=== PATIENT | female | born 1940 | race Caucasian/White ===

== ENCOUNTER 2018-07-26 20:38 | Inpatient (IN) | payer OTHER ==
[2018-07-26 21:52] LABS: Absolute Lymphocytes (CBC) 1.7 K/uL (0.7-4.9); Absolute Monocytes 0.4 K/uL (0.1-1.3); Absolute Neutrophil 6.5 K/uL (1.8-8.0); Basophils % 1.1 % (0-1.3); Eosinophils % 1.6 % (0-4.4); Hematocrit 41.6 % (36.0-45.0); Lymphocytes % 19.1 % (15.3-44.8); MCH 30.6 pg (27.0-35.0); MCV 94.5 fL (80-100); MPV 9.8 fL (7.6-11.3); Monocytes % 4.6 % (3.3-12.3)
[2018-07-26 22:01] LABS: Protime INR 0.97
--- NOTE | 2018-07-26 22:06 | RAD REPORT ---
EXAM DESCRIPTION: CT - Ct Stroke Brain Wo Cont - 07/26/2018 9:56 pm CLINICAL HISTORY: Set headache, slurred speech, history of TIA CLINICAL HISTORY: CT head September 2016 TECHNIQUE: Axial 5 millimeter thick images of the head were obtained without IV contrast. All CT scans are performed using dose optimization technique as appropriate and may include automated exposure control or mA/KV adjustment according to patient size. FINDINGS: No intracranial hemorrhage, mass, or cerebral edema. No acute cortical based infarction. A trophy changes are mild for age. Patient has advanced chronic ischemic change throughout the cerebral hemispheric white matter and extending into thalamus and basal ganglia. Significant brainstem chroni c ischemic change also present. Ventricles are in proportion to volume loss. Visualized portions of the mastoid air cells, paranasal sinuses, and orbits are unremarkable. IMPRESSION: No hemorrhage and no acute cortical based infarction. Mild atrophy and advanced chronic ischemic change. Findings are similar to October 2016. Chronic ischemic changes can mask nonhemorrhagic acute infarction. MR brain followup can be obtained if there is ongoing concern for acute ischemia.
[2018-07-26 22:10] LABS: BUN Blood Urea Nitrogen 14 mg/dL (7-18); Bicarbonate 28 mmol/L (21-32); Glucose Level 146 mg/dL (74-106); Potassium 3.9 mmol/L (3.5-5.1); Sodium Level 143 mmol/L (136-145); Troponin (Emerg Dept Use Only) < 0.02 ng/mL (0.0-0.045)
[2018-07-26] MEDS ORDERED: ACETAMINOPHEN 500 MG TAB ONE (23:40)
[2018-07-26] MEDS ORDERED: NA CHLORIDE 0.9% 1,000 ML IV SCH (23:45)
--- NOTE | 2018-07-26 23:56 | ER ---
Nurse's Notes [facility] Name: Jenny Douglas Age: 77 yrs Sex: Female : 1940 Arrival Date: 07/26/2018 Time: 20:40 Bed 4 Private MD: Diagnosis: Acute Dizziness;Slurred speech Presentation: 07/26 20:45 Presenting complaint: Patient states: "I have had a headache all day, I think a lot of aj1 it is my sinuses" Patient's granddaughter states that when she got home she noticed the patient was slurring her words and putting her shoes on backwards. Reports that patient has had multiple TIAs so she was concerned and brought her to the ER. Reports that symptoms are currently resolved. Speech is clear, electric switch repairer are equal bilaterally, patient moves all extremities with no drift or weakness. She occasionally has to pause to think about what word she is trying to use. Last known normal was 10:30 this morning. Transition of care: patient was not received from another setting of care. Onset of symptoms was July 26, 2018 at 10:30. Risk Assessment: Do you want to hurt yourself or someone else? Patient reports no desire to harm self or others. Initial Sepsis Screen: Does the patient meet any 2 criteria? No. Patient's initial sepsis screen is negative. Does the patient have a suspected source of infection? No. Patient's initial sepsis screen is negative. Care prior to arrival: None. 20:45 Method Of Arrival: Wheelchair aj1 20:45 Acuity: ADRIANNA 3 aj1 21:09 No acute neurological deficit is noted. aj1 21:44 Pre-hospital glucose is not applicable to this patient. ak1 Triage Assessment: 20:45 The onset of the patients symptoms was at an unknown time. General: Appears in no aj1 apparent distress. comfortable, Behavior is calm, cooperative, appropriate for age. Pain: Complains of pain in face. Neuro: Level of Consciousness is awake, alert, obeys commands, Superintendent Recreation are equal bilaterally Moves all extremities. Full function Speech is normal, Facial symmetry appears normal, Reports slurred speech that is now resolved. Cardiovascular: Patient's skin is warm and dry. Respiratory: Airway is patent Respiratory effort is even, unlabored, Respiratory pattern is regular, symmetrical. 21:44 The onset of the patients symptoms was July 26, 2018 at 10:30. ak1 Stroke Activation: Symptom onset > 6 hours Physician: Stroke Attending; Name: ; Notified At: ; Arrived At: Physician: Chief Stroke Resident; Name: ; Notified At: ; Arrived At: Physician: Stroke Resident; Name: ; Notified At: ; Arrived At: Physician: ED Attending; Name: ; Notified At: ; Arrived At: Physician: ED Resident; Name: ; Notified At: ; Arrived At: Historical: - Allergies: 21:03 Zocor; aj1 21:03 Celebrex; aj1 - Home Meds: 21:06 aspirin 325 mg Oral TbEC 1 tab once daily [Active]; hydrochlorothiazide 12.5 mg Oral aj1 cap 1 cap once daily [Active]; Lipitor 80 mg Oral tab 1 tab once daily [Active]; Plavix 75 mg Oral tab 1 tab once daily [Active]; Vitamin B-12 500 mcg Oral TbER [Active]; Vitamin C 500 mg Oral cpER [Active]; zedia [Active]; - PMHx: 21:06 COPD; Myocardial infarction; TIA; Hyperlipidemia; Hypertension; aj1 - PSHx: 21:06 triple bypass; aj1 - Immunization history:: Flu vaccine is not up to date. - Social history:: Smoking status: Patient uses tobacco products, 3 cigarettes per day. - Ebola Screening: : Patient denies travel to an Ebola-affected area in the 21 days before illness onset. - Family history:: not pertinent. - Hospitalizations: : No recent hospitalization is reported. Screenin:44 Abuse screen: Denies threats or abuse. Denies injuries from another. Nutritional ak1 screening: No deficits noted. Tuberculosis screening: No symptoms or risk factors identified. Fall Risk None identified. Assessment: 21:43 Patient has been NPO before screening. The patient is alert, and able to follow ak1 commands. The patient does not exhibit slurred or garbled speech. The patient is not exhibiting difficulty speaking. The patient does not exhibit difficulty understanding words. The patient is able to swallow own secretions with no drooling or need for suction. Patient tolerated one teaspoon of water. No drooling, immediate coughing, gurgling, or clearing of the throat was noted. The patient tolerated 90mL of water. No drooling, immediate coughing, gurgling, or clearing of the throat was noted. The patient passed the bedside swallow screening. Oral medications may be given as ordered. Contact Physician for further diet orders. Provider notified of bedside swallow screening results: Anirudh Dalal MD. T-PA (Activase) Screening: Contraindications: Patient reports onset of signs and symptoms of stroke greater than 6 hours ago: Yes. 22:08 Reassessment: Patient appears in no apparent distress at this time. pt s/s resolved ak1 since arriving to ER. pt ambulatory with steady gait. pt taken and returned from CT. Vital Signs: 20:45 BP 158 / 97; Pulse 76; Resp 18; Temp 97.9; Pulse Ox 98% on R/A; Weight 56.7 kg (R); aj1 Height 5 ft. 7 in. (170.18 cm) (R); 22:09 BP 161 / 61; Pulse 61; Resp 16; Pulse Ox 98% on R/A; ak1 23:57 BP 158 / 58; Pulse 57; Resp 20; Temp 97.9; Pulse Ox 98% on R/A; Pain 0/10; ak1 20:45 Body Mass Index 19.58 (56.70 kg, 170.18 cm) aj1 NIH Stroke Scale Scores: 21:00 NIHSS Score: 0 aj1 ED Course: 20:40 Patient arrived in ED. al2 20:45 Arm band placed on Patient placed in an exam room, Patient Patient was triaged in bed 2.aj1 21:00 Sharifa Leal, RN is Primary Nurse. ak1 21:01 Triage completed. aj1 21:01 Inserted saline lock: 20 gauge in left forearm, using aseptic technique. ak1 21:04 Anirudh Dalal MD is Attending Physician. wa 21:[address] jj2 21:45 Patient has correct armband on for positive identification. Placed in gown. Bed in low ak1 position. Call light in reach. Side rails up X 1. Adult w/ patient. bus monitor on. Pulse ox on. NIBP on. 21:55 CT Stroke Brain w/o Contrast In Process Unspecified. EDMS 22:03 Stroke CXR 1 View In Process Unspecified. EDMS 23:54 Thiago Levi MD is Hospitalizing Provider. wa 07/27 00:45 No provider procedures requiring assistance completed. Patient admitted, IV remains in ak1 place. Administered Medications: 07/26 23:35 Drug: Tylenol 1000 mg Route: PO; jd3 07/27 00:46 Follow up: Response: No adverse reaction ak1 Point of Care Testing: Blood Glucose: 07/26 21:00 Blood Glucose: 157 mg/dL; ak1 Ranges: Outcome: 23:55 Decision to Hospitalize by Provider. mirtha 07/27 00:45 Admitted to Med/surg accompanied by nurse, family with patient, via wheelchair, room ak1 405, with chart, Report called to viridiana Condition: good Instructed on the need for admit. 01:13 Patient left the ED. ak1 NIH Stroke Scale - NIH Stroke Score Date: 07/26/2018 Time: 21:00 Total Score = 0 1a. Level of Consciousness (LOC) - 0(Alert) 1b. Level of Consciousness (LOC) (Year \\T\\ Age) - 0(Both) 1c. LOC Commands (Open \\T\\ Closes Eyes/Oil Rig Driller) - 0(Both) 2. Best Gaze (Lateral Gaze Paresis) - 0(Normal) 3. Visual Field Loss - 0(No visual loss) 4. Facial Palsy - 0(Normal) 5a. Left Arm: Motor (10-second hold) - 0(No drift) 5b. Right Arm: Motor (10-second hold) - 0(No drift) 6a. Left Leg: Motor (5-second hold - always test supine) - 0(No drift) 6b. Right Leg: Motor (5-second hold - always test supine) - 0(No drift) 7. Limb Ataxia (finger/nose \\T\\ heel/amador - test with eyes open) - 0(Absent) 8. Sensory Loss (pinprick arms/legs/face) - 0(Normal) 9. Best Language: Aphasia (description/naming/reading) - 0(No aphasia) 10. Dysarthria (speech clarity - read or repeat words) - 0(Normal) 11. Extinction and Inattention (visual/tactile/auditory/spatial/personal) - 0(No abnormality) Initials: aj1 Signatures: Dispatcher [employer] EDMS Trista Ayala RN RN aj1 Jason Long Amber, RN RN ak1 Mulugeta, Anirudh, MD MD wa Batista, Rayo, RN RN jd3 Love, Mercy al2
--- NOTE | 2018-07-26 23:56 | EDPHYS ---
Physician Documentation [facility] Name: Jenny Douglas Age: 77 yrs Sex: Female : 1940 Arrival Date: 07/26/2018 Time: 20:40 Bed 4 Private MD: ED Physician Anirudh Dalal HPI: 07/27 00:05 This 77 yrs old Female presents to ER via Wheelchair with complaints of wa POSSIBLE STROKE. 00:05 The patient complains of pain to the diffuse. The patient describes the headache as wa aching. Onset: The symptoms/episode began/occurred today, awoke with it. Associated signs and symptoms: Pertinent positives: dizziness, slurred speech. Severity of symptoms: At its worst the pain was mild, in the emergency department the pain is unchanged. Headache History: Denies prior headaches. The symptoms are alleviated by nothing. the symptoms are aggravated by nothing. The patient has experienced a previous episode. The patient has not recently seen a physician. pt states awoke with a mild LICONA. then became dizzy in the AM. daughter came home and noted pt with slurred speech around 3 PM. states pt put on a sock on one foot but put the shoe on the shoe without the sock when getting dressed to come to ER. daughter states symptoms is significantly better in ED from what she saw. Pt admits to LICONA. denies chest pain or sob in ED. h/o "mild stroke" [address] Levi and Di. took a full dose of ASA prior to arrival. admits still smokes cigarettes. Historical: - Allergies: 07/26 21:03 Zocor; aj1 21:03 Celebrex; aj1 - Home Meds: 21:06 aspirin 325 mg Oral TbEC 1 tab once daily [Active]; hydrochlorothiazide 12.5 mg Oral aj1 cap 1 cap once daily [Active]; Lipitor 80 mg Oral tab 1 tab once daily [Active]; Plavix 75 mg Oral tab 1 tab once daily [Active]; Vitamin B-12 500 mcg Oral TbER [Active]; Vitamin C 500 mg Oral cpER [Active]; zedia [Active]; - PMHx: 21:06 COPD; Myocardial infarction; TIA; Hyperlipidemia; Hypertension; aj1 - PSHx: 21:06 triple bypass; aj1 - Immunization history:: Flu vaccine is not up to date. - Social history:: Smoking status: Patient uses tobacco products, 3 cigarettes per day. - Ebola Screening: : Patient denies travel to an Ebola-affected area in the 21 days before illness onset. - Family history:: not pertinent. - Hospitalizations: : No recent hospitalization is reported. ROS: 07/27 00:10 Constitutional: Negative for fever, chills, and weight loss, Eyes: Negative for injury, wa pain, redness, and discharge, ENT: Negative for injury, pain, and discharge, Neck: Negative for injury, pain, and swelling, Cardiovascular: Negative for chest pain, palpitations, and edema, Respiratory: Negative for shortness of breath, cough, wheezing, and pleuritic chest pain, Abdomen/GI: Negative for abdominal pain, nausea, vomiting, diarrhea, and constipation, Back: Negative for injury and pain, : Negative for injury, bleeding, discharge, and swelling, MS/Extremity: Negative for injury and deformity, Skin: Negative for injury, rash, and discoloration, Psych: Negative for depression, anxiety, suicide ideation, homicidal ideation, and hallucinations. Neuro: Positive for dizziness, headache, slurred speech. All other systems are negative. Exam: 00:11 Constitutional: This is a well developed, well nourished patient who is awake, alert, wa and in no acute distress. Head/Face: Normocephalic, atraumatic. Eyes: Pupils equal round and reactive to light, extra-ocular motions intact. Lids and lashes normal. Conjunctiva and sclera are non-icteric and not injected. Cornea within normal limits. Periorbital areas with no swelling, redness, or edema. ENT: Nares patent. No nasal discharge, no septal abnormalities noted. Tympanic membranes are normal and external auditory canals are clear. Oropharynx with no redness, swelling, or masses, exudates, or evidence of obstruction, uvula midline. Mucous membranes moist. Neck: Trachea midline, no thyromegaly or masses palpated, and no cervical lymphadenopathy. Supple, full range of motion without nuchal rigidity, or vertebral point tenderness. No Meningismus. Chest/axilla: Normal chest wall appearance and motion. Nontender with no deformity. No lesions are appreciated. Cardiovascular: Regular rate and rhythm with a normal S1 and S2. No gallops, murmurs, or rubs. Normal PMI, no JVD. No pulse deficits. Respiratory: Lungs have equal breath sounds bilaterally, clear to auscultation and percussion. No rales, rhonchi or wheezes noted. No increased work of breathing, no retractions or nasal flaring. Abdomen/GI: Soft, non-tender, with normal bowel sounds. No distension or tympany. No guarding or rebound. No evidence of tenderness throughout. Back: No spinal tenderness. No costovertebral tenderness. Full range of motion. Skin: Warm, dry with normal turgor. Normal color with no rashes, no lesions, and no evidence of cellulitis. MS/ Extremity: Pulses equal, no cyanosis. Neurovascular intact. Full, normal range of motion. Psych: Awake, alert, with orientation to person, place and time. Behavior, mood, and affect are within normal limits. 00:11 Neuro: Orientation: is normal, Mentation: is normal, Memory: is normal, Cranial nerves: grossly normal, Cerebellar function: normal finger to nose testing, heel to amador testing is normal, able to perform alternating rapid hand movements, Motor: is normal, strength is normal, no slurred speech or difficulty finding words at MD encounter. Vital Signs: 07/26 20:45 BP 158 / 97; Pulse 76; Resp 18; Temp 97.9; Pulse Ox 98% on R/A; Weight 56.7 kg (R); aj1 Height 5 ft. 7 in. (170.18 cm) (R); 22:09 BP 161 / 61; Pulse 61; Resp 16; Pulse Ox 98% on R/A; ak1 23:57 BP 158 / 58; Pulse 57; Resp 20; Temp 97.9; Pulse Ox 98% on R/A; Pain 0/10; ak1 20:45 Body Mass Index 19.58 (56.70 kg, 170.18 cm) aj1 NIH Stroke Scale Scores: 21:00 NIHSS Score: 0 aj1 MDM: 21:04 Patient medically screened. wa 07/27 00:12 Differential diagnosis: cerebral vascular accident, migraine, normal exam. symptoms wa improved per pt and daughter. symptoms concerning for TIA. r/o stroke. will work up, admit for further eval. Data reviewed: vital signs, nurses notes, lab test result(s), EKG, radiologic studies. Test interpretation: by ED physician or midlevel provider: CXR wnl. Head CT: no acute process. chronic ischemic changes noted. EKG: HR 79. LAD. no acute concern for ischemia on EKG findings. Labs noted wnl.. Physician consultation: Thiago Levi MD. 00:15 Response to treatment: pt was essentially asymptomatic except for mild LICONA in ED. given tylenol po with some relief. Physician consultation: Luís Sevilla MD. Admission orders: after a detailed discussion of the patient's condition and case, the admit orders are written by pr. 07/26 21:40 Order name: Troponin (emerg Dept Use Only); Complete Time: 22:52 hi 07/26 21:40 Order name: Basic Metabolic Panel; Complete Time: 22:52 hi 07/26 21:40 Order name: CBC with Diff; Complete Time: 22:52 hi 07/26 21:40 Order name: Protime (+inr); Complete Time: 22:52 hi 07/27 00:09 Order name: CKMB Creatine Kinase [facility] 07/27 00:09 Order name: CKMB Creatine Kinase [facility] 07/26 21:40 Order name: CT Stroke Brain w/o Contrast; Complete Time: 22:52 hi 07/26 21:40 Order name: Stroke CXR 1 View hi 07/27 00:09 Order name: Creatine Phosphokinase [facility] 07/27 00:09 Order name: Creatine Phosphokinase [facility] 07/27 00:09 Order name: Lipid Profile [facility] 07/27 00:09 Order name: Lipid Profile [facility] 07/27 00:09 Order name: Troponin I [facility] 07/27 00:09 Order name: Troponin I [facility] 07/26 21:40 Order name: EKG; Complete Time: 21:41 hi 07/26 21:40 Order name: Accucheck; Complete Time: 21:42 hi 07/26 21:40 Order name: Cardiac monitoring; Complete Time: 21:42 hi 07/26 21:40 Order name: EKG - Nurse/Tech; Complete Time: 21:42 hi 07/26 21:40 Order name: IV Saline Lock; Complete Time: 21:42 hi 07/26 21:40 Order name: Labs collected and sent; Complete Time: 21:42 hi 07/26 21:40 Order name: NPO; Complete Time: 21:42 hi 07/26 21:40 Order name: O2 Sat Monitoring; Complete Time: :42 hi 07/27 00:04 Order name: NPO EDMS 07/27 00:04 Order name: NPO EDMS 07/27 00:09 Order name: NPO EDMS Administered Medications: 07/26 23:35 Drug: Tylenol 1000 mg Route: PO; jd3 07/27 00:46 Follow up: Response: No adverse reaction ak1 Point of Care Testing: Blood Glucose: 07/26 21:00 Blood Glucose: 157 mg/dL; ak1 Ranges: Critical Glucose Levels:Adult <50 mg/dl or >400 mg/dl <40 mg/dl or >180 mg/dl Disposition: 07/26/18 23:55 Hospitalization ordered by Thiago Levi for Inpatient Admission. Preliminary diagnosis are Acute Dizziness, Slurred speech. - Bed requested for Telemetry/MedSurg (Inpatient). - Status is Inpatient Admission. ak1 - Condition is Stable. - Problem is new. - Symptoms have improved. UTI on Admission? No NIH Stroke Scale - NIH Stroke Score Date: 07/26/2018 Time: 21:00 Total Score = 0 1a. Level of Consciousness (LOC) - 0(Alert) 1b. Level of Consciousness (LOC) (Year \\T\\ Age) - 0(Both) 1c. LOC Commands (Open \\T\\ Closes Eyes/Cosmetics Counter Manager) - 0(Both) 2. Best Gaze (Lateral Gaze Paresis) - 0(Normal) 3. Visual Field Loss - 0(No visual loss) 4. Facial Palsy - 0(Normal) 5a. Left Arm: Motor (10-second hold) - 0(No drift) 5b. Right Arm: Motor (10-second hold) - 0(No drift) 6a. Left Leg: Motor (5-second hold - always test supine) - 0(No drift) 6b. Right Leg: Motor (5-second hold - always test supine) - 0(No drift) 7. Limb Ataxia (finger/nose \\T\\ heel/amador - test with eyes open) - 0(Absent) 8. Sensory Loss (pinprick arms/legs/face) - 0(Normal) 9. Best Language: Aphasia (description/naming/reading) - 0(No aphasia) 10. Dysarthria (speech clarity - read or repeat words) - 0(Normal) 11. Extinction and Inattention (visual/tactile/auditory/spatial/personal) - 0(No abnormality) Initials: aj1 Signatures: Dispatcher [employer] Trista Loving, RN RN aj1 Shaina Guevara, RN RN Sharifa Leal RN RN ak1 Anirudh Dalal MD MD wa Davies, Jonathon, RN RN jd3 Corrections: (The following items were deleted from the chart) 07/27 00:13 07/26 23:55 Hospitalization Ordered by Thiago Levi MD for Inpatient Admission. Preliminary diagnosis is Acute Dizziness; Slurred speech. Bed requested for Telemetry/MedSurg (Inpatient). Status is Inpatient Admission. Condition is Stable. Problem is new. Symptoms have improved. UTI on Admission? No. hi 07/27 01:13 00:13 07/26/2018 23:55 Hospitalization Ordered by Thiago Levi MD for ak1 Inpatient Admission. Preliminary diagnosis is Acute Dizziness; Slurred speech. Bed requested for Telemetry/MedSurg (Inpatient). Status is Inpatient Admission. Condition is Stable. Problem is new. Symptoms have improved. UTI on Admission? No. mw
[2018-07-27 01:32] VITALS: O2SAT 98
[2018-07-27 05:37] LABS: CKMB Creatine Kinase MB 1.4 ng/mL (0.3-3.6); Creatine Phosphokinase 86 U/L (26-192); HDL Cholesterol 53 mg/dL (40-60); LDL Cholesterol, Calculated 59 (<130); Troponin I < 0.02 ng/mL (0.0-0.045)
[2018-07-27 06:04] VITALS: BMI 20.9
--- NOTE | 2018-07-27 07:11 | EKG ---
Test Date: 2018-07-26 Test Time: 20:51:19 Circus Agent: KELLIE MEASUREMENT RESULTS: Intervals: Rate: 79 MO: 146 QRSD: 86 QT: 378 QTc: 433 Lenora: P: 72 MO: 146 QRS: -60 T: 62 INTERPRETIVE STATEMENTS: Normal sinus rhythm with sinus arrhythmia Left axis deviation Moderate voltage criteria for LVH, may be normal variant Abnormal ECG Compared to ECG 10/16/2016 07:33:06 No significant changes Electronically Signed On 07-27-18 07:11:17 SEARCH AND RESCUE OFFICER by Christopher Leslie
[2018-07-27] MEDS ORDERED: INFLUENZA VACCINE (for 3y+) 0.5 ML DOSE IMVAC ONE (08:00)
[2018-07-27] MEDS ORDERED: PNEUMOCOCCAL VACCINE 0.5 ML IMVAC ONE (08:00)
--- NOTE | 2018-07-27 08:48 | RAD REPORT ---
EXAM DESCRIPTION: RAD - Chest Single View - 07/26/2018 10:02 pm CLINICAL HISTORY: Slurred speech, stroke-like symptoms COMPARISON: August 2017 TECHNIQUE: AP portable chest image was obtained 2147 hours . FINDINGS: Fibrotic lung changes are present matching the prior study. No superimposed failure or inf iltrate seen. No suspicious mass lesion. Extent of the basilar fibrosis could mask earliest stages of interstitial edema or infiltrate. Heart and vasculature are normal. No measurable pleural effusion and no pneumothorax. No acute bone finding. Prominent degenerative changes are present with right convex scoliotic curvature. No acute a ortic findings suspected. IMPRESSION: Interstitial fibrotic pattern not substantially different from comparison.
--- NOTE | 2018-07-27 15:31 | RAD REPORT ---
EXAM DESCRIPTION: MRI - Brain W/Wo Cont - 07/27/2018 3:10 pm CLINICAL HISTORY: Slurred speech and headaches COMPARISON: July 26, [address] TECHNIQUE: Axial, sagittal, and coronal magnetic resonance images of the brain were obtained. 14 cc Magnevist administered intravenously FINDINGS: Moderate to marked signal within periventricular, deep and subcortical white matter is see n. Mild patchy signal is noted within the brainstem. Increased signal within the right and left thalami and left caudate probably represent old infarcts T he ventricles are normal in caliber. Diffusion-weighted sequences do not demonstrate evidence of an acute infarction. No abnormal enhancement within the brain is seen. An extra-axial fluid collection is not noted. Mild chronic right maxillary sinusitis is present. Mild chronic signal with the right mastoids is not ed IMPRESSION: [id number] signal within periventricular, deep and subcortical white matter like ly indicating ischemic changes secondary to small vessel disease No acute intracranial abnormality is seen
[2018-07-27 16:23] VITALS: BP 180/72; TEMP 98.8
[2018-07-27] MEDS ORDERED: EZETIMIBE 10 MG TAB PO SCH (21:00)
[2018-07-27] MEDS ORDERED: ASPIRIN 325 MG TAB PO SCH (21:00)
[2018-07-27] MEDS ORDERED: ASCORBIC ACID 500 MG TABLET PO SCH (21:00)
[2018-07-27] MEDS ORDERED: CLOPIDOGREL 75 MG TABLET PO SCH (21:00)
[2018-07-27] MEDS ORDERED: hydroCHLOROthiazide 12.5 MG CAP PO SCH (21:00)
[2018-07-27] MEDS ORDERED: ATORVASTATIN 80 MG TAB PO SCH (21:00)
--- NOTE | 2018-07-27 21:51 | CON ---
Consultation called by Dr. Levi because of possible transient ischemic attack or stroke. History Of Present Illness: Ms. Douglas is a 77-year-old right-handed patient who comes to [facility] with episodes of reported acute dizziness and slurred speech. She reports the symptoms began after a fall on the 24 of June while she was at a baseball field watching her gra nddaughter playing baseball. She had felt a little bit dizzy, but in any event she still went to the event and when she got up to get some food from the concession stand, she was able to wait in line a nd after she got her food she started to go back to the stand and, at that point, she felt very dizzy and reportedly her legs gave out and she fell. She fell straight on her face, without protecting he rself with her arms and she actually cut her forehead, broke her nose with 3 fractures, and was taken to [facility] where she had stitches on her forehead; she required [address] scan was negat glenys for any intracranial bleed. Since that time, she has noted some episodes of what she reports is dizziness where things may seem to spin briefly about her, also episodes where her words may not come out clearly and she may feel somewhat disoriented, but is briefly. When she came to [facility], those symptoms actually had resolved by the time she had come in and the evaluation of an NIH S troke Scale was 0. Her head CT scan showed moderate to marked small-vessel ischemic disease. Subseq uent brain MRI showed the same finding, with moderate to marked small-vessel ischemic disease. No ac [place] ischemic or hemorrhagic change. Electrocardiogram showed normal sinus rhythm with left axis michael ation. Blood work showed essentially normal complete blood count with differential, normal coagulati on panel, and electrolytes remarkable for her glucose being slightly elevated to 156, calcium was nor mal, CK-MB normal. Cholesterol panel showed an HDL of 53 and an LDL at 59, cholesterol to HDL ratio was 2.32. She did take aspirin 325 mg prior to coming to the hospital and is also on Plavix 75 mg. Past Medical History: Chronic obstructive pulmonary disease, myocardial infarction, transient ischem ic attack, dyslipidemia, hypertension. Past Surgical History: Three-vessel cardiac bypass. Allergies: ZOCOR, CELEBREX. Medications At Home: Aspirin 325 mg daily, hydrochlorothiazide 12.5 mg daily, Lipitor 80 mg daily, P lavix 75 mg daily, B12 500 mcg daily, vitamin C 500 mg daily. Family History: Noncontributory. Social History: No alcohol, tobacco, or IV drug use. Review of Systems: She denies any recent fevers, chills, nausea, vomiting, myalgias, arthralgias, headache, weight lagunas e, rash, psychiatric complaints, gastrointestinal issues, or genitourinary complaints. Physical Examination: Vital Signs: Blood pressure 139/64, pulse 89, respiratory rate 18, temperature 98. It should be not ed that the repeat blood pressure was 180/72 and the patient believes that her bounding blood pressur es may be playing a role in her symptoms. Her highest blood pressure since coming in is a systolic o f 180. Ms. Douglas is resting comfortably in bed. She has healing stitches on the forehead and bruising o n the bridge of her nose; it is mostly resolved. She is otherwise normocephalic and atraumatic. Scl erae anicteric. Oropharynx is moist and pink. Neck: Supple. Chest: Clear. Heart: Regular. Extremities: Show no edema or cyanosis. Neurologic: She is alert and oriented to situation, place, and person. Follows all commands appropr iately. Her cranial nerve examination revealed no focal deficits. Motor Examination: The arms and legs show 5/5 strength proximally and distally. Sensory Exam: Intact in upper and lower extremities . Reflexes are 1 to 2+ in the upper and lower extremities and symmetric. Coordination intact in the upper and lower extremities. Gait: She has good stance and stride. Assessment: Ms. Douglas is a 77-year-old patient with possible transient ischemic attacks. Howeve r, she has also had a fall which may be a contributing factor to transient vertigo due to vestibular system disruption. She is on aspirin high dose and Plavix, which may potentially increase the risk o f gastrointestinal bleeds or excessive bleeding internally if she has a severe impact. Plan: 1.May adjust aspirin 81 mg along with Plavix 75 mg and folate 1 mg for stroke risk reduction. 2.Continue with high-dose statin. 3.Continue with JUAN inhibitor. 4.The patient was instructed on the importance of making a log or diary of any presyncopal or near s yncopal episodes, and at time of followup in clinic in 1 month may consider EEG to rule out possibili ty of an active epileptiform focus. At this point, she may be discharged home and follow up in Dr. Emily vizcarra's clinic in 1 month. MADHU Voice ID: [id number] Report ID: [id number]
--- NOTE | 2018-07-28 02:55 | HP ---
Date of Admission: 07/26/2018 Chief Complaint: Speech difficulties. History Of Present Illness: The patient states she was well until she woke up the day of admission. She noticed some minimal tingling in her arm and some speech deficit. As the day progressed, her fa leti noticed increasing speech deficit. The patient also stated she had a headache, which has gradua lly gotten worse over her frontal area and some nausea. Coordination was okay. She felt that maybe her migraines, which she has had numerous in the past; however, due to the persistent speech problem and some of the arm symptoms, decided to bring her to the emergency room for further evaluation. Past History: The patient has had similar presentation as the above diagnosis of TIA at least 2 time s over the last few years extensively worked up both here and at [facility] [place] reveals sig nificant vascular changes in the brain, otherwise negative. The patient also has history of coronary artery disease with procedures. She has been under good control and lung changes on x-ray, which cordova ve been stable and she uses an inhaler on as necessary basis. Family History: Noncontributory. Social History: The patient continues to smoke. No alcohol. Physical Examination: General: The patient is an orientated with stable vital signs, elderly female. Head And Neck: Normocephalic. Eyes: Pupils equal, react to accommodation. Fundi negative. Trachea midline. Thyroid not palpable . ENT: Negative. Chest: Occasional rales and rhonchi bilaterally in bases. Adequate air entry and movement. Cardiovascular: PMI in midclavicular line. Heart sounds normal. Peripheral pulses are present and equal bilaterally. Abdomen: No organomegaly. Bowel sounds present. Extremities: Good tone and movement. Bilateral reflexes physiologic. Rectal And Pelvic: Deferred. Impression: Transient ischemic attack, possible vascular headache, coronary artery disease by histor y. Plan: The patient will be admitted, placed on telemetry. Stroke workup will be instituted as well a s consultation with a neurologist, Dr. Sevilla, whom she had not seen, she feels, over the past few years; however, he was involved in her care when she did have TIA in the past. HR/MODL Voice ID: [id number]
--- NOTE | 2018-07-28 02:55 | PN ---
Date of Progress Note: 07/27/2018 This afternoon, the patient feels much better. It should be noted that by the time she was in the ER , her speech had returned to normal. Neurological exam this afternoon was in normal limits. Deejay g an MRI later in the day. If negative, I feel she could be discharged to continue on her usual medi cation. She states she definitely takes her medicine including her aspirin and Plavix on nightly bas is where she was encouraged to discontinue the smoking, which she also has done in the past; however, it has been a recurrent problem and she presently is smoking. HR/MODL Voice ID: [id number] Report ID: [id number]
--- NOTE | 2018-08-01 14:30 | EEG ---
CHART: [id number] TEST ID#: [id number] DATE OF STUDY: 07/27/2018 THE EEG WAS RECORDED PORTABLE IN THE PATIENTS ROOM ON A 17 CHANNEL MACHINE. ELECTRODES WERE APPLIED IN THE USUAL MANNER USING THE INTERNATIONAL 10-20 SYSTEM. THE WAKING BACKGROUND RHYTHM IN THIS RECORD CONSISTS OF FAIRLY WELL DEVELOPED AND FAIRLY WELL ORGANIZED WAVES OF 9 HZ., MAXIMAL IN THE POSTERIOR HEAD REGIONS WHICH ATTENUATE NORMALLY WITH EYE OPENING. THERE ARE NO FOCAL OR LATERALIZING FEATURES. NO EPILEPTIFORM ACTIVITY APPEARS. SLEEP DID NOT OCCUR. HYPERVENTILATION WAS NOT PREFORMED. PHOTIC STIMULATION PRODUCED FAIR DRIVING BILATERALLY. IMPRESSION: NORMAL EEG FOR THE AGE OF PATIENT IN [place].
== END 2018-07-27 17:30 | disposition home or self-care (01) | DRG 69 ==
LOC: ER 20:38 → ERHOLD 23:56 → 4TH 07-27 00:45
PROVIDERS: ADMIT Family Medicine; ATTEND Family Medicine
DX: G45.9 Transient cerebral ischemic attack, unspecified (principal); J44.9 Chronic obstructive pulmonary disease, unspecified; I25.2 Old myocardial infarction; E78.5 Hyperlipidemia, unspecified; I10 Essential (primary) hypertension; I25.10 Atherosclerotic heart disease of native coronary artery without angina pectoris; Z95.1 Presence of aortocoronary bypass graft; Z79.02 Long term (current) use of antithrombotics/antiplatelets; Z79.82 Long term (current) use of aspirin; F17.210 Nicotine dependence, cigarettes, uncomplicated
CPT/HCPCS: 36415; 70450; 70553; 71045; 80048; 80061; 82550; 82553; 82962; 84484; 85025; 85610; 93005; 95816; 99285; A9577; J7030

== ENCOUNTER 2018-10-30 19:12 | Emergency (ER) | payer OTHER ==
--- NOTE | 2018-10-30 20:33 | RAD REPORT ---
EXAM DESCRIPTION: CT - Head C Spine Cap Wo Con - 10/30/2018 8:07 pm CLINICAL HISTORY: Trauma, head and neck injury. Chest, abdomen and pelvis pain. PAIN COMPARISON: Ct Stroke Brain Wo Cont dated 07/26/2018; Ct Stroke Brain Wo Cont dated 10/16/2016; CT-STR PAULINO BRAIN W/O CONTRAST dated 07/08/2014; CTABD PELVIS W CONTRAST dated 10/28/2004 TECHNIQUE: CT head without contrast. CT cervical spine without contrast with coronal and sagittal reformatted images. CT chest, abdomen and pelvis without contrast with coronal and sagittal reformatted images of the [facility]. All CT scans are performed using dose optimization technique as appropriate and may include automated exposure control or mA/KV adjustment according to patient size. FINDINGS: CT HEAD WITHOUT CONTRAST: No intracranial hemorrhage, hydrocephalus or extra-axial fluid collection. Mild generalized brain atr ophy is present with advanced periventricular and deep white matter chronic microvascular ischemic ch anges. No areas of brain edema or midline shift. Mild chronic sinus changes involving the right maxillary antrum. The calvarium is intact. CT CERVICAL SPINE WITHOUT CONTRAST: No fracture or subluxation. Mild lower cervical degenerative changes. The prevertebral soft tissues a re normal in thickness. CT CHEST, ABDOMEN, PELVIS WITHOUT CONTRAST: NOTE: Lack of contrast is a significant limitation in the assessment of trauma related findings. Spec ifically, solid organ, vascular and bowel evaluation is significantly limited. Linear subsegmental atelectasis is present in the medial left lung base. The lungs are moderately emp hysematous.No pneumothorax or pericardial/pleural fluid. No evidence of intra-abdominal visceral injury, free fluid or free air is seen within the above detai led limitations. A large 5.0 x 4.8 cm right adrenal mass is present containing dystrophic calcifications. Sigmoid diverticulosis coli is present without diverticulitis. A significant volume of stool is prese nt retained in the colon. 4 cm infrarenal abdominal aortic aneurysm is present. S-shaped thoracolumbar scoliosis is present. No acute fractures demonstrated. IMPRESSION: Negative for acute traumatic findings within the above detailed limitations. Large 5 cm right adrenal mass warrants followup nonemergent assessment with MR adrenal protocol with contrast.
--- NOTE | 2018-10-30 21:13 | ER ---
Nurse's Notes [facility] Name: Jenny Douglas Age: 77 yrs Sex: Female : 1940 Arrival Date: 10/30/2018 Time: 19:18 Bed 26 Private MD: Thiago Levi Diagnosis: Abrasion of hand Presentation: 10/30 19:29 Presenting complaint: Patient states: fall from standing yesterday. pt denies LOC, ak1 denies N/v. pt c/o lower back pain. pain and bruising to right upper arm, right palm and right knee. Transition of care: patient was not received from another setting of care. Onset of symptoms was October 29, 2018. Risk Assessment: Do you want to hurt yourself or someone else? Patient reports no desire to harm self or others. Initial Sepsis Screen: Does the patient meet any 2 criteria? No. Patient's initial sepsis screen is negative. Does the patient have a suspected source of infection? No. Patient's initial sepsis screen is negative. Care prior to arrival: None. 19:29 Method Of Arrival: Ambulatory ak1 19:29 Acuity: ADRIANNA 3 ak1 19:31 Mechanism of Injury: Fall from standing position. an unknown distance. Trauma event ak1 details: Injury occurred in the [facility], Injury occurred: at home. Injury occurred: October 29, 2018. Triage Assessment: 19:31 General: Appears in no apparent distress. Behavior is calm, cooperative, anxious. ak1 Trauma Activation: Alert Physician: ED Physician; Name: dr. carreon; Notified At: 19:30; Arrived At: 19:30 Physician: General Surgeon; Name: ; Notified At: 19:30; Arrived At: Physician: Radiology; Name: ; Notified At: 19:30; Arrived At: Physician: Respiratory; Name: ; Notified At: 19:30; Arrived At: Physician: Lab; Name: ; Notified At: 19:30; Arrived At: Historical: - Allergies: 19:31 Celebrex; ak1 19:31 Zocor; ak1 - Home Meds: 19:31 aspirin 325 mg Oral TbEC 1 tab once daily [Active]; hydrochlorothiazide 12.5 mg Oral ak1 cap 1 cap once daily [Active]; Lipitor 80 mg Oral tab 1 tab once daily [Active]; Plavix 75 mg Oral tab 1 tab once daily [Active]; Vitamin B-12 500 mcg Oral TbER [Active]; zedia [Active]; Vitamin C 500 mg Oral cpER [Active]; - PMHx: 19:31 COPD; Hyperlipidemia; Hypertension; Myocardial infarction; TIA; ak1 - PSHx: 19:31 triple bypass; ak1 - Immunization history:: Adult Immunizations unknown. - Social history:: Smoking status: unknown Patient/guardian denies using alcohol, street drugs, The patient lives with family. - Immunization history: Last tetanus immunization: unknown. - Ebola Screening: : No symptoms or risks identified at this time. - Family history:: not pertinent. - Hospitalizations: : No recent hospitalization is reported. Screenin:33 Abuse screen: Denies threats or abuse. Denies injuries from another. Tuberculosis ak1 screening: No symptoms or risk factors identified. 19:47 Nutritional screening: No deficits noted. Fall Risk Fall in past 12 months (25 points). tl3 Primary Survey: 19:31 NO uncontrolled hemorrhage observed. A: The patient is alert. Airway: patent. ak1 Breathing/Chest: Respiratory pattern: regular, Respiratory effort: spontaneous, unlabored. 20:04 Circulation: Cardiac rhythm: sinus rhythm Heart tones present. Skin color: pink, Skin tl3 temperature: warm. Disability Alert. Exposure/Environment: All clothing and personal items were removed. Forensic evidence collection is not deemed to be indicated at this time. Items placed in patient belonging bag. There is no evidence of uncontrolled external bleeding. No obvious injuries are noted at this time. Reassessment Breathing/Chest. Secondary Survey: 20:03 HEENT: No deficits noted. Gastrointestinal: No deficits noted. : No deficits noted. tl3 Musculoskeletal: No deficits noted. Assessment: 19:31 Pain: Complains of pain in right hand and right leg, lower back, right upper arm. ak1 19:47 General: Appears in no apparent distress. comfortable, slender, well groomed, well tl3 developed, well nourished, Behavior is calm, cooperative, appropriate for age. Pain: Complains of pain in lower back. Neuro: Level of Consciousness is awake, alert, obeys commands, Oriented to person, place, time, situation, Appropriate for age. Cardiovascular: Patient's skin is warm and dry. Respiratory: Airway is patent Respiratory effort is even, unlabored, Respiratory pattern is regular, symmetrical. GI: No signs and/or symptoms were reported involving the gastrointestinal system. : No signs and/or symptoms were reported regarding the genitourinary system. EENT: No signs and/or symptoms were reported regarding the EENT system. Derm: No signs and/or symptoms reported regarding the dermatologic system. Musculoskeletal: Range of motion: intact in all extremities. Injury Description: fell off curb, bruising to palm of right hand, pain to lower back, no bruising noted. 21:22 Reassessment: Patient appears in no apparent distress at this time. No changes from tl3 previously documented assessment. Patient and/or family updated on plan of care and expected duration. Pain level reassessed. Patient is alert, oriented x 3, equal unlabored respirations, skin warm/dry/pink. Vital Signs: 19:29 BP 107 / 67; Pulse 77; Resp 18; Temp 98.2; Pulse Ox 96% on R/A; Weight 60.33 kg (R); ak1 Height 5 ft. 7 in. (170.18 cm) (R); Pain 6/10; 19:47 BP 121 / 67; Pulse 67; Resp 18; Pulse Ox 97% on R/A; tl3 21:22 BP 115 / 52; Pulse 55; Resp 16; Pulse Ox 97% on R/A; tl3 19:29 Body Mass Index 20.83 (60.33 kg, 170.18 cm) ak1 Adams Coma Score: 19:33 Eye Response: spontaneous(4). Verbal Response: oriented(5). Motor Response: obeys ak1 commands(6). Total: 15. Trauma Score (Adult): 19:33 Eye Response: spontaneous(1); Verbal Response: oriented(1); Motor Response: obeys ak1 commands(2); Systolic BP: > 89 mm Hg(4); Respiratory Rate: 10 to 29 per min(4); Niraj Score: 15; Trauma Score: 12 19:33 Eye Response: spontaneous(1); Verbal Response: oriented(1); Motor Response: obeys ak1 commands(2); Systolic BP: > 89 mm Hg(4); Respiratory Rate: 10 to 29 per min(4); Niraj Score: 15; Trauma Score: 12 ED Course: 19:18 Patient arrived in ED. dl4 19:18 Thiago Levi MD is Private Physician. dl4 19:30 Triage completed. ak1 19:33 Patient has correct armband on for positive identification. ak1 19:33 Patient maintains SpO2 saturation greater than 95% on room air. ak1 19:40 Poncho Jarquin MD is Attending Physician. ma2 19:40 Damon Veliz, RN is Primary Nurse. mg2 19:47 No provider procedures requiring assistance completed. tl3 19:[address] via stretcher. vm2 20:04 Arm band placed on left wrist. tl3 20:05 Thermoregulation: pt did not want a blanket. tl3 20:07 CT completed. Patient tolerated procedure well. Patient moved back from CT. vm2 20:08 CT Traumagram (Head C Spine CAP wo con) In Process Unspecified. EDMS 21:22 Patient did not have IV access during this emergency room visit. tl3 Administered Medications: No medications were administered Intake: 21:24 PO: 0ml; Total: 0ml. tl3 Outcome: 21:13 Discharge ordered by . ma2 21:22 Discharged to home ambulatory. tl3 21:22 Condition: stable 21:22 Discharge instructions given to patient, family, Instructed on discharge instructions, follow up and referral plans. Demonstrated understanding of instructions, follow-up care. 21:24 Patient's length of stay was not longer than 2 hours. tl3 21:24 Patient left the ED. tl3 Signatures: Dispatcher [employer] EDMS Sharifa Leal RN RN ak1 Cheryl Stafford 2 Poncho Jarquin MD MD ma2 Lowrey, Tammy, RN RN tl3 Damon Veliz, RAMONA RN mg2 Fausto Thakkar dl4 Corrections: (The following items were deleted from the chart) 19:37 19:29 Acuity: ADRIANNA 4 ak1 ak1
--- NOTE | 2018-10-30 21:13 | EDPHYS ---
Physician Documentation [facility] Name: Jenny Douglas Age: 77 yrs Sex: Female : 1940 Arrival Date: 10/30/2018 Time: 19:18 Bed 26 Private MD: Thiago Levi ED Physician Poncho Jarquin HPI: 10/30 19:48 This 77 yrs old Female presents to ER via Ambulatory with complaints of Fall ma2 Injury. 19:48 Details of fall: The patient fell from a supine position. Onset: The symptoms/episode ma2 began/occurred suddenly, 1 day(s) ago. Severity of symptoms: At their worst the symptoms were mild, in the emergency department the symptoms are unchanged. The patient has not experienced similar symptoms in the past. tripped and fell . Historical: - Allergies: 19:31 Celebrex; ak1 19:31 Zocor; ak1 - Home Meds: 19:31 aspirin 325 mg Oral TbEC 1 tab once daily [Active]; hydrochlorothiazide 12.5 mg Oral ak1 cap 1 cap once daily [Active]; Lipitor 80 mg Oral tab 1 tab once daily [Active]; Plavix 75 mg Oral tab 1 tab once daily [Active]; Vitamin B-12 500 mcg Oral TbER [Active]; zedia [Active]; Vitamin C 500 mg Oral cpER [Active]; - PMHx: 19:31 COPD; Hyperlipidemia; Hypertension; Myocardial infarction; TIA; ak1 - PSHx: 19:31 triple bypass; ak1 - Immunization history:: Adult Immunizations unknown. - Social history:: Smoking status: unknown Patient/guardian denies using alcohol, street drugs, The patient lives with family. - Immunization history: Last tetanus immunization: unknown. - Ebola Screening: : No symptoms or risks identified at this time. - Family history:: not pertinent. - Hospitalizations: : No recent hospitalization is reported. ROS: 19:48 Constitutional: Negative for fever, chills, and weight loss, Neck: Negative for injury, ma2 pain, and swelling, Cardiovascular: Negative for chest pain, palpitations, and edema, Respiratory: Negative for shortness of breath, cough, wheezing, and pleuritic chest pain, Abdomen/GI: Negative for abdominal pain, nausea, diarrhea, and constipation, Neuro: Negative for headache, weakness, numbness, tingling, and seizure, Psych: Negative for depression, anxiety, suicide ideation, homicidal ideation, and hallucinations. 19:48 Back: Positive for pain at rest, pain with movement, Negative for decreased range of motion, acute changes. 19:48 MS/extremity: Positive for contusion, Negative for deformity, laceration, rash, tenderness. 19:48 All other systems are negative. Exam: 19:48 Constitutional: This is a well developed, well nourished patient who is awake, alert, ma2 and in no acute distress. Head/Face: Normocephalic, atraumatic. Eyes: Pupils equal round and reactive to light, extra-ocular motions intact. Lids and lashes normal. Conjunctiva and sclera are non-icteric and not injected. Cornea within normal limits. Periorbital areas with no swelling, redness, or edema. Chest/axilla: Normal chest wall appearance and motion. Nontender with no deformity. No lesions are appreciated. Cardiovascular: Regular rate and rhythm with a normal S1 and S2. No gallops, murmurs, or rubs. Normal PMI, no JVD. No pulse deficits. Respiratory: Lungs have equal breath sounds bilaterally, clear to auscultation and percussion. No rales, rhonchi or wheezes noted. No increased work of breathing, no retractions or nasal flaring. Abdomen/GI: Soft, non-tender, with normal bowel sounds. No distension or tympany. No guarding or rebound. No evidence of tenderness throughout. 19:48 Back: pain, that is mild, ROM is normal, vertebral tenderness, is appreciated at T11 and T12. 19:48 Musculoskeletal/extremity: Extremities: grossly normal except: ROM: intact in all extremities, Pulses: Sensation intact. has bruises on right hand however able to range all joints all over . Vital Signs: 19:29 BP 107 / 67; Pulse 77; Resp 18; Temp 98.2; Pulse Ox 96% on R/A; Weight 60.33 kg (R); ak1 Height 5 ft. 7 in. (170.18 cm) (R); Pain 6/10; 19:47 BP 121 / 67; Pulse 67; Resp 18; Pulse Ox 97% on R/A; tl3 21:22 BP 115 / 52; Pulse 55; Resp 16; Pulse Ox 97% on R/A; tl3 19:29 Body Mass Index 20.83 (60.33 kg, 170.18 cm) ak1 [place] Coma Score: 19:33 Eye Response: spontaneous(4). Verbal Response: oriented(5). Motor Response: obeys ak1 commands(6). Total: 15. Trauma Score (Adult): 19:33 Eye Response: spontaneous(1); Verbal Response: oriented(1); Motor Response: obeys ak1 commands(2); Systolic BP: > 89 mm Hg(4); Respiratory Rate: 10 to 29 per min(4); [place] Score: 15; Trauma Score: 12 19:33 Eye Response: spontaneous(1); Verbal Response: oriented(1); Motor Response: obeys ak1 commands(2); Systolic BP: > 89 mm Hg(4); Respiratory Rate: 10 to 29 per min(4); [place] Score: 15; Trauma Score: 12 MDM: 19:40 Patient medically screened. [facility] 19:48 Differential diagnosis: abrasion, contusion, fracture, sprain, strain. [facility] 21:12 Data reviewed: vital signs, nurses notes. Counseling: I had a detailed discussion with [facility] the patient and/or guardian regarding: the historical points, exam findings, and any diagnostic results supporting the discharge/admit diagnosis, the presence of at least one elevated blood pressure reading (>120/80) during this emergency department visit, the need for outpatient follow up. 10/30 19:48 Order name: CT Traumagram (Head C Spine CAP wo con); Complete Time: 20:50 [facility] Administered Medications: No medications were administered Disposition: 10/30/18 21:13 Discharged to Home. Impression: Abrasion of hand. - Condition is Stable. - Discharge Instructions: Fall Prevention in the Home. - Medication Reconciliation Form, Thank You Letter, Antibiotic Education, Prescription Opioid Use form. - Follow up: Private Physician; When: Tomorrow; Reason: Continuance of care. Signatures: Dispatcher [employer] EDMS Sharifa Leal RN RN ak1 Poncho Jarquin MD MD ma2 Mariah Rose RN RN tl3 Corrections: (The following items were deleted from the chart) 21:24 21:13 10/30/2018 21:13 Discharged to Home. Impression: Abrasion of hand. Condition is tl3 Stable. Forms are Medication Reconciliation Form, Thank You Letter, Antibiotic Education, Prescription Opioid Use. Follow up: Private Physician; When: Tomorrow; Reason: Continuance of care. ma2
[2018-10-30 22:12] VITALS: TEMP 98.2
[2018-10-30 22:19] VITALS: O2SAT 97
[2018-10-30 22:20] VITALS: BP 115/52
== END 2018-10-30 21:24 | disposition home or self-care (01) ==
LOC: ER 19:12
DX: S60.519A Abrasion of unspecified hand, initial encounter (principal); W01.0XXA Fall on same level from slipping, tripping and stumbling without subsequent striking against object, initial encounter; Y93.9 Activity, unspecified; Y92.9 Unspecified place or not applicable; Z79.01 Long term (current) use of anticoagulants; Z79.82 Long term (current) use of aspirin; Z88.8 Allergy status to other drugs, medicaments and biological substances; I10 Essential (primary) hypertension; E78.5 Hyperlipidemia, unspecified; J44.9 Chronic obstructive pulmonary disease, unspecified; I25.2 Old myocardial infarction
CPT/HCPCS: 70450; 71250; 72125; 99284

== ENCOUNTER 2019-01-02 12:48 | Emergency (ER) | payer OTHER ==
--- NOTE | 2019-01-02 14:05 | ER ---
Nurse's Notes [facility] Name: Jenny Douglas Age: 78 yrs Sex: Female : 1940 Arrival Date: 01/02/2019 Time: 12:49 Bed 12 Private MD: Thiago Levi Diagnosis: Rash and other nonspecific skin eruption Presentation: 01/02 13:06 Presenting complaint: Patient states: i had rash all over me , its started 4 days ago, hj L arm, neck, back area; denies fever and chills;. Transition of care: patient was not received from another setting of care. Onset of symptoms was January 02, 2019. Risk Assessment: Do you want to hurt yourself or someone else? Patient reports no desire to harm self or others. Initial Sepsis Screen: Does the patient meet any 2 criteria? No. Patient's initial sepsis screen is negative. Does the patient have a suspected source of infection? No. Patient's initial sepsis screen is negative. Care prior to arrival: None. 13:06 Method Of Arrival: Ambulatory 13:06 Acuity: ADRIANNA 4 hj Triage Assessment: 14:22 General: Appears in no apparent distress. Behavior is calm. iw Historical: - Allergies: 13:07 Celebrex; hj 13:07 Zocor; hj - PMHx: 13:07 COPD; Hyperlipidemia; Hypertension; Myocardial infarction; TIA; hj - PSHx: 13:07 triple bypass; hj - Immunization history:: Adult Immunizations unknown. - Social history:: Smoking status: unknown. - Ebola Screening: : Patient negative for fever greater than or equal to 101.5 degrees Fahrenheit, and additional compatible Ebola Virus Disease symptoms Patient denies exposure to infectious person Patient denies travel to an Ebola-affected area in the 21 days before illness onset No symptoms or risks identified at this time. Screenin:22 Abuse screen: Denies threats or abuse. Denies injuries from another. Nutritional iw screening: No deficits noted. Tuberculosis screening: No symptoms or risk factors identified. Fall Risk None identified. Assessment: 13:50 General: Appears in no apparent distress. comfortable, Behavior is calm, cooperative. iw Pain: Denies pain. Neuro: Level of Consciousness is awake, alert, obeys commands. Cardiovascular: Patient's skin is warm and dry. Respiratory: Respiratory effort is even, unlabored. GI: No signs and/or symptoms were reported involving the gastrointestinal system. Derm: Skin is fragile, is thin, Rash noted that is itchy, on left arm and right arm. Musculoskeletal: Range of motion: intact in all extremities. Vital Signs: 13:07 BP 111 / 59; Pulse 82; Resp 18; Temp 98.7(O); Pulse Ox 100% on R/A; Weight 56.7 kg; hj Height 5 ft. 7 in. (170.18 cm); Pain 0/10; 13:07 Body Mass Index 19.58 (56.70 kg, 170.18 cm) hj ED Course: 12:49 Patient arrived in ED. as 12:50 Thiago Levi MD is Private Physician. as 13:07 Triage completed. hj 13:09 Arm band placed on left wrist. hj 13:30 Patient has correct armband on for positive identification. iw 13:55 Isis Martinez FNP-C is [facility]. kb 13:55 Reynaldo Hector MD is Attending Physician. kb 14:10 Vonnie Brantley, RN is Primary Nurse. iw 14:23 No provider procedures requiring assistance completed. Patient did not have IV access iw during this emergency room visit. Administered Medications: 14:20 Drug: Pepcid 20 mg Route: PO; iw 14:20 Drug: predniSONE 40 mg Route: PO; iw Outcome: 14:04 Discharge ordered by MD. kb 14:23 Discharged to home ambulatory. iw 14:23 Condition: good 14:23 Discharge instructions given to patient, Instructed on discharge instructions, follow up and referral plans. medication usage, Demonstrated understanding of instructions, follow-up care, medications, Prescriptions given X 2. 14:24 Patient left the ED. iw Signatures: Isis Martinez FNP-C FNP-Lori Forde as Vonnie Brantley RN RN iw Manuel Levy RN RN Corrections: (The following items were deleted from the chart) 13:09 13:07 Pulse 82bpm; Resp 18bpm; Pulse Ox 100% RA; Temp 98.7F Oral; 56.7 kg; Height 5 ft. hj 7 in.; BMI: 19.5; Pain 0/10; hj
--- NOTE | 2019-01-02 14:06 | EDPHYS ---
Physician Documentation [facility] Name: Jenny Douglas Age: 78 yrs Sex: Female : 1940 Arrival Date: 01/02/2019 Time: 12:49 Bed 12 Private MD: Thiago Levi ED Physician Reynaldo Hector HPI: 01/02 14:02 This 78 yrs old Female presents to ER via Ambulatory with complaints of Rash. kb 14:02 The patient's rash thought to be caused by an unknown cause. The rash is located on the kb right arm and left arm. The rash can be described as erythematous. 14:03 Onset: The symptoms/episode began/occurred 4 day(s) ago. Associated signs and symptoms: kb Pertinent positives: itching, Pertinent negatives: burning sensation, difficulty breathing, fever. Severity of symptoms: At their worst the symptoms were moderate in the emergency department the symptoms are unchanged. Treatment given at home: Benadryl. The patient has not experienced similar symptoms in the past. The patient has not recently seen a physician. Historical: - Allergies: 13:07 Celebrex; hj 13:07 Zocor; hj - PMHx: 13:07 COPD; Hyperlipidemia; Hypertension; Myocardial infarction; TIA; hj - PSHx: 13:07 triple bypass; hj - Immunization history:: Adult Immunizations unknown. - Social history:: Smoking status: unknown. - Ebola Screening: : Patient negative for fever greater than or equal to 101.5 degrees Fahrenheit, and additional compatible Ebola Virus Disease symptoms Patient denies exposure to infectious person Patient denies travel to an Ebola-affected area in the 21 days before illness onset No symptoms or risks identified at this time. ROS: 14:03 Constitutional: Negative for fever, chills, and weight loss, Cardiovascular: Negative kb for chest pain, palpitations, and edema, Respiratory: Negative for shortness of breath, cough, wheezing, and pleuritic chest pain, Abdomen/GI: Negative for abdominal pain, nausea, vomiting, diarrhea, and constipation, MS/Extremity: Negative for injury and deformity, Neuro: Negative for headache, weakness, numbness, tingling, and seizure. 14:03 Skin: Positive for rash, of the left arm and right arm. Exam: 14:03 Constitutional: This is a well developed, well nourished patient who is awake, alert, kb and in no acute distress. Head/Face: Normocephalic, atraumatic. Chest/axilla: Normal chest wall appearance and motion. Nontender with no deformity. No lesions are appreciated. Cardiovascular: Regular rate and rhythm with a normal S1 and S2. No gallops, murmurs, or rubs. Normal PMI, no JVD. No pulse deficits. Respiratory: Lungs have equal breath sounds bilaterally, clear to auscultation and percussion. No rales, rhonchi or wheezes noted. No increased work of breathing, no retractions or nasal flaring. Abdomen/GI: Soft, non-tender, with normal bowel sounds. No distension or tympany. No guarding or rebound. No evidence of tenderness throughout. MS/ Extremity: Pulses equal, no cyanosis. Neurovascular intact. Full, normal range of motion. Neuro: Awake and alert, GCS 15, oriented to person, place, time, and situation. Cranial nerves II-XII grossly intact. Motor strength 5/5 in all extremities. Sensory grossly intact. Cerebellar exam normal. Normal gait. 14:03 Skin: consistent with contact dermatitis, on the left arm and right arm. Vital Signs: 13:07 BP 111 / 59; Pulse 82; Resp 18; Temp 98.7(O); Pulse Ox 100% on R/A; Weight 56.7 kg; hj Height 5 ft. 7 in. (170.18 cm); Pain 0/10; 13:07 Body Mass Index 19.58 (56.70 kg, 170.18 cm) hj MDM: 13:55 Patient medically screened. kb 13:59 Data reviewed: vital signs, nurses notes. Data interpreted: Pulse oximetry: on room air kb is 100 %. Interpretation: normal. Counseling: I had a detailed discussion with the patient and/or guardian regarding: the historical points, exam findings, and any diagnostic results supporting the discharge/admit diagnosis, the need for outpatient follow up, a family practitioner, to return to the emergency department if symptoms worsen or persist or if there are any questions or concerns that arise at home. Administered Medications: 14:20 Drug: Pepcid 20 mg Route: PO; iw 14:20 Drug: predniSONE 40 mg Route: PO; iw Disposition: 15:53 Co-signature as Attending Physician, Reynaldo Hector MD I agree with the assessment and demetrius plan of care. Disposition: 01/02/19 14:04 Discharged to Home. Impression: Rash and other nonspecific skin eruption. - Condition is Stable. - Discharge Instructions: Rash, [id number], Allergies, [id number]. - Prescriptions for Pepcid 20 mg Oral Tablet - take 1 tablet by ORAL route every 12 hours for 5 days; 10 tablet. Prednisone 20 mg Oral Tablet - take 1 tablet by ORAL route once daily for 5 days; 5 tablet. - Medication Reconciliation Form, Thank You Letter, Antibiotic Education, Prescription Opioid Use form. - Follow up: Emergency Department; When: As needed; Reason: Worsening of condition. Follow up: Private Physician; When: 2 - 3 days; Reason: Recheck today's complaints, Continuance of care, Re-evaluation by your physician. Signatures: Isis Martinez, FIELD STAFF-C FIELD STAFF-Ckb Reynaldo Hector MD MD cha Williams, Irene, RN RN Manuel Stearns RN RN Corrections: (The following items were deleted from the chart) 14:24 14:04 01/02/2019 14:04 Discharged to Home. Impression: Rash and other nonspecific skin iw eruption. Condition is Stable. Forms are Medication Reconciliation Form, Thank You Letter, Antibiotic Education, Prescription Opioid Use. Follow up: Emergency Department; When: As needed; Reason: Worsening of condition. Follow up: Private Physician; When: 2 - 3 days; Reason: Recheck today's complaints, Continuance of care, Re-evaluation by your physician. kb
[2019-01-02 14:29] VITALS: BP 111/59; TEMP 98.7; O2SAT 100
[2019-01-02] MEDS ORDERED: predniSONE 20 MG TAB ONE (14:31)
[2019-01-02] MEDS ORDERED: FAMOTIDINE 20 MG TAB ONE (14:31)
== END 2019-01-02 14:24 | disposition home or self-care (01) ==
LOC: ER 12:48
DX: R21 Rash and other nonspecific skin eruption (principal); J44.9 Chronic obstructive pulmonary disease, unspecified; E78.5 Hyperlipidemia, unspecified; I10 Essential (primary) hypertension; I25.2 Old myocardial infarction; Z86.73 Personal history of transient ischemic attack (TIA), and cerebral infarction without residual deficits; Z88.6 Allergy status to analgesic agent; Z88.8 Allergy status to other drugs, medicaments and biological substances
CPT/HCPCS: 99283; J7512

== ENCOUNTER 2019-05-19 19:47 | Emergency (ER) | payer OTHER ==
[2019-05-19] MEDS ORDERED: NA CHLORIDE 0.9% 1,000 ML ONE ×2 (20:21→21:02)
[2019-05-19] MEDS ORDERED: CEFTRIAXONE/SWI 1gm 1 GM/10 ML SYR ONE (20:43)
[2019-05-19 20:48] LABS: Urine Blood 2+ (NEG); Urine Glucose 2+ (NEG); Urine Protein NEGATIVE (NEG); Urine Specific Gravity >1.030 (1.005-1.030); Urine pH 5.5 (5.0-7.0)
[2019-05-19 20:55] LABS: Urine Bacteria LOADED /HPF (<20); Urine RBC <5 /HPF (NONE SEEN)
[2019-05-19 20:56] LABS: Urine Culture Reflex Order REFLEXED
[2019-05-19 20:59] LABS: Absolute Lymphocytes (CBC) 1.3 K/uL (0.7-4.9); Basophils % 0.5 % (0-1.3); Hematocrit 41.5 % (36.0-45.0); Lymphocytes % 10.5 % (15.3-44.8); MPV 9.4 fL (7.6-11.3); RBC Red Blood Cell Count 4.42 M/uL (3.86-4.86)
[2019-05-19 21:02] LABS: Protime INR 0.95
[2019-05-19 21:14] LABS: ALT/SGPT 17 U/L (12-78); AST/SGOT 22 U/L (15-37); Albumin 3.2 g/dL (3.4-5.0); Alkaline Phosphatase 66 U/L (45-117); BUN Blood Urea Nitrogen 22 mg/dL (7-18); Bicarbonate 28 mmol/L (21-32); Bilirubin Direct 0.2 mg/dL (0-0.2); Bilirubin Total 0.5 mg/dL (0.2-1.0); CKMB Creatine Kinase MB 1.6 ng/mL (0.3-3.6); Creatine Phosphokinase 120 U/L (26-192); Glucose Level 150 mg/dL (74-106); Lipase 176 U/L (73-393); Potassium 3.7 mmol/L (3.5-5.1); Protein, Total 7.6 g/dL (6.4-8.2); Sodium Level 143 mmol/L (136-145); Troponin (Emerg Dept Use Only) < 0.02 ng/mL (0.0-0.045)
[2019-05-19] MEDS ORDERED: ACETAMINOPHEN 500 MG TAB ONE (22:30)
--- NOTE | 2019-05-19 22:44 | RAD REPORT ---
EXAM DESCRIPTION: Mg Single View05/19/2019 9:07 pm CLINICAL HISTORY: fever COMPARISON: 2018 FINDINGS: The lungs appear clear of acute infiltrate. The heart is mildly enlarged. Postsurgical changes involve the chest. IMPRESSION: No acute abnormalities displayed
--- NOTE | 2019-05-19 23:25 | EDPHYS ---
Physician Documentation [facility] Name: Jenny Douglas Age: 78 yrs Sex: Female : 1940 Arrival Date: 05/19/2019 Time: 19:50 Bed 14 Private MD: Thiago Levi ED Physician Nate Stinson HPI: 05/19 20:10 This 78 yrs old Female presents to ER via Ambulatory with complaints of Fever.pm1 20:10 The patient reports fever, that was measured at 100.9 degrees Fahrenheit, No pm1 antipyretics given prior to arrival. Onset: The symptoms/episode began/occurred 2 hour(s) ago. Modifying factors: there are no obvious modifying factors. Associated signs and symptoms: Pertinent positives: chills, Pertinent negatives: abdominal pain, chest pain, cough, diarrhea, earache, headache, runny nose, skin rash, shortness of breath, sore throat, vomiting. Severity of symptoms: Pain is currently a 0 / 10. The patient has not recently seen a physician, the patient's primary care provider is Dr. Stein. Historical: - Allergies: 20:16 Celebrex; rr5 20:16 Zocor; rr5 - Home Meds: 20:16 aspirin 325 mg Oral TbEC 1 tab once daily [Active]; hydrochlorothiazide 12.5 mg Oral rr5 cap 1 cap once daily [Active]; Lipitor 80 mg Oral tab 1 tab once daily [Active]; Plavix 75 mg Oral tab 1 tab once daily [Active]; Vitamin B-12 500 mcg Oral TbER [Active]; Vitamin C 500 mg Oral cpER [Active]; zedia [Active]; - PMHx: 20:16 COPD; Hyperlipidemia; Hypertension; TIA; CAD; rr5 - PSHx: 20:16 triple by pass; rr5 - Immunization history:: Adult Immunizations not up to date, Flu vaccine is not up to date. - Social history:: Smoking status: Patient uses tobacco products, 5 sticks per day. - Ebola Screening: : Patient negative for fever greater than or equal to 101.5 degrees Fahrenheit, and additional compatible Ebola Virus Disease symptoms Patient denies exposure to infectious person Patient denies travel to an Ebola-affected area in the 21 days before illness onset. ROS: 20:20 Eyes: Negative for injury, pain, redness, and discharge, ENT: Negative for injury, pm1 pain, and discharge, Neck: Negative for injury, pain, and swelling, Cardiovascular: Negative for chest pain, palpitations, and edema, Respiratory: Negative for shortness of breath, cough, wheezing, and pleuritic chest pain, Abdomen/GI: Negative for abdominal pain, nausea, vomiting, diarrhea, and constipation, Back: Negative for injury and pain, : Negative for injury, bleeding, discharge, and swelling, MS/Extremity: Negative for injury and deformity, Skin: Negative for injury, rash, and discoloration, Neuro: Negative for headache, weakness, numbness, tingling, and seizure. 20:20 Constitutional: Positive for chills, fever, Negative for body aches, poor PO intake. Exam: 20:20 Constitutional: This is a well developed, well nourished patient who is awake, alert, pm1 and in no acute distress. Head/Face: Normocephalic, atraumatic. Eyes: Pupils equal round and reactive to light, extra-ocular motions intact. Lids and lashes normal. Conjunctiva and sclera are non-icteric and not injected. Cornea within normal limits. Periorbital areas with no swelling, redness, or edema. ENT: Nares patent. No nasal discharge, no septal abnormalities noted. Tympanic membranes are normal and external auditory canals are clear. Oropharynx with no redness, swelling, or masses, exudates, or evidence of obstruction, uvula midline. Mucous membranes moist. Neck: Trachea midline, no thyromegaly or masses palpated, and no cervical lymphadenopathy. Supple, full range of motion without nuchal rigidity, or vertebral point tenderness. No Meningismus. Chest/axilla: Normal chest wall appearance and motion. Nontender with no deformity. No lesions are appreciated. Respiratory: Lungs have equal breath sounds bilaterally, clear to auscultation and percussion. No rales, rhonchi or wheezes noted. No increased work of breathing, no retractions or nasal flaring. Abdomen/GI: Soft, non-tender, with normal bowel sounds. No distension or tympany. No guarding or rebound. No evidence of tenderness throughout. Back: No spinal tenderness. No costovertebral tenderness. Full range of motion. Skin: Warm, dry with normal turgor. Normal color with no rashes, no lesions, and no evidence of cellulitis. MS/ Extremity: Pulses equal, no cyanosis. Neurovascular intact. Full, normal range of motion. 20:20 Cardiovascular: Rate: tachycardic, actual rate is 118 bpm, Rhythm: regular, Pulses: no pulse deficits are appreciated, Heart sounds: normal, Edema: is not appreciated. 20:20 Neuro: Orientation: is normal, Motor: is normal, moves all fours, Sensation: is normal, no obvious gross deficits. Vital Signs: 20:05 BP 152 / 73; Pulse 118; Resp 30; Temp 98.2; Pulse Ox 97% ; Weight 56.7 kg; Height 5 ft. rr5 7 in. (170.18 cm); Pain 3/10; 20:48 Pulse 103; Resp 32; Temp 99.8; lt1 20:59 BP 141 / 85; Pulse 93; Resp 31; Temp 99.8; Pulse Ox 97% ; rr5 22:25 BP 105 / 70; Pulse 83; Resp 27; Temp 101.8; Pulse Ox 95% ; rr5 23:35 BP 111 / 70; Pulse 73; Resp 24; Temp 100.6; Pulse Ox 97% ; rr5 20:05 Body Mass Index 19.58 (56.70 kg, 170.18 cm) rr5 MDM: 20:00 Patient medically screened. pm1 23:21 Data reviewed: vital signs. Data interpreted: Pulse oximetry: on room air is 95 %. pm1 Interpretation: normal. Counseling: I had a detailed discussion with the patient and/or guardian regarding: the historical points, exam findings, and any diagnostic results supporting the discharge/admit diagnosis, lab results, radiology results, the need for outpatient follow up, to return to the emergency department if symptoms worsen or persist or if there are any questions or concerns that arise at home. 05/19 20:07 Order name: Flu; Complete Time: 21:24 pm1 05/19 20:07 Order name: Basic Metabolic Panel; Complete Time: 21:24 pm1 05/19 20:07 Order name: Blood Culture Adult (2) pm1 05/19 20:07 Order name: CBC with Diff; Complete Time: 21:24 pm1 05/19 20:07 Order name: Ckmb; Complete Time: 21:24 pm1 05/19 20:07 Order name: CPK; Complete Time: 21:24 pm1 05/19 20:07 Order name: Lactate; Complete Time: 21:24 pm05/19 20:07 Order name: LFT's; Complete Time: 21:24 pm05/19 20:07 Order name: Lipase; Complete Time: 21:24 pm1 05/19 20:07 Order name: Procalcitonin; Complete Time: 21:24 pm05/19 20:07 Order name: Protime (+inr); Complete Time: 21:24 pm05/19 20:07 Order name: Ptt, Activated; Complete Time: 21:24 pm05/19 20:07 Order name: Troponin (emerg Dept Use Only); Complete Time: 21:24 pm05/19 20:07 Order name: Urine Microscopic Only; Complete Time: 21:05 pm1 05/19 20:07 Order name: Chest Single View XRAY; Complete Time: 22:57 pm1 05/19 20:07 Order name: Accucheck; Complete Time: 20:45 pm05/19 20:07 Order name: Cardiac monitoring; Complete Time: 20:44 pm1 05/19 20:07 Order name: EKG - Nurse/Tech; Complete Time: 20:44 pm05/19 20:07 Order name: IV Saline Lock - Large Bore; Complete Time: 20:44 pm05/19 20:07 Order name: Labs collected and sent; Complete Time: 20:45 pm05/19 20:07 Order name: O2 Per Protocol; Complete Time: 20:45 pm05/19 20:07 Order name: O2 Sat Monitoring; Complete Time: 20:45 pm05/19 20:07 Order name: Urine Dipstick-Ancillary (obtain specimen); Complete Time: 20:45 pm1 05/19 20:42 Order name: Urine Dipstick--Ancillary (enter results); Complete Time: 20:51 ag4 05/19 20:58 Order name: Urine Culture EDMS 05/19 22:21 Order name: Glucose, Ancillary Testing; Complete Time: 22:57 EDMS Administered Medications: 20:56 Drug: NS 0.9% 1000 ml Route: IV; Rate: 1000 ml; Site: left antecubital; rr5 22:30 Follow up: Response: No adverse reaction; IV Status: Completed infusion; IV Intake: rr5 1000ml 20:56 Drug: Rocephin 1 grams Route: IV; Rate: calculated rate; Site: left antecubital; rr5 21:25 Follow up: Response: No adverse reaction; IV Status: Completed infusion; IV Intake: [id number] 21:15 Drug: NS 0.9% (30 ml/kg) 30 ml/kg Route: IV; Rate: bolus; Site: left antecubital; rr5 23:25 Follow up: Response: No adverse reaction; IV Status: Completed infusion; IV Intake: rr5 700ml 23:25 Follow up: 700ml infused the remaining of 1000ml signed to the other NS 1liter bolus rr5 order. 22:34 Drug: Tylenol 1000 mg Route: PO; rr5 23:38 Follow up: Response: No adverse reaction rr5 Disposition: 05/20 00:13 Co-signature as Attending Physician, Nate Stinson MD. rn Disposition: 05/19/19 23:22 Discharged to Home. Impression: Urinary tract infection, site not specified. - Condition is Stable. - Discharge Instructions: Urinary Tract Infection, Adult. - Prescriptions for cefpodoxime 200 mg Oral Tablet - take 1 tablet by ORAL route every 12 hours for 10 days with food; 20 tablet. - Medication Reconciliation Form, Thank You Letter, Antibiotic Education, Prescription Opioid Use form. - Follow up: Emergency Department; When: As needed; Reason: Worsening of condition. Follow up: Private Physician; When: 2 - 3 days; Reason: Recheck today's complaints, Continuance of care, Re-evaluation by your physician. - Problem is new. - Symptoms have improved. Signatures: Dispatcher [employer] EDNate Gerber MD MD rn Marinas, Patrick, JULES PROCESS CONTROL BOARD OPERATOR pm1 Ruddy Suggs, RN RN rr5 Corrections: (The following items were deleted from the chart) 05/19 23:40 23:22 05/19/2019 23:22 Discharged to Home. Impression: Urinary tract infection, site rr5 not specified. Condition is Stable. Forms are Medication Reconciliation Form, Thank You Letter, Antibiotic Education, Prescription Opioid Use. Follow up: Emergency Department; When: As needed; Reason: Worsening of condition. Follow up: Private Physician; When: 2 - 3 days; Reason: Recheck today's complaints, Continuance of care, Re-evaluation by your physician. Problem is new. Symptoms have improved. pm1
--- NOTE | 2019-05-19 23:25 | ER ---
Nurse's Notes [facility] Name: Jenny Douglas Age: 78 yrs Sex: Female : 1940 Arrival Date: 05/19/2019 Time: 19:50 Bed 14 Private MD: Thiago Levi Diagnosis: Urinary tract infection, site not specified Presentation: 05/19 20:05 Presenting complaint: Patient states: 2 hours ago, I feel cold and shakiness while we rr5 were in the restaurant. when we checked the temperature its 100.9F. 20:05 Transition of care: patient was not received from another setting of care. Onset of rr5 symptoms was May 19, 2019 at 18:00. Risk Assessment: Do you want to hurt yourself or someone else? Patient reports no desire to harm self or others. Initial Sepsis Screen: Does the patient meet any 2 criteria? HR > 90 bpm. Yes Does the patient have a suspected source of infection? No. Patient's initial sepsis screen is negative. Care prior to arrival: None. 20:05 Method Of Arrival: Ambulatory rr5 20:05 Acuity: ADRIANNA 3 rr5 Historical: - Allergies: 20:16 Celebrex; rr5 20:16 Zocor; rr5 - Home Meds: 20:16 aspirin 325 mg Oral TbEC 1 tab once daily [Active]; hydrochlorothiazide 12.5 mg Oral rr5 cap 1 cap once daily [Active]; Lipitor 80 mg Oral tab 1 tab once daily [Active]; Plavix 75 mg Oral tab 1 tab once daily [Active]; Vitamin B-12 500 mcg Oral TbER [Active]; Vitamin C 500 mg Oral cpER [Active]; zedia [Active]; - PMHx: 20:16 COPD; Hyperlipidemia; Hypertension; TIA; CAD; rr5 - PSHx: 20:16 triple by pass; rr5 - Immunization history:: Adult Immunizations not up to date, Flu vaccine is not up to date. - Social history:: Smoking status: Patient uses tobacco products, 5 sticks per day. - Ebola Screening: : Patient negative for fever greater than or equal to 101.5 degrees Fahrenheit, and additional compatible Ebola Virus Disease symptoms Patient denies exposure to infectious person Patient denies travel to an Ebola-affected area in the 21 days before illness onset. Screenin:05 Abuse screen: Denies threats or abuse. Denies injuries from another. Nutritional rr5 screening: No deficits noted. Tuberculosis screening: No symptoms or risk factors identified. Fall Risk IV access (20 points). Total Etienne Fall Scale indicates No Risk (0-24 pts). Assessment: 20:05 General: Appears in no apparent distress. comfortable, Behavior is calm, cooperative, rr5 appropriate for age, Reports chills for. 20:05 Pain: Complains of pain in head Pain does not radiate. Pain currently is 3 out of 10 on rr5 a pain scale. Quality of pain is described as aching, Pain began gradually, Is intermittent. Neuro: Level of Consciousness is awake, alert, obeys commands, Oriented to person, place, time, situation, Appropriate for age Reports headache. Cardiovascular: Capillary refill < 3 seconds Patient's skin is warm and dry. Respiratory: Airway is patent Respiratory effort is even, unlabored, Respiratory pattern is regular, symmetrical, tachypnea. GI: No signs and/or symptoms were reported involving the gastrointestinal system. : Denies burning with urination, pain. EENT: No signs and/or symptoms were reported regarding the EENT system. Derm: Skin is intact, Skin temperature is warm. Musculoskeletal: Circulation, motion, and sensation intact. Capillary refill < 3 seconds. 21:00 Reassessment: Patient appears in no apparent distress at this time. Patient and/or rr5 family updated on plan of care and expected duration. Pain level reassessed. Patient is alert, oriented x 3, equal unlabored respirations, skin warm/dry/pink. awaiting for result. 22:00 Reassessment: Patient appears in no apparent distress at this time. Patient is alert, rr5 oriented x 3, equal unlabored respirations, skin warm/dry/pink. no complaints made chatting with her short goods drier. Patient states feeling better. Patient states symptoms have improved. 22:30 Reassessment: temperature rechecked T 101.8 F ED provider informed with order made and rr5 carried out. 23:35 Reassessment: Patient appears in no apparent distress at this time. Patient is alert, rr5 oriented x 3, equal unlabored respirations, skin warm/dry/pink. discharge instruction given and explained without complaintsmade. Patient states feeling better. Patient states symptoms have improved. Vital Signs: 20:05 BP 152 / 73; Pulse 118; Resp 30; Temp 98.2; Pulse Ox 97% ; Weight 56.7 kg; Height 5 ft. rr5 7 in. (170.18 cm); Pain 3/10; 20:48 Pulse 103; Resp 32; Temp 99.8; lt1 20:59 BP 141 / 85; Pulse 93; Resp 31; Temp 99.8; Pulse Ox 97% ; rr5 22:25 BP 105 / 70; Pulse 83; Resp 27; Temp 101.8; Pulse Ox 95% ; rr5 23:35 BP 111 / 70; Pulse 73; Resp 24; Temp 100.6; Pulse Ox 97% ; rr5 20:05 Body Mass Index 19.58 (56.70 kg, 170.18 cm) rr5 ED Course: 19:50 Patient arrived in ED. mr 19:51 Thiago Levi MD is Private Physician. mr 19:56 Ruddy Suggs, RAMONA is Primary Nurse. rr5 19:59 Fred Wagoner NP is PHCP. pm1 19:59 Nate Stinson MD is Attending Physician. pm1 20:13 Triage completed. rr5 20:17 Arm band placed on right wrist. rr5 20:18 Patient has correct armband on for positive identification. Placed in gown. Bed in low rr5 position. Call light in reach. Side rails up X2. gunite mixer on. Pulse ox on. NIBP on. 20:18 No provider procedures requiring assistance completed. rr5 20:25 First set of blood cultures drawn by wv. lt1 20:37 Second set of blood cultures drawn by ED staff. lt1 20:41 Missed attempt(s): 22 gauge in right antecubital area. lt1 20:42 Inserted saline lock: 22 gauge in left antecubital area, using aseptic technique. IV lt1 completed by Pedrito on the LAC 22. 20:43 Initial lab(s) drawn, by ED staff, sent to lab. Urine collected: clean catch specimen, lt1 clear, Flu and/or RSV swab sent to lab. 20:44 Blood Culture Adult (2) Sent. lt1 20:44 Urine Dipstick--Ancillary (enter results) Sent. lt1 20:45 Flu Sent. lt1 21:08 Chest Single View XRAY In Process Unspecified. EDMS 23:36 IV discontinued, intact, bleeding controlled, No redness/swelling at site. Pressure rr5 dressing applied. Administered Medications: 20:56 Drug: NS 0.9% 1000 ml Route: IV; Rate: 1000 ml; Site: left antecubital; rr5 22:30 Follow up: Response: No adverse reaction; IV Status: Completed infusion; IV Intake: rr5 1000ml 20:56 Drug: Rocephin 1 grams Route: IV; Rate: calculated rate; Site: left antecubital; rr5 21:25 Follow up: Response: No adverse reaction; IV Status: Completed infusion; IV Intake: [id number] 21:15 Drug: NS 0.9% (30 ml/kg) 30 ml/kg Route: IV; Rate: bolus; Site: left antecubital; rr5 23:25 Follow up: Response: No adverse reaction; IV Status: Completed infusion; IV Intake: rr5 700ml 23:25 Follow up: 700ml infused the remaining of 1000ml signed to the other NS 1liter bolus rr5 order. 22:34 Drug: Tylenol 1000 mg Route: PO; rr5 23:38 Follow up: Response: No adverse reaction rr5 Intake: 21:25 IV: 10ml; Total: 10ml. rr5 22:30 IV: 1000ml; Total: 1010ml. rr5 23:25 IV: 700ml; Total: 1710ml. rr5 Outcome: 23:22 Discharge ordered by MD. pm1 23:36 Discharged to home ambulatory, with family. rr5 23:36 Condition: stable 23:36 Discharge instructions given to patient, family, Instructed on discharge instructions, follow up and referral plans. medication usage, Demonstrated understanding of instructions, follow-up care, medications, Prescriptions given X 2. 23:40 Patient left the ED. rr5 Signatures: Dispatcher [employer] EDMI Alvarez Charlotte WagonerFred, AUDIO VISUAL TECHNICIAN AUDIO VISUAL TECHNICIAN pm1 Ruddy Suggs RN RN rr5 Alessandra Massey lt1 Corrections: (The following items were deleted from the chart) 20:18 20:05 Initial Sepsis Screen: Does the patient meet any 2 criteria? No. Patient's rr5 initial sepsis screen is negative. Does the patient have a suspected source of infection? No. Patient's initial sepsis screen is negative. rr5 20:59 20:05 BP 152 / 73; Pulse 118bpm; Resp 20bpm; Pulse Ox 97%; Temp 98.2F; 56.7 kg; Height rr5 5 ft. 7 in.; BMI: 19.5; Pain 3/10; rr5
[2019-05-19 23:56] VITALS: BP 111/70; TEMP 100.6; O2SAT 97
--- NOTE | 2019-05-21 08:39 | EKG ---
Test Date: 2019-05-19 Test Time: 20:40:02 Hose Operator: KELLIE MEASUREMENT RESULTS: Intervals: Rate: 95 GA: 144 QRSD: 88 QT: 326 QTc: 409 [place]: P: 82 GA: 144 QRS: -61 T: 85 INTERPRETIVE STATEMENTS: Sinus rhythm with premature atrial complexes Pulmonary disease pattern Left anterior fascicular block Left ventricular hypertrophy with repolarization abnormality Abnormal ECG Compared to ECG 07/26/2018 20:51:19 Atrial premature complex(es) now present Left anterior fascicular block now present Early repolarization now present Sinus arrhythmia no longer present Left-axis deviation no longer present Electronically Signed On 05-21-19 08:36:30 CDT by Hiram Kc
== END 2019-05-19 23:40 | disposition home or self-care (01) ==
LOC: ER 19:47
DX: N39.0 Urinary tract infection, site not specified (principal); I10 Essential (primary) hypertension; E78.5 Hyperlipidemia, unspecified; I25.10 Atherosclerotic heart disease of native coronary artery without angina pectoris; J44.9 Chronic obstructive pulmonary disease, unspecified; F17.210 Nicotine dependence, cigarettes, uncomplicated
CPT/HCPCS: 96365; 96361; 93005; 87040 ×2; 87088; 85025; 87086; 80048; 36415; 82550; 85610; 82962; 80076; 83605; 85730; 87077; 87186; 84484; 82553; 83690; 84145; 87804 ×2; 71045; 99284; J0696; J7030 ×2; 81003; 81015

== ENCOUNTER 2020-08-19 07:01 | Emergency (ER) | payer OTHER ==
[2020-08-19] MEDS ORDERED: LIDOCAINE VISCOUS 2% SOLN 15 ML UDC PO ONE (07:02)
[2020-08-19] MEDS ORDERED: NA CHLORIDE 0.9% 1,000 ML ONE (08:05)
[2020-08-19 08:13] LABS: Urine Blood 1+ (NEG); Urine Glucose NEGATIVE (NEG); Urine Protein NEGATIVE (NEG); Urine pH 5.5 (5.0-7.0)
[2020-08-19] MEDS ORDERED: ACETAMINOPHEN 325 MG TABLET ONE (08:22)
[2020-08-19] MEDS ORDERED: METOCLOPRAMIDE 10 MG/2mL INJ ONE (08:22)
[2020-08-19] MEDS ORDERED: NA CHLORIDE 0.9% 0 ML ONE (08:23)
[2020-08-19] MEDS ORDERED: NA CHLORIDE 0.9% 100 ML ONE (08:28)
--- NOTE | 2020-08-19 08:33 | RAD REPORT ---
EXAM DESCRIPTION: Mg Single View08/19/2020 8:26 am CLINICAL HISTORY: Coronary artery disease/weakness COMPARISON: 2018 FINDINGS: The lungs are hyperaerated Calcified granuloma right lung Post surgical changes involve the chest. The lungs appear clear of acute infiltrate. The heart is mildly enlarged IMPRESSION: No acute abnormalities displayed
[2020-08-19 08:45] LABS: Absolute Lymphocytes (CBC) 1.8 K/uL (0.7-4.9); Basophils % 0.8 % (0-1.3); Hematocrit 44.3 % (36.0-45.0); Lymphocytes % 22.1 % (15.3-44.8); MPV 9.7 fL (7.6-11.3); RBC Red Blood Cell Count 4.83 M/uL (3.86-4.86)
[2020-08-19 08:48] LABS: ALT/SGPT 21 U/L (12-78); AST/SGOT 30 U/L (15-37); Albumin 3.5 g/dL (3.4-5.0); Alkaline Phosphatase 64 U/L (45-117); BUN Blood Urea Nitrogen 23 mg/dL (7-18); Bicarbonate 30 mmol/L (21-32); Bilirubin Total 0.6 mg/dL (0.2-1.0); Glucose Level 100 mg/dL (74-106); Lipase 268 U/L (73-393); Potassium 3.4 mmol/L (3.5-5.1); Sodium Level 142 mmol/L (136-145); Troponin I < 0.02 ng/mL (0.0-0.045)
--- NOTE | 2020-08-19 10:19 | RAD REPORT ---
EXAM DESCRIPTION: CT - Head Brain Wo Cont - 08/19/2020 10:09 am CLINICAL HISTORY: Dizziness COMPARISON: 2018 TECHNIQUE: Computed axial tomography of the head was obtained. IV contrast was not requested. All CT scans are performed using dose optimization technique as appropriate and may include automated exposure control or mA/KV adjustment according to patient size. FINDINGS: An intracranial bleed is not seen . The ventricles are normal in caliber. No extra-axial fluid collection is noted. Moderate to marked low-density areas within periventricular, deep and subcortical white matter likely represent ischemic changes secondary to small vessel disease. 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 If patient's symptoms persist MRI of the bra in would be recommended. Fluid right maxillary sinus may indicate acute sinusitis
[2020-08-19] MEDS ORDERED: IPRATROPIUM BROM 0.5MG/2.5ML ONE (10:26)
[2020-08-19] MEDS ORDERED: ASPIRIN 81 MG CHEWABLE TABLET ONE (10:26)
[2020-08-19] MEDS ORDERED: POTASSIUM 25 MEQ EFFERV TAB ONE (10:27)
[2020-08-19] MEDS ORDERED: ALBUTEROL 2.5 MG/3 ML NEB SOL ONE (10:27)
--- NOTE | 2020-08-19 10:37 | ER ---
Nurse's Notes [facility] Name: Jenny Douglas Age: 79 yrs Sex: Female : 1940 Arrival Date: 08/19/2020 Time: 07:04 Bed 20 Private MD: Diagnosis: Dizziness and giddiness;Chronic obstructive pulmonary disease, unspecified;Hypokalemia;Tobacco abuse counseling;Tobacco use;Acute sinusitis Presentation: 08/19 07:16 Chief complaint: Patient states: Woke up this morning at 4am with dizziness and nausea. vg1 07:16 Coronavirus screen: Client denies travel out of the [place] in the last 14 days. Ebola vg1 Screen: Patient negative for fever greater than or equal to 101.5 degrees Fahrenheit, and additional compatible Ebola Virus Disease symptoms. Initial Sepsis Screen: Does the patient meet any 2 criteria? No. Patient's initial sepsis screen is negative. Does the patient have a suspected source of infection? No. Patient's initial sepsis screen is negative. Risk Assessment: Do you want to hurt yourself or someone else? Patient reports no desire to harm self or others. Onset of symptoms was August 19, 2020. 07:16 Method Of Arrival: Ambulatory vg1 07:16 Acuity: ADRIANNA 3 vg1 Historical: - Allergies: 07:21 Celebrex; sv 07:21 Zocor; sv - PMHx: 07:21 CAD; COPD; Hyperlipidemia; Hypertension; Myocardial infarction; TIA; sv - PSHx: 07:21 triple bypass; sv - Immunization history:: Adult Immunizations up to date, Flu vaccine is up to date. - Social history:: Smoking status: Patient reports the use of cigarette tobacco products, smokes one-half pack cigarettes per day. - Family history:: not pertinent. Screenin:21 Abuse screen: Denies threats or abuse. Denies injuries from another. Nutritional sv screening: No deficits noted. Tuberculosis screening: No symptoms or risk factors identified. Fall Risk None identified. Assessment: 07:16 General: Appears in no apparent distress. Behavior is calm, cooperative. Pain: vg1 Complains of pain in lower back Pain currently is 0 out of 10 on a pain scale. Pain began this morning around 4 am. Neuro: Level of Consciousness is awake, alert, obeys commands, Oriented to person, place, time, situation. Cardiovascular: Patient's skin is warm and dry. Respiratory: Airway is patent Respiratory effort is even, unlabored, Respiratory pattern is regular, symmetrical. GI: Reports nausea, Patient currently denies vomiting. : No signs and/or symptoms were reported regarding the genitourinary system. EENT: No signs and/or symptoms were reported regarding the EENT system. 07:16 Derm: Skin is pink, warm \T\ dry. Musculoskeletal: Range of motion: intact in all vg1 extremities. 08:26 Reassessment: Patient appears in no apparent distress at this time. Patient and/or vg1 family updated on plan of care and expected duration. Pain level reassessed. Patient is alert, oriented x 3, equal unlabored respirations, skin warm/dry/pink. 09:15 Reassessment: Patient appears in no apparent distress at this time. Patient and/or vg1 family updated on plan of care and expected duration. Pain level reassessed. Patient is alert, oriented x 3, equal unlabored respirations, skin warm/dry/pink. Vital Signs: 07:16 BP 146 / 64; Pulse 67; Resp 20; Temp 97.6; Pulse Ox 96% on R/A; Weight 56.25 kg; Height vg1 5 ft. 7 in. (170.18 cm); Pain 0/10; 08:00 BP 152 / 62; Pulse 58; Resp 20; Pulse Ox 97% on R/A; vg1 09:00 BP 127 / 57; Pulse 57; Resp 20; Pulse Ox 97% ; sv 09:30 BP 122 / 59; Pulse 58; Resp 18; Pulse Ox 96% ; sv 10:00 BP 133 / 53 Supine; Pulse 65; kj1 10:01 BP 118 / 59 Sitting; Pulse 81; kj1 10:02 BP 110 / 58 Standing; Pulse 86; kj1 07:16 Body Mass Index 19.42 (56.25 kg, 170.18 cm) vg1 ED Course: 07:04 Patient arrived in ED. cl3 07:14 Cheryl Roque, RAMONA is Primary Nurse. vg1 07:19 Poncho Jarquin MD is Attending Physician. ma2 07:21 Arm band placed on Patient placed in an exam room, on a stretcher. sv 07:21 Patient has correct armband on for positive identification. Bed in low position. Call sv light in reach. Adult w/ patient. Pulse ox on. NIBP on. 07:27 Triage completed. vg1 08:21 Attending Physician role handed off by Poncho Jarquin MD demetrius 08:21 Reynaldo Hector MD is Attending Physician. demetrius 08:27 Chest Single View XRAY In Process Unspecified. EDMS 10:00 IV is patent. ll1 10:10 CT Head Brain wo Cont In Process Unspecified. EDMS 10:36 Thiago Levi MD is Referral Physician. demetrius 11:18 No provider procedures requiring assistance completed. IV discontinued, intact, ll1 bleeding controlled, No redness/swelling at site. Pressure dressing applied. Administered Medications: 08:20 Drug: NS 0.9% 1000 ml Route: IV; Rate: 125 ml/hr; Site: right hand; vg1 08:53 Follow up: Response: No adverse reaction vg1 08:20 Drug: Reglan 20 mg Route: IVP; Site: right hand; vg1 08:53 Follow up: Response: Nausea is decreased vg1 08:25 Drug: Tylenol 650 mg Route: PO; vg1 08:53 Follow up: Response: Pain is decreased vg1 10:25 Drug: Potassium Effervescent Tablet 25 mEq Route: PO; ll1 13:16 Follow up: Response: No adverse reaction; RASS: Alert and Calm (0) ll1 10:25 Drug: Aspirin 81 mg Route: PO; ll1 13:16 Follow up: Response: No adverse reaction; RASS: Alert and Calm (0) ll1 10:26 Drug: Albuterol 2.5 mg Route: Inhalation; ll1 13:17 Follow up: Response: No adverse reaction; RASS: Alert and Calm (0) ll1 10:26 Drug: AtroVENT Aerosol 0.5 mg Route: Inhalation; ll1 13:16 Follow up: Response: No adverse reaction; RASS: Alert and Calm (0) ll1 10:40 Drug: Augmentin 875 mg Route: PO; ll1 13:16 Follow up: Response: No adverse reaction; RASS: Alert and Calm (0) ll1 Outcome: 10:36 Discharge ordered by . demetrius 11:18 Patient left the ED. ll1 11:18 Discharged to home ambulatory. ll1 11:18 Condition: stable 11:18 Discharge instructions given to patient, family, Instructed on discharge instructions, follow up and referral plans. medication usage, Demonstrated understanding of instructions, follow-up care, medications, Prescriptions given X 3. Signatures: Dispatcher [employer] Ema Saravia, RAMONA RN Reynaldo Cohen MD MD cha Alzahri, Mohammad, MD MD ma2 Jackson, Siobhan kj1 Jessica Mora cl3 Cheryl Roque RN RN vg1 Isa Mora RN RN ll1
--- NOTE | 2020-08-19 10:37 | EDPHYS ---
Physician Documentation [facility] Name: Jenny Douglas Age: 79 yrs Sex: Female : 1940 Arrival Date: 08/19/2020 Time: 07:04 Bed 20 Private MD: ED Physician Reynaldo Hector HPI: 08/19 07:47 This 79 yrs old Female presents to ER via Ambulatory with complaints of ma2 Dizziness, General Weakness. 07:47 This 79 yrs old Female presents to ER via Ambulatory with complaints of ma2 nausea and General Weakness. 07:47 Onset: The symptoms/episode began/occurred gradually, 1 day(s) ago. Associated signs ma2 and symptoms: Pertinent negatives: agitation, blurred vision, combativeness, diaphoresis, focal weakness, numbness, , seizure, syncope. Associated signs and symptoms: Pertinent positives: Pertinent negatives: dizziness, nausea, seizure, visual field changes, loss of vision, weakness. Severity of symptoms: At their worst the symptoms were mild in the emergency department the symptoms are unchanged. 09:43 The patient presents with dizziness, generalized weakness. Context: occurred at home. demetrius Modifying factors: The symptoms are alleviated by nothing, the symptoms are aggravated by nothing. The patient presents to the emergency department with none. Historical: - Allergies: 07:21 Celebrex; sv 07:21 Zocor; sv - PMHx: 07:21 CAD; COPD; Hyperlipidemia; Hypertension; Myocardial infarction; TIA; sv - PSHx: 07:21 triple bypass; sv - Immunization history:: Adult Immunizations up to date, Flu vaccine is up to date. - Social history:: Smoking status: Patient reports the use of cigarette tobacco products, smokes one-half pack cigarettes per day. - Family history:: not pertinent. ROS: 07:47 Constitutional: Negative for fever, chills, and weight loss. ma2 07:47 All other systems are negative. Exam: 07:47 Constitutional: This is a well developed, well nourished patient who is awake, alert, ma2 and in no acute distress. Head/Face: Normocephalic, atraumatic. Eyes: Pupils equal round and reactive to light, extra-ocular motions intact. Lids and lashes normal. Conjunctiva and sclera are non-icteric and not injected. Cornea within normal limits. Periorbital areas with no swelling, redness, or edema. ENT: Nares patent. No nasal discharge, no septal abnormalities noted. Tympanic membranes are normal and external auditory canals are clear. Oropharynx with no redness, swelling, or masses, exudates, or evidence of obstruction, uvula midline. Mucous membranes moist. Neck: Trachea midline, no thyromegaly or masses palpated, and no cervical lymphadenopathy. Supple, full range of motion without nuchal rigidity, or vertebral point tenderness. No Meningismus. Chest/axilla: Normal chest wall appearance and motion. Nontender with no deformity. No lesions are appreciated. Cardiovascular: Regular rate and rhythm with a normal S1 and S2. No gallops, murmurs, or rubs. Normal PMI, no JVD. No pulse deficits. Respiratory: Lungs have equal breath sounds bilaterally, clear to auscultation and percussion. No rales, rhonchi or wheezes noted. No increased work of breathing, no retractions or nasal flaring. Abdomen/GI: Soft, non-tender, with normal bowel sounds. No distension or tympany. No guarding or rebound. No evidence of tenderness throughout. Skin: Warm, dry with normal turgor. Normal color with no rashes, no lesions, and no evidence of cellulitis. MS/ Extremity: Pulses equal, no cyanosis. Neurovascular intact. Full, normal range of motion. Neuro: Awake and alert, GCS 15, oriented to person, place, time, and situation. Cranial nerves II-XII grossly intact. Motor strength 5/5 in all extremities. Sensory grossly intact. Cerebellar exam normal. Normal gait. 09:44 Respiratory: the patient does not display signs of respiratory distress, Respirations: demetrius no acute changes, is not noted, Breath sounds: bronchial sounds, that are mild, rhonchi, that are moderate, are heard diffusely, wheezing: expiratory Respiratory rate: 18 09:44 Musculoskeletal/extremity: DVT Exam: No signs of deep vein thrombosis. no pain, no swelling, no tenderness, negative Homans' sign noted on exam, no appreciated bluish discoloration, no erythema, no increased warmth. Vital Signs: 07:16 BP 146 / 64; Pulse 67; Resp 20; Temp 97.6; Pulse Ox 96% on R/A; Weight 56.25 kg; Height vg1 5 ft. 7 in. (170.18 cm); Pain 0/10; 08:00 BP 152 / 62; Pulse 58; Resp 20; Pulse Ox 97% on R/A; vg1 09:00 BP 127 / 57; Pulse 57; Resp 20; Pulse Ox 97% ; sv 09:30 BP 122 / 59; Pulse 58; Resp 18; Pulse Ox 96% ; sv 10:00 BP 133 / 53 Supine; Pulse 65; kj1 10:01 BP 118 / 59 Sitting; Pulse 81; kj1 10:02 BP 110 / 58 Standing; Pulse 86; kj1 07:16 Body Mass Index 19.42 (56.25 kg, 170.18 cm) vg1 MDM: 07:19 Patient medically screened. ma2 07:47 Differential diagnosis: uti vs tension headache vs covid vs gastritis . ma2 09:45 Data reviewed: vital signs, nurses notes, lab test result(s), EKG, radiologic studies, demetrius plain films. Data interpreted: monitoring analyst: rate is 58 beats/min, rhythm is regular. Test interpretation: by ED physician or midlevel provider: ECG, plain radiologic studies. Counseling: I had a detailed discussion with the patient and/or guardian regarding: the historical points, exam findings, and any diagnostic results supporting the discharge/admit diagnosis, lab results, radiology results, the need for outpatient follow up, for definitive care, a family practitioner. 08/19 07:47 Order name: CBC with Diff; Complete Time: 09:40 ma2 08/19 07:47 Order name: CMP; Complete Time: 09:40 ma2 08/19 07:47 Order name: Troponin I; Complete Time: 09:40 ma2 08/19 07:47 Order name: Lipase; Complete Time: 09:40 ma2 08/19 07:47 Order name: Flu; Complete Time: 09:40 ma2 08/19 07:47 Order name: Chest Single View XRAY; Complete Time: 09:40 ma2 08/19 08:11 Order name: Urine Dipstick--Ancillary (enter results); Complete Time: 09:40 bd 08/19 09:03 Order name: SARS-COV-2 RT PCR; Complete Time: 09:40 EDMS 08/19 09:46 Order name: CT Head Brain wo Cont; Complete Time: 10:34 demetrius 08/19 07:47 Order name: Urine Dipstick-Ancillary (obtain specimen); Complete Time: 08:55 ma2 08/19 07:47 Order name: EKG - Nurse/Tech; Complete Time: 08:53 ma2 08/19 07:48 Order name: EKG; Complete Time: 07:49 sv 08/19 09:47 Order name: Orthostatics; Complete Time: 10:10 demetrius Administered Medications: 08:20 Drug: NS 0.9% 1000 ml Route: IV; Rate: 125 ml/hr; Site: right hand; vg1 08:53 Follow up: Response: No adverse reaction vg1 08:20 Drug: Reglan 20 mg Route: IVP; Site: right hand; vg1 08:53 Follow up: Response: Nausea is decreased vg1 08:25 Drug: Tylenol 650 mg Route: PO; vg1 08:53 Follow up: Response: Pain is decreased vg1 10:25 Drug: Potassium Effervescent Tablet 25 mEq Route: PO; ll1 13:16 Follow up: Response: No adverse reaction; RASS: Alert and Calm (0) ll1 10:25 Drug: Aspirin 81 mg Route: PO; ll1 13:16 Follow up: Response: No adverse reaction; RASS: Alert and Calm (0) ll1 10:26 Drug: Albuterol 2.5 mg Route: Inhalation; ll1 13:17 Follow up: Response: No adverse reaction; RASS: Alert and Calm (0) ll1 10:26 Drug: AtroVENT Aerosol 0.5 mg Route: Inhalation; ll1 13:16 Follow up: Response: No adverse reaction; RASS: Alert and Calm (0) ll1 10:40 Drug: Augmentin 875 mg Route: PO; ll1 13:16 Follow up: Response: No adverse reaction; RASS: Alert and Calm (0) ll1 Disposition: 08/19/20 10:36 Discharged to Home. Impression: Dizziness and giddiness, Chronic obstructive pulmonary disease, unspecified, Hypokalemia, Tobacco abuse counseling, Tobacco use, Acute sinusitis. - Condition is Stable. - Discharge Instructions: Chronic Bronchitis, Potassium Content of Foods, Dizziness, Sinusitis, Adult, Steps to Quit Smoking, Smoking Hazards, Chronic Obstructive Pulmonary Disease Exacerbation, Sinusitis, Adult, [id number], Cough, Adult, [id number], Aspirin and Your Heart, Dizziness, [id number]. - Prescriptions for Reglan 10 mg Oral Tablet - take 1 tablet by ORAL route every 6 hours . take 30 minutes before meals and at bedtime; 100 tablet. Albuterol Sulfate 90 mcg/actuation - inhale 1-2 puff by INHALATION route every 4-6 hours; 1 Inhaler. Augmentin 500- 125 mg Oral Tablet - take 1 tablet by ORAL route every 12 hours for 10 days; 20 tablet. - Medication Reconciliation Form, Thank You Letter, Antibiotic Education, Prescription Opioid Use form. - Follow up: Private Physician; When: 2 - 3 days; Reason: Recheck today's complaints, Continuance of care, Re-evaluation by your physician. Follow up: Thiago Levi; When: 2 - 3 days; Reason: Recheck today's complaints, Continuance of care, Re-evaluation by your physician. - Problem is new. - Symptoms have improved. Signatures: Dispatcher [employer] Ema Saravia RN RN sv Anderson, Corey, MD MD cha Alzahri, Mohammad, MD MD ma2 Cheryl Roque RN RN vg1 Isa Mora RN RN ll1 Corrections: (The following items were deleted from the chart) 08:21 07:48 CORONAVIRUS+MR.LAB.BRZ ordered. [facility] 11:18 10:36 08/19/2020 10:36 Discharged to Home. Impression: Dizziness and giddiness; Chronic ll1 obstructive pulmonary disease, unspecified; Hypokalemia; Tobacco abuse counseling; Tobacco use; Acute sinusitis. Condition is Stable. Discharge Instructions: Chronic Bronchitis, Potassium Content of Foods, Dizziness, Steps to Quit Smoking, Smoking Hazards, Chronic Obstructive Pulmonary Disease Exacerbation, Cough, Adult, [id number]-[id number], Aspirin and Your Heart, Dizziness, [id number]. Prescriptions for Reglan 10 mg Oral Tablet - take 1 tablet by ORAL route every 6 hours . take 30 minutes before meals and at bedtime; 100 tablet, Albuterol Sulfate 90 mcg/actuation - inhale 1-2 puff by INHALATION route every 4-6 hours; 1 Inhaler. and Forms are Medication Reconciliation Form, Thank You Letter, Antibiotic Education, Prescription Opioid Use. Follow up: Private Physician; When: 2 - 3 days; Reason: Recheck today's complaints, Continuance of care, Re-evaluation by your physician. Follow up: Thiago Levi; When: 2 - 3 days; Reason: Recheck today's complaints, Continuance of care, Re-evaluation by your physician. Problem is new. Symptoms have improved. demetrius
[2020-08-19] MEDS ORDERED: AMOX/K CLAV 875 MG TAB ONE (10:53)
[2020-08-19 11:28] VITALS: TEMP 97.6
[2020-08-19 11:40] VITALS: O2SAT 96
[2020-08-19 11:45] VITALS: BP 110/58
--- NOTE | 2020-08-20 06:09 | EKG ---
Test Date: 2020-08-19 Test Time: 08:30:53 Flat Cutter: MARYANNE MEASUREMENT RESULTS: Intervals: Rate: 62 KS: 144 QRSD: 88 QT: 424 QTc: 430 [place]: P: 79 KS: 144 QRS: -60 T: 55 INTERPRETIVE STATEMENTS: Normal sinus rhythm Left anterior fascicular block Voltage criteria for left ventricular hypertrophy Abnormal ECG Compared to ECG 08/19/2020 08:30:12 Early repolarization no longer present Electronically Signed On 08-20-20 06:08:19 CAR CLEANER by Hiram Kc
--- NOTE | 2020-08-20 06:09 | EKG ---
Test Date: 2020-08-19 Test Time: 08:30:12 Business Lawyer: MARYANNE MEASUREMENT RESULTS: Intervals: Rate: 61 IA: 144 QRSD: 84 QT: 426 QTc: 428 [facility]: P: 74 IA: 144 QRS: -61 T: 74 INTERPRETIVE STATEMENTS: normal sinus rhythm Left anterior fascicular block Left ventricular hypertrophy with repolarization abnormality Abnormal ECG Compared to ECG 05/19/2019 20:40:02 Atrial premature complex(es) no longer present Electronically Signed On 08-20-20 06:08:55 COMMERCIAL CONSTRUCTION SUPERINTENDENT by Hiram Kc
== END 2020-08-19 11:18 | disposition home or self-care (01) ==
LOC: ER 07:01
DX: J44.9 Chronic obstructive pulmonary disease, unspecified (principal); Z20.828 Contact with and (suspected) exposure to other viral communicable diseases; E87.6 Hypokalemia; J01.90 Acute sinusitis, unspecified; I10 Essential (primary) hypertension; Z72.0 Tobacco use; Z71.6 Tobacco abuse counseling; Z88.8 Allergy status to other drugs, medicaments and biological substances; Z95.1 Presence of aortocoronary bypass graft
CPT/HCPCS: 93005 ×2; 85025; 36415; 81003; 84484; 83690; 80053; 87804 ×2; 70450; 71045; U0003; J2765; J7030; 96374; 99284; J7050

== ENCOUNTER 2020-10-05 09:49 | Emergency (ER) | payer OTHER ==
--- NOTE | 2020-10-05 10:55 | RAD REPORT ---
EXAM DESCRIPTION: CT - Head Brain Wo Cont - 10/05/2020 10:46 am CLINICAL HISTORY: WEAKNESS COMPARISON: Head Brain Wo Cont dated 08/19/2020 TECHNIQUE: Axial 5 mm thick images of the head were obtained without IV contrast. All CT scans are performed using dose optimization technique as appropriate and may include automated exposure control or mA/KV adjustment according to patient size. FINDINGS: No intracranial hemorrhage, mass, edema or shift of mid-line structures. No acute infarcti on changes seen. No cortical edema or sulcal effacement. The mild to moderate atrophy and advanced ce rebral white matter chronic ischemic findings are stable from August 2020 imaging. Chronic ischemic change does extend into the basal ganglia, thalamus and brainstem tissues. Ventricles are in proport ion to the volume loss. Arterial and physiologic calcifications are present. Mastoid air cells are clear. Trace air-fluid level present in the right maxillary sinus which also cordova s chronic sinusitis changes to the archer of the sinus. Right maxillary air-fluid level is unchanged f rom August 2020 imaging. No acute bony findings. IMPRESSION: Negative non-contrast CT head examination for acute finding. Above detailed atrophy, chronic ischemic change and right maxillary sinus findings are stable from [facility]2019 imaging.
[2020-10-05 10:59] LABS: Basophils % 0.8 % (0-1.3); Hematocrit 41.6 % (36.0-45.0); Lymphocytes % 13.2 % (15.3-44.8); MPV 9.5 fL (7.6-11.3); RBC Red Blood Cell Count 4.52 M/uL (3.86-4.86)
[2020-10-05 11:21] LABS: Albumin 3.1 g/dL (3.4-5.0); Bilirubin Total 0.6 mg/dL (0.2-1.0); Potassium 3.6 mmol/L (3.5-5.1); Troponin (Emerg Dept Use Only) 0.02 ng/mL (0.0-0.045)
[2020-10-05 12:00] LABS: SARS-COV-2 RT PCR NEGATIVE (NEGATIVE)
[2020-10-05] MEDS ORDERED: NA CHLORIDE 0.9% 500 ML ONE (12:09)
--- NOTE | 2020-10-05 12:43 | ER ---
Nurse's Notes [facility] [place] Name: Jenny Douglas Age: 79 yrs Sex: Female : 1940 Arrival Date: 10/05/2020 Time: 09:51 Bed 19 Private MD: Diagnosis: Dehydration;Weakness;Headache;Acute pharyngitis Presentation: 10/05 09:58 Chief complaint: Patient states: Weakness started yesterday. Headache, sore throat this hb morning. No fever. No N/V/D. Coronavirus screen: Client denies travel out of the [place] in the last 14 days. fatigue, headache, sore throat, Client presents with at least one sign or symptom that may indicate coronavirus-19. Standard/surgical mask placed on the client. Ebola Screen: Patient denies travel to an Ebola-affected area in the 21 days before illness onset. Initial Sepsis Screen: Does the patient meet any 2 criteria? No. Patient's initial sepsis screen is negative. Does the patient have a suspected source of infection? Yes: Other: sore throat. Risk Assessment: Do you want to hurt yourself or someone else? Patient reports no desire to harm self or others. Onset of symptoms was October 04, 2020. 09:58 Method Of Arrival: Ambulatory hb 09:58 Acuity: ADRIANNA 3 hb Triage Assessment: 09:58 General: Appears in no apparent distress. Behavior is calm, cooperative, appropriate ll1 for age. Pain: Complains of pain in head Pain currently is 2 out of 10 on a pain scale. Quality of pain is described as aching, Pain began 4 hours ago. EENT: Reports pain when swallowing. Neuro: Level of Consciousness is awake, alert, obeys commands, Oriented to person, place, time, situation, Appropriate for age Supervisor Delivery Department are equal bilaterally Moves all extremities. Full function Gait is steady, Speech is normal, Facial symmetry appears normal, Reports weakness in generalized. Cardiovascular:. GI: Patient currently denies diarrhea, nausea, vomiting. Musculoskeletal: Reports weakness in generalized. Historical: - Allergies: 09:58 Zocor; hb 09:58 Celebrex; hb - PMHx: :58 Hypertension; Hyperlipidemia; COPD; CAD; TIA; Myocardial infarction; hb - PSHx: :58 triple bypass; hb - Immunization history:: Flu vaccine is not up to date. - Social history:: Smoking status: Patient reports the use of cigarette tobacco products, smokes one-half pack cigarettes per day. Screenin:43 Abuse screen: Denies threats or abuse. Denies injuries from another. Nutritional jl7 screening: No deficits noted. Tuberculosis screening: No symptoms or risk factors identified. Fall Risk IV access (20 points). Total Etienne Fall Scale indicates No Risk (0-24 pts). Assessment: 10:43 General: Appears in no apparent distress. uncomfortable, Behavior is calm, cooperative, jl7 appropriate for age. Pain: Complains of pain in sore throat, LICONA Pain currently is 2 out of 10 on a pain scale. Neuro: Level of Consciousness is awake, alert, obeys commands, Oriented to person, place, time, situation, Moves all extremities. Full function Speech is normal. Cardiovascular: Patient's skin is warm and dry. Respiratory: Airway is patent Respiratory effort is even, unlabored, Respiratory pattern is regular, symmetrical. Derm: Skin is pink, warm \T\ dry. 12:00 Reassessment: Patient appears in no apparent distress at this time. Patient and/or jl7 family updated on plan of care and expected duration. Pain level reassessed. Patient is alert, oriented x 3, equal unlabored respirations, skin warm/dry/pink. Patient denies pain at this time. Vital Signs: 09:58 BP 133 / 65; Pulse 88; Resp 22; Pulse Ox 97% ; Weight 54.88 kg; Height 5 ft. 7 in. hb (170.18 cm); Pain 2/10; 10:14 Temp 97.8; ll1 11:39 BP 137 / 58 Supine; Pulse 56; Resp 17; Pulse Ox 97% ; jl7 11:40 BP 114 / 63 Sitting; Pulse 78; jl7 11:41 BP 136 / 59 Sitting; Pulse 75; jl7 11:43 BP 96 / 55 Standing; Pulse 101; jl7 11:44 BP 116 / 50; Pulse 111; jl7 13:00 BP 142 / 60; Pulse 58; Resp 15; Pulse Ox 99% ; jl7 09:58 Body Mass Index 18.95 (54.88 kg, 170.18 cm) hb ED Course: 09:51 Patient arrived in ED. rg4 09:57 Arm band placed on. hb 10:01 Triage completed. hb 10:05 Fred Wagoner NP is PHCP. pm1 10:05 Poncho Jarquin MD is Attending Physician. pm1 10:09 Patient placed in an exam room, on a stretcher. ll1 10:16 Bakari Gutierrez, RN is Primary Nurse. jl7 10:31 EKG done, by ED staff, reviewed by Fred Wagoner NP. em1 10:43 Patient has correct armband on for positive identification. Bed in low position. Call jl7 light in reach. Side rails up X 1. radiation monitor on. Pulse ox on. NIBP on. Warm blanket given. 10:43 Initial lab(s) drawn, by mt, sent to lab. COVID swab sent to lab. Flu and/or RSV swab jl7 sent to lab. Strep swab sent to lab. Inserted saline lock: 20 gauge in right antecubital area, using aseptic technique. Blood collected. 10:47 CT Head Brain wo Cont In Process Unspecified. EDMS 13:19 No provider procedures requiring assistance completed. IV discontinued, intact, jl7 bleeding controlled, No redness/swelling at site. Pressure dressing applied. Administered Medications: 12:05 Drug: NS 0.9% 500 ml Route: IV; Rate: bolus; Site: right antecubital; jl7 12:45 Follow up: Response: No adverse reaction; IV Status: Completed infusion; IV Intake: jl7 500ml Intake: 12:45 IV: 500ml; Total: 500ml. jl7 Outcome: 12:42 Discharge ordered by MD. pm1 13:19 Discharged to home ambulatory. jl7 13:19 Condition: stable 13:19 Discharge instructions given to patient, Instructed on discharge instructions, follow up and referral plans. Demonstrated understanding of instructions, follow-up care. 13:20 Patient left the ED. jl7 Signatures: Dispatcher [employer] EDMS Ramses Altman em1 Fred Wagoner NP CONSULTING MANAGER pm1 Shanita Huerta, Antonietta Cote RN rg4 Bakari Gutierrez, RAMONA RN jl7 Isa Mora RN RN ll1
--- NOTE | 2020-10-05 12:43 | EDPHYS ---
Physician Documentation [facility] Name: Jenny Douglas Age: 79 yrs Sex: Female : 1940 Arrival Date: 10/05/2020 Time: 09:51 Bed 19 Private MD: ED Physician Poncho Jarquin HPI: 10/05 10:16 This 79 yrs old Female presents to ER via Ambulatory with complaints of Sore pm1 Throat, Weakness, Headache. 10:16 The patient presents with sore throat. The patient describes throat pain as raw, pm1 scratchy. Onset: The symptoms/episode began/occurred yesterday. Severity of symptoms: in the emergency department the symptoms have improved. Modifying factors: The symptoms are alleviated by nothing, the symptoms are aggravated by swallowing, Patient's oral intake status: good Denies contact with similarly ill indivduals. Associated signs and symptoms: Pertinent positives: generalized weakness, Pertinent negatives chest pain, shortness of breath. No change in smoker's cough. The patient has not recently seen a physician. Patient is concerned about covid. Historical: - Allergies: 09:58 Zocor; hb 09:58 Celebrex; hb - PMHx: 09:58 Hypertension; Hyperlipidemia; COPD; CAD; TIA; Myocardial infarction; hb - PSHx: 09:58 triple bypass; hb - Immunization history:: Flu vaccine is not up to date. - Social history:: Smoking status: Patient reports the use of cigarette tobacco products, smokes one-half pack cigarettes per day. ROS: 10:16 Constitutional: Negative for fever, chills, and weight loss. pm1 10:16 Cardiovascular: Negative for chest pain, palpitations, and edema, Abdomen/GI: Negative for abdominal pain, nausea, vomiting, diarrhea, and constipation, Back: Negative for injury and pain. 10:16 MS/Extremity: Negative for injury and deformity, Skin: Negative for injury, rash, and discoloration. 10:16 ENT: Positive for sore throat. 10:16 Respiratory: Positive for cough, Negative for shortness of breath. 10:16 Neuro: Positive for weakness generalized. Exam: 10:16 Constitutional: This is a well developed, well nourished patient who is awake, alert, pm1 and in no acute distress. Head/Face: Normocephalic, atraumatic. ENT: Nares patent. No nasal discharge, no septal abnormalities noted. Tympanic membranes are normal and external auditory canals are clear. Oropharynx with no redness, swelling, or masses, exudates, or evidence of obstruction, uvula midline. Mucous membranes moist. Cardiovascular: Regular rate and rhythm with a normal S1 and S2. No gallops, murmurs, or rubs. Normal PMI, no JVD. No pulse deficits. Respiratory: Lungs have equal breath sounds bilaterally, clear to auscultation and percussion. No rales, rhonchi or wheezes noted. No increased work of breathing, no retractions or nasal flaring. Abdomen/GI: Soft, non-tender, with normal bowel sounds. No distension or tympany. No guarding or rebound. No evidence of tenderness throughout. Back: No spinal tenderness. No costovertebral tenderness. Full range of motion. Skin: Warm, dry with normal turgor. Normal color with no rashes, no lesions, and no evidence of cellulitis. MS/ Extremity: Pulses equal, no cyanosis. Neurovascular intact. Full, normal range of motion. 10:16 Neuro: Exam negative for acute changes, Orientation: is normal, Mentation: is normal, Motor: is normal, moves all fours. Vital Signs: 09:58 BP 133 / 65; Pulse 88; Resp 22; Pulse Ox 97% ; Weight 54.88 kg; Height 5 ft. 7 in. hb (170.18 cm); Pain 2/10; 10:14 Temp 97.8; ll1 11:39 BP 137 / 58 Supine; Pulse 56; Resp 17; Pulse Ox 97% ; jl7 11:40 BP 114 / 63 Sitting; Pulse 78; jl7 11:41 BP 136 / 59 Sitting; Pulse 75; jl7 11:43 BP 96 / 55 Standing; Pulse 101; jl7 11:44 BP 116 / 50; Pulse 111; jl7 13:00 BP 142 / 60; Pulse 58; Resp 15; Pulse Ox 99% ; jl7 09:58 Body Mass Index 18.95 (54.88 kg, 170.18 cm) hb MDM: 10:11 Patient medically screened. pm1 12:41 Data reviewed: vital signs. pm1 12:41 Counseling: I had a detailed discussion with the patient and/or guardian regarding: the pm1 historical points, exam findings, and any diagnostic results supporting the discharge/admit diagnosis, lab results, radiology results, the need for outpatient follow up, to return to the emergency department if symptoms worsen or persist or if there are any questions or concerns that arise at home. 10/05 10:12 Order name: Strep; Complete Time: 11:39 pm1 10/05 10:14 Order name: CBC with Diff pm1 10/05 10:14 Order name: CMP pm1 10/05 10:14 Order name: Troponin (emerg Dept Use Only); Complete Time: 11:39 pm1 10/05 10:14 Order name: EKG; Complete Time: 10:25 pm1 10/05 10:14 Order name: CT Head Brain wo Cont; Complete Time: 10:56 pm1 10/05 10:15 Order name: CBC with Automated Diff; Complete Time: 11:07 EDMS 10/05 10:15 Order name: Comprehensive Metabolic Panel; Complete Time: 11:39 EDMS 10/05 11:36 Order name: Throat Culture EDNJ 10/05 12:01 Order name: COVID-19/FLU A+B; Complete Time: 12:04 EDMS 10/05 13:05 Order name: Urine Dipstick--Ancillary (enter results); Complete Time: 17:35 eb 10/05 10:14 Order name: Urine Dipstick-Ancillary (obtain specimen); Complete Time: 12:01 pm1 10/05 10:14 Order name: EKG - Nurse/Tech; Complete Time: 10:31 pm1 10/05 10:14 Order name: Orthostatics; Complete Time: 11:49 pm1 Administered Medications: 12:05 Drug: NS 0.9% 500 ml Route: IV; Rate: bolus; Site: right antecubital; jl7 12:45 Follow up: Response: No adverse reaction; IV Status: Completed infusion; IV Intake: jl7 500ml Disposition: 10/05/20 12:42 Discharged to Home. Impression: Dehydration, Weakness, Headache, Acute pharyngitis. - Condition is Stable. - Discharge Instructions: Dehydration, Elderly, General Headache Without Cause, Pharyngitis, Weakness, Rehydration, Elderly. - Medication Reconciliation Form, Thank You Letter, Antibiotic Education, Prescription Opioid Use form. - Follow up: Emergency Department; When: As needed; Reason: Worsening of condition. Follow up: Private Physician; When: 2 - 3 days; Reason: Recheck today's complaints, Continuance of care, Re-evaluation by your physician. - Problem is new. - Symptoms have improved. Addendum: 10/06/2020 20:13 Co-signature as Attending Physician, Poncho Jarquin MD. m a2 Signatures: Dispatcher [employer] EDNJ Fred Wagoner, BREWERY PUMPER BREWERY PUMPER pm1 Shanita Huerta, RN RN Bakari Gutierrez RN RN jl7 Poncho Jarquin MD MD ma2 Corrections: (The following items were deleted from the chart) 10/05 11:18 10:12 Influenza Screen (A \T\ B)+BA.LAB.BRZ ordered. EDNJ EDMS 11:18 10:12 CORONAVIRUS+MR.LAB.BRZ ordered. EDNJ EDMS 12:43 12:42 10/05/2020 12:42 Discharged to Home. Impression: Dehydration; Weakness. Condition pm1 is Stable. Forms are Medication Reconciliation Form, Thank You Letter, Antibiotic Education, Prescription Opioid Use. Follow up: Emergency Department; When: As needed; Reason: Worsening of condition. Follow up: Private Physician; When: 2 - 3 days; Reason: Recheck today's complaints, Continuance of care, Re-evaluation by your physician. Problem is new. Symptoms have improved. pm1 13:20 12:43 10/05/2020 12:42 Discharged to Home. Impression: Dehydration; Weakness; Headache; jl7 Acute pharyngitis. Condition is Stable. Forms are Medication Reconciliation Form, Thank You Letter, Antibiotic Education, Prescription Opioid Use. Follow up: Emergency Department; When: As needed; Reason: Worsening of condition. Follow up: Private Physician; When: 2 - 3 days; Reason: Recheck today's complaints, Continuance of care, Re-evaluation by your physician. Problem is new. Symptoms have improved. pm1
[2020-10-05 13:10] LABS: Urine Blood TRACE (NEG); Urine Glucose NEGATIVE (NEG); Urine Protein NEGATIVE (NEG); Urine Specific Gravity 1.025 (1.005-1.030); Urine pH 5.5 (5.0-7.0)
[2020-10-05 13:30] VITALS: TEMP 97.8
[2020-10-05 13:37] VITALS: BP 142/60; O2SAT 99
== END 2020-10-05 13:20 | disposition home or self-care (01) ==
LOC: ER 09:49
DX: E86.0 Dehydration (principal); R51.9 Headache, unspecified; J02.9 Acute pharyngitis, unspecified; I10 Essential (primary) hypertension; F17.210 Nicotine dependence, cigarettes, uncomplicated; Z20.822 Contact with and (suspected) exposure to COVID-19; Z88.8 Allergy status to other drugs, medicaments and biological substances
CPT/HCPCS: 93005; 87070; 85025; 36415; 87081; 81003; 84484; 80053; 0240U; 70450; 96360; 99284; J7040

== ENCOUNTER 2021-05-11 07:14 | Emergency (ER) | payer OTHER ==
--- OUTSIDE RECORDS SUMMARY | 2021-05-11 07:17 | XMS REPORT | Continuity of Care Document ---
:1940 Author Organization [facility] t Address [address] [place] [address] Care Team Providers Name Role Phone Asked, Pcp Primary Care Physician Unavailable Becky CLEMENT P. Attending Clinician Problems This patient has no known problems. Allergies, Adverse Reactions, Alerts This patient has no known allergies or adverse reactions. Social History Social Habit Start Date Stop Date Quantity Comments Source Sex Assigned At [birth year] [facility] 00:00:00 00:00:00 Smoking Status Start Date Stop Date Source Unknown if ever smoked [facility] Medications This patient has no known medications. Immunizations Ordered Immunization Filled Immunization Date Status Commen ts [facility] 2020-12-12 Completed Meth odist VACCINATION 00:00:00 [facility] PFIZER COVID-19 MRNA 2020-11-21 Completed Meth odist VACCINATION 00:00:00 Hospital Procedures This patient has no known procedures. Plan of Care Planned Activity Planned Date Details Comments Source Future Scheduled Test Hepatitis C screening [facility] (procedure) [code = 665373758] Future Scheduled Test SHINGLES VACCINES (#1) [facility] [code = SHINGLES VACCINES (#1)] Future Scheduled Test 65+ PNEUMOCOCCAL [facility] VACCINE (1 of 1 - PPSV23) [code = 65+ PNEUMOCOCCAL VACCINE (1 of 1 - PPSV23)] Future Scheduled Test INFLUENZA VACCINE [code [facility] = INFLUENZA VACCINE] Encounters Start End Encounter Admission Attending Care Care Encounter Source Date/Time Date/Time Type Type Clinicians Facility Department ID 2020-12-12 2020-12-12 Clinical Destiny [id number] Dylan 13:01:14 13:06:14 Support [facility] [id number] [id number] Hospit [id number] .[id number] l .8 2020-12-12 2020-12-12 Outpatient BECKY [facility] [id number] [address] [place] [address] 00:00:00 00:00:00 [address] 2020-11-21 2020-11-21 Clinical [id number] [facility] 15:25:41 15:30:[id number] [id number] Hospit [id number] .[id number] l .8 2020-11-21 2020-11-21 Outpatient [facility] [id number] 00:00:00 00:00:[address] Results This patient has no known results.
[2021-05-11 09:07] LABS: SARS-COV-2 RT PCR NEGATIVE (NEGATIVE)
--- NOTE | 2021-05-11 09:13 | RAD REPORT ---
EXAM DESCRIPTION: RAD - Chest Pa And Lat (2 Views) - 05/11/2021 9:03 am CLINICAL HISTORY: COUGH COMPARISON: Chest Single View dated 08/19/2020; Chest Single View dated 05/19/2019; Chest Single View dated 07/26/2018; Chest Single View dated 09/17/2017 FINDINGS: No evidence of edema or pneumonia. The heart size is within normal limits.No acute osseous abnormality. No significant pleural effusions or pneumothorax. Sternotomy. Atherosclerosis. Calcifie d nodule right mid lung. IMPRESSION: No acute cardiopulmonary disease.
--- NOTE | 2021-05-11 09:19 | EDPHYS ---
Physician Documentation [facility] Name: Jenny Douglas Age: 80 yrs Sex: Female : 1940 Arrival Date: 05/11/2021 Time: 07:17 Bed Waiting Private MD: ED Physician Nate Stinson HPI: 05/11 09:15 This 80 yrs old Female presents to ER via Ambulatory with complaints of jr8 Headache, Body Aches. 09:15 Onset: The symptoms/episode began/occurred gradually. Associated signs and symptoms: jr8 Pertinent positives: Pain to right chest wall. The patient has not experienced similar symptoms in the past. The patient has not recently seen a physician. This is a 80-year-old female that presented to the emergency room for headache, cough, body aches. Patient with history of COPD. Denies increase in cough or shortness of breath. Denies fevers. Stated that the right lower chest wall was hurting as well.. Historical: - Allergies: 07:40 Celebrex; ss 07:40 Zocor; ss - Home Meds: 07:40 Plavix 75 mg Oral tab 1 tab once daily [Active]; Lipitor 80 mg Oral tab 1 tab once ss daily [Active]; hydrochlorothiazide 12.5 mg Oral cap 1 cap once daily [Active]; aspirin 81 mg Oral TbEC 1 tab once daily [Active]; - PMHx: 07:40 CAD; COPD; Hyperlipidemia; Hypertension; Myocardial infarction; TIA; ss - Immunization history:: Client reports receiving the 2nd dose of the Covid vaccine. - Social history:: Smoking status: Patient reports the use of cigarette tobacco products, < 1/2 ppd. ROS: 09:15 Eyes: Negative for injury, pain, redness, and discharge, ENT: Negative for injury, jr8 pain, and discharge, Neck: Negative for injury, pain, and swelling, Abdomen/GI: Negative for abdominal pain, nausea, vomiting, diarrhea, and constipation, Back: Negative for injury and pain, MS/Extremity: Negative for injury and deformity, Skin: Negative for injury, rash, and discoloration. 09:15 Cardiovascular: Positive for chest pain, of the Right lateral chest. 09:15 Respiratory: Positive for cough, Negative for shortness of breath, sputum production, wheezing. 09:15 Neuro: Positive for headache. Exam: 09:15 Eyes: Pupils equal round and reactive to light, extra-ocular motions intact. Lids and jr8 lashes normal. Conjunctiva and sclera are non-icteric and not injected. Cornea within normal limits. Periorbital areas with no swelling, redness, or edema. ENT: Nares patent. No nasal discharge, no septal abnormalities noted. Tympanic membranes are normal and external auditory canals are clear. Oropharynx with no redness, swelling, or masses, exudates, or evidence of obstruction, uvula midline. Mucous membranes moist. Neck: Trachea midline, no thyromegaly or masses palpated, and no cervical lymphadenopathy. Supple, full range of motion without nuchal rigidity, or vertebral point tenderness. No Meningismus. Cardiovascular: Regular rate and rhythm with a normal S1 and S2. No gallops, murmurs, or rubs. Normal PMI, no JVD. No pulse deficits. Respiratory: Lungs have equal breath sounds bilaterally, clear to auscultation and percussion. No rales, rhonchi or wheezes noted. No increased work of breathing, no retractions or nasal flaring. Abdomen/GI: Soft, non-tender, with normal bowel sounds. No distension or tympany. No guarding or rebound. No evidence of tenderness throughout. Back: No spinal tenderness. No costovertebral tenderness. Full range of motion. Skin: Warm, dry with normal turgor. Normal color with no rashes, no lesions, and no evidence of cellulitis. MS/ Extremity: Pulses equal, no cyanosis. Neurovascular intact. Full, normal range of motion. Neuro: Awake and alert, GCS 15, oriented to person, place, time, and situation. Cranial nerves II-XII grossly intact. Motor strength 5/5 in all extremities. Sensory grossly intact. Cerebellar exam normal. Normal gait. Vital Signs: 07:37 BP 136 / 72; Pulse 102; Resp 17; Temp 97.5; Pulse Ox 97% on R/A; Weight 54.43 kg; ss Height 5 ft. 7 in. (170.18 cm); Pain 3/10; 07:37 Body Mass Index 18.79 (54.43 kg, 170.18 cm) MDM: 07:37 Patient medically screened. jr8 09:15 Data reviewed: vital signs, nurses notes, lab test result(s), radiologic studies, plain jr8 films. Data interpreted: Pulse oximetry: on room air is 97 %. Interpretation: normal. Counseling: I had a detailed discussion with the patient and/or guardian regarding: the historical points, exam findings, and any diagnostic results supporting the discharge/admit diagnosis, lab results, radiology results, the need for outpatient follow up, a family practitioner, to return to the emergency department if symptoms worsen or persist or if there are any questions or concerns that arise at home. 05/11 07:55 Order name: XRAY Chest Pa And Lat (2 Views); Complete Time: 09:15 jr8 05/11 09:07 Order name: COVID-19/FLU A+B; Complete Time: 09:15 EDMS Administered Medications: No medications were administered Disposition: 10:21 Co-signature as Attending Physician, Nate Stinson MD I agree with the assessment and rn plan of care. Attestation: The patient's history, exam findings, diagnostics, and a summary of any interventions or procedures was reviewed in detail with Zeus VANEGAS. Disposition Summary: 05/11/21 09:18 Discharge Ordered Location: Home jr8 Problem: new jr8 Symptoms: have improved jr8 Condition: Stable jr8 Diagnosis - Headache jr8 - Myalgia jr8 Followup: jr8 - With: Private Physician - When: 2 - 3 days - Reason: Recheck today's complaints, Continuance of care, Re-evaluation by your physician Discharge Instructions: - Discharge Summary Sheet jr8 - General Headache Without Cause jr8 - Viral Illness, Adult jr8 Forms: - Medication Reconciliation Form jr8 - Thank You Letter jr8 - Antibiotic Education jr8 - Prescription Opioid Use jr8 Signatures: Dispatcher [employer] EDMS Nate Stinson MD MD rn Smirch, Shelby, RN RN ss Roszak, Josh, PA PA jr8 Corrections: (The following items were deleted from the chart) 08:19 07:55 CORONAVIRUS+MR.LAB.BRZ ordered. EDMS EDMS 08:20 07:55 Influenza Screen (A \T\ B)+BA.LAB.BRZ ordered. EDMS EDMS
--- NOTE | 2021-05-11 09:19 | ER ---
Nurse's Notes [facility] Name: Jenny Douglas Age: 80 yrs Sex: Female : 1940 Arrival Date: 05/11/2021 Time: 07:17 Bed Waiting Private MD: Diagnosis: Headache;Myalgia Presentation: 05/11 07:37 Chief complaint: Patient states: headache and R lateral chest wall pain that began last ss night. Pt also c/o achy joints that began a week ago, was seen by her doctor who told her that it may be arthritis. Denies fever. Has chronic cough (COPD). Coronavirus screen: Client denies travel out of the [place] in the last 14 days. Ebola Screen: Patient denies exposure to infectious person. Patient denies travel to an Ebola-affected area in the 21 days before illness onset. Initial Sepsis Screen: Does the patient meet any 2 criteria? No. Patient's initial sepsis screen is negative. Does the patient have a suspected source of infection? No. Patient's initial sepsis screen is negative. Risk Assessment: Do you want to hurt yourself or someone else? Patient reports no desire to harm self or others. Onset of symptoms was May 10, 2021. 07:37 Method Of Arrival: Ambulatory ss 07:37 Acuity: ADRIANNA 3 ss Historical: - Allergies: 07:40 Celebrex; ss 07:40 Zocor; ss - Home Meds: 07:40 Plavix 75 mg Oral tab 1 tab once daily [Active]; Lipitor 80 mg Oral tab 1 tab once ss daily [Active]; hydrochlorothiazide 12.5 mg Oral cap 1 cap once daily [Active]; aspirin 81 mg Oral TbEC 1 tab once daily [Active]; - PMHx: 07:40 CAD; COPD; Hyperlipidemia; Hypertension; Myocardial infarction; TIA; ss - Immunization history:: Client reports receiving the 2nd dose of the Covid vaccine. - Social history:: Smoking status: Patient reports the use of cigarette tobacco products, < 1/2 ppd. Vital Signs: 07:37 BP 136 / 72; Pulse 102; Resp 17; Temp 97.5; Pulse Ox 97% on R/A; Weight 54.43 kg; ss Height 5 ft. 7 in. (170.18 cm); Pain 3/10; 07:37 Body Mass Index 18.79 (54.43 kg, 170.18 cm) ED Course: 07:17 Patient arrived in ED. ds1 07:36 Zeus Boyle PA is PHCP. jr8 07:36 Nate Stinson MD is Attending Physician. jr8 07:39 Triage completed. ss 07:40 Arm band placed on left wrist. ss 09:03 XRAY Chest Pa And Lat (2 Views) In Process Unspecified. EDMS 10:13 No provider procedures requiring assistance completed. Patient did not have IV access ss during this emergency room visit. Administered Medications: No medications were administered Outcome: 09:18 Discharge ordered by . jr8 10:13 Discharged to home ambulatory. ss 10:13 Condition: good 10:13 Discharge instructions given to patient, Instructed on discharge instructions, follow up and referral plans. Demonstrated understanding of instructions, follow-up care. 10:13 Patient left the ED. Signatures: Dispatcher [employer] EDLA HerrAdrienne ds1 Shaina San RN RN Zeus Boyle PA PA jr8
[2021-05-11 10:22] VITALS: BP 136/72; TEMP 97.5; O2SAT 97
== END 2021-05-11 10:13 | disposition home or self-care (01) ==
LOC: ER 07:14
DX: M79.10 Myalgia, unspecified site (principal); E78.5 Hyperlipidemia, unspecified; I10 Essential (primary) hypertension; I25.2 Old myocardial infarction; J44.9 Chronic obstructive pulmonary disease, unspecified; Z79.01 Long term (current) use of anticoagulants; Z79.82 Long term (current) use of aspirin; Z20.822 Contact with and (suspected) exposure to COVID-19; Z88.8 Allergy status to other drugs, medicaments and biological substances
CPT/HCPCS: 0240U; 71046; 99283

== ENCOUNTER 2021-05-17 11:16 | Emergency (ER) | payer OTHER ==
--- OUTSIDE RECORDS SUMMARY | 2021-05-17 11:19 | XMS REPORT | Continuity of Care Document ---
:1940 Author Organization [facility] t Address [address] [place] [address] Care Team Providers Name Role Phone Asked, Pcp Primary Care Physician Ruth More MD P. Attending Clinician Problems This patient has no known problems. Allergies, Adverse Reactions, Alerts This patient has no known allergies or adverse reactions. Social History Social Habit Start Date Stop Date Quantity Comments Source Sex Assigned At [birth year] [facility] 00:00:00 00:00:00 Smoking Status Start Date Stop Date Source Unknown if ever smoked [facility] Medications This patient has no known medications. Immunizations Ordered Immunization Filled Immunization Date Status Commen ts Source Name Name PFIZER COVID-19 MRNA 2020-12-12 Completed Meth odist VACCINATION 00:00:00 [facility] PFIZER COVID-19 MRNA 2020-12-12 Completed Meth odist VACCINATION 00:00:00 [facility] PFIZER COVID-19 MRNA 2020-11-21 Completed Meth odist VACCINATION 00:00:00 [facility] PFIZER COVID-19 MRNA 2020-11-21 Completed Meth odist VACCINATION 00:00:00 Hospital Procedures This patient has no known procedures. Plan of Care Planned Activity Planned Date Details Comments Source Future Scheduled Test Hepatitis C screening [facility] (procedure) [code = 178018627] Future Scheduled Test SHINGLES VACCINES (#1) [facility] [code = SHINGLES VACCINES (#1)] Future Scheduled Test 65+ PNEUMOCOCCAL [facility] VACCINE (1 of 1 - PPSV23) [code = 65+ PNEUMOCOCCAL VACCINE (1 of 1 - PPSV23)] Future Scheduled Test INFLUENZA VACCINE [code [facility] = INFLUENZA VACCINE] Future Scheduled Test Hepatitis C screening [facility] (procedure) [code = 039361368] Future Scheduled Test SHINGLES VACCINES (#1) [facility] [code = SHINGLES VACCINES (#1)] Future Scheduled Test 65+ PNEUMOCOCCAL [facility] VACCINE (1 of 1 - PPSV23) [code = 65+ PNEUMOCOCCAL VACCINE (1 of 1 - PPSV23)] Future Scheduled Test INFLUENZA VACCINE [code [facility] = INFLUENZA VACCINE] Encounters Start End Encounter Admission Attending Care Care Encounter Source Date/Time Date/Time Type Type Clinicians Facility Department ID 2020-12-12 2020-12-12 Clinical Argenis 1.2.840.1 [id number] Methodi 13:01:14 13:06:14 Support [facility] [address] P[address] 3.430.2.7 Hospit a .3.642817 l .8 2020-12-12 2020-12-12 Clinical Argeins 1.2.840.1 [id number] Methodi 13:01:14 13:06:14 [facility] [address] P[address] 3.430.2.7 Hospit a .3.287319 l .8 2020-11-21 2020-11-21 Clinical 1.2.840.1 [id number] Methodi 15:25:41 15:30:[address] 3.430.2.7 Hospit a .3.456953 l .8 2020-11-21 2020-11-21 Clinical 1.2.840.1 [id number] Methodi 15:25:41 15:30:[address] 3.430.2.7 Hospit a .3.182555 l .8 Results This patient has no known results.
[2021-05-17 16:02] LABS: Urine Blood Trace-intact (Negative); Urine Glucose Negative (Negative); Urine Protein Negative (Negative); Urine Specific Gravity 1.015 (1.005-1.030); Urine pH 6.5 (5.0-7.0)
[2021-05-17 16:25] LABS: Absolute Lymphocytes (CBC) 1.8 K/uL (0.7-4.9); Basophils % 1.3 % (0-1.3); Hematocrit 41.9 % (36.0-45.0); Lymphocytes % 25.9 % (15.3-44.8); MPV 8.9 fL (7.6-11.3); RBC Red Blood Cell Count 4.44 M/uL (3.86-4.86)
[2021-05-17 16:40] LABS: Urine Bacteria <20 /HPF (<20); Urine RBC NONE SEEN /HPF (NONE SEEN)
[2021-05-17 16:48] LABS: Potassium 3.9 mmol/L (3.5-5.1)
--- NOTE | 2021-05-17 17:42 | ER ---
Nurse's Notes [facility] Name: Jenny Douglas Age: 80 yrs Sex: Female : 1940 Arrival Date: 05/17/2021 Time: 12:21 Bed 13 Private MD: Diagnosis: Other malaise and fatigue Presentation: 05/17 12:31 Chief complaint: Patient states: "I just don't feel good. Everything hurts, I feel week ss and dizzy." Pt reports she was seen Tuesday for the same symptoms and tested negative for Flu and COVID. Pt reports the only thing that has changed is the dizziness. Coronavirus screen: Vaccine status: Patient reports receiving the 2nd dose of the covid vaccine. Ebola Screen: Patient denies exposure to infectious person. Patient denies travel to an Ebola-affected area in the 21 days before illness onset. Initial Sepsis Screen: Does the patient meet any 2 criteria? No. Patient's initial sepsis screen is negative. Does the patient have a suspected source of infection? No. Patient's initial sepsis screen is negative. Risk Assessment: Do you want to hurt yourself or someone else? Patient reports no desire to harm self or others. Onset of symptoms was May 11, 2021. 12:31 Method Of Arrival: Ambulatory ss 12:31 Acuity: ADRIANNA 3 ss Historical: - Allergies: 12:33 Celebrex; ss 12:33 Zocor; ss - PMHx: 12:33 CAD; COPD; Hyperlipidemia; Hypertension; Myocardial infarction; TIA; ss - Immunization history:: Client reports receiving the 2nd dose of the Covid vaccine. - Social history:: Smoking status: Patient reports the use of cigarette tobacco products, smokes one-half pack cigarettes per day. Screenin:16 Abuse screen: Denies threats or abuse. Nutritional screening: No deficits noted. vg1 Tuberculosis screening: No symptoms or risk factors identified. Fall Risk No fall in past 12 months (0 pts). No secondary diagnosis (0 pts). IV access (20 points). Ambulatory Aid- None/Bed Rest/Nurse Assist (0 pts). Gait- Normal/Bed Rest/Wheelchair (0 pts) Mental Status- Oriented to own ability (0 pts). Total Etienne Fall Scale indicates No Risk (0-24 pts). Assessment: 16:00 General: Appears in no apparent distress. comfortable, Behavior is calm, cooperative. vg1 Pain: Complains of pain in lower back and head Pain currently is 3 out of 10 on a pain scale. Neuro: Level of Consciousness is awake, alert, obeys commands, Oriented to person, place, time, situation, Reports dizziness. Cardiovascular: Patient's skin is warm and dry. Respiratory: Airway is patent Respiratory effort is even, unlabored, Breath sounds are clear bilaterally. GI: Reports nausea, Patient currently denies diarrhea, vomiting. : No signs and/or symptoms were reported regarding the genitourinary system. EENT: No signs and/or symptoms were reported regarding the EENT system. Derm: Skin is intact, Skin is pink, warm \\T\\ dry. Musculoskeletal: Circulation, motion, and sensation intact. 17:27 Reassessment: Patient appears in no apparent distress at this time. No changes from vg1 previously documented assessment. Patient and/or family updated on plan of care and expected duration. Pain level reassessed. Patient is alert, oriented x 3, equal unlabored respirations, skin warm/dry/pink. Vital Signs: 12:33 BP 161 / 62; Pulse 78; Resp 17; Temp 97.8(TE); Pulse Ox 99% on R/A; Weight 54.43 kg; ss Height 5 ft. 7 in. (170.18 cm); Pain 2/10; 16:00 BP 174 / 79; Pulse 72; Resp 20; Pulse Ox 97% on R/A; vg1 17:00 BP 154 / 66; Pulse 60; Resp 18; Pulse Ox 95% on R/A; vg1 12:33 Body Mass Index 18.79 (54.43 kg, 170.18 cm) ED Course: 12:21 Patient arrived in ED. ds1 12:33 Triage completed. ss 12:33 Arm band placed on right wrist. ss 15:31 Isis Martinez [facility]C [facility]. kb 15:31 Poncho Jarquin MD is Attending Physician. kb 15:31 Cheryl Roque, RAMONA is Primary Nurse. vg1 16:08 Initial lab(s) drawn, by me, sent to lab. COVID swab sent to lab. Inserted saline lock: vg1 20 gauge in right antecubital area, using aseptic technique. Blood collected. 16:16 Patient has correct armband on for positive identification. Placed in gown. Bed in low vg1 position. Call light in reach. Side rails up X 1. 16:16 No provider procedures requiring assistance completed. vg1 18:04 IV discontinued, intact, bleeding controlled, No redness/swelling at site. Pressure vg1 dressing applied. Administered Medications: No medications were administered Outcome: 17:42 Discharge ordered by . allan 18:04 Discharged to home ambulatory. vg1 18:04 Condition: stable 18:04 Discharge instructions given to patient, Instructed on discharge instructions, follow up and referral plans. Demonstrated understanding of instructions, follow-up care. 18:05 Patient left the ED. vg1 Signatures: Isis Martinez, ROJELIO-C [employer]-Adrienne Garcias ds1 Shaina San, RAMONA RN Cheryl Judge RN RN vg1 Corrections: (The following items were deleted from the chart) 16:19 16:00 Neuro: Level of Consciousness is awake, alert, obeys commands, Oriented to vg1 person, place, time, situation, vg1
--- NOTE | 2021-05-17 17:42 | EDPHYS ---
Physician Documentation [facility] Name: Jenny Douglas Age: 80 yrs Sex: Female : 1940 Arrival Date: 05/17/2021 Time: 12:21 Bed 13 Private MD: ED Physician Poncho Jarquin HPI: 05/17 17:32 This 80 yrs old Female presents to ER via Ambulatory with complaints of kb Headache, Cough. 17:32 The patient or guardian reports flu symptoms, myalgias. Onset: The symptoms/episode kb began/occurred 6 day(s) ago. Severity of symptoms: At their worst the symptoms were moderate, in the emergency department the symptoms are unchanged. Modifying factors: The symptoms are alleviated by nothing, the symptoms are aggravated by nothing. Associated signs and symptoms: Pertinent positives: malaise and bodyaches. The patient has not experienced similar symptoms in the past. The patient has not recently seen a physician. Pt reports malaise and bodyaches that started on Tuesday. States she came here and had a chest x-ray, flu and covid test that were all normal. States she still doesn't feel good. Historical: - Allergies: 12:33 Celebrex; ss 12:33 Zocor; ss - PMHx: 12:33 CAD; COPD; Hyperlipidemia; Hypertension; Myocardial infarction; TIA; ss - Immunization history:: Client reports receiving the 2nd dose of the Covid vaccine. - Social history:: Smoking status: Patient reports the use of cigarette tobacco products, smokes one-half pack cigarettes per day. ROS: 17:31 ENT: Negative for injury, pain, and discharge, Cardiovascular: Negative for chest pain, kb palpitations, and edema, Respiratory: Negative for shortness of breath, cough, wheezing, and pleuritic chest pain, Abdomen/GI: Negative for abdominal pain, nausea, vomiting, diarrhea, and constipation, MS/Extremity: Negative for injury and deformity, Skin: Negative for injury, rash, and discoloration, Neuro: Negative for headache, weakness, numbness, tingling, and seizure, Psych: Negative for depression, anxiety, suicide ideation, homicidal ideation, and hallucinations. 17:31 Constitutional: Positive for body aches, fatigue, malaise, Negative for chills, fever, poor PO intake, weight loss. 17:31 Back: Positive for pain at rest, pain with movement, of the right mid back. Exam: 17:31 Constitutional: This is a well developed, well nourished patient who is awake, alert, kb and in no acute distress. Head/Face: Normocephalic, atraumatic. ENT: Moist Mucous membranes Chest/axilla: Normal chest wall appearance and motion. Cardiovascular: Regular rate and rhythm with a normal S1 and S2. No gallops, murmurs, or rubs. No pulse deficits. Respiratory: Respirations even and unlabored. No increased work of breathing, no retractions or nasal flaring. Abdomen/GI: Soft, non-tender. No distention Skin: Warm, dry with normal turgor. Normal color. MS/ Extremity: Pulses equal, no cyanosis. Neurovascular intact. Full, normal range of motion. Neuro: Awake and alert, GCS 15, oriented to person, place, time, and situation. Moves all extremities. Normal gait. Psych: Awake, alert, with orientation to person, place and time. Behavior, mood, and affect are within normal limits. 17:31 Back: pain, that is mild, of the right mid back, ROM is normal, normal spinal alignment noted, CVA tenderness, is absent. Vital Signs: 12:33 BP 161 / 62; Pulse 78; Resp 17; Temp 97.8(TE); Pulse Ox 99% on R/A; Weight 54.43 kg; ss Height 5 ft. 7 in. (170.18 cm); Pain 2/10; 16:00 BP 174 / 79; Pulse 72; Resp 20; Pulse Ox 97% on R/A; vg1 17:00 BP 154 / 66; Pulse 60; Resp 18; Pulse Ox 95% on R/A; vg1 12:33 Body Mass Index 18.79 (54.43 kg, 170.18 cm) ss MDM: 15:31 Patient medically screened. kb 17:26 Data reviewed: vital signs, nurses notes. Data interpreted: Pulse oximetry: on room air kb is 97 %. Interpretation: normal. Counseling: I had a detailed discussion with the patient and/or guardian regarding: the historical points, exam findings, and any diagnostic results supporting the discharge/admit diagnosis, lab results, the need for outpatient follow up, a family practitioner, to return to the emergency department if symptoms worsen or persist or if there are any questions or concerns that arise at home. 05/17 15:44 Order name: CBC with Diff; Complete Time: 16:45 kb 05/17 15:44 Order name: Basic Metabolic Panel; Complete Time: 16:50 kb 05/17 15:52 Order name: Urine Microscopic Only; Complete Time: 16:45 kb 05/17 16:02 Order name: Urine Dipstick-Ancillary; Complete Time: 16:09 EDMS 05/17 17:39 Order name: SARS-COV-2 RT PCR; Complete Time: 17:39 EDMS 05/17 15:44 Order name: IV Start; Complete Time: 16:14 kb 05/17 15:52 Order name: Urine Dipstick-Ancillary (obtain specimen); Complete Time: 16:14 kb Administered Medications: No medications were administered Disposition Summary: 05/17/21 17:42 Discharge Ordered Location: Home kb Condition: Stable kb Diagnosis - Other malaise and fatigue kb Followup: kb - With: Emergency Department - When: As needed - Reason: Worsening of condition Followup: kb - With: Private Physician - When: 2 - 3 days - Reason: Recheck today's complaints, Continuance of care, Re-evaluation by your physician Discharge Instructions: - Discharge Summary Sheet kb - Viral Illness, Adult kb Forms: - Medication Reconciliation Form kb - Thank You Letter kb - Antibiotic Education kb - Prescription Opioid Use kb Addendum: 05/18/2021 20:37 Co-signature as Attending Physician, Pocnho Jarquin MD. m a2 Signatures: Dispatcher [employer] Isis Marino, ROJELIO-Chris SERRATO-Shaina Pena RN RN ss Alzahri, Mohammad, MD MD ma2 Corrections: (The following items were deleted from the chart) 05/17 16:31 15:45 CORONAVIRUS+BRZ ordered. [facility]
[2021-05-17 18:18] VITALS: TEMP 97.8
[2021-05-17 18:21] VITALS: BP 154/66; O2SAT 95
== END 2021-05-17 18:05 | disposition home or self-care (01) ==
LOC: ER 11:16
DX: R53.83 Other fatigue (principal); I10 Essential (primary) hypertension; F17.210 Nicotine dependence, cigarettes, uncomplicated; Z88.8 Allergy status to other drugs, medicaments and biological substances; Z20.822 Contact with and (suspected) exposure to COVID-19
CPT/HCPCS: 85025; 80048; 36415; 99283; U0003; 81003; 81015

== ENCOUNTER 2022-02-23 06:45 | Day surgery (SDC) | payer OTHER ==
[2022-02-22 13:01] LABS: Absolute Lymphocytes (CBC) 2.6 K/uL (0.7-4.9); Lymphocytes % 30.7 % (15.3-44.8); MPV 8.8 fL (7.6-11.3); RBC Red Blood Cell Count 4.36 M/uL (3.86-4.86)
[2022-02-22 13:08] LABS: Protime INR 0.99
--- NOTE | 2022-02-22 13:17 | EKG ---
Test Date: 2022-02-22 Test Time: 12:17:50 Circuit Tester: NIA MEASUREMENT RESULTS: Intervals: Rate: 59 WA: 148 QRSD: 88 QT: 418 QTc: 413 [place]: P: 74 WA: 148 QRS: -54 T: 68 INTERPRETIVE STATEMENTS: Sinus bradycardia with premature atrial complexes Left axis deviation Moderate voltage criteria for LVH, may be normal variant Cannot rule out Septal infarct, age undetermined Abnormal ECG Compared to ECG 10/05/2020 10:22:03 Atrial premature complex(es) now present Sinus rhythm no longer present Sinus arrhythmia no longer present Early repolarization no longer present Myocardial infarct finding still present Electronically Signed On 02-22-22 13:17:26 CDT by Yayo Hart
[~2022-02-23 06:45] MED LIST: ATROPINE SULF 1 MG/10 ML SYR IV ONE; FENTANYL CITR 100 MCG/2 ML ONE; HEPA 1000U/500MLS 0 UNIT/0 ML BAG IV ONE; LIDOCAINE 1% 20 ML MDV ONE; MIDAZOLAM HCL 2 MG/2 ML INJ ONE
[2022-02-23] MEDS ORDERED: NA CHLORIDE 0.9% 500 ML ONE (06:56)
[2022-02-23 08:30] VITALS: TEMP 97
[2022-02-23 09:13] VITALS: O2SAT 94
[2022-02-23 09:47] VITALS: BP 138/60
--- NOTE | 2022-02-23 14:44 | OP ---
Surgeon: Hiram Kc MD Cutting Machine Tender Decorative: Ms. Larisa Cash. The patient will remain in the hospital for 2 hours of bedrest after Angio-Seal and she will go home and I will see her in the office in 2 weeks. Of note, on the way up to the carotid, it was noted mery t the aorta was very tortuous and may be dilated. There was a possible abdominal aortic aneurysm. I did not want to do an angiogram on her just because of the dye load, but I will make sure she gets a n abdominal aortic ultrasound in the office in the near future. Admitted to my service as an outpatient today, 02/23/2022. She underwent selective bilateral carotid angiogram and an aortic arch angiogram. Indication: Cerebrovascular disease and abnormal carotid Doppler. Procedure In Detail: Ms. Douglas was brought to the clay processing labourer as an outpatient, prepped and draped in the routine sterile fashion. Given Versed and fentanyl for sedation. A 6-[place]ian sheath introduce d in the right common femoral artery successfully using the Seldinger technique and 10 cc of Xylocain e. Common femoral artery angiogram was normal. Angio-Seal was used to close the case. A JR4 cathet er was initially used to cannulate the right common carotid successfully. I had a difficult time can nulating the left common carotid. A pigtail catheter was used to do an aortic arch angiogram to loca te the internal carotid that showed what looked like left aortic arch. On the aortic arch angiogram, she was noted to have mild plaquing in the left ICA. Both ECAs were normal. Both common carotid ar teries were normal. There was some [id number] plaquing in the left subclavian. There was a 50 % right ICA stenosis. No complications. Blood Loss: 5 mL. Final Diagnosis: Moderate CVD. Plan: Plan is for medical therapy. NB/MODL Voice ID: [id number] Report ID: [id number]
== END 2022-02-23 10:00 | disposition home or self-care (01) ==
LOC: CCL 06:45
DX: I65.23 Occlusion and stenosis of bilateral carotid arteries (principal); I25.10 Atherosclerotic heart disease of native coronary artery without angina pectoris; I35.1 Nonrheumatic aortic (valve) insufficiency; I34.0 Nonrheumatic mitral (valve) insufficiency; I10 Essential (primary) hypertension; E78.2 Mixed hyperlipidemia; J44.1 Chronic obstructive pulmonary disease with (acute) exacerbation; Z20.822 Contact with and (suspected) exposure to COVID-19; Z95.1 Presence of aortocoronary bypass graft; Z79.82 Long term (current) use of aspirin; Z79.02 Long term (current) use of antithrombotics/antiplatelets; Z79.899 Other long term (current) drug therapy; Z88.6 Allergy status to analgesic agent; Z88.8 Allergy status to other drugs, medicaments and biological substances; Z82.49 Family history of ischemic heart disease and other diseases of the circulatory system
CPT/HCPCS: 93005; 85025; 80048; 36415; 85610; 85730; 36222 ×2; U0003; C1893; C1760; G0269; J2250; J3010; J7040; 93567; J1644

== ENCOUNTER 2022-04-12 11:56 | Emergency (ER) | payer OTHER ==
--- OUTSIDE RECORDS SUMMARY | 2022-04-12 11:59 | XMS REPORT | Continuity of Care Document ---
:1940 Author Organization [facility] t Address [address] [place] [address] Care Team Providers Name Role Phone Asked, Pcp Primary Care Physician Ruht More MD P. Attending Clinician Problems This patient has no known problems. Allergies, Adverse Reactions, Alerts This patient has no known allergies or adverse reactions. Social History Social Habit Start Date Stop Date Quantity Comments Source Sex Ass[birth year] At [birth year] [facility] 00:00:00 00:00:00 Smoking Status Start Date Stop Date Source Unknown if ever smoked [facility] Medications This patient has no known medications. Immunizations Ordered Immunization Filled Immunization Date Status Commen ts [facility]12 Completed Meth odist [facility]ACC[facility]ATION 00:00:00 Hospital PFIZER COVID-19 MRNA 2020-11-21 Completed Meth odist VACCINATION 00:00:00 Hospital Procedures This patient has no known procedures. Plan of Care Planned Activity Planned Date Details Comments Source Future Scheduled Test Hepatitis C screening [facility] (procedure) [code = [id number]] Future Scheduled Test SHINGLES VACCINES (#1) [facility] [code = SHINGLES VACCINES (#1)] Future Scheduled Test 65+ PNEUMOCOCCAL [facility] VACCINE (1 of 1 - PPSV23) [code = 65+ PNEUMOCOCCAL VACCINE (1 of 1 - PPSV23)] Future Scheduled Test INFLUENZA VACCINE [code [facility] = INFLUENZA VACCINE] Encounters Start End Encounter Admission Attending Care Care Encounter Source Date/Time Date/Time Type Type Clinicians Facility Department ID 2020-12-12 2020-12-12 Geremias Juan.[id number] Dylan 13:01:14 13:06:14 Support [facility] [address] P. 3.430.2.7 Hospit a .3.801674 l .8 2020-11-21 2020-11-21 Clinical 1.2.840.1 [id number] Methodi 15:25:41 15:30:[address] 3.430.2.7 Hospit a .3.520720 l .8 Results This patient has no known results.
[2022-04-12 13:38] LABS: Absolute Lymphocytes (CBC) 1.5 K/uL (0.7-4.9); Hematocrit 36.4 % (36.0-45.0); Lymphocytes % 21.5 % (15.3-44.8); MCV 89.7 fL (80-100); MPV 7.6 fL (7.6-11.3); RBC Red Blood Cell Count 4.06 M/uL (3.86-4.86)
[2022-04-12 13:41] LABS: Protime INR 1.03
[2022-04-12 14:00] LABS: Albumin 2.6 g/dL (3.4-5.0); Bilirubin Direct 0.2 mg/dL (0-0.2); Bilirubin Total 0.4 mg/dL (0.2-1.0); C-Reactive Protein 10.8 mg/L (<3.00); Ferritin 135.2 ng/mL (8-388); Potassium 3.8 mmol/L (3.5-5.1); Protein, Total 7.6 g/dL (6.4-8.2)
--- NOTE | 2022-04-12 14:28 | RAD REPORT ---
EXAM DESCRIPTION: RAD - Chest Single View - 04/12/2022 1:44 pm CLINICAL HISTORY: COUGH COMPARISON: Two view chest 01/13/2022 TECHNIQUE: AP portable chest image was obtained 04/12/2022 1:44 pm . FINDINGS: Extensive fibrotic lung pattern is present. Diaphragm is flattened. Right lung field is cl ear. Mid left lung field interstitial pattern is slightly more prominent. Some of this may be due to under penetrated film technique. Minimal left midlung field interstitial infiltrate is possible. Heart and vasculature are normal. No measurable pleural effusion and no pneumothorax. No acute bony abnormality seen. No acute aortic findings suspected. IMPRESSION: Prominent fibro emphysematous lung changes are evident. Slightly increased interstitial pattern in the mid lung field may be film technique artifact or minim al interstitial infiltrate.
--- NOTE | 2022-04-12 15:31 | RAD REPORT ---
EXAM DESCRIPTION: CT - Chest For Pe Angio - 04/12/2022 3:18 pm CLINICAL HISTORY: cough, elevated d-dimer fifth COMPARISON: Thorax W/ Con dated 09/18/2021; Chest Single View dated 04/12/2022 TECHNIQUE: Dynamically enhanced 3 mm thick images of the chest were obtained during administration o f approximately 150mL Isovue 370 IV contrast. Coronal and oblique MIP reconstruction images were gene rated and reviewed. Exam utilizes a protocol to evaluate the pulmonary arterial tree. All CT scans are performed using dose optimization technique as appropriate and may include automated exposure control or mA/KV adjustment according to patient size. FINDINGS: No pulmonary emboli are identified. No acute aortic finding identified. Prominent aortic atherosclerotic calcifications are present. 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 Distal to the renal vasculature is an abdominal aortic aneurysm that is only partially imaged. This is not clearly different from comparison. No pericardial thickening or effusion. CABG surgical changes are noted. Right lung field is hyper expanded. Extensive bulla and bleb formation is seen in the bilateral upper lobes. Left lung field hyperexpansion is less pronounced. There is focal parenchymal scarring with p robable partial volume loss of the left lower lobe. This left infrahilar left lower lobe finding is n ot clearly different from prior imaging. No pleural effusion or pleural thickening. No mediastinal or hilar suspicious masses. No chest wall masses or abnormal axillary lymphadenopathy. No endobronchial lesion. IMPRESSION: No pulmonary emboli identified. Advanced COPD in the lung parenchyma with numerous primarily upper lobe bullae and bleb formation.No classic COVID-19 pneumonia findings seen. Focal parenchymal scarring and left lower lobe volume loss noted infrahilar posterior gutter on the left. Chest findings are not clearly different from August 2021 imaging.
--- NOTE | 2022-04-12 15:58 | ER ---
Nurse's Notes [facility] Name: Jenny Douglas Age: 81 yrs Sex: Female : 1940 Arrival Date: 04/12/2022 Time: 12:00 Bed DIS3 Private MD: Thiago Levi Diagnosis: Weakness;Cough Presentation: 04/12 12:02 Chief complaint: Patient states: she tested positive for COVID on March 24, 2022. patient ap3 reports "taking that medication" for COVID however the patient states she continues to have a cough and feels her strength has not come back yet. She called her PCP, and was informed to come be evaluated at the ED. Coronavirus screen: Client presents with at least one sign or symptom that may indicate coronavirus-19. Ebola Screen: No symptoms or risks identified at this time. No acute neurological deficit is noted. Initial Sepsis Screen: Does the patient meet any 2 criteria? No. Patient's initial sepsis screen is negative. Does the patient have a suspected source of infection? No. Patient's initial sepsis screen is negative. Risk Assessment: Do you want to hurt yourself or someone else? Patient reports no desire to harm self or others. Onset of symptoms was March 24, 2022. 12:02 Method Of Arrival: Ambulatory ap3 12:02 Acuity: ADRIANNA 4 ap3 Triage Assessment: 12:07 General: Appears in no apparent distress. Behavior is calm, cooperative, appropriate ap3 for age. Pain: Denies pain. EENT:. Neuro: Level of Consciousness is awake, alert, obeys commands, Oriented to person, place, time, situation, Gait is steady, Speech is normal. Cardiovascular: Patient's skin is warm and dry. Respiratory: Reports cough that is Airway is patent Respiratory effort is even, unlabored. Historical: - Allergies: 12:06 Celebrex; ap3 12:06 Zocor; ap3 - PMHx: 12:06 CAD; COPD; Hyperlipidemia; Hypertension; Myocardial infarction; TIA; ap3 - Immunization history:: Client reports receiving the 2nd dose of the Covid vaccine. - Social history:: Smoking status: Reported history of juuling and/or vaping. Screenin:08 Abuse screen: Denies threats or abuse. Nutritional screening: No deficits noted. ap3 Tuberculosis screening: No symptoms or risk factors identified. 16:49 Fall Risk None identified. jl7 Vital Signs: 12:02 BP 146 / 80; Pulse 113; Resp 18; Temp 98.1; Pulse Ox 96% ; Weight 58.97 kg; Height 5 ap3 ft. 7 in. (170.18 cm); 16:30 BP 156 / 68; Pulse 85; Resp 17; Pulse Ox 96% ; jl7 12:02 Body Mass Index 20.36 (58.97 kg, 170.18 cm) ap3 ED Course: 12:00 Patient arrived in ED. mr 12:00 Thiago Levi MD is Private Physician. mr 12:06 Triage completed. ap3 12:07 Isis Martinez F[facility]-C [facility]. kb 12:07 Reynaldo Hector MD is Attending Physician. kb 12:08 Arm band placed on right wrist. ap3 13:10 Initial lab(s) drawn, by tx, sent to lab. First set of blood cultures drawn by tx. dh3 Inserted saline lock: 20 gauge in left forearm, using aseptic technique. Blood collected. 13:18 Second set of blood cultures drawn by me. dh3 13:36 EKG done, by ED staff, reviewed by Isis AGUILERA. dh3 13:46 CXR XRAY In Process Unspecified. EDMS 15:19 CT Chest For PE Angio In Process Unspecified. EDMS 15:52 Bakari Gutierrez, RN is Primary Nurse. jl7 16:01 IV discontinued, intact, bleeding controlled, No redness/swelling at site. Pressure dh3 dressing applied. 16:49 Patient has correct armband on for positive identification. jl7 16:49 No provider procedures requiring assistance completed. jl7 16:50 IV discontinued, intact, bleeding controlled, No redness/swelling at site. Pressure jl7 dressing applied. Administered Medications: No medications were administered Medication: 16:49 VIS not applicable for this client. jl7 Outcome: 15:57 Discharge ordered by . kb 16:49 Discharged to home ambulatory. jl7 16:49 Condition: stable 16:49 Discharge instructions given to patient, Instructed on discharge instructions, follow up and referral plans. Demonstrated understanding of instructions, follow-up care. 16:50 Patient left the ED. jl7 Signatures: Dispatcher [employer] EDMS Isis Martinez FNP-C FNP-Charlotte Pepe Gutierrez, Bakari, RN RN jl7 Reena Gonzalez 3 Rosa Wheeler RN RN ap3
--- NOTE | 2022-04-12 15:59 | EDPHYS ---
Physician Documentation [facility] Name: Jenny Douglas Age: 81 yrs Sex: Female : 1940 Arrival Date: 04/12/2022 Time: 12:00 Bed DIS3 Private MD: Thiago Levi ED Physician Reynaldo Hector HPI: 04/12 12:47 This 81 yrs old Female presents to ER via Ambulatory with complaints of Weakness, Cough.kb 12:47 The patient or guardian reports cough, that is intermittent, described as mild. Onset: kb The symptoms/episode began/occurred 3 week(s) ago. Severity of symptoms: At their worst the symptoms were moderate, in the emergency department the symptoms are unchanged. Modifying factors: The symptoms are alleviated by nothing, the symptoms are aggravated by nothing. Associated signs and symptoms: The patient has no apparent associated signs or symptoms. The patient has not experienced similar symptoms in the past. The patient has not recently seen a physician. Patient reports she was diagnosed with COVID on March 24. States she still having cough and weakness. Dr. Levi told her to come be evaluated in the emergency department for continued symptoms.. Historical: - Allergies: 12:06 Celebrex; ap3 12:06 Zocor; ap3 - PMHx: 12:06 CAD; COPD; Hyperlipidemia; Hypertension; Myocardial infarction; TIA; ap3 - Immunization history:: Client reports receiving the 2nd dose of the Covid vaccine. - Social history:: Smoking status: Reported history of juuling and/or vaping. ROS: 12:47 Constitutional: Negative for fever, chills, and weight loss. kb 12:47 Respiratory: Positive for cough, Negative for dyspnea on exertion, hemoptysis, orthopnea, pleurisy, shortness of breath, sputum production, wheezing. 12:47 Neuro: Positive for weakness. 12:47 All other systems are negative. Exam: 12:47 Constitutional: This is a well developed, well nourished patient who is awake, alert, kb and in no acute distress. Head/Face: Normocephalic, atraumatic. ENT: Moist Mucous membranes Cardiovascular: Regular rate and rhythm with a normal S1 and S2. No gallops, murmurs, or rubs. No pulse deficits. Respiratory: Respirations even and unlabored. No increased work of breathing. Talking in full sentences Abdomen/GI: Soft, non-tender. No distention Skin: Warm, dry with normal turgor. Normal color. MS/ Extremity: Pulses equal, no cyanosis. Neurovascular intact. Full, normal range of motion. Neuro: Awake and alert, GCS 15, oriented to person, place, time, and situation. Moves all extremities. Normal gait. Psych: Awake, alert, with orientation to person, place and time. Behavior, mood, and affect are within normal limits. 15:05 ECG was reviewed by the Attending Physician. kb Vital Signs: 12:02 BP 146 / 80; Pulse 113; Resp 18; Temp 98.1; Pulse Ox 96% ; Weight 58.97 kg; Height 5 ap3 ft. 7 in. (170.18 cm); 16:30 BP 156 / 68; Pulse 85; Resp 17; Pulse Ox 96% ; jl7 12:02 Body Mass Index 20.36 (58.97 kg, 170.18 cm) ap3 MDM: 12:07 Patient medically screened. kb 12:48 Data reviewed: vital signs, nurses notes. Data interpreted: Pulse oximetry: on room air kb is 96 %. Interpretation: normal. 15:55 Counseling: I had a detailed discussion with the patient and/or guardian regarding: the kb historical points, exam findings, and any diagnostic results supporting the discharge/admit diagnosis, lab results, radiology results, the need for outpatient follow up, a family practitioner, to return to the emergency department if symptoms worsen or persist or if there are any questions or concerns that arise at home. 04/12 12:08 Order name: BMP; Complete Time: 14:03 kb 04/12 12:08 Order name: Blood Culture Adult (2) 04/12 12:08 Order name: C-Reactive Protein; Complete Time: 14:03 kb 04/12 12:08 Order name: CBC with Diff; Complete Time: 13:45 kb 04/12 12:08 Order name: D-Dimer; Complete Time: 14:35 kb 04/12 12:08 Order name: Ferritin; Complete Time: 14:03 kb 04/12 12:08 Order name: LFT's; Complete Time: 14:03 kb 04/12 12:08 Order name: Lactate; Complete Time: 13:55 kb 04/12 12:08 Order name: Lipase; Complete Time: 14:03 kb 04/12 12:08 Order name: PT-INR; Complete Time: 14:35 kb 04/12 12:08 Order name: Procalcitonin; Complete Time: 14:21 kb 04/12 12:08 Order name: Ptt, Activated; Complete Time: 14:35 kb 04/12 12:08 Order name: Troponin HS; Complete Time: 14:03 kb 04/12 12:08 Order name: CXR XRAY; Complete Time: 14:35 kb 04/12 12:08 Order name: EKG; Complete Time: 12:09 kb 04/12 12:08 Order name: EKG - Nurse/Tech; Complete Time: 13:37 kb 04/12 12:08 Order name: IV Start; Complete Time: 13:24 kb 04/12 12:08 Order name: Labs collected and sent; Complete Time: 13:24 kb 04/12 12:08 Order name: O2 Per Protocol; Complete Time: 13:37 kb 04/12 14:36 Order name: CT Chest For PE Angio; Complete Time: 15:31 kb EC:05 Rate is 80 beats/min. Rhythm is regular. Left axis deviation noted. AL interval is kb normal at 144 msec. QRS interval is normal at 88 msec. QT interval is normal at 433 msec. Administered Medications: No medications were administered Disposition Summary: 04/12/22 15:57 Discharge Ordered Location: Home kb Condition: Stable kb Diagnosis - Weakness kb - Cough kb Followup: kb - With: Emergency Department - When: As needed - Reason: Worsening of condition Followup: kb - With: Private Physician - When: 2 - 3 days - Reason: Recheck today's complaints, Continuance of care, Re-evaluation by your physician Discharge Instructions: - Discharge Summary Sheet kb - COVID-19 kb Forms: - Medication Reconciliation Form kb - Thank You Letter kb - Antibiotic Education kb - Prescription Opioid Use kb Signatures: Dispatcher [employer] Isis Marino FNP-C FNP-Ckb Prokisch, Amanda, RN RN ap3
[2022-04-12 18:18] VITALS: TEMP 98.1; O2SAT 96
[2022-04-12 18:21] VITALS: BP 156/68
--- NOTE | 2022-04-13 12:39 | EKG ---
Test Date: 2022-04-12 Test Time: 13:34:00 Clinical Nursing Manager: MARQUEZ MEASUREMENT RESULTS: Intervals: Rate: 80 OK: 144 QRSD: 88 QT: 376 QTc: 433 [place]: P: 89 OK: 144 QRS: -78 T: 88 INTERPRETIVE STATEMENTS: Sinus rhythm with marked sinus arrhythmia Pulmonary disease pattern Left anterior fascicular block Septal infarct, age undetermined Abnormal ECG Compared to ECG 02/22/2022 12:17:50 Left anterior fascicular block now present Sinus bradycardia no longer present Atrial premature complex(es) no longer present Left-axis deviation no longer present Left ventricular hypertrophy no longer present Myocardial infarct finding still present Electronically Signed On 04-13-22 12:37:29 CDT by Yayo Hart
== END 2022-04-12 16:50 | disposition home or self-care (01) ==
LOC: ER 11:56
DX: R53.1 Weakness (principal); R05.9 Cough, unspecified; Z86.16 Personal history of COVID-19; I10 Essential (primary) hypertension; J44.9 Chronic obstructive pulmonary disease, unspecified; I25.2 Old myocardial infarction; Z88.8 Allergy status to other drugs, medicaments and biological substances
CPT/HCPCS: 93005; 87040 ×2; 85025; 80048; 36415; 85610; 85379; 80076; 83605; 85730; 84484; 82728; 83690; 84145; 86140; 71275; 71045; 99284; Q9967

== ENCOUNTER 2022-04-25 09:33 | Inpatient (IN) | payer OTHER ==
--- OUTSIDE RECORDS SUMMARY | 2022-04-25 09:37 | XMS REPORT | Continuity of Care Document ---
:1940 Author Organization [facility] t Address [address] [place] [address] Care Team Providers Name Role Phone Asked, No Pcp Primary Care Physician Unavailable Argenis CLEMENT, Oneil Blue Attending Clinician [phone] Problems This patient has no known problems. Allergies, Adverse Reactions, Alerts This patient has no known allergies or adverse reactions. Social History Social Habit Start Date Stop Date Quantity Comments Source Sex Assigned At [birth year] [facility] 00:00:00 00:00:00 Smoking Status Start Date Stop Date Source Unknown if ever smoked [facility] Medications This patient has no known medications. Immunizations Ordered Immunization Filled Immunization Date Status Commen ts Source Name Name [facility] COVID-19 MRNA 2020-12-12 Completed Meth odist VACCINATION 00:00:00 Hospital PFIZER COVID-19 MRNA 2020-11-21 Completed Meth odist VACCINATION 00:00:00 Hospital Procedures This patient has no known procedures. Plan of Care Planned Activity Planned Date Details Comments Source Future Scheduled Test Hepatitis C screening [facility] (procedure) [code = [id number]] Future Scheduled Test SHINGLES VACCINES (#1) [facility] [code = SHINGLES VACCINES (#1)] Future Scheduled Test 65+ PNEUMOCOCCAL Me [facility] VACCINE (1 of 1 - PPSV23) [code = 65+ PNEUMOCOCCAL VACCINE (1 of 1 - PPSV23)] Future Scheduled Test INFLUENZA VACCINE [code [facility] = INFLUENZA VACCINE] Encounters Start End Encounter Admission Attending Care Care Encounter Source Date/Time Date/Time Type Type Clinicians Facility Department ID 2020-12-12 2020-12-12 Geremias [id number] Dylan 13:01:14 13:06:14 Support Oneil [id number] [id number] Hospit [id number] .[id number] l .8 2020-11-21 2020-11-21 Clinical [id number] Methodi 15:25:41 15:30:[id number] [id number] Hospit a .[id number] l .8 Results This patient has no known results.
[2022-04-25] MEDS ORDERED: METOPROLOL TARTRATE 5 MG/5 ML INJ IV ONE ×2 (10:00→15:02)
[2022-04-25] MEDS ORDERED: NA CHLORIDE 0.9% 500 ML ONE (10:00)
[2022-04-25] MEDS ORDERED: dilTIAZem HCL 25 MG/5 ML VIAL IV ONE (10:02)
[2022-04-25 10:11] LABS: Absolute Lymphocytes (CBC) 1.9 K/uL (0.7-4.9); Hematocrit 40.3 % (36.0-45.0); Lymphocytes % 21.7 % (15.3-44.8); MCV 90.4 fL (80-100); MPV 8.3 fL (7.6-11.3); RBC Red Blood Cell Count 4.46 M/uL (3.86-4.86)
[2022-04-25 10:42] LABS: Magnesium 1.9 mg/dL (1.8-2.4); Potassium 3.9 mmol/L (3.5-5.1); Thyroid Stimulating Hormone 3.54 uIU/mL (0.360-3.740); Troponin High Sensitivity 53.6 pg/mL (<58.9)
--- NOTE | 2022-04-25 11:32 | RAD REPORT ---
EXAM DESCRIPTION: Mg Single View04/25/2022 11:00 am CLINICAL HISTORY: Chest pain COMPARISON: March 2022 FINDINGS: Hyperaerated lungs appeared The lungs appear clear of acute infiltrate. The heart is mildly enlarged. Postsurgical changes involve the chest. IMPRESSION: No acute abnormalities displayed
--- NOTE | 2022-04-25 12:05 | EDPHYS ---
Physician Documentation [facility] Name: Jenny Douglas Age: 81 yrs Sex: Female : 1940 Arrival Date: 04/25/2022 Time: 09:34 Bed 28 Private MD: Thiago Levi ED Physician Reynaldo Hector HPI: 04/25 10:37 This 81 yrs old Female presents to ER via Wheelchair with complaints of jl9 General Weakness, Headache, clammy. 10:37 Onset: The symptoms/episode began/occurred this morning. Associated signs and symptoms: jl9 Pertinent positives: Pertinent negatives: abdominal pain, chest pain, fever, shortness of breath. Modifying factors: The patient symptoms are alleviated by nothing, the patient symptoms are aggravated by nothing. The patient has not experienced similar symptoms in the past. The patient has not recently seen a physician. Patient reports waking up not feeling right. . Historical: - Allergies: 09:47 Celebrex; iw 09:47 Zocor; iw - Home Meds: 09:47 aspirin 81 mg Oral TbEC 1 tab once daily [Active]; hydrochlorothiazide 12.5 mg Oral cap iw 1 cap once daily [Active]; Lipitor 80 mg Oral tab 1 tab once daily [Active]; Plavix 75 mg Oral tab 1 tab once daily [Active]; - PMHx: 09:47 CAD; COPD; Hyperlipidemia; Hypertension; Myocardial infarction; TIA; iw - PSHx: 09:49 CABG; iw - Social history:: Smoking status: Patient reports the use of cigarette tobacco products, smokes one-half pack cigarettes per day. ROS: 10:38 Constitutional: Negative for fever, chills, and weight loss, Eyes: Negative for injury, jl9 pain, redness, and discharge, ENT: Negative for injury, pain, and discharge, Neck: Negative for injury, pain, and swelling, Cardiovascular: Negative for chest pain, palpitations, and edema, Respiratory: Negative for shortness of breath, cough, wheezing, and pleuritic chest pain, Abdomen/GI: Negative for abdominal pain, nausea, vomiting, diarrhea, and constipation, Back: Negative for injury and pain, : Negative for injury, bleeding, discharge, and swelling, MS/Extremity: Negative for injury and deformity, Skin: Negative for injury, rash, and discoloration. 10:38 Psych: Negative for depression, anxiety, suicide ideation, homicidal ideation, and hallucinations, Allergy/Immunology: Negative for hives, rash, and allergies, Endocrine: Negative for neck swelling, polydipsia, polyuria, polyphagia, and marked weight changes, Hematologic/Lymphatic: Negative for swollen nodes, abnormal bleeding, and unusual bruising. 10:38 Neuro: Positive for headache, weakness. Exam: 10:40 Constitutional: This is a well developed, well nourished patient who is awake, alert, jl9 and in no acute distress. Head/Face: Normocephalic, atraumatic. Eyes: Pupils equal round and reactive to light, extra-ocular motions intact. Lids and lashes normal. Conjunctiva and sclera are non-icteric and not injected. Cornea within normal limits. Periorbital areas with no swelling, redness, or edema. ENT: Mucous membranes moist. Neck: Trachea midline, no thyromegaly or masses palpated, and no cervical lymphadenopathy. Supple, full range of motion without nuchal rigidity, or vertebral point tenderness. No Meningismus. Chest/axilla: Normal chest wall appearance and motion. Nontender with no deformity. No lesions are appreciated. 10:40 Respiratory: Lungs have equal breath sounds bilaterally, clear to auscultation and percussion. No rales, rhonchi or wheezes noted. No increased work of breathing, no retractions or nasal flaring. Abdomen/GI: Soft, non-tender, with normal bowel sounds. No distension or tympany. No guarding or rebound. No evidence of tenderness throughout. Back: No spinal tenderness. No costovertebral tenderness. Full range of motion. Skin: Warm, dry with normal turgor. Normal color with no rashes, no lesions, and no evidence of cellulitis. MS/ Extremity: Pulses equal, no cyanosis. Neurovascular intact. Full, normal range of motion. Neuro: Awake and alert, GCS 15, oriented to person, place, time, and situation. Cranial nerves II-XII grossly intact. Motor strength 5/5 in all extremities. Sensory grossly intact. Cerebellar exam normal. Normal gait. Psych: Awake, alert, with orientation to person, place and time. Behavior, mood, and affect are within normal limits. 10:40 Cardiovascular: Rate: tachycardic, A fib RVR. Vital Signs: 09:45 BP 96 / 58; Pulse 154; Resp 26 S; Pulse Ox 98% on R/A; ha1 09:46 BP 98 / 51; Pulse 159; Resp 20 S; Temp 97.8; Pulse Ox 98% on R/A; iw 10:00 BP 103 / 54; Pulse 139; Resp 24 S; Pulse Ox 97% on R/A; ha1 10:14 BP 82 / 51; Pulse 110; Resp 24 S; Pulse Ox 99% on R/A; ha1 10:18 BP 95 / 45 LA; Pulse 110; Resp 20 S; Pulse Ox 99% on R/A; ha1 10:53 BP 94 / 55; Pulse 124; Resp 18; Pulse Ox 97% on R/A; Pain 0/10; bm7 11:15 BP 107 / 49; Pulse 111; Resp 20 S; Pulse Ox 96% on R/A; ha1 12:15 BP 104 / 66; Pulse 73; Resp 18 S; Pulse Ox 97% on R/A; ha1 13:49 BP 118 / 76; Pulse 123; Resp 17; Pulse Ox 98% on R/A; hb 14:55 BP 120 / 70; Pulse 145; Resp 18 S; Pulse Ox 97% on R/A; ha1 15:14 BP 109 / 81; Pulse 124; Resp 17 S; Pulse Ox 100% on R/A; ha1 MDM: 09:38 Patient medically screened. jl9 09:45 Test interpretation: by ED physician or midlevel provider: ECG, A Fib RVR 153 BPM. jl9 12:04 Counseling: I had a detailed discussion with the patient and/or guardian regarding: the jl9 historical points, exam findings, and any diagnostic results supporting the discharge/admit diagnosis, lab results, radiology results, the need for further work-up and treatment in the hospital. Physician consultation: Thiago Levi MD and will see patient in inpatient room. 12:05 Data reviewed: vital signs, nurses notes, lab test result(s), EKG, radiologic studies. jl9 12:14 Physician consultation: was called at 12:14, regarding consult, Dr Yamini mancia jl9 service. . 12:21 Physician consultation: Hiram Kc MD was called at 12:21, was contacted at 12:21, jl9 regarding consult, and will see patient in inpatient room. 15:40 Test interpretation: by ED physician or midlevel provider: ECG. [facility] 04/25 09:49 Order name: Basic Metabolic Panel; Complete Time: 10:52 [facility] 04/25 09:49 Order name: CBC with Diff; Complete Time: 10:37 04/25 09:49 Order name: Magnesium; Complete Time: 10:52 [facility] 04/25 09:49 Order name: Troponin HS; Complete Time: 10:52 [facility] 04/25 09:49 Order name: TSH; Complete Time: 10:52 04/25 09:49 Order name: SARS-COV-2 RT PCR (Document "Date of Onset" if Symptomatic); Complete Time: 11:32 04/25 09:49 Order name: XRAY Chest (1 view); Complete Time: 11:35 [facility] 04/25 09:49 Order name: Flu; Complete Time: 11:22 [facility] 04/26 03:01 Order name: CBC with Automated Diff [facility] 04/26 03:20 Order name: Basic Metabolic Panel [facility] 04/25 09:49 Order name: EKG; Complete Time: 09:51 [facility] 04/25 09:49 Order name: Cardiac monitoring; Complete Time: 09:49 [facility] 04/25 09:49 Order name: EKG - Nurse/Tech; Complete Time: 09:49 [facility] 04/25 09:49 Order name: IV Saline Lock; Complete Time: 10:10 [facility] 04/25 09:49 Order name: Labs collected and sent; Complete Time: 10:44 [facility] 04/25 09:49 Order name: O2 Per Protocol; Complete Time: 09:49 [facility] 04/25 09:49 Order name: O2 Sat Monitoring; Complete Time: 09:49 [facility] 04/25 10:53 Order name: EKG; Complete Time: 10:59 [facility] 04/25 13:36 Order name: CONS Physician Consult [facility] 04/25 13:41 Order name: Heart Healthy [facility] Administered Medications: 09:56 Drug: NS 0.9% 500 ml Route: IV; Rate: bolus; Site: right antecubital; ha1 10:44 Follow up: IV Status: Completed infusion; IV Intake: 500ml bm7 09:56 Drug: Cardizem (diltiazem) 10 mg Route: IVP; Site: right antecubital; ha1 10:18 Follow up: Response: No adverse reaction; No adverse reaction, heart rate improved ha1 10:07 Not Given (Physician Discretion): Metoprolol 5 mg IVP once; Hold for SBP <100 or HR <60.ha1 10:10 Drug: Cardizem (diltiazem) 10 mg {Note: administered by NP. Yuval} Route: IVP; ha1 Site: right antecubital; 12:47 Follow up: Response: No adverse reaction; No adverse reaction, heart rate improved/ ha1 heart rate decreased 12:35 Drug: Lovenox (enoxaparin) 60 mg Route: Sub-Q; Site: abdomen; ha1 12:58 Follow up: Response: No adverse reaction ha1 15:02 Drug: Metoprolol 5 mg Route: IVP; Site: left antecubital; ha1 15:02 Drug: Metoprolol 50 mg Route: PO; ha1 Disposition Summary: 04/25/22 12:04 Hospitalization Ordered Hospitalization Status: Inpatient Admission jl9 Provider: Thiago Levi9 Condition: Fair jl9 Problem: new jl9 Symptoms: have improved jl9 Bed/Room Type: Standard jl9 Location: Telemetry/MedSurg (Inpatient)(04/26/22 03:42) Room Assignment: [facility](04/26/22 03:42) Diagnosis - Unspecified atrial fibrillation jl9 Forms: - Medication Reconciliation Form jl9 - SBAR form jl9 Signatures: Dispatcher [employer] Vonnie Nolasco RN RN Edel Roque RN RN Shanita Huerta RN RN hb Linares, John 9 Kayla Muro RN RN ha1 Kimberley Watson RN bm7 Corrections: (The following items were deleted from the chart) 12:21 12:14 Physician consultation: was called at 12:14, regarding consult, Dr Yamini lennon9 anwering service. , jl9 15:10 12:04 Telemetry/MedSurg (Inpatient) jl9 ha1 15:10 12:04 jl9 ha1 17:10 15:10 [facility] 04/26 03:42 04/25 15:10 [facility] ER HOLD [facility] 04/26 03:42 08/07 17:10 ERHOLD- hb cg
--- NOTE | 2022-04-25 12:05 | ER ---
Nurse's Notes [facility] Name: Jenny Douglas Age: 81 yrs Sex: Female : 1940 Arrival Date: 04/25/2022 Time: 09:34 Bed 28 Private MD: Thiago Levi Diagnosis: Unspecified atrial fibrillation Presentation: 04/25 09:46 Chief complaint: Patient states: headache, weak, dizzy , feels clammy since this iw morning , had COVID on March 24. Coronavirus screen: Client presents with at least one sign or symptom that may indicate coronavirus-19. Ebola Screen: Patient negative for fever greater than or equal to 101.5 degrees Fahrenheit, and additional compatible Ebola Virus Disease symptoms Patient denies exposure to infectious person. Patient denies travel to an Ebola-affected area in the 21 days before illness onset. No symptoms or risks identified at this time. Initial Sepsis Screen: Does the patient meet any 2 criteria? No. Patient's initial sepsis screen is negative. Does the patient have a suspected source of infection? No. Patient's initial sepsis screen is negative. Risk Assessment: Do you want to hurt yourself or someone else? Patient reports no desire to harm self or others. Onset of symptoms was April 25, 2022. 09:46 Method Of Arrival: Wheelchair iw 09:46 Acuity: ADRIANNA 2 iw Historical: - Allergies: 09:47 Celebrex; iw 09:47 Zocor; iw - Home Meds: 09:47 aspirin 81 mg Oral TbEC 1 tab once daily [Active]; hydrochlorothiazide 12.5 mg Oral cap iw 1 cap once daily [Active]; Lipitor 80 mg Oral tab 1 tab once daily [Active]; Plavix 75 mg Oral tab 1 tab once daily [Active]; - PMHx: 09:47 CAD; COPD; Hyperlipidemia; Hypertension; Myocardial infarction; TIA; iw - PSHx: 09:49 CABG; iw - Social history:: Smoking status: Patient reports the use of cigarette tobacco products, smokes one-half pack cigarettes per day. Screenin:35 Abuse screen: Denies threats or abuse. Nutritional screening: No deficits noted. ha1 Tuberculosis screening: No symptoms or risk factors identified. 15:11 Fall Risk None identified. ha1 Assessment: 09:35 General: Appears comfortable, Behavior is calm, cooperative. Pain: Complains of pain in ha1 head Pain does not radiate. Pain at worst was 10 out of 10 on a pain scale. Quality of pain is described as pressure, Pain began 4 hours ago. Is continuous. 09:35 Neuro: Level of Consciousness is awake, alert, obeys commands, Oriented to person, ha1 place, time, situation, Speech is normal, Pupils are PERRLA, Reports dizziness, headache. Cardiovascular: Heart tones S1 S2 present Rhythm is atrial fibrillation with rapid ventricular response. Respiratory: Reports cough that is productive, Airway is patent Breath sounds with rales bilaterally. GI: No signs and/or symptoms were reported involving the gastrointestinal system. Abdomen is flat, non-distended, Bowel sounds present X 4 quads. : No signs and/or symptoms were reported regarding the genitourinary system. EENT: No signs and/or symptoms were reported regarding the EENT system. Derm: Skin is fragile, Skin is pink, warm \\T\\ dry. Musculoskeletal: Range of motion: intact in all extremities. 10:52 Reassessment: Patient and/or family updated on plan of care and expected duration. Pain bm7 level reassessed. Patient is alert, oriented x 3, equal unlabored respirations, skin warm/dry/pink. Patient states feeling better. 11:30 Reassessment: Patient and/or family updated on plan of care and expected duration. Pain ha1 level reassessed. Patient is alert, oriented x 3, equal unlabored respirations, skin warm/dry/pink. denies any complaints. sitting up in bed talking to relative. 12:20 Reassessment: Patient and/or family updated on plan of care and expected duration. Pain ha1 level reassessed. Patient is alert, oriented x 3, equal unlabored respirations, skin warm/dry/pink. care provider at bedside explaining the plan of care. pt. denies having any questions. 13:10 Reassessment: Patient and/or family updated on plan of care and expected duration. Pain ha1 level reassessed. Patient is alert, oriented x 3, equal unlabored respirations, skin warm/dry/pink. 14:05 Reassessment: Patient and/or family updated on plan of care and expected duration. Pain ha1 level reassessed. Patient is alert, oriented x 3, equal unlabored respirations, skin warm/dry/pink. 14:55 Reassessment: Patient and/or family updated on plan of care and expected duration. Pain ha1 level reassessed. Patient is alert, oriented x 3, equal unlabored respirations, skin warm/dry/pink. eating lunch .talking to family members. Vital Signs: 09:45 BP 96 / 58; Pulse 154; Resp 26 S; Pulse Ox 98% on R/A; ha1 09:46 BP 98 / 51; Pulse 159; Resp 20 S; Temp 97.8; Pulse Ox 98% on R/A; iw 10:00 BP 103 / 54; Pulse 139; Resp 24 S; Pulse Ox 97% on R/A; ha1 10:14 BP 82 / 51; Pulse 110; Resp 24 S; Pulse Ox 99% on R/A; ha1 10:18 BP 95 / 45 LA; Pulse 110; Resp 20 S; Pulse Ox 99% on R/A; ha1 10:53 BP 94 / 55; Pulse 124; Resp 18; Pulse Ox 97% on R/A; Pain 0/10; bm7 11:15 BP 107 / 49; Pulse 111; Resp 20 S; Pulse Ox 96% on R/A; ha1 12:15 BP 104 / 66; Pulse 73; Resp 18 S; Pulse Ox 97% on R/A; ha1 13:49 BP 118 / 76; Pulse 123; Resp 17; Pulse Ox 98% on R/A; hb 14:55 BP 120 / 70; Pulse 145; Resp 18 S; Pulse Ox 97% on R/A; ha1 15:14 BP 109 / 81; Pulse 124; Resp 17 S; Pulse Ox 100% on R/A; ha1 ED Course: 09:34 Patient arrived in ED. am2 09:35 Thiago Levi MD is Private Physician. am2 09:38 [facility]. jl9 09:38 Reynaldo Hector MD is Attending Physician. jl9 09:40 No provider procedures requiring assistance completed. Inserted saline lock: 20 gauge ha1 in right antecubital area, using aseptic technique. 09:47 Triage completed. iw 09:47 Arm band placed on. iw 09:49 Kayla Muro, RAMONA is Primary Nurse. ha1 09:51 EKG done, by ED staff, reviewed by Kojo Cortez. mb7 10:01 Bed in low position. Call light in reach. Side rails up X 1. Door closed. Noise mb7 minimized. Warm blanket given. Client placed on continuous cardiac and pulse oximetry monitoring. NIBP monitoring applied. deputy sheriff bailiff on. 10:17 Flu Sent. mb7 10:46 SARS-COV-2 RT PCR (Document "Date of Onset" if Symptomatic) Sent. mb7 10:47 Flu Sent. mb7 11:01 XRAY Chest (1 view) In Process Unspecified. EDMS 12:04 Thiago Levi MD is Hospitalizing Provider. jl9 15:13 Patient admitted, IV remains in place. ha1 19:08 Primary Nurse role handed off by Kayla Muro RN mw2 Administered Medications: 09:56 Drug: NS 0.9% 500 ml Route: IV; Rate: bolus; Site: right antecubital; ha1 10:44 Follow up: IV Status: Completed infusion; IV Intake: 500ml bm7 09:56 Drug: Cardizem (diltiazem) 10 mg Route: IVP; Site: right antecubital; ha1 10:18 Follow up: Response: No adverse reaction; No adverse reaction, heart rate improved ha1 10:07 Not Given (Physician Discretion): Metoprolol 5 mg IVP once; Hold for SBP <100 or HR <60.ha1 10:10 Drug: Cardizem (diltiazem) 10 mg {Note: administered by JULES Baarkat.} Route: IVP; ha1 Site: right antecubital; 12:47 Follow up: Response: No adverse reaction; No adverse reaction, heart rate improved/ ha1 heart rate decreased 12:35 Drug: Lovenox (enoxaparin) 60 mg Route: Sub-Q; Site: abdomen; ha1 12:58 Follow up: Response: No adverse reaction ha1 15:02 Drug: Metoprolol 5 mg Route: IVP; Site: left antecubital; ha1 15:02 Drug: Metoprolol 50 mg Route: PO; ha1 Medication: 15:11 VIS not applicable for this client. ha1 Intake: 10:44 IV: 500ml; Total: 500ml. bm7 Outcome: 12:04 Decision to Hospitalize by Provider. jl9 15:13 Admitted to ER Hold. Please see HAM-IT for further documentation. ha1 15:13 Condition: stable 15:13 Instructed on the need for admit, Demonstrated understanding of instructions. 04/26 05:39 Patient left the ED. bb Signatures: Dispatcher [employer] EDIza Hobbs RN RN bb Williams, Irene, RN RN iw Baxter, Heather, RN RN Rosa Rain 2 Celia Macias 2 Kimberley Watson RN RAMONA 7 Charlotte Matthew 7 Kojo Cortez 9 Kayla Muro RN RN ha1 Corrections: (The following items were deleted from the chart) 04/25 12:47 12:44 Response: No adverse reaction; Cardiac rhythm changed ha1 ha1 12:49 10:15 Response: No adverse reaction; Cardiac rhythm changed ha1 ha1
[2022-04-25] MEDS ORDERED: ENOXAPARIN 60 MG/0.6 ML SQ ONE (12:40)
[2022-04-25] MEDS ORDERED: METOPROLOL TAR 50 MG TAB ONE ×2 (15:01→20:54)
[2022-04-25] MEDS ORDERED: ONDANSETRON 4 MG/2 ML VIAL IV PRN (15:23)
[2022-04-25 15:54] VITALS: BMI 20.3
[2022-04-25] MEDS ORDERED: PNEUMOCOCCAL VACCINE 0.5 ML IMVAC ONE ×2 (16:00→20:55)
[2022-04-25] MEDS ORDERED: FAMOTIDINE 20 MG/2 ML VIAL IV ONE (20:54)
[2022-04-25] MEDS ORDERED: METOPROLOL TAR 50 MG TAB PO SCH (21:00)
[2022-04-25] MEDS: FAMOTIDINE 20 MG/2 ML VIAL IV SCH (21:00)
[2022-04-26 03:01] LABS: Absolute Lymphocytes (CBC) 2.2 K/uL (0.7-4.9); Hematocrit 35.3 % (36.0-45.0); MCV 88.5 fL (80-100); MPV 8.5 fL (7.6-11.3); RBC Red Blood Cell Count 3.99 M/uL (3.86-4.86)
[2022-04-26 03:16] LABS: Potassium 3.9 mmol/L (3.5-5.1)
--- NOTE | 2022-04-26 07:16 | RAD REPORT ---
EXAM DESCRIPTION: RAD - Chest Single View - 04/26/2022 5:09 am CLINICAL HISTORY: Chest Pain COMPARISON: Portable April 25 TECHNIQUE: AP portable chest image was obtained 04/26/2022 5:09 am . FINDINGS: No change to the interstitial pattern since prior day imaging. Cardiomediastinal silhouett e also stable. CABG surgical changes again noted. No measurable pleural effusion and no pneumothorax. Scoliosis and degenerative changes again noted to the skeleton. No acute aortic findings suspected. IMPRESSION: No acute cardiopulmonary process. No significant change from comparison study.
[2022-04-26] MEDS ORDERED: ASPIRIN EC 81 MG TAB PO SCH (09:00)
[2022-04-26] MEDS ORDERED: SOTALOL HCL 80 MG TAB PO ONE (09:00)
[2022-04-26] MEDS ORDERED: CLOPIDOGREL 75 MG TABLET PO SCH (09:00)
[2022-04-26] MEDS: ENOXAPARIN 60 MG/0.6 ML SQ SCH (09:20)
[2022-04-26] MEDS: FAMOTIDINE 20 MG/2 ML VIAL IV SCH ×2 (09:21→21:11)
--- NOTE | 2022-04-26 11:24 | CON ---
Date of Consultation: 04/26/2022 Reason For Consultation: Atrial fibrillation. History Of Present Illness: Ms. Douglas is a 81-year-old woman with history of CABG, COPD and hype rtension, dyslipidemia, and TIA, came in with weakness, found that to be in atrial fibrillation at ra te of 160, given Cardizem in the emergency room. Rate was down to 100, was placed on metoprolol 50 b .i.d. She is still in AFib. She is still symptomatic. Denied chest pain, nausea, vomiting, diaphor esis, PND, orthopnea, pedal edema, or syncope. Past Medical History: As stated above. Allergies: SHE IS ALLERGIC TO ZOCOR. Review of Systems: Negative. Social History: Negative. Family History: Negative. Medications: At home include aspirin, Lipitor, Plavix, and hydrochlorothiazide. Physical Examination: Vital Signs: She is in AFib, rate of 95. HEENT: Negative. Neck: Supple with no bruit. Chest: Clear. Cardiac: Revealed atrial fibrillation. Abdomen: Benign. Extremities: Revealed no clubbing, cyanosis, or edema. Diagnostic Data: Showed a creatinine of 1.5. Rest of it was normal except for the AFib. 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 Impression And Plan: New onset atrial fibrillation. I am going to switch her from metoprolol to sot alol 80 mg 1 p.o. b.i.d. She is on Lovenox right now, but when she goes home, we will switch her to Eliquis. Echocardiogram is pending. She will have to have 3 doses of sotalol in the hospital before she goes home. I will anticipate discharge tomorrow. I will discuss the case with Dr. Levi. If the sotalol does not work after 3 weeks, we will plan a cardioversion electively. LINA/GILA Voice ID: [id number] Report ID: [id number]
--- NOTE | 2022-04-26 13:47 | EKG ---
Test Date: 2022-04-25 Test Time: 09:45:10 Supervisor [employer]: MB MEASUREMENT RESULTS: Intervals: Rate: 153 WA: QRSD: 88 QT: 314 QTc: 501 [place]: P: WA: QRS: -76 T: 93 INTERPRETIVE STATEMENTS: Atrial fibrillation with rapid ventricular response Left axis deviation Voltage criteria for left ventricular hypertrophy Anteroseptal infarct, age undetermined Abnormal ECG Compared to ECG 04/12/2022 13:34:00 Left-axis deviation now present Left ventricular hypertrophy now present Sinus rhythm no longer present Sinus arrhythmia no longer present Left anterior fascicular block no longer present Myocardial infarct finding still present Electronically Signed On 04-26-22 13:43:53 CDT by Yayo Hart
--- NOTE | 2022-04-26 14:31 | ECHO ---
HEIGHT: 5 ft 7 in WEIGHT: 130 lb 0 oz DATE OF STUDY: 04/26/[address]: Reynaldo Hector MD 2-DIMENSIONAL: YES M.MODE: YES DOPPLER: YES COLOR FLOW: YES TDS: NO PORTABLE: YES DEFINITY: NO BUBBLE STUDY: NO DIAGNOSIS: CONGESTIVE HEART FAILURE, ATRIAL FIBRILLATION CARDIAC HISTORY: CATHERIZATION:YES SURGERY: YES PROSTHETIC VALVE: NO PACEMAKER: NO MEASUREMENTS (cm) DIASTOLIC (NORMALS) SYSTOLIC (NORMALS) IVSd 1.0 (0.6-1.2) LA Diam 3.0 (1.9-4.0) LVEF 45-50% LVIDd 3.9 (3.5-5.7) LVIDs 2.4 (2.0-3.5) %FS 38% LVPWd 1.1 (0.6-1.2) Ao Diam 3.2 (2.0-3.7) 2 DIMENSIONAL ASSESSMENT: RIGHT ATRIUM: NORAML LEFT ATRIUM: NORMAL RIGHT VENTRICLE: NORMAL LEFT VENTRICLE: NORMAL TRICUSPID VALVE: MITRAL VALVE: PULMONIC VALVE: NORMAL AORTIC VALVE: MILD PERICARDIAL EFFUSION: NONE AORTIC ROOT: NORMAL LEFT VENTRICULAR WALL MOTION: MILD GLOBAL HYPOKINESIS. DOPPLER/COLOR FLOW: SEE BELOW. COMMENTS: MILD DEPRESSED LEFT VENTRICULAR EJECTION FRACTION 45-50%. MILD GLOBAL HYPOKINESIS. ATRIAL FIBRILLATION. MILD MITRAL AND AORTIC REGURGITATION. MODERATE TRICUSPID REGURGITATION. TECHNOLOGIST: Garrison C[place]
[2022-04-26] MEDS: SOTALOL HCL 80 MG TAB PO SCH (18:00)
[2022-04-26] MEDS ORDERED: ASPIRIN 81 MG CHEWABLE TABLET PO SCH (21:00)
[2022-04-26] MEDS: ATORVASTATIN 80 MG TAB PO SCH (21:12)
[2022-04-26] MEDS: CLOPIDOGREL 75 MG TABLET PO SCH (21:12)
--- NOTE | 2022-04-26 23:35 | PN ---
Date of Progress Note: 04/26/2022 The patient states she feels fine tonight. She is not aware of any abnormal rhythm, however, she was not aware when she came into the ER either. However, she states her symptoms recurred this morning, occurs when she gets out of bed and moves around. If she is lying flat, she feels fine. Seen by Iris perdomoiology with medication change to sotalol from atenolol. We will continue to monitor at present paola e is in fact her medication could not be changed successfully could be discharg ed on the Eliquis, if not we will keep her another day before changing over on her anticoagulation. HR/MODL Voice ID: [id number] Report ID: [id number]
[2022-04-27] MEDS: SOTALOL HCL 80 MG TAB PO SCH ×2 (06:00→17:35)
[2022-04-27] MEDS: ENOXAPARIN 60 MG/0.6 ML SQ SCH (08:48)
[2022-04-27] MEDS: FAMOTIDINE 20 MG/2 ML VIAL IV SCH (08:50)
[2022-04-27] MEDS: FAMOTIDINE 20 MG TAB PO SCH (08:50)
[2022-04-27] MEDS: ACETAMINOPHEN 500 MG TAB PO PRN ×2 (11:02→18:05)
--- NOTE | 2022-04-27 13:31 | PN ---
She was seen because of atrial fibrillation at a rate of 160. She was placed on metoprolol after IV Cardizem. Has a history of CABG, COPD, hypertension, dyslipidemia, and TIA. Today, she is in normal sinus rhythm on sotalol 80 b.i.d. Echocardiogram that was done revealed an ejection fraction of 45% to 50%. The patient can be discharged today. I will discuss the case further with Dr. Levi. We will see her in the office soon. SILVER Voice ID: [id number] Report ID: [id number]
--- NOTE | 2022-04-27 17:30 | RAD REPORT ---
EXAM DESCRIPTION: MRI - Brain Wo Cont - 04/27/2022 5:21 pm CLINICAL HISTORY: weakness, headache Headache, drowsiness COMPARISON: Head Brain Wo Cont dated 10/05/2020 TECHNIQUE: Multi-sequence, multiplanar MR imaging of the brain was performed without contrast. FINDINGS: No intracranial hemorrhage, hydrocephalus or extra-axial fluid collections.There is extens glenys T2 and FLAIR confluent hyperintensity in the periventricular and deep white matter. This most lik rashida represents chronic microvascular ischemic changes. No edema or shift of midline structures. No fi ndings to suspect brain mass. DWI is negative for acute CVA. Midline structures are normally formed. Mild fluid is seen in both maxillary antra. IMPRESSION: No evidence of acute CVA or other acute intracranial process. Extensive confluent T2 and FLAIR hyperintensity in the periventricular and deep white matter. This is favored to represent advanced chronic microvascular ischemic changes.
[2022-04-27] MEDS: CLOPIDOGREL 75 MG TABLET PO SCH (20:45)
[2022-04-27] MEDS: ATORVASTATIN 80 MG TAB PO SCH (20:45)
[2022-04-28] MEDS: SOTALOL HCL 80 MG TAB PO SCH ×2 (06:27→18:49)
--- NOTE | 2022-04-28 07:56 | EKG ---
Test Date: 2022-04-27 Test Time: 09:34:04 Tricot Knitter: ERNESTINE MEASUREMENT RESULTS: Intervals: Rate: 52 WV: 150 QRSD: 106 QT: 496 QTc: 461 [place]: P: 79 WV: 150 QRS: -59 T: 16 INTERPRETIVE STATEMENTS: Sinus bradycardia Left anterior fascicular block Moderate voltage criteria for LVH, may be normal variant T wave abnormality, consider anterior ischemia Abnormal ECG Compared to ECG 04/25/2022 09:45:10 Left anterior fascicular block now present T-wave abnormality now present Possible ischemia now present Atrial fibrillation no longer present Left-axis deviation no longer present Myocardial infarct finding no longer present Electronically Signed On 04-28-22 07:52:43 CDT by Hiram Kc
[2022-04-28] MEDS: ENOXAPARIN 60 MG/0.6 ML SQ SCH (09:00)
[2022-04-28] MEDS: FAMOTIDINE 20 MG TAB PO SCH (10:00)
[2022-04-28] MEDS: APIXABAN 5 MG TABLET PO SCH ×2 (12:03→22:12)
[2022-04-28] MEDS: ATORVASTATIN 80 MG TAB PO SCH (22:12)
--- NOTE | 2022-04-29 00:10 | PN ---
Date of Progress Note: 04/28/2022 The patient has started physical therapy and has progressed somewhat. However, her symptoms still pe rsist with positional changes and walking. The cardiac status seems stable. Does not appear to have orthostatic hypotension, although she does have a low diastolic consistently, possibly contributing to the vascular problem. However, a cerebellar sign tonight was negative as far as Romberg is concer ananda. Her atrial fibrillation seems to be under control. She was a little bradycardic this morning a nd Betapace was held. However, tonight, her pulse was in the 60s. Therefore, was restarted. Eliqui s was started as well, 5 mg b.i.d. with holding of the Plavix and aspirin and Lovenox. Social Servic madi will be consulted in the morning for PT as an outpatient with home health, and she should be able to be discharged in the a.m. to follow up at the beginning of the week with me and the end of the wee k with Dr. Kc. HR/MODL Voice ID: [id number] Report ID: [id number]
[2022-04-29] MEDS: SOTALOL HCL 80 MG TAB PO SCH ×2 (06:00→16:40)
[2022-04-29] MEDS: FAMOTIDINE 20 MG TAB PO SCH (09:49)
[2022-04-29] MEDS: APIXABAN 5 MG TABLET PO SCH ×2 (09:49→21:36)
[2022-04-29] MEDS: ACETAMINOPHEN 500 MG TAB PO PRN (09:51)
[2022-04-29] MEDS ORDERED: LORAZEPAM 1 MG TABLET PO ONE (12:45)
--- NOTE | 2022-04-29 20:56 | PN ---
The patient has continued to complain of some dizziness and weakness with mobility. However, she has progressed somewhat with PT, although she states she is just working away through it. The beta-bloc ker had produced a significant bradycardia and they have been withheld on frequent occasions over the past 72 hours and the patient is still in sinus rhythm, although it varies between 45 and 60s. This afternoon, her blood pressure was elevated at 180 and diastolics remained stable. It was felt that this is a stress reaction about going home, and the fact that after being given Ativan, she did drop down to the normal limits. We will discuss the beta-amy dosage with Dr. Kc later today and then discharge her to continue on the Eliquis and withhold the Plavix and aspirin and follow up with me beginning of the weekend and Dr. Kc at the end of the week. HR/MODL Voice ID: [id number] Report ID: [id number]
[2022-04-29] MEDS: ATORVASTATIN 80 MG TAB PO SCH (21:36)
--- NOTE | 2022-04-30 01:03 | CON ---
Reason For Consultation: Consultation called because of dizziness on standing or sitting. History Of Present Illness: Mrs. Douglas is a 81-year-old right-handed patient with sherif nary artery disease, COPD, dyslipidemia, hypertension, myocardial infarction, and transient ischemic attacks, who has episodes of lightheadedness with mild vertigo when changing from a lying to sitting or sitting to standing position. Her symptoms resolved when lying flat and again they are precipitat ed by getting upright. She denies falling, seizures, or injury. She came to [facility] wit h new-onset atrial fibrillation with rapid ventricular response and is being followed by Cardiology. Her brain MRI showed no acute ischemic or hemorrhagic findings; however, there were extensive conflu ent T2 and FLAIR hyperintensities in the periventricular deep white matter consistent with advanced c hronic small vessel ischemic disease. Echocardiogram showed ejection fraction 45% to 50% with atrial fibrillation. Laboratory studies showed essentially unremarkable complete blood count with differen tial. Her basic metabolic panel was remarkable for elevated creatinine of 1.50, consistent with dehy dration. After hydration, creatinine 1.1. Otherwise, essentially unremarkable basic metabolic panel . Normal magnesium and TSH along with calcium. COVID testing was negative. Past Medical History: As noted. Allergies: CELEBREX, ZOCOR. Medications: At home, aspirin 81 mg daily, hydrochlorothiazide 12.5 mg daily, Lipitor 80 mg at bedti ne, Plavix 75 mg daily. Past Surgical History: Coronary artery bypass grafting. Social History: She does smoke half pack of cigarettes per day, but no alcohol or IV drug use. Review of Systems: She denies any recent fevers, chills, nausea, vomiting, myalgias, arthralgias, rash, headache, weight change. Does admit to the dizziness on standing, but resolved with sitting and some unusual flutter ing in the heart. Physical Examination: Vital Signs: Blood pressure 143/65, pulse down to 47 to 51, respiratory rate 14 to 18, temperature 9 8.2, oxygen saturation 98% on room air. Weight 130 pounds, height 5 feet 7 inches, BMI 20.4. General: Ms. Douglas is sitting in a chair beside the bed. She is in no acute distress. HEENT: She is normocephalic, atraumatic. Sclerae anicteric. Oropharynx is pink and moist. Neck: Supple. Chest: Clear. Heart: Irregularly irregular. Abdomen: Soft. Extremities: No clubbing, cyanosis, or edema. Neurological: She is alert and oriented to situation, place, and person. Slightly slow with respons es. Some evidence of mild cognitive impairment. Otherwise, cranial nerves intact. Motor: Upper an d lower extremities intact. Sensory: Stocking glove loss to light touch, temperature. Reflexes sli ghtly increased in the upper and lower extremities. In terms of her gait, she was modified independe nce when walking 100 feet with a rolling walker. Assessment: Ms. Douglas is a 81-year-old patient with orthostatic-related dizziness, which resolve d on lying down. 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 She does appear to have symptoms of vertebrobasilar insufficiency. Possibly aggravated by atrial fibrillation and decreased cardiac output. Furthermore, on this admission, she was dehydrated, whic h is another factor contributing to her orthostatic type symptoms. Plan: 1.She should hydrate with 8 glasses of water daily. 2.Perhaps cut down her beta-blockers. 3.She may benefit from a routine electroencephalogram if her cardiac workup is negative. 4.The patient is instructed to use FESTUS hose above the knee and abdominal binders when getting up and ambulating. 5.After discharge, she should follow up in Dr. Sevilla's clinic in the next month. ANTONI/GILA Voice ID: [id number] Report ID: [id number]
[2022-04-30] MEDS ORDERED: SOTALOL HCL 80 MG TAB PO SCH ×2 (02:16→18:00)
[2022-04-30 04:22] LABS: Hematocrit 33.1 % (36.0-45.0); Lymphocytes % 27.3 % (15.3-44.8); MCV 89.7 fL (80-100); MPV 8.6 fL (7.6-11.3)
[2022-04-30 04:41] LABS: Magnesium 2.1 mg/dL (1.8-2.4)
[2022-04-30] MEDS: FAMOTIDINE 20 MG TAB PO SCH (08:10)
[2022-04-30] MEDS: APIXABAN 5 MG TABLET PO SCH (08:10)
[2022-04-30 12:47] VITALS: BP 148/65; TEMP 98
[2022-04-30 15:08] VITALS: O2SAT 97
--- NOTE | 2022-04-30 19:38 | PN ---
Date of Progress Note: 04/30/2022 Subjective: Seen by bedside, doing clinically well. Heart rate is better, still in sinus. Review of Systems: No chest pain, shortness of breath, orthopnea, or cough. No nausea, vomiting, or diarrhea. All othe r systems reviewed are negative. Physical Examination: Vital Signs: Reviewed. Head and Neck: Pupils are equal, reactive to light. Intact eye movements. No JVD. No cyanosis. N satish is supple. Thyroid is not enlarged. Lungs: Clear to auscultation bilaterally. No rhonchi or crackles. No accessory muscle use. Heart: Regular rate and rhythm. No extra sounds. Abdomen: Soft, nontender. Bowel sounds positive. No organomegaly. No masses or hernia. No rigidi ty or rebound. Extremities: No edema, clubbing, cyanosis. Intact pulses. Skin: No rash. Neurologic: Alert, awake, oriented x3. No acute focal deficits appreciated. Investigations: Creatinine 0.99. Assessment And Recommendation: 1.Atrial fibrillation with rapid ventricular response, converted to sinus rhythm; however, she is cordova ving some bradycardia with sotalol 80 mg twice a day to decrease the dose to 40 mg twice a day and monitor. Continue anticoagulation with Eliquis. 2.Acute renal failure due to dehydration. This is resolved. SR/MODL Voice ID: [id number] Report ID: [id number]
--- NOTE | 2022-05-01 20:03 | PN ---
Date of Progress Note: 04/30/2022 The patient is doing much better. She is stable. Her pulse is now in the 50s and low 60s. She will be discharged on Betapace 40 mg twice a day rather than 80 and continue with the Eliquis and hold th e Plavix and aspirin. She is stable for the rest of her vital signs and is quite alert. She has bee n instructed on caffeine and nicotine effects and will be seen in the office early next week by jamila hernandez and Cardiology at the end of week. Discharged in good condition. HR/MODL Voice ID: [id number] Report ID: [id number]
--- NOTE | 2022-05-10 03:44 | HP ---
Date of Admission: 04/25/2022 Chief Complaint: Weakness. History Of Present Illness: The patient states he felt some generalized weakness for a couple of julia rs and felt that there was something abnormal about her cardiovascular situation as she has had prior history of such including concern about a TIA. She then presented to the emergency room and was fou nd to be in atrial fib. Past History: The patient has a long history of cardiac and circulatory problems, however, she has n ot had any prior atrial fib. She has had CABG and hypertension, dyslipidemia, which has been relativ rashida good control. However, she also has significant COPD and there is a spool cleaner for this. Family History: Noncontributory. Social History: The patient is still smoking. Physical Examination: General: The patient is an elderly female. Vital Signs: Pulse of 160, blood pressure 140/90, and respiratory rate 22. Head and Neck: Normocephalic. Pupils are equal and reactive to light and accommodation. Fundi nega tive. Trachea midline. Thyroid not palpable. ENT: Negative. Chest: High-pitched rhonchi throughout both bases. Adequate air entry and movement. No use of acce ssory muscles. Breasts: Negative. Cardiovascular: PMI midclavicular line. Heart sounds normal. Peripheral pulses present and equal b ilaterally. Abdomen: No organomegaly bowel sounds present. Extremities: Good tone bilaterally. Reflexes physiologic. Rectal/Pelvic: Deferred. Impression: Acute onset atrial fibrillation, coronary artery disease by history, chronic obstructive pulmonary disease by history, and severe hypertension, controlled. Plan: The patient will be treated symptomatically. The initial attempt with James was unsuccessf ul and beta blockers were then utilized, which were helpful. She will be seen by Cardiology, monitor ed. Cardiac workup will be undertaken. HR/MODL Voice ID: [id number]
== END 2022-04-30 17:00 | disposition home or self-care (01) | DRG 309 ==
LOC: ER 09:33 → ERHOLD 13:33 → 2ND 04-26 04:51
PROVIDERS: ADMIT Family Medicine; ATTEND Family Medicine
DX: I48.91 Unspecified atrial fibrillation (principal); N17.9 Acute kidney failure, unspecified; I25.10 Atherosclerotic heart disease of native coronary artery without angina pectoris; J44.9 Chronic obstructive pulmonary disease, unspecified; I10 Essential (primary) hypertension; E78.5 Hyperlipidemia, unspecified; E86.0 Dehydration; R00.1 Bradycardia, unspecified; F17.210 Nicotine dependence, cigarettes, uncomplicated; T44.7X5A Adverse effect of beta-adrenoreceptor antagonists, initial encounter; Z95.1 Presence of aortocoronary bypass graft; Z20.822 Contact with and (suspected) exposure to COVID-19; Z23 Encounter for immunization
CPT/HCPCS: 36415; 70551; 71045; 80048; 83735; 84443; 84484; 85025; 87804; 90471; 90732; 93005; 93306; 96372; 97110; 97116; 97161; 97530; 99285; J1650; J7040; U0003

== ENCOUNTER 2022-07-03 18:52 | Inpatient (IN) | payer OTHER ==
--- OUTSIDE RECORDS SUMMARY | 2022-07-03 18:55 | XMS REPORT | Continuity of Care Document ---
:1940 Author Organization [facility] t Address [address] [place] [address] Care Team Providers Name Role Phone Asked, No Pcp Primary Care Physician Unavailable Argenis CLEMENT, Oneil Blue Attending Clinician [phone] Problems This patient has no known problems. Allergies, Adverse Reactions, Alerts This patient has no known allergies or adverse reactions. Social History Social Habit Start Date Stop Date Quantity Comments Source Sex Assigned At [birth year] [facility] 00:00:00 00:00:00 Smoking Status Start Date Stop Date Source Tobacco smoking consumption unknown [facility] Medications This patient has no known medications. Immunizations Ordered Immunization Filled Immunization Date Status Commen ts Source Name Name PFIZER COVID-19 MRNA 2020-12-12 Completed Meth odist VACCINATION 00:00:00 [facility] PFIZER COVID-19 MRNA 2020-12-12 Completed Meth odist VACCINATION 00:00:00 [facility] PFIZER COVID-19 MRNA 2020-11-21 Completed Meth odist VACCINATION 00:00:00 [facility] PFIZER COVID-19 MRNA 2020-11-21 Completed Meth odist VACCINATION 00:00:00 Hospital Procedures This patient has no known procedures. Plan of Care Planned Activity Planned Date Details Comments Source Future Scheduled 2022-06-07 INFLUENZA VACCINE [facility] 04:44:56 [code = INFLUENZA VACCINE] Future Scheduled 2022-06-07 HEPATITIS B VACCINES Met [facility] Test 04:44:56 (1 of 3 - 3-dose series) [code = HEPATITIS B VACCINES (1 of 3 - 3-dose series)] Future Scheduled 2022-06-07 SHINGLES VACCINES (1 Met [facility] Test 04:44:56 of 2) [code = SHINGLES VACCINES (1 of 2)] Future Scheduled 2022-06-07 65+ PNEUMOCOCCAL [facility] Test 04:44:56 VACCINE (1 - PCV) [code = 65+ PNEUMOCOCCAL VACCINE (1 - PCV)] Future Scheduled 2022-06-07 COVID-19 VACCINE (3 - Me [facility] Test 04:44:56 Booster for Pfizer series) [code = COVID-19 VACCINE (3 - Booster for Pfizer series)] Future Scheduled Hepatitis C screening [facility] Hospital Test (procedure) [code = 977993908] Future Scheduled SHINGLES VACCINES (#1) M [facility] Hospital Test [code = SHINGLES VACCINES (#1)] Future Scheduled 65+ PNEUMOCOCCAL [facility] Test VACCINE (1 of 1 - PPSV23) [code = 65+ PNEUMOCOCCAL VACCINE (1 of 1 - PPSV23)] Future Scheduled INFLUENZA VACCINE Method [facility] Hospital Test [code = INFLUENZA VACCINE] Encounters Start End Encounter Admission Attending Care Care Encounter Source Date/Time Date/Time Type Type Clinicians Facility Department ID 2020-12-12 2020-12-12 Clinical Argenis, [id number] [facility] 13:01:14 13:06:14 Support Oneil [id number] 3.430.2.7 Hospit a .[id number] l .8 2020-11-21 2020-11-21 Clinical [id number] [facility] 15:25:41 15:30:[address] 3.430.2.7 Hospit a .[id number] l .8 Results This patient has no known results.
--- NOTE | 2022-07-03 20:38 | RAD REPORT ---
EXAM DESCRIPTION: CT - Head Brain Wo Cont - 07/03/2022 8:29 pm CLINICAL HISTORY: Dizziness COMPARISON: 2020 TECHNIQUE: Computed axial tomography of the head was obtained. IV contrast was not requested. All CT scans are performed using dose optimization technique as appropriate and may include automated exposure control or mA/KV adjustment according to patient size. FINDINGS: An intracranial bleed is not seen . The ventricles are normal in caliber. No extra-axial fluid collection is noted. Moderate low-density areas within periventricular, deep and subcortical white matter likely represent ischemic changes secondary to small vessel disease. Fluid within the sinuses/ mastoids is not seen. IMPRESSION: No acute intracranial abnormality is seen. If patient's symptoms persist MRI of the bra in would be recommended.
[2022-07-03 20:39] LABS: Absolute Lymphocytes (CBC) 2.6 K/uL (0.7-4.9); Hematocrit 39.5 % (36.0-45.0); Lymphocytes % 32.9 % (15.3-44.8); MCV 93.4 fL (80-100); MPV 8.9 fL (7.6-11.3); RBC Red Blood Cell Count 4.23 M/uL (3.86-4.86)
[2022-07-03 20:51] LABS: Potassium 3.8 mmol/L (3.5-5.1); Troponin High Sensitivity 18.8 pg/mL (<58.9)
--- NOTE | 2022-07-03 20:55 | RAD REPORT ---
EXAM DESCRIPTION: Mg Single View07/03/2022 8:31 pm CLINICAL HISTORY: Dizziness and headache COMPARISON: April 2022 FINDINGS: Lungs are hyperaerated. Calcified granuloma right lung. The lungs appear clear of acute infiltrate. The heart is normal size. Postsurgical changes involve the chest. IMPRESSION: No acute abnormalities displayed
--- NOTE | 2022-07-03 22:04 | EDPHYS ---
Physician Documentation [facility] Name: Jenny Douglas Age: 81 yrs Sex: Female : 1940 Arrival Date: 07/03/2022 Time: 18:55 Bed 23 Private MD: Thiago Levi ED Physician Didier Marquez HPI: 07/03 22:04 This 81 yrs old Female presents to ER via Ambulatory with complaints of Headache, ms3 Dizziness, Doesn't Feel Right. 22:04 81-year-old female with past medical history of coronary artery disease, hypertension, ms3 myocardial infarction, hyperlipidemia, COPD, atrial fibrillation presents for not feeling well, dizziness, and her body feeling weird. Patient denies pain. Patient denies fevers, chills, nausea, vomiting. Patient states her symptoms have been ongoing for 3 hours. Patient denies alleviating or inciting factors. Historical: - Allergies: 19:07 Celebrex; hb 19:07 Zocor; hb - PMHx: 19:07 CAD; Hypertension; Myocardial infarction; Hyperlipidemia; COPD; TIA; hb - PSHx: 19:07 CABG; hb - Immunization history:: Adult Immunizations up to date. - Social history:: Smoking status: Patient reports the use of cigarette tobacco products, one or two cigarettes daily.. ROS: 22:04 Constitutional: Negative for fever, and chills. Neck: Negative for injury, pain, and ms3 swelling, Cardiovascular: Negative for chest pain, and palpitations. Respiratory: Negative for shortness of breath, cough, wheezing, and pleuritic chest pain, Abdomen/GI: Negative for abdominal pain, nausea, vomiting, diarrhea, and constipation, MS/Extremity: Negative for injury and deformity, Skin: Negative for injury, rash, and discoloration, Psych: Negative for depression, anxiety, suicide ideation, homicidal ideation, and hallucinations. 22:04 Neuro: Positive for dizziness. Exam: 20:10 ECG was reviewed by the Attending Physician. ms3 22:04 Constitutional: This is a well developed, well nourished patient who is awake, alert, ms3 and in no acute distress. Head/Face: Normocephalic, atraumatic. Neck: Trachea midline, no cervical lymphadenopathy. Supple, full range of motion without nuchal rigidity, or vertebral point tenderness. No Meningismus. Chest/axilla: Normal chest wall appearance and motion. Nontender with no deformity. Cardiovascular: Regular rate and rhythm with a normal S1 and S2. No gallops, murmurs, or rubs. Normal PMI, no JVD. No pulse deficits. Respiratory: Lungs have equal breath sounds bilaterally, clear to auscultation and percussion. No rales, rhonchi or wheezes noted. No increased work of breathing, no retractions or nasal flaring. Abdomen/GI: Soft, non-tender, with normal bowel sounds. No distension or tympany. No guarding or rebound. No evidence of tenderness throughout. Skin: Warm, dry with normal turgor. Normal color with no rashes, no lesions, and no evidence of cellulitis. MS/ Extremity: Pulses equal, no cyanosis. Neurovascular intact. Full, normal range of motion. Psych: Awake, alert, with orientation to person, place and time. Behavior, mood, and affect are within normal limits. 22:04 Neuro: Orientation: to person, place, time \\T\\ situation. Mentation: is normal, Memory: is normal, Cranial nerves: CN II- XII are normal as tested, Cerebellar function: is grossly normal, Motor: is normal. Vital Signs: 19:05 BP 166 / 80; Pulse 61; Resp 16; Temp 98.3; Pulse Ox 100% on R/A; Weight 58.97 kg; hb Height 5 ft. 7 in. (170.18 cm); Pain 3/10; 20:14 BP 155 / 63; Pulse 46; Resp 24; Pulse Ox 98% on R/A; tw5 22:05 BP 157 / 63; Pulse 56; Resp 18; Pulse Ox 100% on R/A; tw5 19:05 Body Mass Index 20.36 (58.97 kg, 170.18 cm) hb MDM: 19:33 Patient medically screened. ms3 22:04 Data reviewed: vital signs, nurses notes, lab test result(s), radiologic studies, and ms3 as a result, I will admit patient. Counseling: I had a detailed discussion with the patient and/or guardian regarding: the historical points, exam findings, and any diagnostic results supporting the discharge/admit diagnosis, lab results, radiology results, the need for further work-up and treatment in the hospital. ED course: Case discussed with Dr. Blakely and he accepts patient as observation. Patient is remained in stable condition while in the emergency department.. 07/03 19:47 Order name: Basic Metabolic Panel; Complete Time: 21:05 ms3 07/03 19:47 Order name: CBC with Diff; Complete Time: 21:05 ms3 07/03 19:47 Order name: NT PRO-BNP; Complete Time: 21:05 ms3 07/03 19:47 Order name: Troponin HS; Complete Time: 21:05 ms3 07/03 19:47 Order name: Flu; Complete Time: 21:05 ms3 07/03 20:00 Order name: COVID-19 SARS RT PCR (Document "Date of Onset" if Symptomatic); Complete tw5 Time: 21:05 07/03 19:47 Order name: XRAY Chest (1 view) ms3 07/03 19:49 Order name: Chest Single View; Complete Time: 21:05 EDMS 07/03 22:30 Order name: Basic Metabolic Panel EDMS 07/03 22:30 Order name: Basic Metabolic Panel EDMS 07/03 22:30 Order name: Basic Metabolic Panel EDMS 07/03 22:30 Order name: CBC with Automated Diff EDMS 07/03 22:30 Order name: CBC with Automated Diff EDMS 07/03 19:47 Order name: EKG; Complete Time: 19:47 ms3 07/03 19:47 Order name: Cardiac monitoring; Complete Time: 20:20 ms3 07/03 19:47 Order name: EKG - Nurse/Tech; Complete Time: 20:09 ms3 07/03 19:47 Order name: IV Saline Lock; Complete Time: 20:20 ms3 07/03 19:47 Order name: Labs collected and sent; Complete Time: 20:20 ms3 07/03 19:47 Order name: O2 Per Protocol; Complete Time: 20:20 ms3 07/03 19:47 Order name: O2 Sat Monitoring; Complete Time: 20:20 ms3 07/03 19:49 Order name: EKG Electrocardiogram; Complete Time: 20:09 EDMS 07/03 20:25 Order name: Head Brain Wo Cont; Complete Time: 21:05 EDMS 07/03 22:30 Order name: Heart Healthy EDMS EC:10 Rate is 48 beats/min. Rhythm is regular. QRS Gabbs is Normal. OR interval is normal. ms3 Clinical impression: Sinus bradycardia. Interpreted by me. Reviewed by me. Administered Medications: No medications were administered Disposition Summary: 07/03/22 22:04 Hospitalization Ordered Hospitalization Status: Observation ms3 Provider: Flynn Blakely ms3 Location: Telemetry/MedSurg (observation) ms3 Condition: Stable ms3 Problem: new ms3 Symptoms: are unchanged ms3 Bed/Room Type: Standard ms3 Room Assignment: 402(07/03/22 22:34) eb1 Diagnosis - Lightheaded ms3 - Sinus Bradycardia ms3 - Essential (primary) hypertension ms3 Forms: - Medication Reconciliation Form ms3 - SBAR form ms3 Signatures: Dispatcher [employer] EDShanita France RN RN Annette Soni RN RN eb1 Didier Marquez DO DO ms3 Ariana Carrillo tw5 Corrections: (The following items were deleted from the chart) 22:34 22:04 ms3 eb1
--- NOTE | 2022-07-03 22:04 | ER ---
Nurse's Notes [facility] Name: Jenny Douglas Age: 81 yrs Sex: Female : 1940 Arrival Date: 07/03/2022 Time: 18:55 Bed 23 Private MD: Thiago Levi Diagnosis: Lightheaded;Sinus Bradycardia;Essential (primary) hypertension Presentation: 07/03 19:05 Chief complaint: Seen at urgent care last week for sinus infection, completed hb antibiotics, c/o headache and dizziness for 2 weeks, worse today. Coronavirus screen: At this time, the client does not indicate any symptoms associated with coronavirus-19. Ebola Screen: No symptoms or risks identified at this time. Risk Assessment: Do you want to hurt yourself or someone else? Patient reports no desire to harm self or others. Onset of symptoms was July 03, 2022. 19:05 Method Of Arrival: Ambulatory hb 19:05 Acuity: ADRIANNA 3 hb 20:15 Initial Sepsis Screen: Does the patient meet any 2 criteria? No. Patient's initial tw5 sepsis screen is negative. Does the patient have a suspected source of infection? No. Patient's initial sepsis screen is negative. Triage Assessment: 20:15 Headache History: Denies prior headaches. General: Appears in no apparent distress. tw5 Behavior is calm, cooperative, appropriate for age. Pain: Pain currently is 0 out of 10 on a pain scale. 22:49 Pain: Pain began gradually, Also complains of. tw5 Historical: - Allergies: 19:07 Celebrex; hb 19:07 Zocor; hb - PMHx: 19:07 CAD; Hypertension; Myocardial infarction; Hyperlipidemia; COPD; TIA; hb - PSHx: 19:07 CABG; hb - Immunization history:: Adult Immunizations up to date. - Social history:: Smoking status: Patient reports the use of cigarette tobacco products, one or two cigarettes daily.. Screenin:14 Abuse screen: Denies threats or abuse. Denies injuries from another. Nutritional tw5 screening: No deficits noted. Tuberculosis screening: No symptoms or risk factors identified. Fall Risk IV access (20 points). Assessment: 20:13 General: Reports "I have just been feeling really dizzy and really weak. The last time tw5 something like this happened I was in A-fib.". Pain: Denies pain. Neuro: No deficits noted. Cardiovascular: Heart tones S1 S2 present Capillary refill < 3 seconds is brisk in bilateral fingers Rhythm is sinus bradycardia. Respiratory: Airway is patent Trachea midline Respiratory effort is even, unlabored. 22:05 General: Reports "When I am laying down I am alright.". tw5 Vital Signs: 19:05 BP 166 / 80; Pulse 61; Resp 16; Temp 98.3; Pulse Ox 100% on R/A; Weight 58.97 kg; hb Height 5 ft. 7 in. (170.18 cm); Pain 3/10; 20:14 BP 155 / 63; Pulse 46; Resp 24; Pulse Ox 98% on R/A; tw5 22:05 BP 157 / 63; Pulse 56; Resp 18; Pulse Ox 100% on R/A; tw5 19:05 Body Mass Index 20.36 (58.97 kg, 170.18 cm) hb ED Course: 18:55 Patient arrived in ED. am2 18:55 Thiago Levi MD is Private Physician. am2 19:07 Triage completed. hb 19:07 Arm band placed on. hb 19:22 Didier Marquez DO is Attending Physician. ms3 19:58 Ariana Carrillo is Primary Nurse. tw5 20:01 [facility]is [facility]-C [facility] kb 20:09 EKG done, by ED staff, reviewed by Didier Marquez DO Flu and/or RSV swab sent to lab. tw5 20:19 Initial lab(s) drawn, by al, sent to lab. Inserted saline lock: 20 gauge in right tw5 antecubital area, using aseptic technique. Blood collected. 20:20 Awaiting radiology results. tw5 20:20 COVID-19 SARS RT PCR (Document "Date of Onset" if Symptomatic) Sent. tw5 20:20 Flu Sent. tw5 20:20 Basic Metabolic Panel Sent. tw5 20:20 CBC with Diff Sent. tw5 20:20 NT PRO-BNP Sent. tw5 20:20 Troponin HS Sent. tw5 20:31 Head Brain Wo Cont In Process Unspecified. EDMS 20:32 Chest Single View In Process Unspecified. EDMS 22:03 Flynn Blakely MD is Hospitalizing Provider. ms3 22:49 Patient has correct armband on for positive identification. Placed in gown. Bed in low tw5 position. Call light in reach. Client placed on continuous cardiac and pulse oximetry monitoring. NIBP monitoring applied. 22:49 No provider procedures requiring assistance completed. Patient admitted, IV remains in tw5 place. 22:55 EKG completed in triage. Results shown to MD. EKG completed in triage. Results shown to tw5 MD. Administered Medications: No medications were administered Medication: 22:54 VIS not applicable for this client. tw5 Outcome: 22:04 Decision to Hospitalize by Provider. ms3 22:38 Admitted to Med/surg Report called to attempted to call report was told nurse has not tw5 been assigned 22:48 Admitted to Med/surg Report called to report called to evert tw 22:54 Condition: improved tw5 22:54 Instructed on the need for admit. 22:55 Patient left the ED. tw5 Signatures: Dispatcher [employer] EDMS Isis Martinez, [employer] CHIEF-Shanita Frost RN RN Rosa Rain amDidier Cook DO DO ms3 Ariana Carrillo tw5 Corrections: (The following items were deleted from the chart) 19:09 19:05 Chief complaint: Seen at urgent care last week for sinus infection, reports hb feeling bad for 2 weeks, worse today. Completed antibiotics. Reports headache and dizziness that started last week, then said it started today. hb
--- NOTE | 2022-07-03 22:26 | P.HP ---
Certification for Inpatient Patient admitted to: Observation With expected LOS: <2 Midnights Patient will require the following post-hospital care: None Practitioner: I am a practitioner with admitting privileges, knowledge of patient current condition, hospital course, and medical plan of care. Services: Services provided to patient in accordance with Admission requirements found in Title 42 Section 412.3 of the Code of Federal Regulations Patient History Date of Service: 07/03/22 Reason for admission: Dizziness History of Present Illness: Ms. Jenny Douglas is a pleasant 81 year old female who has a past medical history of coronary artery disease s/p CABG (1997), chronic obstructive pulmonary disease, atrial fibrillation, and hypertension who presents to the [facility] Emergency Department for dizziness. She reports that, over the last day, she has been experiencing intermittent episodes of dizziness, lasting several minutes at a time. She denies any obvious inciting or alleviating factors. She denies any recent changes in medications. She denies any headaches, facial droop, weakness, or numbness/tingling. On review of systems, she denies any fevers, chills, headaches, syncope, weakness, chest pain, palpitations, shortness of breath, wheezing, cough, abdominal pain, nausea/vomiting, diarrhea, constipation, hematochezia, melena, dysuria, hematuria, myalgia, or any other symptoms. She presented to the Emergency Department for further evaluation. Upon presentation, her vital signs were notable for a heart rate down to 46 bpm. Her laboratory studies were notable for a creatinine of 1.39 (baseline 0.9-1.1). EKG revealed sinus bradycardia with a left anterior fascicular block. Chest x- ray revealed, "no acute abnormalities displayed." CT head revealed, "no acute intracranial abnormality is seen." She was admitted to the General Internal Medicine service for further evaluation. Allergies celecoxib [From Celebrex] Allergy (Verified 07/09/14 00:17) Rash simvastatin [From Zocor] Allergy (Verified 07/09/14 00:17) Rash unk med Allergy (Uncoded 10/16/16 10:03) Unknown Home medications list reviewed: Yes Home Medications: Atorvastatin Calcium [Lipitor] 80 mg PO BEDTIME 07/09/14 hydroCHLOROthiazide [Hydrochlorothiazide] 12.5 mg PO BEDTIME 07/27/18 Apixaban [Eliquis] 5 mg PO BID 30 Days #60 04/29/22 Sotalol HCl [Betapace] 40 mg PO BID #60 tab 04/30/22 - Past Medical/Surgical History Diabetic: No -: CAD -: COPD -: seizures as child at 2-3 years old -: AFib -: Triple bypass - 1997 -: Connie -: Tubal Ligation - Family History Sister -: Heart disease, Hypertension, GI disease, Cancer - Social History Smoking Status: Current every day smoker Alcohol use: No CD- Drugs: No Caffeine use: Yes Review of Systems General: Malaise Eyes: Unremarkable ENT: Unremarkable Respiratory: Unremarkable Cardiovascular: Unremarkable Gastrointestinal: Unremarkable Genitourinary: Unremarkable Musculoskeletal: Unremarkable Integumentary: Unremarkable Neurological: Other (dizziness) Lymphatics: Unremarkable Physical Examination - Vital Signs Temperature: 98.3 F Blood Pressure: 157/63 Pulse: 56 Respirations: 18 Pulse Ox (%): 100 - Physical Exam General: Alert, In no apparent distress, Oriented x3 HEENT: Atraumatic, PERRLA, Mucous membr. moist/pink, EOMI, Sclerae nonicteric Neck: Supple, JVD not distended Respiratory: Clear to auscultation bilaterally, Normal air movement Cardiovascular: No edema, Normal S1 S2, No gallops, No rubs, No murmurs, Other (bradycardic rate, regular rhythm) Gastrointestinal: Normal bowel sounds, Soft and benign, Non-distended, No tenderness, No rebound, No guarding Musculoskeletal: No clubbing Integumentary: No rashes Neurological: Normal speech, Normal strength at 5/5 x4 extr, Normal tone, Sensation intact, Cranial nerves 3-12 intact, Normal affect - Studies Laboratory Data (last 24 hrs) 07/03/22 20:19: WBC 7.90, Hgb 12.8, Hct 39.5, Plt Count 177 07/03/22 20:19: Sodium 140, Potassium 3.8, BUN 27 H, Creatinine 1.39 H, Glucose 100 Microbiology Data (last 24 hrs): 07/03/22 20:11 Nasopharnyx Influenza Type A Antigen Screen - Final 07/03/22 20:11 Nasopharnyx Influenza Type B Antigen Screen - Final Assessment and Plan - Plan NIH Stroke Scale 1a. Level of consciousness: 0 - Alert; keenly responsive 1b. LOC questions: 0 - Both questions right 1c. LOC commands: 0 - Performs both tasks 2. Best Gaze: 0 - Normal 3. Visual: 0 - No visual loss 4. Facial Palsy: 0 - Normal symmetry 5a. Motor left arm: 0 - No drift for 10 seconds 5b. Motor right arm: 0 - No drift for 10 seconds 6a. Motor left le - No drift for 5 seconds 6b. Motor right le - No drift for 5 seconds 7. Limb ataxia: 0 - No ataxia 8. Sensory: 0 - Normal; no sensory loss 9. Best Language: 0 - Normal; no aphasia 10. Dysarthria: 0 - Normal 11. Extinction and Inattention: 0 - No abnormality 12. Distal motor function: 0 - No abnormality Total Score: 0 # Symptomatic Bradycardia - suspect secondary to Sotalol # History of Atrial Fibrillation on Sotalol # Coronary Artery Disease s/p CABG Based on history and physical exam, her dizziness appears to be secondary to symptomatic bradycardia from sotalol. - Admit under observation status - Follows with Dr. Kc - Cardiology consulted - EKG - sinus bradycardia with LAFB - Troponin = 18.8 - Hold sotalol - Continue apixaban, atorvastatin # KDIGO Stage I Acute Kidney Injury - Suspect pre-renal from hydrochlorothiazide and decreased PO intake - Creatinine = 1.39 (baseline creatinine ~0.9-1.1) - Lactated Ringers' 500 mL at 50 mL/hr over 10 hours - Monitor creatinine and urine output - If worsening, obtain renal ultrasound - Renally dose medications - Hold hydrochlorothiazide # Chronic Obstructive Pulmonary Disease - stable # Tobacco Use Disorder - Counseled on tobacco cessation Flynn Blakely M.D. Discharge Plan: Home Plan to discharge in: 24 Hours - Advance Directives Does patient have a Living Will: No Does patient have a Durable POA for Healthcare: No - Code Status/Comfort Care Code Status Assessed: Yes Code Status: Full Code
[2022-07-03] MEDS: APIXABAN 5 MG TABLET PO SCH ×2 (23:49→23:53)
[2022-07-03] MEDS: Ringers Lactate 500 ML IV SCH (23:49)
[2022-07-04 00:55] VITALS: BMI 20.3
[2022-07-04 02:14] LABS: Absolute Lymphocytes (CBC) 2.7 K/uL (0.7-4.9); Hematocrit 36.7 % (36.0-45.0); Lymphocytes % 32.8 % (15.3-44.8); MCV 93.4 fL (80-100); MPV 9.2 fL (7.6-11.3); RBC Red Blood Cell Count 3.93 M/uL (3.86-4.86)
[2022-07-04 02:29] LABS: Potassium 3.7 mmol/L (3.5-5.1)
[2022-07-04] MEDS: Ringers Lactate 500 ML IV SCH (09:00)
[2022-07-04] MEDS: APIXABAN 5 MG TABLET PO SCH ×2 (09:43→20:42)
--- NOTE | 2022-07-04 15:23 | P.PN ---
Subjective Date of Service: 07/04/22 Chief Complaint: Dizziness And bradycardia Patient is complaining of dizziness upon ambulation slightly bradycardia Review of Systems Unremarkable General: Weakness Physical Examination - Vital Signs Temperature: 98.3 F Blood Pressure: 139/63 Pulse: 52 Respirations: 18 Pulse Ox (%): 95 - Physical Exam General: Alert, In no apparent distress, Oriented x3 Respiratory: Clear to auscultation bilaterally Cardiovascular: No edema, Regular rate/rhythm, Normal S1 S2 Gastrointestinal: Normal bowel sounds, Soft and benign - Studies Laboratory Data (last 24 hrs) 07/04/22 01:57: Sodium 141, Potassium 3.7, BUN 26 H, Creatinine 1.12, Glucose 113 H 07/04/22 01:57: WBC 8.10, Hgb 12.1, Hct 36.7, Plt Count 159 07/03/22 20:19: WBC 7.90, Hgb 12.8, Hct 39.5, Plt Count 177 07/03/22 20:19: Sodium 140, Potassium 3.8, BUN 27 H, Creatinine 1.39 H, Glucose 100 Microbiology Data (last 24 hrs): 07/03/22 20:11 Nasopharnyx Influenza Type A Antigen Screen - Final 07/03/22 20:11 Nasopharnyx Influenza Type B Antigen Screen - Final Assessment And Plan - Current Problems (Diagnosis) (1) Dizziness Onset Date: 07/27/18 Current Visit: No Status: Acute Plan: Patient is 81 years of age and waited with bradycardia and dizziness the desired effect of sotalol which has been stopped patient unable to ambulate due to dizziness. Will plan to hold on the sotalol for now even DCR of blood pressure medications changed to inpatientLabs reviewedPatient is on hydrochlorothiazide. Orthostatic blood pressures ordered
[2022-07-04] MEDS ORDERED: HYDRALAZINE HCL 20 MG/ML VIAL IV ONE (20:24)
[2022-07-04] MEDS: ATORVASTATIN 80 MG TAB PO SCH (20:42)
[2022-07-05 06:01] LABS: Potassium 3.6 mmol/L (3.5-5.1)
--- NOTE | 2022-07-05 07:01 | CON ---
Date of Consultation: 07/04/2022 History Of Present Illness: The patient admitted to Dr. Berger's service with symptomatic bradycar beverly. Ms. Douglas is 81. She is known to me from office visits and hospital admission. Has had a difficult time with her sick sinus syndrome. She gets bradycardic, on sotalol. She goes into AFib, off sotalol. She has a history of CABG, CVA, COPD, TIA, hypertension, dyslipidemia, and paroxysmal a trial fibrillation. She came in with bradycardia. No syncope. No chest pain. No nausea, vomiting, diaphoresis, PND, orthopnea, pedal edema, or palpitation. Heart rate was 56 now and went down to 49 . She is feeling better now, off sotalol. Medications: At home include inhalers, Eliquis, Lipitor, sotalol 40 b.i.d., and hydrochlorothiazide. Review of Systems: Negative. Social History: Negative. Family History: Negative. Past Medical History: As stated earlier. Allergies: INCLUDE ZOCOR AND CEPHALEXIN. Physical Examination: Vital Signs: Heart rate of 49. General: No acute distress. HEENT: Negative. Neck: Supple with no bruit. Chest: Clear. Cardiac: Revealed bradycardia with S4 gallops. Abdomen: Benign. Extremities: Revealed no clubbing, cyanosis, or edema. Diagnostic Data: All normal. Chest x-ray is negative. CT of her head was negative. EKG showed sin us bradycardia. Impression And Plan: Sick sinus syndrome, tachy-simone syndrome. We will discontinue her sotalol, se nd her home, obtain an event monitor in about a week, and consider AV petros ablation and a pacemaker down the road. Meanwhile, continue Eliquis, Lipitor, inhalers, hydrochlorothiazide, stop sotalol, ca n go home. Case was discussed with Dr. Berger. Her other problems including cerebrovascular accid ent, coronary artery bypass graft, chronic obstructive pulmonary disease, transient ischemic attack, hypertension, dyslipidemia are stable. NB/MODL Voice ID: [id number] Report ID: [id number]
[2022-07-05] MEDS ORDERED: INFLUENZA VACCINE (for 6+ mo) 0.5 ML DOSE IMVAC ONE (08:00)
[2022-07-05] MEDS: APIXABAN 5 MG TABLET PO SCH ×2 (08:40→21:55)
[2022-07-05] MEDS ORDERED: LOSARTAN POTASSIUM 50 MG TABLET PO ONE (11:26)
--- NOTE | 2022-07-05 16:11 | EKG ---
Test Date: 2022-07-03 Test Time: 20:10:43 Leasing Representative: MEASUREMENT RESULTS: Intervals: Rate: 48 NC: 154 QRSD: 94 QT: 474 QTc: 423 [place]: P: 73 NC: 154 QRS: -59 T: 49 INTERPRETIVE STATEMENTS: Marked sinus bradycardia Left anterior fascicular block Voltage criteria for left ventricular hypertrophy Abnormal ECG Compared to ECG 04/27/2022 09:34:04 T-wave abnormality no longer present Possible ischemia no longer present Electronically Signed On 07-05-22 16:09:02 CDT by Yayo Hart
--- NOTE | 2022-07-05 16:48 | P.PN ---
Date of Service: 07/05/22 Subjective Patient is feeling better. Anticipate discharge tomorrow. Physical Examination - Vital Signs Reviewed - Physical Exam General: Alert, In no apparent distress, Oriented x3 Respiratory: Clear to auscultation bilaterally, Normal air movement Cardiovascular: No edema, Normal S1 S2, No gallops, No rubs, No murmurs, Other (bradycardic rate, regular rhythm) Gastrointestinal: Normal bowel sounds, Soft and benign, Non-distended, No tenderness, No rebound, No guarding Neurological: No focal deficits Assessment and Plan -Assessment Assessment 1. Symptomatic Bradycardia - suspect secondary to Sotalol 2. History of Atrial Fibrillation on Sotalol 3. Coronary Artery Disease s/p CABG 4. KDIGO Stage I Acute Kidney Injury 5. Chronic Obstructive Pulmonary Disease - stable 6. Tobacco Use Disorder - Plan Plan 1. Strict blood pressure control 2. Continue with cardiac meds 3. Continue with nebs and inhaler therapy 4. Monitor renal function
--- NOTE | 2022-07-05 19:49 | PN ---
Date of Progress Note: 07/05/2022 Subjective: Seen by bedside. Doing clinically well. Heart rate is better. Review of Systems: No chest pain, shortness of breath, orthopnea, or cough. No nausea, vomiting, diarrhea. All other s ystems reviewed and they were negative. Physical Examination: Vital Signs: Reviewed. Head and Neck: Pupils are equal, reactive to light. Intact eye movements. No JVD. No cervical lym phadenopathy. Neck is supple. Thyroid is not enlarged. Lungs: Clear to auscultation bilaterally. No rhonchi, wheezing, or crackles. No accessory muscle u se. Heart: Irregularly irregular. No extra sounds. Abdomen: Soft, nontender. Bowel sounds positive. No organomegaly. No masses or hernia. No rigidi ty or rebound. Extremities: No clubbing or cyanosis. Intact pulses. Skin: No rash. Neurologic: Alert, awake. No acute focal deficits appreciated. Investigations: BUN 18, creatinine 0.94, and hemoglobin is 12.1. Assessment And Recommendations: 1.Sick sinus syndrome with tachy-simone features. At this point, sotalol was stopped and her heart r ate is better and the patient is feeling well. The patient is seen by Dr. Kc, plan for an event monitor to be placed on her upon discharge and decision will be made later for possible atrial fibri llation ablation and pacemaker's backup as well. 2.Atrial fibrillation. Rate is controlled. Continue current management including the apixaban. 3.Hypertension. Blood pressure is elevated. Recommend to add Norvasc 5 mg daily. 4.Dyslipidemia. Continue Lipitor. SR/MODL Voice ID: [id number] Report ID: [id number]
[2022-07-05] MEDS: LOSARTAN POTASSIUM 50 MG TABLET PO SCH (21:55)
[2022-07-05] MEDS: ATORVASTATIN 80 MG TAB PO SCH (21:55)
[2022-07-06 00:55] VITALS: O2SAT 96
[2022-07-06 06:25] LABS: Absolute Lymphocytes (CBC) 2.7 K/uL (0.7-4.9); Hematocrit 38.5 % (36.0-45.0); Lymphocytes % 37.4 % (15.3-44.8); MCV 93.6 fL (80-100); RBC Red Blood Cell Count 4.11 M/uL (3.86-4.86)
[2022-07-06 07:15] LABS: Albumin 2.8 g/dL (3.4-5.0); Bilirubin Total 0.7 mg/dL (0.2-1.0); Magnesium 2.2 mg/dL (1.8-2.4); Protein, Total 6.5 g/dL (6.4-8.2); Thyroid Stimulating Hormone 2.74 uIU/mL (0.360-3.740)
[2022-07-06] MEDS: LOSARTAN POTASSIUM 50 MG TABLET PO SCH (08:59)
[2022-07-06] MEDS: APIXABAN 5 MG TABLET PO SCH (08:59)
[2022-07-06 12:39] VITALS: BP 124/61; TEMP 97.5
== END 2022-07-06 12:49 | disposition home or self-care (01) | DRG 309 ==
LOC: ER 18:52 → 4TH 22:38 → OBSVTOIN 07-04 14:51
PROVIDERS: ADMIT Internal Medicine; ATTEND Hospitalist
DX: I49.5 Sick sinus syndrome (principal); N17.9 Acute kidney failure, unspecified; I10 Essential (primary) hypertension; J44.9 Chronic obstructive pulmonary disease, unspecified; E78.5 Hyperlipidemia, unspecified; I48.0 Paroxysmal atrial fibrillation; I25.10 Atherosclerotic heart disease of native coronary artery without angina pectoris; F17.210 Nicotine dependence, cigarettes, uncomplicated; I25.2 Old myocardial infarction; T44.7X5A Adverse effect of beta-adrenoreceptor antagonists, initial encounter; Z23 Encounter for immunization; Z95.1 Presence of aortocoronary bypass graft; Z88.8 Allergy status to other drugs, medicaments and biological substances; Z79.01 Long term (current) use of anticoagulants; Z86.73 Personal history of transient ischemic attack (TIA), and cerebral infarction without residual deficits; Z98.51 Tubal ligation status; Z90.49 Acquired absence of other specified parts of digestive tract; Z79.899 Other long term (current) drug therapy; Z20.822 Contact with and (suspected) exposure to COVID-19
CPT/HCPCS: 36415; 70450; 71045; 80048; 80053; 82607; 83735; 83880; 84439; 84443; 84484; 85025; 87804; 93005; 99285; G0378; J0360; J7120; U0003

== ENCOUNTER 2022-07-26 07:00 | Emergency (ER) | payer OTHER ==
--- OUTSIDE RECORDS SUMMARY | 2022-07-26 07:04 | XMS REPORT | Continuity of Care Document ---
:1940 Author Organization [facility] t Address [address] [place] [address] Care Team Providers Name Role Phone Asked, No Pcp Primary Care Physician Unavailable Argenis CLEMENT, Oneil Blue Attending Clinician [phone] Problems This patient has no known problems. Allergies, Adverse Reactions, Alerts This patient has no known allergies or adverse reactions. Social History Social Habit Start Date Stop Date Quantity Comments Source Sex Ass[birth year] At [birth year] [facility] 00:00:00 00:00:00 Smoking Status Start Date Stop Date Source Tobacco smoking consumption unknown [facility] Medications This patient has no known medications. Immunizations Ordered Immunization Filled Immunization Date Status Commen ts Source Name Name PFIZER COVID-19 MRNA 2020-12-12 Completed Meth odist VACCINATION 00:00:00 [facility] PFIZER COVID-19 MRNA 2020-12-12 Completed Meth odist VACCINATION 00:00:00 [facility] PFIZER COVID-19 MRNA 2020-12-12 Completed Meth odist VACCINATION 00:00:00 Hospital PFIZER COVID-19 MRNA 2020-11-21 Completed Meth odist VACCINATION 00:00:00 [facility] PFIZER COVID-19 MRNA 2020-11-21 Completed Meth odist VACCINATION 00:00:00 Hospital PFIZER COVID-19 MRNA 2020-11-21 Completed Meth odist VACCINATION 00:00:00 Hospital Procedures This patient has no known procedures. Plan of Care Planned Activity Planned Date Details Comments Source Future Scheduled 2022-07-26 INFLUENZA VACCINE [facility] Test 07:03:55 [code = INFLUENZA VACCINE] Future Scheduled 2022-07-26 HEPATITIS B VACCINES [facility] Test 07:03:55 (1 of 3 - 3-dose series) [code = HEPATITIS B VACCINES (1 of 3 - 3-dose series)] Future Scheduled 2022-07-26 SHINGLES VACCINES (1 Met [facility] Test 07:03:55 of 2) [code = SHINGLES VACCINES (1 of 2)] Future Scheduled 2022-07-26 65+ PNEUMOCOCCAL [facility] Test 07:03:55 VACCINE (1 - PCV) [code = 65+ PNEUMOCOCCAL VACCINE (1 - PCV)] Future Scheduled 2022-07-26 COVID-19 VACCINE (3 - [facility] Test 07:03:55 Booster for Pfizer series) [code = COVID-19 VACCINE (3 - Booster for Pfizer series)] Future Scheduled 2022-06-07 INFLUENZA VACCINE [facility] 04:44:56 [code = INFLUENZA VACCINE] Future Scheduled 2022-06-07 HEPATITIS B VACCINES Met [facility] Test 04:44:56 (1 of 3 - 3-dose series) [code = HEPATITIS B VACCINES (1 of 3 - 3-dose series)] Future Scheduled 2022-06-07 SHINGLES VACCINES (1 Met [facility] Test 04:44:56 of 2) [code = SHINGLES VACCINES (1 of 2)] Future Scheduled 2022-06-07 65+ PNEUMOCOCCAL [facility] 04:44:56 VACCINE (1 - PCV) [code = 65+ PNEUMOCOCCAL VACCINE (1 - PCV)] Future Scheduled 2022-06-07 COVID-19 VACCINE (3 - [facility] Test 04:44:56 Booster for Pfizer series) [code = COVID-19 VACCINE (3 - Booster for Pfizer series)] Future Scheduled Hepatitis C screening [facility] Test (procedure) [code = 541150710] Future Scheduled SHINGLES VACCINES (#1) [facility] [code = SHINGLES VACCINES (#1)] Future Scheduled 65+ PNEUMOCOCCAL [facility] VACCINE (1 of 1 - PPSV23) [code = 65+ PNEUMOCOCCAL VACCINE (1 of 1 - PPSV23)] Future Scheduled INFLUENZA VACCINE [facility] [code = INFLUENZA VACCINE] Encounters Start End Encounter Admission Attending Care Care Encounter Source Date/Time Date/Time Type Type Clinicians Facility Department ID 2020-12-12 2020-12-12 Jonny More [id number] [facility] 13:01:14 13:06:14 Support [address]il [id number] P[address] [id number] Hospit [id number] .[id number] l .8 2020-11-21 2020-11-21 Clinical [id number] Mitra 15:25:41 15:30:[id number] 3.430.2.7 Hospit a .[id number] l .8 Results This patient has no known results.
[2022-07-26] MEDS ORDERED: NA CHLORIDE 0.9% 250 ML ONE (07:24)
--- NOTE | 2022-07-26 07:56 | RAD REPORT ---
EXAM DESCRIPTION: CT - Head Brain Wo Cont - 07/26/2022 7:39 am CLINICAL HISTORY: Dizziness COMPARISON: May 2022 TECHNIQUE: Computed axial tomography of the head was obtained. IV contrast was not requested. All CT scans are performed using dose optimization technique as appropriate and may include automated exposure control or mA/KV adjustment according to patient size. FINDINGS: An intracranial bleed is not seen . The ventricles are normal in caliber. No extra-axial fluid collection is noted. Moderate low-density areas within periventricular, deep and subcortical white matter likely represent ischemic changes secondary to small vessel disease. Mild right maxillary sinusitis IMPRESSION: No acute intracranial abnormality is seen. If patient's symptoms persist MRI of the bra in would be recommended.
[2022-07-26 07:59] LABS: Absolute Lymphocytes (CBC) 1.4 K/uL (0.7-4.9); Hematocrit 40.6 % (36.0-45.0); Lymphocytes % 20.9 % (15.3-44.8); MCV 95.2 fL (80-100); RBC Red Blood Cell Count 4.27 M/uL (3.86-4.86)
[2022-07-26 08:03] LABS: Protime INR 1.04
[2022-07-26 08:09] LABS: Urine Blood Trace-lysed (Negative); Urine Glucose Negative (Negative); Urine Protein Negative (Negative)
[2022-07-26 08:16] LABS: Albumin 3.4 g/dL (3.4-5.0); Bilirubin Direct 0.2 mg/dL (0-0.2); Bilirubin Total 0.8 mg/dL (0.2-1.0); Magnesium 2.4 mg/dL (1.8-2.4); Potassium 4.1 mmol/L (3.5-5.1); Protein, Total 7.3 g/dL (6.4-8.2)
--- NOTE | 2022-07-26 08:29 | EKG ---
Test Date: 2022-07-26 Test Time: 07:29:12 Full Stack Php Developer: MEASUREMENT RESULTS: Intervals: Rate: 64 TN: 144 QRSD: 96 QT: 402 QTc: 414 [place]: P: 73 TN: 144 QRS: -70 T: 41 INTERPRETIVE STATEMENTS: Normal sinus rhythm Left anterior fascicular block Moderate voltage criteria for LVH, may be normal variant Abnormal ECG Compared to ECG 07/03/2022 20:10:43 Sinus bradycardia no longer present Electronically Signed On 07-26-22 08:29:09 GEODETIC COMPUTATOR by Hiram Kc
--- NOTE | 2022-07-26 08:30 | EDPHYS ---
Physician Documentation [facility] Name: Jenny Douglas Age: 81 yrs Sex: Female : 1940 Arrival Date: 07/26/2022 Time: 07:07 Bed 8 Private MD: ED Physician Nate Stinson HPI: 07/26 07:40 This 81 yrs old Female presents to ER via Wheelchair with complaints of High Blood rn Pressure, Dizziness. 07:40 The patient has elevated blood pressure and discovered this at home. Onset: The rn symptoms/episode began/occurred this morning. Modifying factors: The symptoms are alleviated by prescription meds. Associated signs and symptoms: Pertinent positives: dizziness, headache, Pertinent negatives: chest pain, nausea, visual changes, vomiting, weakness. Severity of symptoms: At its worst the blood pressure was moderate, in the emergency department the blood pressure is improved. The patient has experienced similar episodes in the past. The patient has been recently seen by a physician:. Pt reports woke up this AM with dizziness and feeling like might pass out, no syncope, no chest pain/sob/abd pain/vomiting/diarrhea/fever/recent illness. Reports recent admission for Afib as well as another admission for BP management. No blood in stool.. Historical: - Allergies: 07:15 Celebrex; mb8 07:15 Zocor; mb8 - Home Meds: 07:20 Lipitor 80 mg Oral tab 1 tab once daily [Active]; Eliquis 5 mg oral tab 1 tab 2 times mb8 per day [Active]; losartan 50 mg oral tab 1 tab 2 times per day [Active]; - PMHx: 07:15 CAD; COPD; Hyperlipidemia; Hypertension; Myocardial infarction; TIA; mb8 - PSHx: 07:15 CABG; mb8 - Social history:: Smoking status: Patient reports the use of cigarette tobacco products, denies chronic smoking, but will smoke occasionally. - Family history:: not pertinent. - Hospitalizations: : No recent hospitalization is reported. ROS: 07:40 Constitutional: Negative for fever, chills, and weight loss, Eyes: Negative for injury, rn pain, redness, and discharge, Neck: Negative for injury, pain, and swelling, Cardiovascular: Negative for chest pain, palpitations, and edema, Respiratory: Negative for shortness of breath, cough, wheezing, and pleuritic chest pain, Abdomen/GI: Negative for abdominal pain, nausea, vomiting, diarrhea, and constipation, Back: Negative for injury and pain, MS/Extremity: Negative for injury and deformity, Skin: Negative for injury, rash, and discoloration, Neuro: Negative for weakness, numbness, tingling, and seizure. Exam: 07:39 ECG was reviewed by the Attending Physician. rn 07:40 Constitutional: This is a well developed, well nourished patient who is awake, alert, rn and in no acute distress. Head/Face: Normocephalic, atraumatic. Eyes: Pupils equal round and reactive to light, extra-ocular motions intact. Periorbital areas with no swelling, redness, or edema. ENT: dry MM, no stridor Cardiovascular: Regular rate and rhythm. No pulse deficits. Respiratory: No increased work of breathing, no retractions or nasal flaring. Abdomen/GI: Soft, non-tender Skin: Warm, dry MS/ Extremity: Pulses equal, no cyanosis. Neuro: Awake and alert, GCS 15, oriented to person, place, time, and situation. Cranial nerves II-XII grossly intact. Motor strength 5/5 in all extremities. Sensory grossly intact. Cerebellar exam normal. Vital Signs: 07:13 BP 190 / 68; Pulse 77; Resp 16; Temp 97.1; Pulse Ox 98% ; Weight 54.88 kg; Height 5 ft. mb8 7 in. (170.18 cm); Pain 3/10; 07:19 BP 194 / 90; mb8 07:37 BP 183 / 80; Pulse 72; Resp 17; Pulse Ox 98% on R/A; vg1 08:46 BP 184 / 73; Pulse 64; Resp 20; Pulse Ox 99% on R/A; vg1 09:00 BP 175 / 82; Pulse 60; Resp 20; Pulse Ox 98% on R/A; vg1 07:13 Body Mass Index 18.95 (54.88 kg, 170.18 cm) mb8 MDM: 07:09 Patient medically screened. rn 08:28 Differential diagnosis: hypertensive crisis, Malignant HTN, dehydration, medication rn side effect, UTI. Data reviewed: vital signs, nurses notes, lab test result(s), EKG, radiologic studies, CT scan, and as a result, I will discharge patient. Counseling: I had a detailed discussion with the patient and/or guardian regarding: the historical points, exam findings, and any diagnostic results supporting the discharge/admit diagnosis, lab results, radiology results, the need for outpatient follow up, to return to the emergency department if symptoms worsen or persist or if there are any questions or concerns that arise at home. Special discussion: I discussed with the patient/guardian in detail that at this point there is no indication for admission to the hospital. It is understood, however, that if the symptoms persist or worsen the patient needs to return immediately for re-evaluation. Based on the history and exam findings, there is no indication for further emergent testing or inpatient evaluation. I discussed with the patient/guardian the need to see the primary care provider for further evaluation of the symptoms. 07/26 07:21 Order name: Basic Metabolic Panel; Complete Time: 08: rn 07/26 07:21 Order name: CBC with Diff; Complete Time: 08: rn 07/26 07:21 Order name: Hepatic Function; Complete Time: 08: rn 07/26 07:21 Order name: Magnesium; Complete Time: : rn 07/26 07:21 Order name: Protime (+inr); Complete Time: 08: rn 07/26 07:21 Order name: Ptt, Activated; Complete Time: : rn 07/26 07:21 Order name: Troponin High Sensitivity; Complete Time: 08: rn 07/26 07:21 Order name: CT Head Brain wo Cont; Complete Time: 08: rn 07/26 07:21 Order name: EKG; Complete Time: 07: rn 07/26 07:22 Order name: BNP; Complete Time: 08: rn 07/26 08:09 Order name: Urine Dipstick-Ancillary; Complete Time: 08:25 EDMS 07/26 08:25 Order name: Urine Microscopic Only bd 07/26 07:21 Order name: Cardiac monitoring; Complete Time: 07: rn 07/26 07:21 Order name: EKG - Nurse/Tech; Complete Time: 07: rn 07/26 07:21 Order name: IV Saline Lock; Complete Time: 07:50 rn 07/26 07:21 Order name: Labs collected and sent; Complete Time: 07:50 rn 07/26 07:21 Order name: O2 Per Protocol; Complete Time: 07:35 rn 07/26 07:21 Order name: O2 Sat Monitoring; Complete Time: 07:35 rn 07/26 07:21 Order name: Urine Dipstick-Ancillary (obtain specimen); Complete Time: 08:08 rn EC:39 Rate is 64 beats/min. Rhythm is regular. QRS is positive in lead I and negative in lead rn aVF. DE interval is normal. QRS interval is normal. QT interval is normal. No Q waves. T waves are Normal. No ST changes noted. Clinical impression: NSR w/ Non-specific ST/T Changes. Interpreted by me. Reviewed by me. Administered Medications: 08:04 Drug: NS 0.9% 250 ml Route: IV; Rate: bolus; Site: right forearm; vg1 08:23 Follow up: IV Status: Completed infusion; IV Intake: 250ml vg1 08:54 Drug: Rocephin (cefTRIAXone) 1 grams Route: IV; Rate: calculated rate; Site: right vg1 forearm; 09:12 Follow up: IV Status: Completed infusion; IV Intake: 50ml vg1 Disposition Summary: 07/26/22 08:29 Discharge Ordered Location: Home rn Problem: new rn Symptoms: have improved rn Condition: Stable rn Diagnosis - UTI/ Urinary tract infection, site not specified rn - Essential (primary) hypertension rn - Dizziness and giddiness rn Followup: rn - With: Private Physician - When: As needed - Reason: Recheck today's complaints, Re-evaluation by your physician Discharge Instructions: - Discharge Summary Sheet rn - Dizziness rn - Hypertension, Adult rn - Urinary Tract Infection, Adult rn Forms: - Medication Reconciliation Form rn - Thank You Letter rn - Antibiotic yarn examiner - Prescription Opioid Use rn Prescriptions: - cefpodoxime 100 mg Oral Tablet - take 1 tablet by ORAL route every 12 hours for 10 days take with food; 20 rn tablet; Refills: 0, Product Selection Permitted Signatures: Dispatcher [employer] Nate Santa MD MD rn Garcia, Victoria RN RN vg1 Arnel Powell RN RN mb8
--- NOTE | 2022-07-26 08:30 | ER ---
Nurse's Notes [facility] Name: Jenny Douglas Age: 81 yrs Sex: Female : 1940 Arrival Date: 07/26/2022 Time: 07:07 Bed 8 Private MD: Diagnosis: UTI/ Urinary tract infection, site not specified;Essential (primary) hypertension;Dizziness and giddiness Presentation: 07/26 07:13 Chief complaint: Patient states: generalized weakness and dizzy since 0500 this mb8 morning. Patient also c/o headache 11/26. Took tylenol. Coronavirus screen: Vaccine status: Patient reports receiving the 2nd dose of the covid vaccine. Ebola Screen: Patient negative for fever greater than or equal to 101.5 degrees Fahrenheit, and additional compatible Ebola Virus Disease symptoms Patient denies exposure to infectious person. Patient denies travel to an Ebola-affected area in the 21 days before illness onset. Initial Sepsis Screen: Does the patient meet any 2 criteria? No. Patient's initial sepsis screen is negative. Does the patient have a suspected source of infection? No. Patient's initial sepsis screen is negative. Risk Assessment: Do you want to hurt yourself or someone else? Patient reports no desire to harm self or others. Onset of symptoms was July 26, 2022 at 05:00. 07:13 Method Of Arrival: Wheelchair mb8 07:13 Acuity: ADRIANNA 3 mb8 Triage Assessment: 07:16 General: Appears in no apparent distress. Behavior is calm, cooperative, appropriate mb8 for age. Pain: Complains of pain in head Pain does not radiate. Pain currently is 3 out of 10 on a pain scale. Quality of pain is described as aching. Historical: - Allergies: 07:15 Celebrex; mb8 07:15 Zocor; mb8 - Home Meds: 07:20 Lipitor 80 mg Oral tab 1 tab once daily [Active]; Eliquis 5 mg oral tab 1 tab 2 times mb8 per day [Active]; losartan 50 mg oral tab 1 tab 2 times per day [Active]; - PMHx: 07:15 CAD; COPD; Hyperlipidemia; Hypertension; Myocardial infarction; TIA; mb8 - PSHx: 07:15 CABG; mb8 - Social history:: Smoking status: Patient reports the use of cigarette tobacco products, denies chronic smoking, but will smoke occasionally. - Family history:: not pertinent. - Hospitalizations: : No recent hospitalization is reported. Screenin:39 Abuse screen: Denies threats or abuse. Nutritional screening: No deficits noted. vg1 Tuberculosis screening: No symptoms or risk factors identified. Fall Risk No fall in past 12 months (0 pts). No secondary diagnosis (0 pts). IV access (20 points). Ambulatory Aid- None/Bed Rest/Nurse Assist (0 pts). Gait- Normal/Bed Rest/Wheelchair (0 pts) Mental Status- Oriented to own ability (0 pts). Total Etienne Fall Scale indicates No Risk (0-24 pts). Assessment: 07:25 General: Appears in no apparent distress. comfortable, Behavior is calm, cooperative. vg1 Pain: Complains of pain in head Pain currently is 3 out of 10 on a pain scale. Pain began 2 hours ago. Neuro: Level of Consciousness is awake, alert, obeys commands, Oriented to person, place, time, situation. Cardiovascular: Patient's skin is warm and dry. Respiratory: Airway is patent Respiratory effort is even, unlabored, Denies shortness of breath. GI: Abdomen is flat, Reports nausea. : No signs and/or symptoms were reported regarding the genitourinary system. EENT: No signs and/or symptoms were reported regarding the EENT system. Derm: Skin is pink, warm \T\ dry. Musculoskeletal: Circulation, motion, and sensation intact. 08:45 Reassessment: Patient appears in no apparent distress at this time. No changes from vg1 previously documented assessment. Patient and/or family updated on plan of care and expected duration. Pain level reassessed. Patient is alert, oriented x 3, equal unlabored respirations, skin warm/dry/pink. 08:55 Reassessment: pt up for d/c, currently waiting for iv infusion to complete. vg1 Vital Signs: 07:13 BP 190 / 68; Pulse 77; Resp 16; Temp 97.1; Pulse Ox 98% ; Weight 54.88 kg; Height 5 ft. mb8 7 in. (170.18 cm); Pain 3/10; 07:19 BP 194 / 90; mb8 07:37 BP 183 / 80; Pulse 72; Resp 17; Pulse Ox 98% on R/A; vg1 08:46 BP 184 / 73; Pulse 64; Resp 20; Pulse Ox 99% on R/A; vg1 09:00 BP 175 / 82; Pulse 60; Resp 20; Pulse Ox 98% on R/A; vg1 07:13 Body Mass Index 18.95 (54.88 kg, 170.18 cm) [facility] ED Course: 07:07 Patient arrived in ED. [facility] 07:09 Nate Stinson MD is Attending Physician. rn 07:15 Triage completed. 8 07:15 Arm band placed on right wrist. 8 07:21 Cheryl Roque, RN is Primary Nurse. vg1 07:39 Patient has correct armband on for positive identification. Placed in gown. Bed in low vg1 position. Call light in reach. Side rails up X 1. Adult w/ patient. Client placed on continuous cardiac and pulse oximetry monitoring. NIBP monitoring applied. 07:41 CT Head Brain wo Cont In Process Unspecified. EDMS 07:50 Initial lab(s) drawn, by me, sent to lab. Inserted saline lock: 20 gauge in right vg1 forearm, using aseptic technique. Blood collected. 09:14 No provider procedures requiring assistance completed. IV discontinued, intact, vg1 bleeding controlled, No redness/swelling at site. Pressure dressing applied. Administered Medications: 08:04 Drug: NS 0.9% 250 ml Route: IV; Rate: bolus; Site: right forearm; vg1 08:23 Follow up: IV Status: Completed infusion; IV Intake: 250ml vg1 08:54 Drug: Rocephin (cefTRIAXone) 1 grams Route: IV; Rate: calculated rate; Site: right vg1 forearm; 09:12 Follow up: IV Status: Completed infusion; IV Intake: 50ml vg1 Medication: 07:39 VIS not applicable for this client. vg1 Intake: 08:23 IV: 250ml; Total: 250ml. vg1 09:12 IV: 50ml; Total: 300ml. vg1 Outcome: 08:29 Discharge ordered by . rn 09:14 Discharged to home via wheelchair, with family. vg1 09:14 Condition: good 09:14 Discharge instructions given to patient, Instructed on discharge instructions, follow up and referral plans. medication usage, Demonstrated understanding of instructions, follow-up care, medications, Prescriptions given X 1. 09:14 Patient left the ED. vg1 Signatures: Dispatcher [employer] Nate Santa MD MD rn Garcia, Victoria RN RN vg1 Cece White Michael RN RN mb8
[2022-07-26] MEDS ORDERED: NA CHLORIDE 0.9% 50 ML IV ONE (08:41)
[2022-07-26] MEDS ORDERED: CEFTRIAXONE 1000 MG/VIAL ONE (08:41)
[2022-07-26 09:20] LABS: Urine Bacteria <20 /HPF (<20); Urine Mucus Slight /HPF (None Seen); Urine WBC Clump Rare /HPF (None Seen)
[2022-07-26 10:04] VITALS: TEMP 97.1
[2022-07-26 10:18] VITALS: BP 175/82; O2SAT 98
== END 2022-07-26 09:14 | disposition home or self-care (01) ==
LOC: ER 07:00
DX: N39.0 Urinary tract infection, site not specified (principal); I10 Essential (primary) hypertension; J44.9 Chronic obstructive pulmonary disease, unspecified; F17.210 Nicotine dependence, cigarettes, uncomplicated; Z95.1 Presence of aortocoronary bypass graft; Z79.01 Long term (current) use of anticoagulants; Z88.8 Allergy status to other drugs, medicaments and biological substances
CPT/HCPCS: 96365; 96367; 93005; 87088; 85025; 87086; 80048; 36415; 83735; 85610; 80076; 85730; 87077; 87186; 84484; 83880; 70450; 99284; J7050; 81003; 81015

== ENCOUNTER 2022-08-07 09:45 | Emergency (ER) | payer OTHER ==
--- OUTSIDE RECORDS SUMMARY | 2022-08-07 09:47 | XMS REPORT | Continuity of Care Document ---
:1940 Author Organization [facility] t Address [address] [place] [address] Care Team Providers Name Role Phone Asked, No Pcp Primary Care Physician Unavailable Argenis CLEMENT, Oneil Blue Attending Clinician [phone] Problems This patient has no known problems. Allergies, Adverse Reactions, Alerts This patient has no known allergies or adverse reactions. Social History Social Habit Start Date Stop Date Quantity Comments Source Sex Ass[birth year] At [birth year] [facility] 00:00:00 00:00:00 Smoking Status Start Date Stop Date Source Tobacco smoking consumption unknown [facility] Medications This patient has no known medications. Immunizations Ordered Immunization Filled Immunization Date Status Commen ts Source Name Name PFIZER COVID-19 MRNA 2020-12-12 Completed Meth odist VACCINATION 00:00:00 [facility] PFIZER COVID-19 MRNA 2020-12-12 Completed Meth odist VACCINATION 00:00:00 [facility] PFIZER COVID-19 MRNA 2020-12-12 Completed [facility] VACC[facility]ATION 00:00:00 Hospital PFIZER COVID-19 MRNA 2020-12-12 Completed Meth odist VACCINATION 00:00:00 [facility] PFIZER COVID-19 MRNA 2020-11-21 Completed Meth [...] Source Future Scheduled 2022-07-26 [facility]FLU[facility] VACCINE [facility] 07:03:55 [code = INFLUENZA VACCINE] Future Scheduled 2022-07-26 [facility]ZA VACCINE [facility] 07:03:55 [code = INFLUENZA VACCINE] Future Scheduled 2022-07-26 HEPATITIS B VACCINES Met [facility] Test 07:03:55 (1 of 3 - 3-dose series) [code = HEPATITIS B VACCINES (1 of 3 - 3-dose series)] Future Scheduled 2022-07-26 SHINGLES VACCINES (1 Met [facility] Test 07:03:55 of 2) [code = SHINGLES VACCINES (1 of 2)] Future Scheduled 2022-07-26 65+ [facility] VACCINE (1 - PCV) [code = 65+ PNEUMOCOCCAL VACCINE (1 - PCV)] Future Scheduled 2022-07-26 COVID-19 VACCINE (3 - [facility] Test 07:03:55 Booster for Pfizer series) [code = COVID-19 VACCINE (3 - Booster for Pfizer series)] Future Scheduled 2022-07-26 HEPATITIS B VACCINES Met [facility] Test 07:03:55 (1 of 3 - 3-dose series) [code = HEPATITIS B VACCINES (1 of 3 - 3-dose series)] Future Scheduled 2022-07-26 SHINGLES VACCINES (1 Met [facility] Test 07:03:55 of 2) [code = SHINGLES VACCINES (1 of 2)] Future Scheduled 2022-07-26 65+ PNEUMOCOCCAL [facility] Test 07:03:55 VACCINE (1 - PCV) [code = 65+ PNEUMOCOCCAL VACCINE (1 - PCV)] Future Scheduled 2022-07-26 COVID-19 VACCINE (3 - [facility] Test 07:03:55 Booster for Pfizer series) [code = COVID-19 VACCINE (3 - Booster for Pfizer series)] Future Scheduled 2022-06-07 HEPATITIS B VACCINES Met [facility] Test 04:44:56 (1 of 3 - 3-dose series) [code = HEPATITIS B VACCINES (1 of 3 - 3-dose series)] Future Scheduled 2022-06-07 SHINGLES VACCINES (1 Met [facility] Test 04:44:56 of 2) [code = SHINGLES VACCINES (1 of 2)] Future Scheduled 2022-06-07 65+ PNEUMOCOCCAL [facility] Test 04:44:56 VACCINE (1 - PCV) [code = 65+ PNEUMOCOCCAL VACCINE (1 - PCV)] Future Scheduled 2022-06-07 COVID-19 VACCINE (3 - [facility] Test 04:44:56 Booster for Pfizer series) [code = COVID-19 VACCINE (3 - Booster for Pfizer series)] Future Scheduled 2022-06-07 INFLUENZA VACCINE [facility] 04:44:56 [code = INFLUENZA VACCINE] Future Scheduled Hepatitis C screening [facility] Test (procedure) [code = [id number]] Future Scheduled [facility]INGLES [facility]ACCIN[facility] (#[facility]) [facility] [code = SHINGLES VACCINES (#1)] [...] Department ID 2020-12-12 2020-12-12 Clinical Argenis, [id number] Methodi 13:01:14 13:06:14 Support Oneil [id number] P[facility] [id number] Hospit a .[id number] l .8 2020-11-21 2020-11-21 Clinical [id number] [facility] 15:25:41 15:30:[id number] 3.430.2.7 Hospit a .[id number] l .8 Results This patient has no known results.
[2022-08-07] MEDS ORDERED: CYCLOBENZAPRINE 10 MG TAB ONE (10:14)
[2022-08-07] MEDS ORDERED: MORPHINE 2 MG/ML SYR ONE ×2 (10:15→11:44)
[2022-08-07] MEDS ORDERED: ONDANSETRON 4 MG/2 ML VIAL ONE (10:15)
[2022-08-07 10:47] LABS: Albumin 3.1 g/dL (3.4-5.0); Bilirubin Total 0.8 mg/dL (0.2-1.0); Potassium 4.1 mmol/L (3.5-5.1); Protein, Total 7.5 g/dL (6.4-8.2)
[2022-08-07 10:49] LABS: Hematocrit 42.2 % (36.0-45.0); Lymphocytes % 11.8 % (15.3-44.8); MCV 95.1 fL (80-100); MPV 8.7 fL (7.6-11.3); RBC Red Blood Cell Count 4.43 M/uL (3.86-4.86)
--- NOTE | 2022-08-07 11:40 | RAD REPORT ---
EXAM DESCRIPTION: CT - Angio Aorta For Dissection - 08/07/2022 11:01 am CLINICAL HISTORY: . Chest and abd pain/back pain COMPARISON: 2020 TECHNIQUE: Computed tomography angiography of the chest, abdomen pelvis were obtained. 100 cc Isovue 370 was administered intravenously. Coronal and sagittal reconstruction were performed. MIP 3D reconstruction was performed All CT scans are performed using dose optimization technique as appropriate and may include automated exposure control or mA/KV adjustment according to patient size. 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 4 centimeter abdominal aortic aneurysm arises just below the takeoff of the renal arteries. It is unc hanged in size. 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 No aortic dissection Marked short-segment stenosis celiac artery. Mild to moderate narrowing SMA. HUMBERTO patent 6 centimeter left lower lobe opacity. COPD A pericardial effusion is not seen. A pleural effusion is not noted. Mild to moderate compression fracture L1 vertebral body is unchanged 5.6 centimeter right adrenal mass containing calcifications without significant change. Cholecystectomy. Liver, spleen, left adrenal and right kidney do not demonstrate a significant abnorm ality. Small left renal cyst. There no evidence diverticulitis. IMPRESSION: Negative for an aortic dissection. Stable aortic aneurysms 5.6 centimeter right adrenal mass without significant change. Further evaluation with nonemergent MRI recommended 6 centimeter left lower lobe opacity probably inflammation or atelectasis rather than a mass. Followu p CT chest in 3 months recommended for re-evaluation
[2022-08-07] MEDS ORDERED: DICYCLOMINE HCL 20 MG/2 ML AMP IM ONE (12:42)
[2022-08-07] MEDS ORDERED: dexAMETHasone 4 MG/ML VIAL ONE (12:42)
--- NOTE | 2022-08-07 13:06 | ER ---
Nurse's Notes [facility] Name: Jenny Douglas Age: 81 yrs Sex: Female : 1940 Arrival Date: 08/07/2022 Time: 09:49 Bed 8 Private MD: Diagnosis: Low back pain Presentation: 08/07 10:01 Chief complaint: Patient states: low back pain since , she felt a pop. iw Coronavirus screen: At this time, the client does not indicate any symptoms associated with coronavirus-19. Ebola Screen: Patient negative for fever greater than or equal to 101.5 degrees Fahrenheit, and additional compatible Ebola Virus Disease symptoms Patient denies exposure to infectious person. Patient denies travel to an Ebola-affected area in the 21 days before illness onset. No symptoms or risks identified at this time. Initial Sepsis Screen: Does the patient meet any 2 criteria? No. Patient's initial sepsis screen is negative. Does the patient have a suspected source of infection? No. Patient's initial sepsis screen is negative. Risk Assessment: Do you want to hurt yourself or someone else? Patient reports no desire to harm self or others. Onset of symptoms was August 05, 2022. 10:01 Method Of Arrival: Ambulatory iw 10:01 Acuity: ADRIANNA 4 iw 11:00 Acuity: ADRIANNA 3 iw Historical: - Allergies: 10:03 Celebrex; iw 10:03 Zocor; iw - Home Meds: 10:03 Eliquis 5 mg Oral tab 1 tab 2 times per day [Active]; Lipitor 80 mg Oral tab 1 tab once iw daily [Active]; losartan 50 mg Oral tab 1 tab 2 times per day [Active]; - PMHx: 10:03 CAD; COPD; Hyperlipidemia; Hypertension; Myocardial infarction; TIA; iw - PSHx: 10:03 CABG; iw - Immunization history:: Adult Immunizations unknown. - Family history:: not pertinent. - Social history:: Smoking status: unknown. Screenin:26 Abuse screen: Denies threats or abuse. Nutritional screening: No deficits noted. jd3 Tuberculosis screening: No symptoms or risk factors identified. Fall Risk IV access (20 points). Ambulatory Aid- None/Bed Rest/Nurse Assist (0 pts). Gait- Normal/Bed Rest/Wheelchair (0 pts) Mental Status- Oriented to own ability (0 pts). Total Etienne Fall Scale indicates No Risk (0-24 pts). Assessment: 10:24 General: Appears in no apparent distress. comfortable, Behavior is calm, cooperative, jd3 appropriate for age. Pain: Complains of pain in back Quality of pain is described as aching, tender, pinching, Aggravated by increased activity, repositioning. Neuro: Simons Agitation-Sedation Scale (RASS): 0 - Alert and Calm Level of Consciousness is awake, alert, obeys commands, Oriented to person, place, time, situation, Moves all extremities. Full function. Cardiovascular: Denies chest pain, Capillary refill < 3 seconds Patient's skin is warm and dry. Respiratory: Airway is patent Respiratory effort is even, unlabored, Respiratory pattern is regular, symmetrical, Denies cough, shortness of breath. GI: No signs and/or symptoms were reported involving the gastrointestinal system. : No signs and/or symptoms were reported regarding the genitourinary system. EENT: No signs and/or symptoms were reported regarding the EENT system. Derm: Skin is intact, Skin is dry, Skin is normal, Skin temperature is warm. Musculoskeletal: Circulation, motion, and sensation intact. Range of motion: intact in all extremities. 11:23 Reassessment: Patient appears in no apparent distress at this time. No changes from jd3 previously documented assessment. Patient and/or family updated on plan of care and expected duration. Pain level reassessed. Patient is alert, oriented x 3, equal unlabored respirations, skin warm/dry/pink. 12:25 Reassessment: Patient appears in no apparent distress at this time. Patient and/or jd3 family updated on plan of care and expected duration. Pain level reassessed. Patient is alert, oriented x 3, equal unlabored respirations, skin warm/dry/pink. provider at bedside discussing plan of care. 13:27 Reassessment: Patient appears in no apparent distress at this time. Patient and/or jd3 family updated on plan of care and expected duration. Pain level reassessed. Patient is alert, oriented x 3, equal unlabored respirations, skin warm/dry/pink. Patient states feeling better. Patient states symptoms have improved. Vital Signs: 10:01 BP 189 / 86; Pulse 89; Resp 16; Pulse Ox 98% on R/A; Pain 7/10; iw 11:24 BP 177 / 78; Pulse 87; Resp 16; Pulse Ox 99% on R/A; jd3 12:26 BP 187 / 70; Pulse 88; Resp 17; Pulse Ox 99% on R/A; jd3 13:28 BP 164 / 66; Pulse 87; Resp 16; Pulse Ox 99% on R/A; jd3 ED Course: 09:49 Patient arrived in ED. as 09:50 Cory King MD is Attending Physician. rt 09:59 Rayo Batista, RAMONA is Primary Nurse. jd3 10:03 Triage completed. iw 10:03 Arm band placed on. iw 10:24 Inserted saline lock: 20 gauge in right forearm, using aseptic technique. Blood jd3 collected. 10:26 Patient has correct armband on for positive identification. Bed in low position. Call jd3 light in reach. Side rails up X 1. Adult w/ patient. Pulse ox on. NIBP on. Warm blanket given. 11:03 Angio Aorta For Dissection In Process Unspecified. EDMS 12:53 Lactate w/ 2H reflex if indic. Sent. jd3 13:27 No provider procedures requiring assistance completed. IV discontinued, intact, jd3 bleeding controlled, No redness/swelling at site. Pressure dressing applied. Administered Medications: 10:23 Drug: Flexeril (cyclobenzaprine) 10 mg Route: PO; jd3 11:20 Follow up: Response: No adverse reaction jd3 10:24 Drug: morphine 2 mg Route: IVP; Infused Over: 4 mins; Site: right forearm; jd3 11:20 Follow up: Response: No adverse reaction; RASS: Alert and Calm (0) jd3 10:24 Drug: Zofran (Ondansetron) 4 mg Route: IVP; Site: right forearm; jd3 11:20 Follow up: Response: No adverse reaction jd3 11:50 Drug: morphine 2 mg Route: IVP; Infused Over: 4 mins; Site: right forearm; jd3 12:50 Follow up: Response: No adverse reaction; RASS: Alert and Calm (0) jd3 13:08 Not Given (pt refused IM medd): Dexamethasone 4 mg IM once jd3 13:08 Not Given (pt refused IM medd): Bentyl (dicyclomine) 20 mg IM once jd3 Medication: 10:26 VIS not applicable for this client. jd3 Outcome: 13:05 Discharge ordered by . rt 13:27 Discharged to home ambulatory, with family. jd3 13:27 Condition: stable 13:27 Discharge instructions given to patient, family, Instructed on discharge instructions, follow up and referral plans. medication usage, Demonstrated understanding of instructions, follow-up care, medications, Prescriptions given X 1. 13:28 Patient left the ED. jd3 Signatures: Dispatcher [employer] Lori Torres Irene, RN RN iw Davies, Jonathon, RN RN jd3 Turkington, Ryan, MD MD rt
--- NOTE | 2022-08-07 13:06 | EDPHYS ---
Physician Documentation [facility] Name: Jenny Douglas Age: 81 yrs Sex: Female : 1940 Arrival Date: 08/07/2022 Time: 09:49 Bed 8 Private MD: ED Physician Cory King HPI: 08/07 10:12 This 81 yrs old Female presents to ER via Ambulatory with complaints of Back Pain. rt 10:12 The patient presents with pain that is acute, with no known mechanism of injury. The rt symptoms are located in the low back. Onset: The symptoms/episode began/occurred 3 day(s) ago. The pain does not radiate. Associated signs and symptoms: The patient has no apparent associated signs or symptoms, Pertinent negatives: abdominal pain, numbness, tingling, urinary retention. The problem was sustained without known cause. Modifying factors: The patient symptoms are alleviated by nothing, the patient symptoms are aggravated by any movement. Severity of symptoms: At their worst the symptoms were moderate. Presents to the ED with an acute back pain, right-sided starting about 3 days ago while sitting. She states that she felt a popping sensation. She denies any other acute complaints at this time, symptoms are moderate severity, no other aggravating alleviating factors. Historical: - Allergies: 10:03 Celebrex; iw 10:03 Zocor; iw - Home Meds: 10:03 Eliquis 5 mg Oral tab 1 tab 2 times per day [Active]; Lipitor 80 mg Oral tab 1 tab once iw daily [Active]; losartan 50 mg Oral tab 1 tab 2 times per day [Active]; - PMHx: 10:03 CAD; COPD; Hyperlipidemia; Hypertension; Myocardial infarction; TIA; iw - PSHx: 10:03 CABG; iw - Immunization history:: Adult Immunizations unknown. - Family history:: not pertinent. - Social history:: Smoking status: unknown. ROS: 10:12 Constitutional: Negative for fever, chills, and weight loss, Eyes: Negative for injury, rt pain, redness, and discharge, Neck: Negative for injury, pain, and swelling, Cardiovascular: Negative for chest pain, palpitations, and edema, Respiratory: Negative for shortness of breath, cough, wheezing, and pleuritic chest pain, Abdomen/GI: Negative for abdominal pain, nausea, vomiting, diarrhea, and constipation, : Negative for injury, bleeding, discharge, and swelling, MS/Extremity: Negative for injury and deformity, Skin: Negative for injury, rash, and discoloration, Neuro: Negative for headache, weakness, numbness, tingling, and seizure, Psych: Negative for depression, anxiety, suicide ideation, homicidal ideation, and hallucinations. 10:12 Back: Positive for pain at rest, pain with movement. Exam: 10:12 Constitutional: This is a well developed, well nourished patient who is awake, alert, rt and in no acute distress. Head/Face: Normocephalic, atraumatic. Neck: Trachea midline, no thyromegaly or masses palpated, and no cervical lymphadenopathy. Supple, full range of motion without nuchal rigidity, or vertebral point tenderness. No Meningismus. Chest/axilla: Normal chest wall appearance and motion. Nontender with no deformity. No lesions are appreciated. Cardiovascular: Regular rate and rhythm with a normal S1 and S2. No gallops, murmurs, or rubs. Normal PMI, no JVD. No pulse deficits. Respiratory: Lungs have equal breath sounds bilaterally, clear to auscultation and percussion. No rales, rhonchi or wheezes noted. No increased work of breathing, no retractions or nasal flaring. Abdomen/GI: Soft, non-tender, with normal bowel sounds. No distension or tympany. No guarding or rebound. No evidence of tenderness throughout. Skin: Warm, dry with normal turgor. Normal color with no rashes, no lesions, and no evidence of cellulitis. MS/ Extremity: Pulses equal, no cyanosis. Neurovascular intact. Full, normal range of motion. Neuro: Awake and alert, GCS 15, oriented to person, place, time, and situation. Cranial nerves II-XII grossly intact. Motor strength 5/5 in all extremities. Sensory grossly intact. Cerebellar exam normal. Normal gait. Psych: Awake, alert, with orientation to person, place and time. Behavior, mood, and affect are within normal limits. 10:12 Back: Tenderness to the right lower paraspinal region, no midline tenderness, no step-offs. Vital Signs: 10:01 BP 189 / 86; Pulse 89; Resp 16; Pulse Ox 98% on R/A; Pain 7/10; iw 11:24 BP 177 / 78; Pulse 87; Resp 16; Pulse Ox 99% on R/A; jd3 12:26 BP 187 / 70; Pulse 88; Resp 17; Pulse Ox 99% on R/A; jd3 13:28 BP 164 / 66; Pulse 87; Resp 16; Pulse Ox 99% on R/A; jd3 MDM: 09:57 Patient medically screened. rt 15:28 Differential diagnosis: Abdominal Aortic Aneurysm Leaking Aortic Aneurysm rt Pyelonephritis ruptured disc. Data reviewed: vital signs, nurses notes, EMS record, radiologic studies. ED course: Patient presents to the ED with a back pain. The patient was noted be hypertensive, without reason, CT dissection protocol was obtained. Patient is stable saccular aneurysms, do not believe this is the etiology of her pain. 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 She did complain of abdominal pain however, she has a negative lactate and her pain actually improved after eating. This is not consistent with mesenteric ischemia. Patient was informed of incidental findings of adrenal mass as well as atelectatic findings and radiology recommendations for repeat imaging of the lungs. Her symptoms have significantly proved with treatment in the ED, I suspect musculoskeletal back pain. She is stable for outpatient care, return precautions discussed.. 08/07 10:08 Order name: CBC with Diff; Complete Time: 11:07 rt 08/07 10:08 Order name: CMP; Complete Time: 11:07 rt 08/07 10:08 Order name: Dissection W/ Wo Con CT rt 08/07 10:57 Order name: Angio Aorta For Dissection; Complete Time: 11:41 EDMS 08/07 12:35 Order name: Lactate w/ 2H reflex if indic.; Complete Time: 13:23 rt Administered Medications: 10:23 Drug: Flexeril (cyclobenzaprine) 10 mg Route: PO; jd3 11:20 Follow up: Response: No adverse reaction jd3 10:24 Drug: morphine 2 mg Route: IVP; Infused Over: 4 mins; Site: right forearm; jd3 11:20 Follow up: Response: No adverse reaction; RASS: Alert and Calm (0) jd3 10:24 Drug: Zofran (Ondansetron) 4 mg Route: IVP; Site: right forearm; jd3 11:20 Follow up: Response: No adverse reaction jd3 11:50 Drug: morphine 2 mg Route: IVP; Infused Over: 4 mins; Site: right forearm; jd3 12:50 Follow up: Response: No adverse reaction; RASS: Alert and Calm (0) jd3 13:08 Not Given (pt refused IM medd): Dexamethasone 4 mg IM once jd3 13:08 Not Given (pt refused IM medd): Bentyl (dicyclomine) 20 mg IM once jd3 Disposition Summary: 08/07/22 13:05 Discharge Ordered Location: Home rt Problem: new rt Symptoms: have improved rt Condition: Stable rt Diagnosis - Low back pain rt Followup: rt - With: Private Physician - When: 2 - 3 days - Reason: Follow-up for evaluation of adrenal mass, pulmonary nodule, stenosis of mesenteric arteries Discharge Instructions: - Discharge Summary Sheet rt - Acute Back Pain, Adult rt Forms: - Medication Reconciliation Form rt - Thank You Letter rt - Antibiotic Education rt - Prescription Opioid Use rt Prescriptions: - Cyclobenzaprine 5 mg Oral Tablet - take 1 tablet by ORAL route 3 times per day As needed; 15 tablet; Refills: 0, rt Product Selection Permitted Signatures: Dispatcher [employer] Vonnie Nolasco, RN Rayo Hall RN RN jd3 Turkington, Ryan, MD MD rt Corrections: (The following items were deleted from the chart) 10:57 10:12 Dissection W/Wo Rubén ordered. ERNESTINE SINHA
[2022-08-07 13:53] VITALS: O2SAT 99
[2022-08-07 13:55] VITALS: BP 164/66
== END 2022-08-07 13:28 | disposition home or self-care (01) ==
LOC: ER 09:45
DX: M54.50 Low back pain, unspecified (principal); I10 Essential (primary) hypertension; Z95.1 Presence of aortocoronary bypass graft; Z88.8 Allergy status to other drugs, medicaments and biological substances; Z79.01 Long term (current) use of anticoagulants
CPT/HCPCS: 85025; 36415; 83605; 80053; 71275; 74175; 96375; 96374; 99284; Q9967; J2270 ×2; J2405; J0500; J1100

== ENCOUNTER 2022-08-09 08:51 | Observation (INO) | payer OTHER ==
--- OUTSIDE RECORDS SUMMARY | 2022-08-09 08:55 | XMS REPORT | Continuity of Care Document ---
:1940 Author Organization [facility] t Address [address] [place] [address] Care Team Providers Name Role Phone Asked, No Pcp Primary Care Physician Unavailable Argenis CLEMENT, Oneil Blue Attending Clinician [phone] Problems This patient has no known problems. Allergies, Adverse Reactions, Alerts This patient has no known allergies or adverse reactions. Social History Social Habit Start Date Stop Date Quantity Comments Source Sex Ass[birth year] At [birth year] [facility] 00:00:00 00:00:00 Smoking Status Start Date Stop Date Source Tobacco smoking consumption unknown [facility] Medications This patient has no known medications. Immunizations Ordered Immunization Filled Immunization Date Status Commen ts Source Name Name PFIZER COVID-19 MRNA 2020-12-12 Completed Meth [facility]ist VACCINATION 00:00:00 [facility] PFIZER COVID-19 MRNA 2020-12-12 Completed Meth odist VACCINATION 00:00:00 [facility] PFIZER COVID-19 MRNA 2020-12-12 Completed Meth odist VACCINATION 00:00:00 [facility] PFIZER COVID-19 MRNA 2020-12-12 Completed Meth odist VACCINATION 00:00:00 [facility] PFIZER COVID-19 MRNA 2020-12-12 Completed Meth odist VACCINATION 00:00:00 [facility] PFIZER COVID-19 MRNA 2020-11-21 Completed Meth odist VACCINATION 00:00:00 Hospital PFIZER COVID-19 MRNA 2020-11-21 Completed Meth odist VACCINATION 00:00:00 [facility] PFIZER COVID-19 MRNA 2020-11-21 Completed Meth odist VACCINATION 00:00:00 [facility] PFIZER COVID-19 MRNA 2020-11-21 Completed Meth odist VACCINATION 00:00:00 [facility] PFIZER COVID-19 MRNA 2020-11-21 Completed Meth odist VACCINATION 00:00:00 Hospital Procedures This patient has no known procedures. Plan of Care Planned Activity Planned Date Details Comments Source Future Scheduled 2022-07-26 INFLUENZA VACCINE Method [facility] Test 07:03:55 [code = INFLUENZA VACCINE] Future Scheduled 2022-07-26 HEPATITIS B VACCINES Met [facility] Test 07:03:55 (1 of 3 - 3-dose series) [code = HEPATITIS B VACCINES (1 of 3 - 3-dose series)] Future Scheduled 2022-07-26 SHINGLES VACCINES (1 [facility] Test 07:03:55 of 2) [code = SHINGLES VACCINES (1 of 2)] Future Scheduled 2022-07-26 65+ PNEUMOCOCCAL [facility] Test 07:03:55 VACCINE (1 - PCV) [code = 65+ PNEUMOCOCCAL VACCINE (1 - PCV)] Future Scheduled 2022-07-26 COVID-19 VACCINE (3 - [facility] Test 07:03:55 Booster for Pfizer series) [code = COVID-19 VACCINE (3 - Booster for Pfizer series)] Future Scheduled 2022-07-26 INFLUENZA VACCINE Method [facility] Test 07:03:55 [code = INFLUENZA VACCINE] Future Scheduled 2022-07-26 INFLUENZA VACCINE Method [facility] Test 07:03:55 [code = INFLUENZA VACCINE] Future Scheduled 2022-07-26 HEPATITIS B VACCINES [facility] Test 07:03:55 (1 of 3 - 3-dose series) [code = HEPATITIS B VACCINES (1 of 3 - 3-dose series)] Future Scheduled 2022-07-26 SHINGLES VACCINES (1 [facility] Test 07:03:55 of 2) [code = SHINGLES VACCINES (1 of 2)] Future Scheduled 2022-07-26 65+ [facility]ACCINE (1 - PCV) [code = 65+ PNEUMOCOCCAL VACCINE (1 - PCV)] Future Scheduled 2022-07-26 COVID-19 VACCINE (3 - Me [facility] Test 07:03:55 Booster for Pfizer series) [code = COVID-19 VACCINE (3 - Booster for Pfizer series)] Future Scheduled 2022-07-26 HEPATITIS B VACCINES [facility] Test 07:03:55 (1 of 3 - 3-dose series) [code = HEPATITIS B VACCINES (1 of 3 - 3-dose series)] Future Scheduled 2022-07-26 SHINGLES VACCINES (1 Met [facility] Test 07:03:55 of 2) [code = SHINGLES VACCINES (1 of 2)] Future Scheduled 2022-07-26 65+ [facility]AL [facility] 07:03:55 VACCINE (1 - PCV) [code = 65+ PNEUMOCOCCAL VACCINE (1 - PCV)] Future Scheduled 2022-07-26 COVID-19 VACCINE (3 - [facility] Test 07:03:55 Booster for Pfizer series) [code = COVID-19 VACCINE (3 - Booster for Pfizer series)] Future Scheduled 2022-06-07 HEPATITIS B VACCINES Met [facility] Test 04:44:56 (1 of 3 - 3-dose series) [code = HEPATITIS B VACCINES (1 of 3 - 3-dose series)] Future Scheduled 2022-06-07 SHINGLES VACCINES (1 Met [facility] Test 04:44:56 of 2) [code = SHINGLES VACCINES (1 of 2)] Future Scheduled 2022-06-07 65+ [facility]OCCAL [facility] Test 04:44:56 VACCINE (1 - PCV) [code = 65+ PNEUMOCOCCAL VACCINE (1 - PCV)] Future Scheduled 2022-06-07 COVID-19 VACCINE (3 - [facility] Test 04:44:56 Booster for Pfizer series) [code = COVID-19 VACCINE (3 - Booster for Pfizer series)] Future Scheduled 2022-06-07 INFLUENZA VACCINE [facility] Test 04:44:56 [code = INFLUENZA VACCINE] Future Scheduled Hepatitis C screening [facility] Test (procedure) [code = 133649329] Future Scheduled [facility]IN[facility] [code = SHINGLES VACCINES (#1)] [...] Department ID 2020-12-12 2020-12-12 Jonny More [id number] [facility]i 13:01:14 13:06:14 Support [address]il [id number] P[address] [id number] Hospit a .[id number] l .8 2020-11-21 2020-11-21 Clinical [id number] [facility] 15:25:41 15:30:[id number] [id number] Hospit a .[id number] l .8 Results This patient has no known results.
--- NOTE | 2022-08-09 09:45 | RAD REPORT ---
EXAM DESCRIPTION: CT - Ct Stroke Brain Wo Cont - 08/09/2022 9:29 am CLINICAL HISTORY: Transient ischemic attack (TIA) COMPARISON: <Comparisons>CT head 07/26/2022 TECHNIQUE: Axial 5 millimeter thick images of the head were obtained without IV contrast. All CT scans are performed using dose optimization technique as appropriate and may include automated exposure control or mA/KV adjustment according to patient size. FINDINGS: No intracranial hemorrhage, mass, or cerebral edema. No acute cortical based infarction is identifiable. Atrophy changes are present, mild for age with ventricles in proportion to the volume loss. No extra-axial fluid collections. Sellers matter-white matter differentiation is preserved.Patien t has advanced chronic ischemic change throughout the cerebral white matter extending into the basal ganglia and to a lesser degree each thalamus. Dense arterial tree calcifications are present. Visualized portions of the mastoid air cells, paranasal sinuses, and orbits are unremarkable. Findings telephoned to Dr. King at 9:40 a.m. IMPRESSION: No intracranial hemorrhage is present. An acute infarction is not identifiable. Patient has very advanced chronic ischemic change and mild atrophy change. Intracranial findings are similar to July 26 imaging. Chronic ischemic changes can mask nonhemorrhagic acute infarction. MR brain followup can be obtained if there is ongoing concern for acute ischemia.
[2022-08-09 09:54] LABS: Absolute Lymphocytes (CBC) 0.8 K/uL (0.7-4.9); Hematocrit 41.1 % (36.0-45.0); Lymphocytes % 8.8 % (15.3-44.8); MCV 93.8 fL (80-100); MPV 8.9 fL (7.6-11.3); RBC Red Blood Cell Count 4.38 M/uL (3.86-4.86)
[2022-08-09 09:58] LABS: Protime INR 1.46
[2022-08-09 10:22] LABS: Troponin High Sensitivity 21.3 pg/mL (<58.9)
--- NOTE | 2022-08-09 10:36 | RAD REPORT ---
EXAM DESCRIPTION: RAD - Chest Single View - 08/09/2022 10:14 am CLINICAL HISTORY: tia, Stroke protocol chest film COMPARISON: Portable 07/03/2022 TECHNIQUE: AP portable chest image was obtained 08/09/2022 10:14 am . FINDINGS: No new mass or consolidations seen in the lung parenchyma. Patient has chronic interstitia l lung disease. Sternotomy wires are in place. No hilar mass or lymphadenopathy seen. Heart and vascu lature are normal. No measurable pleural effusion and no pneumothorax. No acute bony abnormality seen . No acute aortic findings suspected. IMPRESSION: No acute cardiopulmonary process. Patient has chronic interstitial lung pattern is similar to the July 03 examination.
--- NOTE | 2022-08-09 10:58 | ER ---
Nurse's Notes [facility] Name: Jenny Douglas Age: 81 yrs Sex: Female : 1940 Arrival Date: 08/09/2022 Time: 09:01 Bed 17 Private MD: Diagnosis: Transient cerebral ischemic attack, unspecified Presentation: 08/09 08:53 Chief complaint: EMS states: Toned out for possible s/s of stroke; pt granddaughter vg1 stated at about 0745 pt leaned to the left and speech became slurred and lasted for about a minute. Also stated fell yesterday from standing position in the yard landing on buttocks, pt c/o headache and back pain. Denies LOC or hitting head. pt stated this morning slid off couch, denies LOC or hitting head. 08:53 Coronavirus screen: Vaccine status: Patient reports receiving the 2nd dose of the covid vg1 vaccine. Client denies travel out of the [place] in the last 14 days. Ebola Screen: Patient negative for fever greater than or equal to 101.5 degrees Fahrenheit, and additional compatible Ebola Virus Disease symptoms. No acute neurological deficit is noted. Initial Sepsis Screen: Does the patient meet any 2 criteria? RR > 20 per min. Does the patient have a suspected source of infection? No. Patient's initial sepsis screen is negative. Risk Assessment: Do you want to hurt yourself or someone else? Patient reports no desire to harm self or others. Onset of symptoms was August 09, 2022 at 07:45. 08:53 Method Of Arrival: EMS: [facility] 08:53 Acuity: ADRIANNA 2 1 08:53 Care prior to arrival: IV initiated. 22 GA, in the right wrist, Glucose check: 136. vg1 Triage Assessment: 08:55 The onset of the patients symptoms was August 09, 2022 at 07:45. General: Appears in vg1 no apparent distress. comfortable, Behavior is calm, cooperative. Pain: Complains of pain in back and head Pain currently is 5 out of 10 on a pain scale. EENT: No signs and/or symptoms were reported regarding the EENT system. Neuro: Level of Consciousness is awake, alert, obeys commands, Oriented to person, place, time, situation, Traveler Changer are equal bilaterally Moves all extremities. Gait is unable to assess at this time. Speech is normal, Facial symmetry appears normal, Reports headache frontal area, Denies weakness dizziness. Cardiovascular: Patient's skin is warm and dry. Respiratory: Airway is patent Respiratory effort is even, unlabored. GI: No signs and/or symptoms were reported involving the gastrointestinal system. : No signs and/or symptoms were reported regarding the genitourinary system. Derm: Skin is pink, warm \T\ dry. Musculoskeletal: Circulation, motion, and sensation intact. Historical: - Allergies: 09:15 Celebrex; vg1 09:15 Zocor; vg1 - Home Meds: 09:15 Eliquis 5 mg Oral tab 1 tab 2 times per day [Active]; Lipitor 80 mg Oral tab 1 tab once vg1 daily [Active]; losartan 50 mg Oral tab 1 tab 2 times per day [Active]; - PMHx: 09:15 CAD; COPD; Hyperlipidemia; Hypertension; Myocardial infarction; TIA; vg1 - PSHx: 09:15 CABG; vg1 - Immunization history:: Client reports receiving the 2nd dose of the Covid vaccine. - Social history:: Smoking status: Patient reports the use of cigarette tobacco products, denies chronic smoking, but will smoke occasionally. - Family history:: not pertinent. Screenin:55 Abuse screen: Denies threats or abuse. Nutritional screening: No deficits noted. vg1 Tuberculosis screening: No symptoms or risk factors identified. Fall Risk No fall in past 12 months (0 pts). No secondary diagnosis (0 pts). IV access (20 points). Ambulatory Aid- None/Bed Rest/Nurse Assist (0 pts). Gait- Normal/Bed Rest/Wheelchair (0 pts) Mental Status- Oriented to own ability (0 pts). Total Etienne Fall Scale indicates No Risk (0-24 pts). Assessment: 08:55 Reassessment: SEE TRIAGE. vg1 08:55 VAN Scoring: Arm Drift: Patients demonstrates NO arm weakness. Patient is VAN Negative. vg1 The patient has not been NPO before screening. The patient is alert, and able to follow commands. The patient does not exhibit slurred or garbled speech. The patient is not exhibiting difficulty speaking. The patient does not exhibit difficulty understanding words. The patient is able to swallow own secretions with no drooling or need for suction. TNKase (Tenecteplase) Screening: Indications: Contraindications:. 09:40 Patient tolerated one teaspoon of water. No drooling, immediate coughing, gurgling, or vg1 clearing of the throat was noted. The patient tolerated 90mL of water. No drooling, immediate coughing, gurgling, or clearing of the throat was noted. The patient passed the bedside swallow screening. Oral medications may be given as ordered. Contact Physician for further diet orders. Provider notified of bedside swallow screening results: Cory King MD. 10:49 Reassessment: Patient appears in no apparent distress at this time. No changes from vg1 previously documented assessment. Patient and/or family updated on plan of care and expected duration. Pain level reassessed. Patient is alert, oriented x 3, equal unlabored respirations, skin warm/dry/pink. 11:50 Reassessment: Patient appears in no apparent distress at this time. Patient and/or vg1 family updated on plan of care and expected duration. Pain level reassessed. Patient is alert, oriented x 3, equal unlabored respirations, skin warm/dry/pink. 13:15 Reassessment: pt transported to MRI via wheelchair. vg1 14:16 Reassessment: transported back from MRI. vg1 17:49 Reassessment: Report given to Waleska GREENE. vg1 Vital Signs: 08:53 BP 171 / 77; Pulse 80; Resp 24; Temp 98.2; Pulse Ox 96% on R/A; Weight 58.97 kg; Height vg1 5 ft. 7 in. (170.18 cm); 09:30 BP 153 / 73; Pulse 77; Resp 25; Pulse Ox 99% on R/A; vg1 10:30 BP 157 / 75; Pulse 82; Resp 22; Pulse Ox 98% on R/A; vg1 11:30 BP 165 / 68; Pulse 85; Resp 23; Pulse Ox 97% on R/A; vg1 08:53 Body Mass Index 20.36 (58.97 kg, 170.18 cm) vg1 NIH Stroke Scale Scores: 08:55 NIHSS Score: 0 vg1 ED Course: 08:55 Arm band placed on. vg1 08:55 Patient has correct armband on for positive identification. Bed in low position. Call vg1 light in reach. Side rails up X2. Adult w/ patient. Client placed on continuous cardiac and pulse oximetry monitoring. NIBP monitoring applied. 08:55 Maintain EMS IV. Dressing intact. Good blood return noted. Site clean \T\ dry. Gauge \T\ vg 1 site: 22 R wrist. 09:01 Patient arrived in ED. vg1 09:01 Cory King MD is Attending Physician. rt 09:15 Triage completed. vg1 09:22 Cheryl Roque, RN is Primary Nurse. vg1 09:30 Ct Stroke Brain Wo Cont In Process Unspecified. EDMS 10:16 Stroke CXR 1 View In Process Unspecified. EDMS 10:56 Flynn Blakely MD is Hospitalizing Provider. rt 15:21 No provider procedures requiring assistance completed. Patient admitted, IV remains in vg1 place. Administered Medications: No medications were administered Medication: 15:21 VIS not applicable for this client. vg1 Point of Care Testing: Blood Glucose: 08:55 Blood Glucose: 136 mg/dL; vg1 Ranges: Outcome: 10:57 Decision to Hospitalize by Provider. rt 15:21 Admitted to ER Hold. [facility] for further documentation. vg1 15:21 Condition: good 15:21 Instructed on the need for admit. 18:28 Patient left the ED. vg1 NIH Stroke Scale - NIH Stroke Score Date: 08/09/2022 Time: 08:55 Total Score = 0 1a. Level of Consciousness (LOC) - 0(Alert) 1b. Level of Consciousness (LOC) (Month \T\ Age) - 0(Both) 1c. LOC Commands (Open \T\ Closes Eyes/Rolling Mill Operator Helper) - 0(Both) 2. Best Gaze (Lateral Gaze Paresis) - 0(Normal) 3. Visual Field Loss - 0(No visual loss) 4. Facial Palsy - 0(Normal) 5a. Left Arm: Motor (10-second hold) - 0(No drift) 5b. Right Arm: Motor (10-second hold) - 0(No drift) 6a. Left Leg: Motor (5-second hold - always test supine) - 0(No drift) 6b. Right Leg: Motor (5-second hold - always test supine) - 0(No drift) 7. Limb Ataxia (finger/nose \T\ heel/amador - test with eyes open) - 0(Absent) 8. Sensory Loss (pinprick arms/legs/face) - 0(Normal) 9. Best Language: Aphasia (description/naming/reading) - 0(No aphasia) 10. Dysarthria (speech clarity - read or repeat words) - 0(Normal) 11. Extinction and Inattention (visual/tactile/auditory/spatial/personal) - 0(No abnormality) Initials: vg1 Signatures: Dispatcher [employer] Cheryl Burrell RN RN vg1 Cory King MD MD rt
--- NOTE | 2022-08-09 10:58 | EDPHYS ---
Physician Documentation [facility] Name: Jenny Douglas Age: 81 yrs Sex: Female : 1940 Arrival Date: 08/09/2022 Time: 09:01 Bed 17 Private MD: ED Physician Cory King HPI: 08/09 09:25 This 81 yrs old Female presents to ER via EMS with complaints of S/S of Possible Stroke.rt 09:25 The patient's problem is reported as Slurred speech. Onset: The symptoms/episode rt began/occurred 2 hour(s) ago. Duration: This was a single incident. Context: the episode(s) was witnessed, by family. The symptoms are alleviated by nothing. The symptoms are aggravated by nothing. Associated signs and symptoms: Pertinent positives: back pain. Severity of symptoms: At their worst the symptoms were moderate in the emergency department the symptoms have resolved. Presents to the ED with possible TIA. Patient is a multiple TIAs in the past. Patient reportedly slumped over and had slurred speech with word finding difficulty per the patient's daughter. This has since resolved. Patient has been having back pain for several days now, this is unchanged. Denies other acute complaints at this time, symptoms are moderate in severity, no other aggravating or alleviating factors.. Historical: - Allergies: 09:15 Celebrex; vg1 09:15 Zocor; vg1 - Home Meds: 09:15 Eliquis 5 mg Oral tab 1 tab 2 times per day [Active]; Lipitor 80 mg Oral tab 1 tab once vg1 daily [Active]; losartan 50 mg Oral tab 1 tab 2 times per day [Active]; - PMHx: 09:15 CAD; COPD; Hyperlipidemia; Hypertension; Myocardial infarction; TIA; vg1 - PSHx: 09:15 CABG; vg1 - Immunization history:: Client reports receiving the 2nd dose of the Covid vaccine. - Social history:: Smoking status: Patient reports the use of cigarette tobacco products, denies chronic smoking, but will smoke occasionally. - Family history:: not pertinent. ROS: 09:25 Constitutional: Negative for fever, chills, and weight loss, Eyes: Negative for injury, rt pain, redness, and discharge, ENT: Negative for injury, pain, and discharge, Neck: Negative for injury, pain, and swelling, Cardiovascular: Negative for chest pain, palpitations, and edema, Respiratory: Negative for shortness of breath, cough, wheezing, and pleuritic chest pain, Abdomen/GI: Negative for abdominal pain, nausea, vomiting, diarrhea, and constipation, MS/Extremity: Negative for injury and deformity, Skin: Negative for injury, rash, and discoloration, Psych: Negative for depression, anxiety, suicide ideation, homicidal ideation, and hallucinations. 09:25 Back: Positive for pain at rest, Negative for injury or acute deformity. 09:25 Neuro: Positive for Negative for weakness, positive for speech difficulty. Exam: 09:25 Constitutional: This is a well developed, well nourished patient who is awake, alert, rt and in no acute distress. Head/Face: Normocephalic, atraumatic. Eyes: Pupils equal round and reactive to light, extra-ocular motions intact. Lids and lashes normal. Conjunctiva and sclera are non-icteric and not injected. Cornea within normal limits. Periorbital areas with no swelling, redness, or edema. ENT: Nares patent. No nasal discharge, no septal abnormalities noted. Tympanic membranes are normal and external auditory canals are clear. Oropharynx with no redness, swelling, or masses, exudates, or evidence of obstruction, uvula midline. Mucous membranes moist. Neck: Trachea midline, no thyromegaly or masses palpated, and no cervical lymphadenopathy. Supple, full range of motion without nuchal rigidity, or vertebral point tenderness. No Meningismus. Chest/axilla: Normal chest wall appearance and motion. Nontender with no deformity. No lesions are appreciated. Cardiovascular: Regular rate and rhythm with a normal S1 and S2. No gallops, murmurs, or rubs. Normal PMI, no JVD. No pulse deficits. Respiratory: Lungs have equal breath sounds bilaterally, clear to auscultation and percussion. No rales, rhonchi or wheezes noted. No increased work of breathing, no retractions or nasal flaring. Abdomen/GI: Soft, non-tender, with normal bowel sounds. No distension or tympany. No guarding or rebound. No evidence of tenderness throughout. Skin: Warm, dry with normal turgor. Normal color with no rashes, no lesions, and no evidence of cellulitis. MS/ Extremity: Pulses equal, no cyanosis. Neurovascular intact. Full, normal range of motion. Psych: Awake, alert, with orientation to person, place and time. Behavior, mood, and affect are within normal limits. 09:25 Neuro: Cranial nerves II through XII intact, no visual field deficits, strength and sensation intact in upper and lower extremities, speech normal, no ataxia [id number]. 10:04 Radiologist reports: No acute findings rt 10:04 ECG was reviewed by the Attending Physician. Vital Signs: 08:53 BP 171 / 77; Pulse 80; Resp 24; Temp 98.2; Pulse Ox 96% on R/A; Weight 58.97 kg; Height vg1 5 ft. 7 in. (170.18 cm); 09:30 BP 153 / 73; Pulse 77; Resp 25; Pulse Ox 99% on R/A; vg1 10:30 BP 157 / 75; Pulse 82; Resp 22; Pulse Ox 98% on R/A; vg1 11:30 BP 165 / 68; Pulse 85; Resp 23; Pulse Ox 97% on R/A; vg1 08:53 Body Mass Index 20.36 (58.97 kg, 170.18 cm) vg1 NIH Stroke Scale Scores: 08:55 NIHSS Score: 0 vg1 MDM: 09:02 Patient medically screened. rt 10:58 Differential diagnosis: CVA, TIA, metabolic disorder. Data reviewed: vital signs, rt nurses notes, diagnostic data from outside facility, old medical records, lab test result(s), EKG, radiologic studies. ED course: She presents to the ED with a resolved alteration of consciousness, slurred speech with word finding difficulty. The patient is asymptomatic from a neurologic standpoint at the time of my evaluation, has an NIHSS of 0. For this reason, she is not a thrombolytic candidate. Very low suspicion for large vessel occlusion. She will be admitted for further evaluation.. 08/09 09:10 Order name: Basic Metabolic Panel; Complete Time: : rt 08/09 09:10 Order name: CBC with Diff; Complete Time: rt 08/09 09:10 Order name: High Sensitivity Troponin; Complete Time: rt 08/09 09:10 Order name: Protime (+inr); Complete Time: rt 08/09 09:10 Order name: Ptt, Activated; Complete Time: 10:26 rt 08/09 11:54 Order name: SARS-COV-2 Antigen Rapid bd 08/09 09:10 Order name: CT Stroke Brain w/o Contrast rt 08/09 11:56 Order name: Hemoglobin A1c rt 08/09 11:56 Order name: Lipid Profile rt 08/09 11:56 Order name: TSH rt 08/09 12:51 Order name: SARS-COV-2 Antigen Rapid EDMS 08/09 13:09 Order name: Lipid Profile EDMS 08/09 13:09 Order name: Thyroid Stimulating Hormone EDMS 08/09 14:08 Order name: T4 Free EDMS 08/09 09:10 Order name: Stroke CXR 1 View rt 08/09 09:10 Order name: EKG; Complete Time: 09:11 rt 08/09 09:10 Order name: Accucheck; Complete Time: 09:44 rt 08/09 09:10 Order name: Cardiac monitoring; Complete Time: 09:44 rt 08/09 09:10 Order name: EKG - Nurse/Tech; Complete Time: 09:59 rt 08/09 09:10 Order name: IV Saline Lock; Complete Time: 09:44 rt 08/09 09:14 Order name: Ct Stroke Brain Wo Cont; Complete Time: 10:26 EDMS 08/09 11:52 Order name: NPO EDMS 08/09 11:56 Order name: MRI - Brain W/Wo Cont rt 08/09 11:56 Order name: MRA Neck w/wo cont rt 08/09 11:56 Order name: Echo w/ Doppler rt 08/09 13:28 Order name: CT EDMS 08/09 14:28 Order name: MRI EDMS 08/09 14:41 Order name: MRI EDMS 08/09 09:10 Order name: Labs collected and sent; Complete Time: 09:44 rt 08/09 09:10 Order name: NPO; Complete Time: 09:44 rt 08/09 09:10 Order name: O2 Per Protocol; Complete Time: 09:44 rt 08/09 09:10 Order name: O2 Sat Monitoring; Complete Time: 09:44 rt 08/09 09:10 Order name: Stroke Swallow Screen; Complete Time: 09:44 rt EC:04 Rate is 71 beats/min. Rhythm is regular, Normal Sinus Rhythm with PACs. Left axis rt deviation noted. QRS interval is normal. QT interval is normal. No Q waves. Clinical impression: NSR w/ Non-specific ST/T Changes. Interpreted by me. Administered Medications: No medications were administered Point of Care Testing: Blood Glucose: 08:55 Blood Glucose: 136 mg/dL; vg1 Ranges: Critical Glucose Levels:Adult <50 mg/dl or >400 mg/dl <40 mg/dl or >180 mg/dl Disposition Summary: 08/09/22 10:57 Hospitalization Ordered Hospitalization Status: Observation rt Provider: Flynn Blakely rt Location: Telemetry/MedSurg (observation) rt Condition: Stable rt Problem: an ongoing problem rt Symptoms: have improved rt Bed/Room Type: Standard rt Room Assignment: 201(08/09/22 17:06) bd Diagnosis - Transient cerebral ischemic attack, unspecified rt Forms: - Medication Reconciliation Form rt - SBAR form rt NIH Stroke Scale - NIH Stroke Score Date: 08/09/2022 Time: 08:55 Total Score = 0 1a. Level of Consciousness (LOC) - 0(Alert) 1b. Level of Consciousness (LOC) (Month \T\ Age) - 0(Both) 1c. LOC Commands (Open \T\ Closes Eyes/Filter Plant Supervisor) - 0(Both) 2. Best Gaze (Lateral Gaze Paresis) - 0(Normal) 3. Visual Field Loss - 0(No visual loss) 4. Facial Palsy - 0(Normal) 5a. Left Arm: Motor (10-second hold) - 0(No drift) 5b. Right Arm: Motor (10-second hold) - 0(No drift) 6a. Left Leg: Motor (5-second hold - always test supine) - 0(No drift) 6b. Right Leg: Motor (5-second hold - always test supine) - 0(No drift) 7. Limb Ataxia (finger/nose \T\ heel/amador - test with eyes open) - 0(Absent) 8. Sensory Loss (pinprick arms/legs/face) - 0(Normal) 9. Best Language: Aphasia (description/naming/reading) - 0(No aphasia) 10. Dysarthria (speech clarity - read or repeat words) - 0(Normal) 11. Extinction and Inattention (visual/tactile/auditory/spatial/personal) - 0(No abnormality) Initials: vg1 Signatures: Dispatcher [employer] EDMS Dirrim, Elida bd Jude, Cheryl, RN RN vg1 Cory King MD MD rt Corrections: (The following items were deleted from the chart) 17:06 10:57 rt bd
[2022-08-09] MEDS ORDERED: ONDANSETRON 4 MG/2 ML VIAL IV PRN (11:51)
[2022-08-09] MEDS ORDERED: HYDROCODONE/APAP 5/325 MG TAB PO PRN (12:29)
--- NOTE | 2022-08-09 12:29 | P.HP ---
Certification for Inpatient Patient admitted to: Observation With expected LOS: <2 Midnights Patient will require the following post-hospital care: None Practitioner: I am a practitioner with admitting privileges, knowledge of patient current condition, hospital course, and medical plan of care. Services: Services provided to patient in accordance with Admission requirements found in Title 42 Section 412.3 of the Code of Federal Regulations <Rainer Jalloh Nelia - Last Filed: 08/09/22 12:45> Patient History Date of Service: 08/09/22 Reason for admission: Dysarthria History of Present Illness: Patient is a 81-year-old female with a past medical history significant for CAD, COPD, CVA, Atrial fibrillation. Hyperlipidemia, CABG, SC who presents with complaint of garbled\slurred speech. Family reported that patient was found on the floor today and patient started having garbled\slurred speech as family was trying to communicate with her. Patient was also noted to be confused. Patient reported that she has been having low back pain for the past 4 days. Patient rated pain as 10/10 in severity and described pain as constant aching in quality. No other signs and symptoms reported. Symptoms are aggravated or relieved by nothing. Family called EMS who brought patient to the hospital for medical evaluation. Of note, patient reported that she fell yesterday as she was walking and also slided down today from her couch. Patient denies hitting her head or losing consciousness during any of the falls. Symptoms of slurred speech and garbled speech resolved while patient was in the ER. - Past Medical/Surgical History Diabetic: No -: CAD -: COPD -: seizures as child at 2-3 years old -: AFib -: high cholesterol -: Triple bypass - 1997 -: Connie -: Tubal Ligation - Family History Sister -: Heart disease, Hypertension, GI disease, Cancer - Social History Smoking Status: Light Tobacco smoker (1-9 cigarettes/day) Counseled patient to stop smoking for: less than 10 minutes Smoking therapy provided: Yes Patient receptive to therapy: Yes Alcohol use: No CD- Drugs: No Caffeine use: No Place of Residence: Home <Jo-AnnRicky pickenspepe Pickens - Last Filed: 08/09/22 12:45> Date of Service: 08/09/22 <Flynn Blakely - Last Filed: 08/09/22 18:01> Allergies celecoxib [From Celebrex] Allergy (Verified 07/09/14 00:17) Rash simvastatin [From Zocor] Allergy (Verified 07/09/14 00:17) Rash Home Medications: Atorvastatin Calcium [Lipitor] 80 mg PO BEDTIME 07/09/14 hydroCHLOROthiazide [Hydrochlorothiazide] 12.5 mg PO DAILY 07/27/18 Apixaban [Eliquis] 5 mg PO BID 30 Days #60 04/29/22 Albuterol Inhaler [Ventolin Inhaler*] 2 puff IH Q6HP PRN 07/04/22 Umeclidinium Brm/Vilanterol Tr [Anoro Ellipta 62.5-25 Mcg INH] 1 puff IH DAILY 07/04/22 Losartan Potassium [Cozaar] 50 mg PO BID #60 tab 07/06/22 Review of Systems General: Unremarkable Eyes: Unremarkable ENT: Unremarkable Respiratory: Unremarkable Cardiovascular: Unremarkable Gastrointestinal: Unremarkable Genitourinary: Unremarkable Musculoskeletal: Back Pain Integumentary: Unremarkable Neurological: Change in Speech, Confusion Lymphatics: Unremarkable <Rainer Jalloh - Last Filed: 08/09/22 12:45> Physical Examination - Physical Exam General: Alert, In no apparent distress, Oriented x3, Cooperative HEENT: Atraumatic, Normocephalic, PERRLA, Sclerae nonicteric Neck: Supple, 2+ carotid pulse no bruit, No Thyromegaly, Without JVD or thyroid abnormality Respiratory: Clear to auscultation bilaterally, Normal air movement Cardiovascular: No edema, Normal pulses, Normal S1 S2 Capillary refill: <2 Seconds Gastrointestinal: Normal bowel sounds, Soft and benign, No ascites, No tenderness, No masses, No rebound Musculoskeletal: No clubbing, No swelling, No contractures, No erythema, No tenderness Integumentary: No rashes, No breakdown, No significant lesion, No tenderness/swelling, No erythema Neurological: Normal strength at 5/5 x4 extr, Sensation intact, Normal affect, Abnormal speech Lymphatics: No axilla or inguinal lymphadenopathy - Studies Laboratory Data (last 24 hrs) 08/09/22 09:40: PT 16.1 H, INR 1.46, APTT 33.3 08/09/22 09:40: WBC 9.30, Hgb 13.5, Hct 41.1, Plt Count 207 08/09/22 09:40: Sodium 138, Potassium 4.0, BUN 24 H, Creatinine 1.09, Glucose 112 H <Rainer Jalloh - Last Filed: 08/09/22 12:45> - Studies Laboratory Data (last 24 hrs) 08/09/22 09:40: PT 16.1 H, INR 1.46, APTT 33.3 08/09/22 09:40: WBC 9.30, Hgb 13.5, Hct 41.1, Plt Count 207 08/09/22 09:40: Sodium 138, Potassium 4.0, BUN 24 H, Creatinine 1.09, Glucose 112 H <Flynn Blakely - Last Filed: 08/09/22 18:01> Assessment and Plan - Plan --TIA. MRI brain, MRA head/neck pending. Echocardiogram pending. Continue, Eliquis, aspirin and statin. --Hypertension. Will allow for permissive hypertension pending imaging to rule out CVA. We will continue to monitor blood pressure levels and treat if SBP>200 mmHg. . --HLD. Continue statin. --Hx of CAD\SC\CABG\TIA\CVA. Continue aspirin, Eliquis and statin. --COPD. Stable. Continue home medications. --Atrial fibrillation. Continue Eliquis. --CKD 3A. Stable. We will continue to monitor renal functions. -- Back pain. CT lumbar pending. We will manage pain with current pain medication regimen. --Acute encephalopathy. Unclear etiology. AMS currently resolved. MRI brain pending for further assessment. Continue supportive care --Nicotine dependence. Patient counseled on tobacco cessation. Refuses nicotine patch. --DVT prophylaxis with Eliquis. Discharge Plan: Home Plan to discharge in: 48 Hours - Advance Directives Does patient have a Living Will: Yes Does patient have a Durable POA for Healthcare: No - Code Status/Comfort Care Code Status Assessed: Yes Physician Review: Patient Assessed, Agree with Above Assessment and Plan Critical Care: No <Rainer Jalloh - Last Filed: 08/09/22 12:45> Physician Review: Patient Assessed, Agree with Above Assessment and Plan <Flynn Blakely - Last Filed: 08/09/22 18:01>
[2022-08-09] MEDS ORDERED: ACETAMINOPHEN 325 MG TABLET PO PRN (12:30)
[2022-08-09] MEDS ORDERED: ALBUTEROL 2.5 MG/3 ML NEB SOL NEB PRN (12:46)
[2022-08-09 12:50] LABS: SARS-CoV-2 Antigen Rapid Res Negative (Negative)
[2022-08-09] MEDS: ASPIRIN 81 MG CHEWABLE TABLET PO SCH (13:00)
[2022-08-09 13:09] LABS: Thyroid Stimulating Hormone 0.95 uIU/mL (0.360-3.740)
--- NOTE | 2022-08-09 13:28 | RAD REPORT ---
EXAM DESCRIPTION: CT - Spine Lumbar Wo Con - 08/09/2022 1:14 pm CLINICAL HISTORY: Radiculopathy. back Pain COMPARISON: Angio Aorta For Dissection dated 08/07/2022; Abdomen Pelvis W Contrast dated TECHNIQUE: Axial noncontrast CT imaging of the lumbar spine was performed with coronal and sagittal re-formatted images. All CT scans are performed using dose optimization technique as appropriate and may include automated exposure control or mA/KV adjustment according to patient size. FINDINGS: Diffuse osteopenia is present. Moderate multilevel spondylosis is noted of the lumbar spin e, greatest at L4-5 and L5-S1. Moderate levoscoliosis is present. Compression fracture is present of L1 with 60-70% loss of vertebral body height noted. This has mildl y progressed in severity since 07/21/2021 prior study. 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 Please reference the report for the details. Small opacity is present in the posterior lef t lung base, incompletely assessed. IMPRESSION: Mild progression since 2020 in the compression fracture affecting L1. Now estimated at 6 0-70% loss of vertebral body height. No significant canal compromise evident. Moderate lower lumbar degenerative spondylosis is present.
--- NOTE | 2022-08-09 14:28 | RAD REPORT ---
EXAM DESCRIPTION: MRI - Brain W/Wo Cont - 08/09/2022 2:09 pm CLINICAL HISTORY: Transient ischemic attack (TIA) Headache, drowsiness, CVA symptomology COMPARISON: Ct Stroke Brain Wo Cont dated 08/09/2022 TECHNIQUE: Multi-sequence, multiplanar MR imaging of the brain was performed with contrast. FINDINGS: No intracranial hemorrhage, hydrocephalus, or extra-axial fluid collection.Advanced conflu ent T2/FLAIR hyperintensity in the periventricular and deep white matter is present compatible with c hronic microvascular ischemic changes. No edema or shift of midline structures. No intracranial mass. DWI is negative for acute CVA. The midline structures are normally formed. Mild mucosal thickening of both maxillary antra. Post-contrast images show no abnormal enhancement to suggest tumor or infection. IMPRESSION: Negative for acute CVA or other acute intracranial finding.
--- NOTE | 2022-08-09 14:41 | RAD REPORT ---
EXAM DESCRIPTION: MRI - MRA Neck W/Wo Cont - 08/09/2022 2:09 pm CLINICAL HISTORY: Transient ischemic attack (TIA) Headache, drowsiness, CVA symptomology COMPARISON: No comparisons FINDINGS: Contrast enhance 2D [id number] MR angiography of the neck vessels was performed. A left aortic arch is noted. Subclavian arteries and common carotid arteries are patent bilaterally. There is a significant stenosis seen post bulbar right proximal internal carotid artery, estimated at 90% or higher based on NASCET criteria. There is moderate narrowing of the left carotid bulb estimated at 50-70% based on NASCET criteria. Antegrade flow seen in both vertebral arteries. 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 50-70% stenosis left carotid bulb.
[2022-08-09] MEDS ORDERED: ASPIRIN 81 MG CHEWABLE TABLET ONE (14:47)
[2022-08-09] MEDS ORDERED: HYDROCODONE/APAP 5/325 MG TAB ONE (14:48)
[2022-08-09 15:17] VITALS: BMI 20.3
[2022-08-09] MEDS: APIXABAN 5 MG TABLET PO SCH (20:57)
[2022-08-09] MEDS ORDERED: HEPARIN 5000 UNIT/ML 1 ML VIAL SQ SCH (21:00)
[2022-08-09] MEDS ORDERED: ATORVASTATIN 80 MG TAB PO SCH (21:00)
--- NOTE | 2022-08-09 21:57 | P.PN ---
Date of Service: 08/09/22 Upon reviewing neck MRA which revealed significant stenosis of the postbulbar right proximal ICA estimated 90% or greater. 50 to 70% stenosis left carotid bulb, hospitalist attending discussed case with neurology who initially recommended transfer for likely endarterectomy/intervention on an urgent basis. Discussed further with patient/family he reported that this is a known finding to them have shown up on multiple imaging studies in the past although they had a procedure in February with Dr. Kc which showed no critical stenosis. Further chart review performed which revealed the patient had an angiogram on 02/23/2022 which demonstrated 50% right ICA stenosis, patient family reports they were told that her vessels were very "bendy" which is why it always appears there is more stenosis present in the right ICA. Discuss further with neurology who recommends continuation of medical management this time. Patient back to her baseline currently without any focal neurological deficits. Discussed at length with family who agrees with current plan.
[2022-08-09 22:32] VITALS: O2SAT 93
[2022-08-10 06:25] LABS: Potassium 3.7 mmol/L (3.5-5.1)
[2022-08-10 06:29] LABS: Absolute Lymphocytes (CBC) 1.6 K/uL (0.7-4.9); Hematocrit 40.5 % (36.0-45.0); Lymphocytes % 17.4 % (15.3-44.8); MCV 94.8 fL (80-100); RBC Red Blood Cell Count 4.28 M/uL (3.86-4.86)
[2022-08-10] MEDS ORDERED: INFLUENZA VACCINE (for 6+ mo) 0.5 ML DOSE IMVAC ONE (08:00)
[2022-08-10 08:07] VITALS: BP 138/58; TEMP 97.6
[2022-08-10] MEDS: APIXABAN 5 MG TABLET PO SCH (08:19)
[2022-08-10] MEDS: ASPIRIN 81 MG CHEWABLE TABLET PO SCH (08:20)
--- NOTE | 2022-08-10 08:22 | P.DS ---
Admission Date: 08/09/22 Discharge Date: 08/10/22 Disposition: ROUTINE DISCHARGE Discharge Condition: GOOD Reason for Admission: Dysarthria Consultations: 1. 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 Jenny Douglas is a pleasant 81-year-old female with a past medical history significant for prior cerebrovascular accidents, carotid artery disease s/p CABG, bilateral carotid artery stenosis, chronic atrial fibrillation on apixaban, chronic obstructive pulmonary disease, hypertension, hyperlipidemia, and tobacco use disorder who was admitted to the [facility] on 08/09/2022 for slurred speech and expressive aphasia. She was admitted to the Medicine service. Upon further evaluation, her chest x- ray revealed, "no acute cardiopulmonary process. Patient has chronic interstitial lung pattern is similar to the July 03 examination." Her non- contrast CT head revealed, "no intracranial hemorrhage is present. An acute in farction is not identifiable. Patient has very advanced chronic ischemic change and mild atrophy change. Intracranial findings are similar to July 26 imaging. Chronic ischemic changes can mask nonhemorrhagic acute infarction. MR brain followup can be obtained if there is ongoing concern for acute ischemia." MRI brain revealed, "negative for acute CVA or other acute intracranial finding." MRA neck revealed, "Significant stenosis of the post bulbar right proximal ICA estimated 90% or greater. 50-70% stenosis left carotid bulb." A transthoracic echocardiogram revealed, "1. normal left ventricular ejection fraction greater than 60% 2. normal wall motion 3. moderate concentric left ventricular hypertrophy 4. mild diastolic dysfunction 5. mild tricuspid regurgitation 6. mild aortic insufficiency." A detailed risk/benefits discussion was held with her and her granddaughter regarding her bilateral carotid artery stenosis and that she may benefit from a vascular procedure. She stated that she has had this finding in the past and it has been evaluated with an angiogram. She states that she was told by her outside physician that her carotids will look stenosed due to the vessels being very tortuous. She declined our offer to transfer her for a neurovascular evaluation. Neurology was consulted and I spoke with Dr. Sevilla. He stated that, in this case since she does not want neurovascular intervention, he would recommend aspirin, atorvastatin, folic acid, and apixaban. Her neurologic deficits had completely resolved by the time presentation. She was evaluated by physical therapy and cleared to be discharged home from their standpoint. On 08/10/2022, she was seen on morning rounds and deemed medically stable for discharge. She was discharged with instructions to schedule follow-up appointments with her PCP (Dr. Levi), with Neurology (Dr. Sevilla), and with Cardiology (Dr. Kc). She and her family members were given the opportunity to ask questions and reported no further questions. Furthermore, all questions were answered to the best of my ability. A copy of this discharge summary will be sent to the above providers to facilitate continuity of care. Today, I personally spent 25 minutes on her case, of which greater than 50% of the time was spent in patient education, counseling, and coordination of care as described above. ADDENDUM: 08/10/2022 - 17:03 Post-discharge, it was noted that she had an adrenal mass and a left lower lung mass on her CT from her Emergency Department visit several days prior to admission. I called her and her granddaughter, Ms. De La Rosa, answered the phone. I informed her of these findings. She stated that they already knew about the findings and are planning to follow-up with Dr. Leiv regarding surveillance imaging/further evaluation. NIH Stroke Scale 1a. Level of consciousness: 0 - Alert; keenly responsive 1b. LOC questions: 0 - Both questions right 1c. LOC commands: 0 - Performs both tasks 2. Best Gaze: 0 - Normal 3. Visual: 0 - No visual loss 4. Facial Palsy: 0 - Normal symmetry 5a. Motor left arm: 0 - No drift for 10 seconds 5b. Motor right arm: 0 - No drift for 10 seconds 6a. Motor left le - No drift for 5 seconds 6b. Motor right le - No drift for 5 seconds 7. Limb ataxia: 0 - No ataxia 8. Sensory: 0 - Normal; no sensory loss 9. Best Language: 0 - Normal; no aphasia 10. Dysarthria: 0 - Normal 11. Extinction and Inattention: 0 - No abnormality 12. Distal motor function: 0 - No abnormality Total Score: 0 Vital Signs/Physical Exam: Temp Pulse Resp BP Pulse Ox 97.6 F 108 H 18 138/58 L 93 08/10/22 08:00 08/10/22 08:00 08/10/22 08:00 08/10/22 08:00 08/10/22 08:00 General: Alert, In no apparent distress, Oriented x3 HEENT: Atraumatic, PERRLA, Mucous membr. moist/pink, EOMI, Sclerae nonicteric Neck: Supple, JVD not distended Respiratory: Clear to auscultation bilaterally, Normal air movement Cardiovascular: No edema, Regular rate/rhythm, Normal S1 S2, No gallops, No rubs, No murmurs Capillary refill: <2 Seconds Gastrointestinal: Normal bowel sounds, Soft and benign, Non-distended, No tenderness, No rebound, No guarding Musculoskeletal: No clubbing Integumentary: No rashes Neurological: Normal gait, Normal speech, Normal strength at 5/5 x4 extr, Normal tone, Sensation intact, Cranial nerves 3-12 intact, Normal affect Laboratory Data at Discharge: WBC 9.00 K/uL (4.3-10.9) 08/10/22 05:30 Hgb 13.3 g/dL (12.0-15.0) 08/10/22 05:30 Hct 40.5 % (36.0-45.0) 08/10/22 05:30 Plt Count 184 K/uL (152-406) 08/10/22 05:30 PT 16.1 SECONDS (9.5-12.5) H 08/09/22 09:40 INR 1.46 08/09/22 09:40 APTT 33.3 SECONDS (24.3-36.9) 08/09/22 09:40 Sodium 138 mmol/L (136-145) 08/10/22 05:30 Potassium 3.7 mmol/L (3.5-5.1) 08/10/22 05:30 BUN 25 mg/dL (7-18) H 08/10/22 05:30 Creatinine 0.95 mg/dL (0.55-1.3) 08/10/22 05:30 Glucose 76 mg/dL (74-106) 08/10/22 05:30 Triglycerides 69 mg/dL (<150) 08/09/22 12:31 Cholesterol 111 mg/dL (<200) 08/09/22 12:31 HDL Cholesterol 54 mg/dL (40-60) 08/09/22 12:31 Cholesterol/HDL Ratio 2.06 08/09/22 12:31 Home Medications: Atorvastatin Calcium [Lipitor] 80 mg PO BEDTIME 07/09/14 Apixaban [Eliquis] 5 mg PO BID 30 Days #60 04/29/22 Albuterol Inhaler [Ventolin Inhaler*] 2 puff IH Q6HP PRN 07/04/22 Umeclidinium Brm/Vilanterol Tr [Anoro Ellipta 62.5-25 Mcg INH] 1 puff IH DAILY 07/04/22 Losartan Potassium [Cozaar] 50 mg PO BID #60 tab 07/06/22 Cyclobenzaprine HCl [Flexeril] 5 mg PO TIDP PRN 08/09/22 Aspirin Chewable [Aspirin Chewable*] 81 mg PO DAILY tab.chew 08/10/22 Folic Acid 1 mg PO DAILY #1 08/10/22 New Medications: Folic Acid 1 mg PO DAILY #1 Physician Discharge Instructions: 1. Please call and schedule a follow-up appointment with your PCP (Dr. Levi) in 3-5 days 2. Please call and schedule a follow-up appointment with your Yard Clerk (Dr. Kc) in 5-7 days 3. Please call and schedule a follow-up appointment with Neurology (Dr. Sevilla) in 5-7 days Diet: AHA Activity: Ad edwina Followup: Hiram Kc MD [ACTIVE - CAN ADMIT] - 1 Week (Call to schedule appointment.) Luís Sevilla MD [ASSOCIATE-ACTIVE - CAN ADMIT] - 1 Week (Call to schedule appointment.) Thiago Levi MD [ACTIVE - CAN ADMIT] - 1 Week (CAll to schedule appointment.) Time spent managing pt's care (in minutes): 25
[2022-08-10] MEDS ORDERED: POTASSIUM CL SA 10 MEQ TAB PO ONE ×2 (08:23→09:00)
[2022-08-10] MEDS ORDERED: HOME MED 1 EA UNK (Umeclidinium Brm/Vilanterol Tr [Anoro Ellipta 62.5-25 Mcg Inh] Blst.W.D IH SCH (09:00)
--- NOTE | 2022-08-10 13:51 | EKG ---
Test Date: 2022-08-09 Test Time: 09:55:51 Security And Privacy Consultant: MEASUREMENT RESULTS: Intervals: Rate: 71 AL: 132 QRSD: 90 QT: 408 QTc: 443 [place]: P: 83 AL: 132 QRS: -71 T: 65 INTERPRETIVE STATEMENTS: Sinus rhythm with premature atrial complexes Pulmonary disease pattern Left anterior fascicular block Moderate voltage criteria for LVH, may be normal variant Cannot rule out Septal infarct, age undetermined Abnormal ECG Compared to ECG 07/26/2022 07:29:12 Atrial premature complex(es) now present Myocardial infarct finding now present Electronically Signed On 08-10-22 13:48:00 AUDIT MGR by Yayo Hart
--- NOTE | 2022-08-10 14:10 | ECHO ---
HEIGHT: 5 ft 7 in WEIGHT: 130 lb 0 oz DATE OF STUDY: REFER DR: Cory King 2-DIMENSIONAL: YES M.MODE: YES DOPPLER: YES COLOR FLOW: YES TDS: PORTABLE: DEFINITY: BUBBLE STUDY: DIAGNOSIS: TRANISENT ISCHEMIC ATTACK CARDIAC HISTORY: CATHERIZATION: SURGERY: PROSTHETIC VALVE: PACEMAKER: MEASUREMENTS (cm) DIASTOLIC (NORMALS) SYSTOLIC (NORMALS) IVSd 1.3 (0.6-1.2) LA Diam 3.1 (1.9-4.0) LVEF 69% LVIDd 2.9 (3.5-5.7) LVIDs 1.8 (2.0-3.5) %FS 37% LVPWd 1.4 (0.6-1.2) Ao Diam 2.3 (2.0-3.7) 2 DIMENSIONAL ASSESSMENT: RIGHT ATRIUM: NORMAL LEFT ATRIUM: NORMAL RIGHT VENTRICLE: NORMAL LEFT VENTRICLE: LEFT VENTRICULAR HYPERTROPHY TRICUSPID VALVE: MILD TRICUSPID REGURGITATION MITRAL VALVE: NORMAL PULMONIC VALVE: NORMAL AORTIC VALVE: MILD AORTIC INSUFFICIENCY PERICARDIAL EFFUSION: NONE AORTIC ROOT: NORMAL LEFT VENTRICULAR WALL MOTION: NORMAL DOPPLER/COLOR FLOW: SEE BELOW COMMENTS: 1. NORMAL LEFT VENTRICULAR EJECTION FRACTION GREATER THAN 60% 2. NORMAL WALL MOTION 3. MODERATE CONCENTRIC LEFT VENTRICULAR HYPERTROPHY 4. MILD DIASTOLIC DYSFUNCTION 5. MILD TRICUSPID REGURGITATION 6. MILD AORTIC INSUFFICIENCY TECHNOLOGIST: JACK SHUKLA
== END 2022-08-10 10:13 | disposition home or self-care (01) ==
LOC: ER 08:51 → ERHOLD 11:47 → 2ND 17:50
PROVIDERS: ADMIT Internal Medicine; ATTEND Internal Medicine
DX: R47.1 Dysarthria and anarthria (principal); I25.10 Atherosclerotic heart disease of native coronary artery without angina pectoris; J44.9 Chronic obstructive pulmonary disease, unspecified; Z86.73 Personal history of transient ischemic attack (TIA), and cerebral infarction without residual deficits; I48.91 Unspecified atrial fibrillation; E78.5 Hyperlipidemia, unspecified; I25.2 Old myocardial infarction; Z95.1 Presence of aortocoronary bypass graft; I10 Essential (primary) hypertension; N18.31 Chronic kidney disease, stage 3a; F17.220 Nicotine dependence, chewing tobacco, uncomplicated; Z20.822 Contact with and (suspected) exposure to COVID-19; R91.8 Other nonspecific abnormal finding of lung field; E27.9 Disorder of adrenal gland, unspecified; I65.23 Occlusion and stenosis of bilateral carotid arteries
CPT/HCPCS: 93005; 93306; 85025 ×2; 80048 ×2; 36415 ×2; 85610; 80061; 85730; 84443; 83036; 84484; 84439; 72131; 70450; 71045; 70553; 70549; 97161; 99285; 87811; A9577; G0378 ×3

== ENCOUNTER 2022-08-27 00:09 | Inpatient (IN) | payer OTHER ==
[2022-08-27] MEDS ORDERED: METHYLPREDNISOLONE 125 MG INJ ONE (00:56)
[2022-08-27] MEDS ORDERED: LEVALBUTEROL 1.25 MG/3 ML NEB ONE (00:56)
[2022-08-27] MEDS ORDERED: ACETAMINOPHEN 500 MG TAB ONE (00:56)
[2022-08-27] MEDS ORDERED: IPRATROPIUM BROM 0.5MG/2.5ML ONE (00:57)
[2022-08-27 01:27] LABS: Absolute Lymphocytes (CBC) 0.8 K/uL (0.7-4.9); Hematocrit 41.8 % (36.0-45.0); Lymphocytes % 5.4 % (15.3-44.8); MCV 92.7 fL (80-100); MPV 9.4 fL (7.6-11.3)
[2022-08-27 01:44] LABS: Protime INR 1.38
--- NOTE | 2022-08-27 01:48 | EDPHYS ---
Physician Documentation [facility] Name: Jenny Douglas Age: 81 yrs Sex: Female : 1940 Arrival Date: 08/27/2022 Time: 00:12 Bed 19 Private MD: ED Physician Reynaldo Hector HPI: 08/27 01:39 This 81 yrs old Female presents to ER via Wheelchair with complaints of demetrius Shortness Of Breath, Altered Mental Status. 01:39 The patient has shortness of breath at rest, with light activity. Onset: The demetrius symptoms/episode began/occurred 2 day(s) ago. Duration: The symptoms are continuous, and are steadily getting worse. The patient's shortness of breath is aggravated by coughing. Associated signs and symptoms: Pertinent positives: non-productive cough. Severity of symptoms: At their worst the symptoms were mild moderate in the emergency department the symptoms are unchanged. The patient has not experienced similar symptoms in the past. Historical: - Allergies: 00:17 Celebrex; hb 00:17 Zocor; hb - PMHx: 00:17 CAD; COPD; Hyperlipidemia; Hypertension; Myocardial infarction; TIA; hb - PSHx: 00:17 CABG; hb - Immunization history:: Adult Immunizations up to date. ROS: 01:42 Constitutional: Negative for fever, chills, and weight loss, Eyes: Negative for injury, demetrius pain, redness, and discharge, ENT: Negative for injury, pain, and discharge, Neck: Negative for injury, pain, and swelling, Cardiovascular: Negative for chest pain, palpitations, and edema, Abdomen/GI: Negative for abdominal pain, nausea, vomiting, diarrhea, and constipation, Back: Negative for injury and pain, : Negative for injury, bleeding, discharge, and swelling, MS/Extremity: Negative for injury and deformity, Skin: Negative for injury, rash, and discoloration, Neuro: Negative for headache, weakness, numbness, tingling, and seizure, Psych: Negative for depression, anxiety, suicide ideation, homicidal ideation, and hallucinations, Allergy/Immunology: Negative for hives, rash, and allergies, Endocrine: Negative for neck swelling, polydipsia, polyuria, polyphagia, and marked weight changes. 01:42 Respiratory: Positive for cough, "sounds productive", shortness of breath, at rest. wheezing, inspiratory, expiratory. 01:42 MS/extremity: Negative for decreased range of motion, pain, swelling, tenderness. Exam: 01:42 Constitutional: This is a well developed, well nourished patient who is awake, alert, demetrius and in no acute distress. Head/Face: Normocephalic, atraumatic. Eyes: Pupils equal round and reactive to light, extra-ocular motions intact. Lids and lashes normal. Conjunctiva and sclera are non-icteric and not injected. Cornea within normal limits. Periorbital areas with no swelling, redness, or edema. ENT: Nares patent. No nasal discharge, no septal abnormalities noted. Tympanic membranes are normal and external auditory canals are clear. Oropharynx with no redness, swelling, or masses, exudates, or evidence of obstruction, uvula midline. Mucous membranes moist. Neck: Trachea midline, no thyromegaly or masses palpated, and no cervical lymphadenopathy. Supple, full range of motion without nuchal rigidity, or vertebral point tenderness. No Meningismus. Chest/axilla: Normal chest wall appearance and motion. Nontender with no deformity. No lesions are appreciated. Cardiovascular: Regular rate and rhythm with a normal S1 and S2. No gallops, murmurs, or rubs. Normal PMI, no JVD. No pulse deficits. Abdomen/GI: Soft, non-tender, with normal bowel sounds. No distension or tympany. No guarding or rebound. No evidence of tenderness throughout. Back: No spinal tenderness. No costovertebral tenderness. Full range of motion. Female : Normal external genitalia. Skin: Warm, dry with normal turgor. Normal color with no rashes, no lesions, and no evidence of cellulitis. MS/ Extremity: Pulses equal, no cyanosis. Neurovascular intact. Full, normal range of motion. Neuro: Awake and alert, GCS 15, oriented to person, place, time, and situation. Cranial nerves II-XII grossly intact. Motor strength 5/5 in all extremities. Sensory grossly intact. Cerebellar exam normal. Normal gait. Psych: Awake, alert, with orientation to person, place and time. Behavior, mood, and affect are within normal limits. 03:11 ECG was reviewed by the Attending Physician. [facility] Vital Signs: 00:16 BP 121 / 54; Pulse 107; Resp 18; Temp 99.3(TE); Pulse Ox 93% on R/A; Weight 59.42 kg; hb Height 5 ft. 7 in. (170.18 cm); Pain 8/10; 01:15 BP 142 / 58; Pulse 104; Resp 25; Pulse Ox 100% on 2 lpm NC; jb4 02:15 BP 123 / 75; Pulse 101; Resp 60; Pulse Ox 99% on 2 lpm NC; jb4 03:30 BP 117 / 48; Pulse 98; Resp 24; Temp 97.2(TE); Pulse Ox 99% on 2 lpm NC; jb4 00:16 Body Mass Index 20.52 (59.42 kg, 170.18 cm) hb MDM: 00:24 Patient medically screened. demetrius 01:43 Differential diagnosis: Anemia Anxiety Reaction Chronic Obstructive Pulmonary Disease demetrius obstructed airway, bronchitis, flu, URI, pneumonia, pulmonary edema, Sepsis. Antibiotic administration: Rocephin and Zithromax given. Differential Diagnosis: CVA, electrolyte abnormality, alcohol intoxication, hypoglycemia, intracranial bleed, pneumonia, seizure, volume depletion. The patient's [place] Deep Vein Thrombosis Score was calculated as follows: Heart Rate >100 BPM (1.5 Pts) Total Score: 0-2 Pts- Low Risk. Differential Diagnosis: Influenza Upper Respiratory Infection Sinusitis Pharyngitis Asthma Exacerbation Viral Syndrome Pneumonia. The patient's pulmonary embolism risk score was calculated as follows: the patients heart rate is greater than 100 beats per minute (1.5 Pts). Immunization status: Pneumococcal vaccine: Influenza vaccine: Data reviewed: vital signs, nurses notes, EMS record, lab test result(s), EKG, radiologic studies, CT scan, plain films. Data interpreted: vegetable grower: rate is 107 beats/min, rhythm is regular, Pulse oximetry: on room air is 93 %. Test interpretation: by ED physician or midlevel provider: ECG, plain radiologic studies. Counseling: I had a detailed discussion with the patient and/or guardian regarding: the historical points, exam findings, and any diagnostic results supporting the discharge/admit diagnosis, the presence of at least one elevated blood pressure reading (>120/80) during this emergency department visit, lab results, radiology results, the need for outpatient follow up. 08/27 00:27 Order name: Basic Metabolic Panel; Complete Time: 02:12 demetrius 08/27 00:27 Order name: CBC with Diff; Complete Time: 01:57 [facility] 08/27 00:27 Order name: LFT's; Complete Time: 02:12 [facility] 08/27 00:27 Order name: Magnesium; Complete Time: 02:12 [facility] 08/27 00:27 Order name: NT PRO-BNP; Complete Time: 02:12 [facility] 08/27 00:27 Order name: PT-INR; Complete Time: 01:57 [facility] 08/27 00:27 Order name: Troponin HS; Complete Time: 02:12 [facility] 08/27 00:27 Order name: XRAY Chest (1 view) [facility] 08/27 00:27 Order name: Blood Culture Adult (2) [facility] 08/27 00:27 Order name: Lactate w/ 2H reflex if indic.; Complete Time: 01:57 [facility] 08/27 00:27 Order name: ABG; Complete Time: 01:57 [facility] 08/27 00:27 Order name: COVID-19/FLU A+B; Complete Time: 01:57 [facility] 08/27 00:27 Order name: Urine Culture [facility] 08/27 03:25 Order name: Urine Dipstick-Ancillary [facility] 08/27 00:27 Order name: EKG; Complete Time: 00:28 [facility] 08/27 00:27 Order name: Cardiac monitoring; Complete Time: 00:28 [facility] 08/27 00:27 Order name: EKG - Nurse/Tech; Complete Time: 03:28 [facility] 08/27 00:27 Order name: IV Saline Lock; Complete Time: 01:12 [facility] 08/27 00:27 Order name: BIPAP [facility] 08/27 01:07 Order name: CT Head Brain wo Cont [facility] 08/27 00:27 Order name: Labs collected and sent; Complete Time: 01:12 [facility] 08/27 00:27 Order name: O2 Per Protocol; Complete Time: 00:28 [facility] 08/27 00:27 Order name: O2 Sat Monitoring; Complete Time: 00:28 [facility] 08/27 00:27 Order name: Urine Dipstick-Ancillary (obtain specimen); Complete Time: 03:26 [facility] EC:11 Rate is 93 beats/min. Rhythm is regular. QRS [place] is Normal. SD interval is normal. QRS demetrius interval is normal. QT interval is normal. No Q waves. T waves are Normal. No ST changes noted. Clinical impression: Abnormal EKG without significant change, LVH, and No evidence of ischemia. Interpreted by me. Reviewed by me. Administered Medications: 02:29 Drug: SOLU-Medrol (methylPrednisoLONE) 125 mg Route: IVP; Site: right forearm; jb4 02:30 Drug: NS 0.9% 1000 ml Route: IV; Rate: 125 ml/hr; Site: right forearm; jb4 02:30 Drug: Tylenol 1000 mg Route: PO; jb4 02:47 Drug: Xopenex (levalbuterol) 3.75 mg Route: Inhalation; jb4 02:47 Drug: AtroVENT (ipratropium) Aerosol 0.5 mg Route: Inhalation; jb4 02:57 Drug: Pepcid (famotidine) 20 mg Route: IVP; Site: right forearm; jb4 03:00 Drug: Rocephin (cefTRIAXone) 1 grams Route: IV; Rate: per protocol; Site: right forearm;jb4 03:00 Drug: Zithromax (azithromycin) 500 mg Route: IVPB; Infused Over: 1 hrs; Site: right jb4 antecubital; 03:16 Drug: Eliquis (apixaban) 5 mg Route: PO; jb4 03:20 Drug: foLIC Acid 1 mg Route: IVPB; Site: right forearm; jb4 03:27 Follow up: Response: No adverse reaction jb4 03:27 Follow up: IV Status: Completed infusion jb4 Disposition Summary: 08/27/22 01:47 Hospitalization Ordered Hospitalization Status: Inpatient Admission demetrius Provider: Thiago Levi cha Condition: Fair demetrius Problem: new demetrius Symptoms: have improved demetrius Bed/Room Type: Standard demetrius Location: Telemetry/MedSurg (Inpatient)(08/27/22 12:47) ja Room Assignment: 431(08/27/22 12:47) ja Diagnosis - COPD/ Chronic obstructive pulmonary disease with (acute) exacerbation demetrius - Hypoxemia demetrius - Altered mental status, unspecified demetrius - Fever, unspecified demetrius - Weakness demetrius - Elevated white blood cell count demetrius Forms: - Medication Reconciliation Form demetrius - SBAR form demetrius Signatures: Dispatcher [employer] EDReynaldo Crockett MD MD cha Garcia, Cindy, RN RN Shanita Huerta RN RN hb Bryson, James, RN RN jb Hang Garza RN RN ja Joyce Sanabria PA-C PAJenaro sb4 Corrections: (The following items were deleted from the chart) 01:47 Telemetry/MedSurg (Inpatient) [facility] 01:47 [facility] 02:59 [facility] cg ja1 02:59 [facility] ja[facility]
--- NOTE | 2022-08-27 01:48 | ER ---
Nurse's Notes [facility] Name: Jenny Douglas Age: 81 yrs Sex: Female : 1940 Arrival Date: 08/27/2022 Time: 00:12 Bed 19 Private MD: Diagnosis: COPD/ Chronic obstructive pulmonary disease with (acute) exacerbation;Hypoxemia;Altered mental status, unspecified;Fever, unspecified;Weakness;Elevated white blood cell count Presentation: 08/27 00:15 Chief complaint: Granddaughter reports altered mental status, difficulty walking, hb hallucinations, intermittent SpO2 70s since this morning. Coronavirus screen: At this time, the client does not indicate any symptoms associated with coronavirus-19. Ebola Screen: Patient denies travel to an Ebola-affected area in the 21 days before illness onset. 00:15 Method Of Arrival: Wheelchair hb 00:16 Initial Sepsis Screen: Does the patient meet any 2 criteria? No. Patient's initial hb sepsis screen is negative. Does the patient have a suspected source of infection? No. Patient's initial sepsis screen is negative. Risk Assessment: Do you want to hurt yourself or someone else? Patient reports no desire to harm self or others. Onset of symptoms was August 27, 2022. 00:16 Acuity: ADRIANNA 2 hb Historical: - Allergies: 00:17 Celebrex; hb 00:17 Zocor; hb - PMHx: 00:17 CAD; COPD; Hyperlipidemia; Hypertension; Myocardial infarction; TIA; hb - PSHx: 00:17 CABG; hb - Immunization history:: Adult Immunizations up to date. Screenin:30 Abuse screen: Denies threats or abuse. Nutritional screening: No deficits noted. jb4 Tuberculosis screening: No symptoms or risk factors identified. Fall Risk Secondary diagnosis (15 points) impaired mobility, Mental Status- Overestimates/Forgets Limitations (15 pts.). Total Etienne Fall Scale indicates Low Risk Score (25-44 pts). Side Rails Up X 2 Placed close to Nursing Station Frequent Obs/Assesments occuring Family Present and informed to notify staff if they need to leave bedside As available Patient and Family Educated on Fall Prevention Program and strategies. Assessment: 00:30 General: Appears in no apparent distress. comfortable, Behavior is calm, cooperative, jb4 appropriate for age. Pain: Denies pain. Neuro: Level of Consciousness is awake, alert, obeys commands, Oriented to person, place, time, situation. Cardiovascular: Patient's skin is warm and dry. Respiratory: Airway is patent Respiratory effort is even, unlabored, Respiratory pattern is symmetrical, tachypnea. GI: No signs and/or symptoms were reported involving the gastrointestinal system. : No signs and/or symptoms were reported regarding the genitourinary system. EENT: No signs and/or symptoms were reported regarding the EENT system. Derm: Skin is intact, Skin is pink, warm \T\ dry. 01:30 Reassessment: Patient appears in no apparent distress at this time. Patient and/or jb4 family updated on plan of care and expected duration. Pain level reassessed. Patient is alert, oriented x 3, equal unlabored respirations, skin warm/dry/pink. 02:30 Reassessment: Patient appears in no apparent distress at this time. Patient and/or jb4 family updated on plan of care and expected duration. Pain level reassessed. Patient is alert, oriented x 3, equal unlabored respirations, skin warm/dry/pink. 03:30 Reassessment: Patient appears in no apparent distress at this time. Patient and/or jb4 family updated on plan of care and expected duration. Pain level reassessed. Patient is alert, oriented x 3, equal unlabored respirations, skin warm/dry/pink. Vital Signs: 00:16 BP 121 / 54; Pulse 107; Resp 18; Temp 99.3(TE); Pulse Ox 93% on R/A; Weight 59.42 kg; hb Height 5 ft. 7 in. (170.18 cm); Pain 8/10; 01:15 BP 142 / 58; Pulse 104; Resp 25; Pulse Ox 100% on 2 lpm NC; jb4 02:15 BP 123 / 75; Pulse 101; Resp 60; Pulse Ox 99% on 2 lpm NC; jb4 03:30 BP 117 / 48; Pulse 98; Resp 24; Temp 97.2(TE); Pulse Ox 99% on 2 lpm NC; jb4 00:16 Body Mass Index 20.52 (59.42 kg, 170.18 cm) ED Course: 00:12 Patient arrived in ED. jj6 00:16 Triage completed. hb 00:17 Arm band placed on. hb 00:24 Reynaldo Hector MD is Attending Physician. demetrius 00:27 Flash Antonio, RAMONA is Primary Nurse. as6 00:30 Patient has correct armband on for positive identification. Bed in low position. Call jb4 light in reach. Side rails up X 1. Client placed on continuous cardiac and pulse oximetry monitoring. NIBP monitoring applied. telemetry monitor on. 01:00 Inserted saline lock: 18 gauge in right antecubital area, using aseptic technique. jb4 Blood collected. 01:00 Initial lab(s) drawn, by md, sent to lab. First set of blood cultures drawn by me. jb4 01:05 XRAY Chest (1 view) In Process Unspecified. EDMS 01:12 COVID-19/FLU A+B Sent. jb4 01:13 CBC with Diff Sent. jb4 01:13 Basic Metabolic Panel Sent. jb4 01:13 LFT's Sent. jb4 01:13 Magnesium Sent. jb4 01:13 NT PRO-BNP Sent. jb4 01:13 Troponin HS Sent. jb4 01:13 Lactate w/ 2H reflex if indic. Sent. jb4 01:20 Initial lab(s) drawn, by me, sent to lab. Second set of blood cultures drawn by me. jb4 Inserted saline lock: 22 gauge in right forearm, using aseptic technique. Blood collected. 01:45 CT Head Brain wo Cont In Process Unspecified. EDMS 01:46 Thiago Levi MD is Hospitalizing Provider. demetrius 03:26 Urine Culture Sent. rv1 03:40 No provider procedures requiring assistance completed. Patient admitted, IV remains in jb4 place. Administered Medications: 02:29 Drug: SOLU-Medrol (methylPrednisoLONE) 125 mg Route: IVP; Site: right forearm; jb4 02:30 Drug: NS 0.9% 1000 ml Route: IV; Rate: 125 ml/hr; Site: right forearm; jb4 02:30 Drug: Tylenol 1000 mg Route: PO; jb4 02:47 Drug: Xopenex (levalbuterol) 3.75 mg Route: Inhalation; jb4 02:47 Drug: AtroVENT (ipratropium) Aerosol 0.5 mg Route: Inhalation; jb4 02:57 Drug: Pepcid (famotidine) 20 mg Route: IVP; Site: right forearm; jb4 03:00 Drug: Rocephin (cefTRIAXone) 1 grams Route: IV; Rate: per protocol; Site: right forearm;jb4 03:00 Drug: Zithromax (azithromycin) 500 mg Route: IVPB; Infused Over: 1 hrs; Site: right jb4 antecubital; 03:16 Drug: Eliquis (apixaban) 5 mg Route: PO; jb4 03:20 Drug: foLIC Acid 1 mg Route: IVPB; Site: right forearm; jb4 03:27 Follow up: Response: No adverse reaction jb4 03:27 Follow up: IV Status: Completed infusion jb4 Medication: 13:48 VIS not applicable for this client. jl7 Outcome: 01:47 Decision to Hospitalize by Provider. [facility] 03:42 Admitted to ER Hold. Please see [facility] for further documentation. jb4 03:42 Condition: stable 03:42 Discharge instructions given to patient, family, Instructed on the need for admit, Demonstrated understanding of instructions. 13:48 Patient left the ED. jl7 Signatures: Dispatcher [employer] EDWA Reynaldo Hector MD MD cha Baxter, Heather, RN RN Arvind Coleman RN RN jb4 Bakari Gutierrez RN RN jl7 Annalisa Sandoval Ashby, RN RN as6 Patricia Hedrick rv1 Corrections: (The following items were deleted from the chart) 00:17 00:15 Chief complaint: Granddaughter reports altered mental status, difficulty walking, hb hallucinations since this morning. hb 04:23 03:30 BP 117 / 48; Pulse 98bpm; Resp 24bpm; Pulse Ox 99% 2 lpm Nasal Cannula; jb4 jb4
[2022-08-27 01:53] LABS: Blood O2 Saturation 91.6 % (92-98.5)
[2022-08-27 01:54] LABS: Arterial Blood Carboxyhemoglob 0.8 % (0-1.5); Blood Gas Oxyhemoglobin 89.8 % (94-97)
[2022-08-27 01:56] LABS: SARS-COV-2 RT PCR NEGATIVE (NEGATIVE)
[2022-08-27 02:03] LABS: Albumin 3.4 g/dL (3.4-5.0); Bilirubin Direct 0.2 mg/dL (0-0.2); Bilirubin Total 0.7 mg/dL (0.2-1.0); Magnesium 1.9 mg/dL (1.6-2.4); Potassium 4.9 mmol/L (3.5-5.1); Protein, Total 8.6 g/dL (6.4-8.2); Troponin High Sensitivity 17.8 pg/mL (<58.9)
[2022-08-27] MEDS ORDERED: APIXABAN 5 MG TABLET ONE ×2 (02:18→09:17)
[2022-08-27] MEDS ORDERED: FAMOTIDINE 20 MG/2 ML VIAL IV ONE (02:19)
[2022-08-27] MEDS ORDERED: CEFTRIAXONE 1000 MG/VIAL ONE ×2 (02:19→09:17)
[2022-08-27] MEDS ORDERED: NA CHLORIDE 0.9% 250 ML ONE ×2 (02:19→09:18)
[2022-08-27] MEDS ORDERED: AZITHROMYCIN 500 MG INJ IVPB ONE ×2 (02:19→09:18)
[2022-08-27] MEDS ORDERED: NA CHLORIDE 0.9% 50 ML IV ONE (02:19)
[2022-08-27] MEDS ORDERED: FOLIC ACID 5 MG/ML VIAL ONE (03:21)
[2022-08-27 03:25] LABS: Urine Blood Negative (Negative); Urine Glucose Negative (Negative); Urine Protein Negative (Negative)
[2022-08-27] MEDS ORDERED: IPRATROPIUM BROM 0.5MG/2.5ML NEB PRN ×2 (04:53→14:00)
[2022-08-27] MEDS ORDERED: ONDANSETRON 4 MG/2 ML VIAL IV PRN (04:53)
[2022-08-27] MEDS ORDERED: ALBUTEROL 2.5 MG/3 ML NEB SOL NEB PRN ×2 (04:53→14:00)
[2022-08-27] MEDS ORDERED: ACETAMINOPHEN 500 MG TAB PO PRN (04:53)
[2022-08-27] MEDS: NA CHLORIDE 0.9% 1,000 ML IV SCH ×3 (04:53→22:56)
[2022-08-27] MEDS ORDERED: MORPHINE 2 MG/ML SYR IV PRN (04:53)
[2022-08-27 07:02] VITALS: BMI 20.5
[2022-08-27] MEDS: AZITHROMYCIN IV 500 MG in NA CHLORIDE 0.9% 250 ML IVPB SCH (09:00)
[2022-08-27] MEDS: FAMOTIDINE 20 MG/2 ML VIAL IV SCH ×2 (09:00→20:14)
[2022-08-27] MEDS: APIXABAN 5 MG TABLET PO SCH ×2 (09:00→20:14)
[2022-08-27] MEDS: METHYLPREDNISOLONE 40 MG INJ IV SCH ×2 (09:00→16:12)
[2022-08-27] MEDS: ASPIRIN EC 81 MG TAB PO SCH (09:00)
[2022-08-27] MEDS: CEFTRIAXONE 1,000 MG in NA CHLORIDE 0.9% 50 ML IVPB SCH ×2 (09:00→20:13)
[2022-08-27] MEDS ORDERED: ASPIRIN EC 81 MG TAB PO ONE (09:17)
[2022-08-27] MEDS ORDERED: METHYLPREDNISOLONE 40 MG INJ ONE (09:17)
[2022-08-27] MEDS ORDERED: NA CHLORIDE 0.9% 100 ML IV ONE (09:18)
[2022-08-27] MEDS ORDERED: FAMOTIDINE 20 MG TAB ONE (09:18)
--- NOTE | 2022-08-27 11:09 | RAD REPORT ---
EXAM DESCRIPTION: Chest Single View 08/27/2022 1:13 AM MAINTENANCE JOURNEYMAN CLINICAL HISTORY: 81 years, Female, Cough COMPARISON: None. FINDINGS: Single view of the chest was obtained portable. No prior films are available for compariso n. The patient is rotated towards the left. There is status post CABG. The heart is not enlarged.. Th e thoracic aorta is tortuous with intimal calcification right lung is clear. Grossly the left lung de monstrate to unremarkable allowing for patient rotation. No significant pleural effusions/or focal ar eas of consolidation. The rest of the soft tissue and bony structures demonstrate to be unremarkabl e. IMPRESSION: No acute cardiopulmonary disease seen. Status post CABG. Electronically signed by: Kojo Banks MD 08/27/2022 1:13 AM MAINTENANCE JOURNEYMAN Due to temporary technical issues with the PACS/Fluency reporting system, reports are being signed by the in house radiologists without review as a courtesy to insure prompt reporting. The interpreting radiologist is fully responsible for the content of the report.
--- NOTE | 2022-08-27 11:16 | RAD REPORT ---
EXAM DESCRIPTION: Head Brain Wo Cont 08/27/2022 1:56 AM MIDDLE SCHOOL DIRECTOR CLINICAL HISTORY: 81 years, Female, Mental status change, unknown cause COMPARISON: 08/09/2022. FINDINGS: Multiple transaxial tomograms of the brain were obtained from the base of the skull to the vertex without contrast. 2-D multiplanar reformats and the coronal and sagittal plane were performed and reviewed. This exam was performed according to our departmental dose-optimization protocol, which includes auto mated exposure control, adjustment of the mA and/or kV according to patient size and/or use of iterat glenys reconstruction technique. Brain parenchyma demonstrate mild prominence of the sulci and gyri are corresponding to mild cerebral and cerebellar atrophy. There is moderate periventricular white matter changes of microvascular isch emia. There is no midline shift and/or mass effect. There is no evidence for acute intracranial hemor rhage. Lateral ventricles and cisterns displace normal appearance. No intra or extra axial fluid collections were seen. The calvarium is intact with no evidence for fracture. The visualized portions of the paranasal sinuses and orbits demonstrate to be clear. IMPRESSION: No acute intracranial hemorrhage identified. Mild brain atrophy with periventricular white matter changes of microvascular ischemia. No significan t interval change. Electronically signed by: Kojo Banks MD 08/27/2022 1:57 AM MIDDLE SCHOOL DIRECTOR Due to temporary technical issues with the PACS/Fluency reporting system, reports are being signed by the in house radiologists without review as a courtesy to insure prompt reporting. The interpreting radiologist is fully responsible for the content of the report.
[2022-08-27] MEDS ORDERED: NA CHLORIDE 0.9% 1,000 ML ONE (11:41)
--- NOTE | 2022-08-27 17:37 | EKG ---
Test Date: 2022-08-27 Test Time: 02:55:04 Performance Test Engineer: MAINOR MEASUREMENT RESULTS: Intervals: Rate: 93 RI: 140 QRSD: 94 QT: 360 QTc: 447 [place]: P: 83 RI: 140 QRS: -74 T: 67 INTERPRETIVE STATEMENTS: Normal sinus rhythm Pulmonary disease pattern Left anterior fascicular block Minimal voltage criteria for LVH, may be normal variant Septal infarct, age undetermined Abnormal ECG Compared to ECG 08/09/2022 09:55:51 Atrial premature complex(es) no longer present Myocardial infarct finding still present Electronically Signed On 08-27-22 17:36:07 REGIONAL HR MANAGER by Yayo Hart
[2022-08-28] MEDS: METHYLPREDNISOLONE 40 MG INJ IV SCH ×3 (01:24→16:24)
[2022-08-28 05:42] LABS: Absolute Lymphocytes (CBC) 0.7 K/uL (0.7-4.9); Hematocrit 31.5 % (36.0-45.0); Lymphocytes % 5.1 % (15.3-44.8); MCV 92.7 fL (80-100); MPV 8.9 fL (7.6-11.3)
[2022-08-28 06:03] LABS: Potassium 4.3 mmol/L (3.5-5.1)
--- NOTE | 2022-08-28 07:10 | RAD REPORT ---
EXAM DESCRIPTION: RAD - Chest Single View - 08/28/2022 6:57 am CLINICAL HISTORY: Chest Pain COMPARISON: Chest Single View dated 08/27/2022; Chest Single View dated 08/09/2022; Chest Single View dated 07/03/2022; Chest Single View dated 04/26/2022; Chest For Pe Angio dated 04/12/2022 FINDINGS: Lines: None. Lungs: Emphysema. Retrocardiac airspace disease noted. Pleural: No significant pleural effusions or pneumothorax. Cardiac: The heart size is within normal limits. Mediastinum: Within normal limits. Bones: No acute fractures. Sternotomy Other: None IMPRESSION: Mild retrocardiac airspace disease that may reflect pneumonia. Background of emphysema.
[2022-08-28] MEDS: AZITHROMYCIN IV 500 MG in NA CHLORIDE 0.9% 250 ML IVPB SCH ×2 (09:12→09:28)
[2022-08-28] MEDS: APIXABAN 5 MG TABLET PO SCH (09:12)
[2022-08-28] MEDS: ASPIRIN EC 81 MG TAB PO SCH (09:12)
[2022-08-28] MEDS: FAMOTIDINE 20 MG/2 ML VIAL IV SCH (09:12)
[2022-08-28] MEDS: CEFTRIAXONE 1,000 MG in NA CHLORIDE 0.9% 50 ML IVPB SCH ×2 (09:13→09:28)
[2022-08-28] MEDS: NA CHLORIDE 0.9% 1,000 ML IV SCH (10:53)
[2022-08-28 12:46] VITALS: O2SAT 90
--- NOTE | 2022-08-28 16:10 | P.DS ---
Admission Date: 08/27/22 Discharge Date: 08/28/22 Primary Care Provider: Gurmeet Disposition: TRANSFER TO [facility] Comment: [facility] Discharge Condition: FAIR Reason for Admission: Transient Ischemic Attack Consultations: 1. Neurology Hospital Course: DIAGNOSES: # Suspected Transient Ischemic Attack # History of Prior Cerebrovascular Accident # Question of Community-Acquired Pneumonia # Bilateral Carotid Artery Stenosis # Coronary Artery Disease s/p CABG (1997) # Chronic Atrial Fibrillation on Apixaban # Chronic Obstructive Pulmonary Disease # Hypertension # Hyperlipidemia # Chronic Back Pain # Tobacco Use Disorder # Right Adrenal Gland Mass (5.6 cm) # Left Lower Lobe Opacity (6 cm) HOSPITAL COURSE: Ms. Jenny Douglas is a pleasant 81-year-old female with a past medical history significant for prior cerebrovascular accidents, carotid artery disease s/p CABG, bilateral carotid artery stenosis, chronic atrial fibrillation on apixaban, chronic obstructive pulmonary disease, hypertension, hyperlipidemia, and tobacco use disorder who was admitted to the [facility] on 08/26/2022 for slurred speech and expressive aphasia. She was admitted to the Medicine service under Dr. Levi. My service was asked to cover for Dr. Levi's service this weekend. Upon review of her chart from this admission, her chest x-ray revealed, "mild retrocardiac airspace disease that may reflect pneumonia. Background of emphysema." Her CT head revealed, "no acute intracranial hemorrhage identified. Mild brain atrophy with periventricular white matter changes of microvascular ischemia. No significant interval change." Upon my evaluation today, her neurologic symptoms had completely resolved. I previously saw Ms. Douglas last month for similar symptoms. At that time, she had an MRA neck revealing, "significant stenosis of the post bulbar right proximal ICA estimated 90% or greater. 50-70% stenosis left carotid bulb." Last admission, a detailed risk/benefits discussion was held with her and her granddaughter regarding her bilateral carotid artery stenosis and that she may benefit from a vascular procedure. She had stated that she has had this finding in the past and it had been evaluated with an angiogram. She stated that she was told by her outside physician that her carotids will look stenosed due to the vessels being very tortuous. She declined our offer to transfer her last admission for a neurovascular evaluation. Last admission she was started on aspirin, atorvastatin, folic acid, and apixaban per Neurology recommendations. This admission, she stated that she would like to be transferred for further evaluation due to the recurrent nature of her symptoms. I completed a doc-to-doc with Dr. Bernarda Galvez ([facility]), who has generously accepted to consult on her case. He has recommended that she be started on a heparin drip (to be started on 08/28/2022 @ 21:00 since she received apixaban this morning). Doc-to-doc was completed with Dr. Arnel Gonzalez ([facility]), who has generously accepted her for transfer. On 08/28/2022, she was seen on rounds and deemed medically stable for transfer. She and her family members were given the opportunity to ask questions and reported no further questions. Furthermore, all questions were answered to the best of my ability. A copy of this discharge summary will be sent to the above providers to facilitate continuity of care. Today, I personally spent 45 minutes on her case, of which greater than 50% of the time was spent in patient education, counseling, and coordination of care as described above. NIH Stroke Scale 1a. Level of consciousness: 0 - Alert; keenly responsive 1b. LOC questions: 0 - Both questions right 1c. LOC commands: 0 - Performs both tasks 2. Best Gaze: 0 - Normal 3. Visual: 0 - No visual loss 4. Facial Palsy: 0 - Normal symmetry 5a. Motor left arm: 0 - No drift for 10 seconds 5b. Motor right arm: 0 - No drift for 10 seconds 6a. Motor left le - No drift for 5 seconds 6b. Motor right le - No drift for 5 seconds 7. Limb ataxia: 0 - No ataxia 8. Sensory: 0 - Normal; no sensory loss 9. Best Language: 0 - Normal; no aphasia 10. Dysarthria: 0 - Normal 11. Extinction and Inattention: 0 - No abnormality 12. Distal motor function: 0 - No abnormality Total Score: 0 General: Alert, In no apparent distress, Oriented x3 HEENT: Atraumatic, PERRLA, Mucous membr. moist/pink, EOMI, Sclerae nonicteric Neck: Supple, JVD not distended Respiratory: Clear to auscultation bilaterally, Normal air movement Cardiovascular: No edema, Regular rate/rhythm, Normal S1 S2, No gallops, No rubs, No murmurs Capillary refill: <2 Seconds Gastrointestinal: Normal bowel sounds, Soft and benign, Non-distended, No tenderness, No rebound, No guarding Musculoskeletal: No clubbing Integumentary: No rashes Neurological: Normal gait, Normal speech, Normal strength at 5/5 x4 extr, Normal tone, Sensation intact, Cranial nerves 3-12 intact, Normal affect Laboratory Data at Discharge: Vital Signs/Physical Exam: Temp Pulse Resp BP Pulse Ox 98.3 F 79 14 156/70 H 94 08/28/22 12:00 08/28/22 12:00 08/28/22 12:00 08/28/22 12:00 08/28/22 12:00 Laboratory Data at Discharge: WBC 14.40 K/uL (4.3-10.9) H 08/28/22 05:22 Hgb 10.4 g/dL (12.0-15.0) L 08/28/22 05:22 Hct 31.5 % (36.0-45.0) L 08/28/22 05:22 Plt Count 172 K/uL (152-406) 08/28/22 05:22 PT 15.2 SECONDS (9.5-12.5) H 08/27/22 01:20 INR 1.38 08/27/22 01:20 Sodium 142 mmol/L (136-145) 08/28/22 05:22 Potassium 4.3 mmol/L (3.5-5.1) 08/28/22 05:22 BUN 35 mg/dL (7-18) H 08/28/22 05:22 Creatinine 1.03 mg/dL (0.55-1.02) H 08/28/22 05:22 Glucose 149 mg/dL (74-106) H 08/28/22 05:22 Magnesium 1.9 mg/dL (1.6-2.4) 08/27/22 01:00 Total Bilirubin 0.7 mg/dL (0.2-1.0) 08/27/22 01:00 AST 40 U/L (15-37) H 08/27/22 01:00 ALT 39 U/L (13-56) 08/27/22 01:00 Alkaline Phosphatase 129 U/L (45-117) H 08/27/22 01:00 Home Medications: Atorvastatin Calcium [Lipitor] 80 mg PO BEDTIME 07/09/14 Apixaban [Eliquis] 5 mg PO BID 30 Days #60 04/29/22 Albuterol Inhaler [Ventolin Inhaler*] 2 puff IH Q6HP PRN 07/04/22 Umeclidinium Brm/Vilanterol Tr [Anoro Ellipta 62.5-25 Mcg INH] 1 puff IH DAILY 07/04/22 Losartan Potassium [Cozaar] 50 mg PO BID #60 tab 07/06/22 Cyclobenzaprine HCl [Flexeril] 5 mg PO TIDP PRN 08/09/22 Aspirin Chewable [Aspirin Chewable*] 81 mg PO DAILY tab.chew 08/10/22 Folic Acid 1 mg PO DAILY #1 08/10/22 Diet: AHA Activity: Bedrest Followup: Thiago Levi MD [Primary Care Provider] -
[2022-08-28 16:58] VITALS: BP 155/71; TEMP 97.4
== END 2022-08-28 18:28 | disposition short-term general hospital (02) | DRG 69 ==
LOC: ER 00:09 → ERHOLD 02:45 → 4TH 13:37
PROVIDERS: ADMIT Family Medicine; ATTEND Family Medicine
DX: G45.9 Transient cerebral ischemic attack, unspecified (principal); A41.9 Sepsis, unspecified organism; J18.9 Pneumonia, unspecified organism; I48.20 Chronic atrial fibrillation, unspecified; R47.01 Aphasia; E78.5 Hyperlipidemia, unspecified; J43.9 Emphysema, unspecified; I10 Essential (primary) hypertension; G89.29 Other chronic pain; M54.9 Dorsalgia, unspecified; E27.9 Disorder of adrenal gland, unspecified; I25.10 Atherosclerotic heart disease of native coronary artery without angina pectoris; I25.2 Old myocardial infarction; R47.81 Slurred speech; R29.700 NIHSS score 0; R09.02 Hypoxemia; Z95.1 Presence of aortocoronary bypass graft; Z88.8 Allergy status to other drugs, medicaments and biological substances; Z79.01 Long term (current) use of anticoagulants; Z86.73 Personal history of transient ischemic attack (TIA), and cerebral infarction without residual deficits; Z79.82 Long term (current) use of aspirin; Z79.899 Other long term (current) drug therapy; Z20.822 Contact with and (suspected) exposure to COVID-19
CPT/HCPCS: 0240U; 36415; 70450; 71045; 80048; 80076; 81003; 82805; 82947; 83605; 83735; 83880; 84484; 85025; 85610; 87040; 87086; 87088; 93005; 94760; 99285; J0456; J2920; J2930; J7030; J7050; J7614; J7644

== ENCOUNTER 2022-10-24 12:52 | Inpatient (IN) | payer MEDICARE, OTHER ==
--- OUTSIDE RECORDS SUMMARY | 2022-10-24 12:57 | XMS REPORT | Continuity of Care Document ---
:1940 Author Organization [facility] t Address [address] [place] [address] Dr. [address]. [address] [place] [address] Care Team Providers Name Role Phone FAUSTINA WHITE Primary Care Physician Unavailable Lisa CLEMENT, Michael Mejia Attending Clinician [phone] Carolina Farnsworth MD Attending Clinician Boni Roper MD Attending Clinician CAROLINA FARNSWORTH Attending Clinician Unavailable Lenny CLEMENT, Bernarda Nicholas Attending Clinician MICHAEL FARNSWORTH Attending Clinician Unavailable Oneil More MD Attending Clinician [phone] BONI ROPER Admitting Clinician Unavailable Payers Payer Name Policy Type Policy Number Effective Date Expiration Date [facility] [id number] 2022 (MEDICARE 00:00:00 REPLACEMENT HMO) Problems Condition Condition Condition Status Onset Resolution Last Treating Co mments Source Name Details Category Date Date Treatment Clinician Date Carotid Carotid Disease Active 2021-[address] [facility] artery artery 2-11 [facility] stenosis, stenosis, 00:00: Medi he symptomati symptomati 00 Ce nter c, right c, right TIA TIA Disease Active 2021-[address] [facility] [address] (transient (transient 2-10 [facility] ischemic ischemic 00:00: Medica l attack) attack) 00 Center COPD COPD Disease Active 2021-[address] [facility] [address] exacerbati exacerbati 2-10 [facility] on on 00:00: Medical 00 Center Atrial Atrial Disease Active 2021-[address] fibrillati fibrillati 2-10 [facility] on with on with 00:00: Medical rapid rapid 00 Center ventricula ventricula r response r response Expressive Expressive Disease Active 2021-[address] aphasia aphasia 2-10 [facility] 00:00: Medical 00 [place] Dysarthria Dysarthria Disease Active 2021-[address] due to due to 2-10 [facility] acute acute 00:00: Medical cerebrovas cerebrovas 00 Ce nter cular cular accident accident (CVA) (CVA) Other Other Disease Active [facility] specified specified 10-17 [facility] transient transient 00:00: [facility] he cerebral cerebral 00 Center ischemias ischemias Thrombocyt Thrombocyt Disease Active [facility] openia openia 10-17 [facility] 00:[facility]: Medical 00 Center B12 B12 Disease Active [facility] deficiency deficiency 10-17 [facility] 00:00: Medical 00 Center CAD CAD Disease Active [facility] (coronary (coronary 10-17 [facility] artery artery 00:00: Medical disease) disease) 00 Center Hyperchole Hyperchole Disease Active [facility] sterolemia sterolemia 10-17 [facility] 00:00: Medical 00 Center Allergies, Adverse Reactions, Alerts Allergy Allergy Status Severity Reaction(s) Onset Inactive Treating Comm ents Source Name Type Date Date Clinician Celecoxi Drug Active Rash [facility] b Allergy 10-16 [facility] 00:00: Medical 00 [place] Simvasta Drug Active Rash [facility] tin Allergy 10-16 [facility] 00:00: Medical 00 [place] CELECOXI Allergy Active Low Rash [facility] B 10-16 00:00: 00 SIMVASTA Allergy Active Low Rash [facility] TIN 10-16 00:00: 00 Family History Family Member Diagnosis Comments Start Date Stop Date Source Natural mother Heart disease [facility] Natural sister Heart disease [facility] Social History Social Habit Start Date Stop Date Quantity Comments Source History SDOH [facility] Alcohol Std Drinks Medica l Center History SDOH [facility] Alcohol Binge Medical Jyoti ter History SDOH [facility] Alcohol Comment Medical C enter History SDOH [facility] Transport Non-Med Medical Center Alcohol intake 2022-08-31 2022-08-[address] [facility] 00:00:00 00:00:00 non-drinker Medical Cente r (finding) History [facility] 2022-08-29 2022-08-[address] [facility] Transport Med 00:00:00 00:00:[address] History [facility] 2022-08-29 2022-08-[address] [facility] Housing Unable to 00:00:00 00:00:00 Medical Center Pay History [facility] 2022-08-29 2022-08-[address] [facility] Housing Places 00:00:00 00:00:00 Medical Ce nter Lived History [facility] 2022-08-29 2022-08-[address] [facility] Housing Homeless 00:00:00 00:00:00 Medical Center Last Year Tobacco use and 2022-08-28 2022-08-[address] [facility] exposure 00:00:00 00:00:00 Medical Center History [facility] 2022-08-28 2022-08-[address] [facility] Alcohol Frequency 00:00:00 00:00:00 [facility] Center Cigarettes smoked 2022-08-28 2022-08-[address] [facility] current (pack per 00:00:00 00:00:00 Medical Center day) - Reported History of tobacco 2022-08-[address] [facility] use 00:00:00 tobacco Medical Center Sex Assigned At [address] [facility] 00:00:00 00:00:00 Medical Center Smoking Status Start Date Stop Date Source Tobacco smoking [facility] consumption unknown Former smoker 2022-08-28 00:00:00 2022-08-[address] [facility] Medical 00:00:00 Center Medications Ordered Filled Start Stop Current Ordering Indication Dosage Frequency Signature Comments Components Source Medication Medication Date Date Medication? Clinician (SIG) Name Name atorvastati 2021-09 Yes 80mg QD Take [address] n (LIPITOR) 2-14 by mouth [facility] 80 MG 16:42: nightly . Medical tablet 40 [place] aspirin 81 2021-09 Yes 81mg QD Take [address] MG EC 2-14 by mouth [facility] tablet 16:42: daily. Medical 40 [place] folic acid 2021-09 Yes 800ug QD Take [address] (FOLVITE) 2-14 mcg by [facility] 800 MCG 16:42: mouth Medical tablet 40 daily. [place] albuterol 2021-09 Yes 2{puff} Inhale [address] HFA 2-14 puffs by [facility] (VENTOLIN 16:42: mouth via Med ical HFA) 90 40 inhaler Center mcg/actuati every 4 on inhaler (four) hours as needed for Wheezing. apixaban 2021-09 Yes 5mg Q.5D Take [address] (Eliquis) 5 2-14 by mouth 2 [facility] mg Tab 16:42: (two) Medical tablet 40 times Center daily. umeclidiniu 2021-09 Yes QD Inhale by [facility] m 2-14 mouth via [facility] brm/vilante 16:42: inhaler Med ical rol tr 40 daily. [place] (ANORO ELLIPTA INHL) ezetimibe 2021-09 Yes 10mg QD Take [address] (ZETIA) 10 2-14 by mouth [facility] mg tablet 16:42: daily. Medica l 40 [place] losartan 2021-09- No 25mg QD Take [address] (COZAAR) 25 2-14 12-14 by mouth С[facility]гей es MG tablet 15:17: 00:00 daily. Medic al 41 :00 [place] losartan 2021-09- No 50mg QD Take [address] (COZAAR) 50 2-14 12-14 by mouth С[facility]гей es MG tablet 15:17: 00:00 nightly. Med ical 41 :00 [place] losartan 2021-09 Yes 25mg Q.5D Take [address] (COZAAR) 25 2-14 tablet (25 [facility] MG tablet 00:00: mg total) Med ical 00 by mouth 2 Center (two) times daily. metoprolol 2021-09 Yes 25mg Q.5D Take 1 [facility] tartrate 2-14 tablet (25 [facility] (LOPRESSOR) 00:00: mg total) M edical 25 MG 00 by mouth 2 Center tablet (two) times daily. ezetimibe 2021-09- No 10mg QD Take [address] (ZETIA) 10 2-10 12-10 by mouth [facility] mg tablet 22:39: 00:00 daily. Medic al 27 :00 [place] clopidogrel 2021-09- No 75mg QD Take [address] (PLAVIX) 75 2-10 12-10 by mouth [facility] mg tablet 22:39: 00:00 daily. Medic al 11 :00 [place] aspirin 325 2021-09- No 325mg QD Take [address] MG tablet 2-10 12-10 mg by [facility] 22:38: 00:00 mouth Medical 02 :00 daily. [place] Immunizations Ordered Immunization Filled Immunization Date Status Commen ts Source Name Name PFIZER COVID-19 MRNA 2020-12-12 Completed Meth odist VACCINATION 00:00:00 [facility] PFIZER COVID-19 MRNA 2020-12-12 Completed Meth odist VACCINATION 00:00:00 [facility] PFIZER COVID-19 MRNA 2020-12-12 Completed Meth odist VACCINATION 00:00:00 [facility] PFIZER COVID-19 MRNA 2020-12-12 Completed Meth odist VACCINATION 00:00:00 [facility] PFIZER COVID-19 MRNA 2020-12-12 Completed Meth odist VACCINATION 00:00:00 [facility] PFIZER COVID-19 MRNA 2020-12-12 Completed Meth odist VACCINATION 00:00:00 [facility] PFIZER COVID-19 MRNA 2020-11-21 Completed Meth odist VACCINATION 00:00:00 [facility] PFIZER COVID-19 MRNA 2020-11-21 Completed Meth odist VACCINATION 00:00:00 [facility] PFIZER COVID-19 MRNA 2020-11-21 Completed Meth odist VACCINATION 00:00:00 [facility] PFIZER COVID-19 MRNA 2020-11-21 Completed Meth odist VACCINATION 00:00:00 [facility] PFIZER COVID-19 MRNA 2020-11-21 Completed Meth odist VACCINATION 00:00:00 [facility] PFIZER COVID-19 MRNA 2020-11-21 Completed Meth odist VACCINATION 00:00:00 [facility] Vital Signs Vital Name Observation Time Observation Value Comments Source WEIGHT 2022-08-28 22:00:00 58.968 kg HEIGHT 2022-08-28 19:50:00 170.2 cm WEIGHT 2022-08-28 22:00:00 58.968 kg HEIGHT 2022-08-28 19:50:00 170.2 cm WEIGHT 2022-08-28 22:00:00 58.968 kg HEIGHT 2022-08-28 19:50:00 170.2 cm Heart rate 2022-09-01 14:12:00 79 /min [facility] Respiratory rate 2022-09-01 14:12:00 18 /min [facility] Oxygen saturation in 2022-09-01 14:12:00 95 /min [facility] Arterial blood by Medical Ce nter Pulse oximetry Systolic blood 2022-09-01 11:27:00 143 mm[Hg] [facility] Diastolic blood 2022-09-01 11:27:00 67 mm[Hg] [facility] Body temperature 2022-09-01 11:27:00 36.78 Con[place] [facility] Body weight 2022-08-28 22:00:00 58.968 kg [facility] BMI 2022-08-28 22:00:00 20.36 kg/m2 [facility] Body height 2022-08-28 19:50:00 170.2 cm [facility] Procedures Procedure Date / Time Performed Performing Clinician Sour e CT BRAIN WITHOUT IV 2022-09-01 13:35:00 Carolina Farnsworth [facility] COMPREHENSIVE METABOLIC 2022-09-01 05:14:[address] [facility] MAGNESIUM 2022-09-01 05:14:00 Bernarda Galvez blane [facility] CBC (HEMOGRAM ONLY) 2022-09-01 05:14:00 Bernarda Galvez [facility] MR BRAIN WITHOUT IV 2022-08-31 10:15:00 Carolina Farnsworth [facility] MRA HEAD WITHOUT IV 2022-08-31 10:10:00 Carolina Farnsworth [facility] MRA NECK WITHOUT IV 2022-08-31 10:10:00 Carolina Farnsworth [facility] COMPREHENSIVE METABOLIC 2022-08-31 05:10:[address] [facility] MAGNESIUM 2022-08-31 05:10:00 [facility] CBC (HEMOGRAM ONLY) 2022-08-31 05:10:00 Bernarda Galvezj [facility] ANGIOGRAM, LOWER 2022-08-30 14:54:00 [facility] CAROTID DOPPLER BILATERAL 2022-08-30 10:56:00 Bernarda Galvez Leonora kyrie [facility] APTT 2022-08-30 05:58:00 Carolina Farnsworth [facility] COMPREHENSIVE METABOLIC 2022-08-30 03:59:[address] [facility] MAGNESIUM 2022-08-30 03:59:00 [facility] PROT[facility] TIME/INR 2022-08-30 03:59:00 Carolina Farnsworth [facility] CBC (HEMOGRAM ONLY) 2022-08-30 03:59:00 [facility] CTA CAROTID 2022-08-29 18:09:00 [facility] 2022-08-29 13:34:00 Jacquelin [facility] 2D ECHO W/ DOPPLER 2022-08-29 13:02:05 [facility] (CW/PW/COLOR) [facility] COMPREHENSIVE METABOLIC 2022-08-29 10:12:00 [facility] MAGNESIUM 2022-08-29 10:12:00 [facility] TROPONIN I 2022-08-29 10:12:00 Keven [facility] SPUTUM CULTURE + GRAM 2022-08-29 05:09:00 [facility] CBC (HEMOGRAM ONLY) 2022-08-29 05:09:00 Lenny [facility] TROPONIN I 2022-08-29 04:56:00 [facility] APTT 2022-08-29 04:56:00 lucy [facility] XR CHEST 1 VIEW PORTABLE 2022-08-29 00:55:00 Af, [facility] STREP PNEUMONIAE ANTIGEN 2022-08-28 23:41:00 Afaq, [facility] LIPID PANEL 2022-08-28 23:40:00 Afaq, [facility] HEMOGLOBIN A1C 2022-08-28 23:40:00 Afaq, [facility] TSH/FREE T4 IF INDICATED 2022-08-28 23:40:00 Afaq, [facility] VITAMIN B12 2022-08-28 23:40:00 Afaq, [facility] T4, FREE 2022-08-28 23:40:00 Af, [facility] CBC W/PLT COUNT & AUTO 2022-08-28 21:31:00 Afaq, [facility] COMPREHENSIVE METABOLIC 2022-08-28 21:31:00 Af, [facility] MAGNESIUM 2022-08-28 21:31:00 Af, [facility] APTT 2022-08-28 21:31:00 Af, [facility] CBC W/PLT COUNT & AUTO 2022-08-28 21:31:00 Af, [facility] ECG 12-LEAD 2022-08-28 20:53:56 Unknown, [facility] ECG 12-LEAD 2022-08-28 20:53:24 Unknown, [facility] EKG-SCANNED 2022-08-28 00:00:00 ProviderFelix [facility] CARDIAC CATH REPORT - 2022-08-28 00:00:00 Provider, Felix [facility] Plan of Care Planned Activity Planned Date Details Comments Source Future Scheduled 2023-08-[address] [facility] Test 00:00:00 [facility]ing [facility] Medical Cente r Screening (12+) [code = Tobacco Cessation Counseling and Screening (12+)] Future Scheduled 2023-04-25 PNEUMOCOCCAL 65+ YRS [facility] Test 00:00:00 (2 - PCV) [code = Medical Ce nter PNEUMOCOCCAL 65+ YRS (2 - PCV)] Future Scheduled 2022-09-27 INFLUENZA VACCINE [facility] Test 08:04:56 [code = INFLUENZA VACCINE] Future Scheduled 2022-09-27 Hepatitis C screening [facility] Test 08:04:56 (procedure) [code = 442054601] Future Scheduled 2022-09-27 SHINGLES VACCINES (1 Met [facility] Test 08:04:56 of 2) [code = SHINGLES VACCINES (1 of 2)] Future Scheduled 2022-09-27 65+ PNEUMOCOCCAL [facility] Test 08:04:56 VACCINE (1 - PCV) [code = 65+ PNEUMOCOCCAL VACCINE (1 - PCV)] Future Scheduled 2022-09-27 COVID-19 VACCINE (3 - [facility] Test 08:04:56 Booster for Pfizer series) [code = COVID-19 VACCINE (3 - Booster for Pfizer series)] Future Scheduled 2022-09-[address] [facility] Test 00:00:00 (12+) [code = Medical Center DEPRESSION SCREENING (12+)] Future Scheduled 2022-09-19 FALLS RISK SCREENING [facility] Test 00:00:00 [code = FALLS RISK Medical C enter SCREENING] Future Scheduled 2022-07-26 HEPATITIS B VACCINES Met [facility] Test 07:03:55 (1 of 3 - 3-dose series) [code = HEPATITIS B VACCINES (1 of 3 - 3-dose series)] Future Scheduled 2022-07-26 SHINGLES VACCINES (1 Met [facility] Test 07:03:55 of 2) [code = SHINGLES VACCINES (1 of 2)] Future Scheduled 2022-07-26 65+ PNEUMOCOCCAL [facility] Test 07:03:55 VACCINE (1 - PCV) [code = 65+ PNEUMOCOCCAL VACCINE (1 - PCV)] Future Scheduled 2022-07-26 COVID-19 VACCINE (3 - [facility] Test 07:03:55 Booster for Pfizer series) [code = COVID-19 VACCINE (3 - Booster for Pfizer series)] Future Scheduled 2022-07-26 INFLUENZA VACCINE [facility] Test 07:03:55 [code = INFLUENZA VACCINE] Future Scheduled 2022-07-26 HEPATITIS B VACCINES Met [facility] Test 07:03:55 (1 of 3 - 3-dose series) [code = HEPATITIS B VACCINES (1 of 3 - 3-dose series)] Future Scheduled 2022-07-26 SHINGLES VACCINES (1 Met [facility] Test 07:03:55 of 2) [code = SHINGLES VACCINES (1 of 2)] Future Scheduled 2022-07-26 65[facility] 07:[facility] VACCINE (1 - PCV) [code = 65+ PNEUMOCOCCAL VACCINE (1 - PCV)] Future Scheduled 2022-07-26 COVID-19 VACCINE (3 - [facility] Test 07:03:55 Booster for Pfizer series) [code = COVID-19 VACCINE (3 - Booster for Pfizer series)] Future Scheduled 2022-07-26 INFLUENZA VACCINE [facility] Test 07:03:55 [code = INFLUENZA VACCINE] Future Scheduled 2022-07-26 HEPATITIS B VACCINES Met [facility] Test 07:03:55 (1 of 3 - 3-dose series) [code = HEPATITIS B VACCINES (1 of 3 - 3-dose series)] Future Scheduled 2022-07-26 SHINGLES VACCINES (1 Met [facility] Test 07:03:55 of 2) [code = SHINGLES VACCINES (1 of 2)] Future Scheduled 2022-07-26 65+ [facility] 07:03:55 VACCINE (1 - PCV) [code = 65+ PNEUMOCOCCAL VACCINE (1 - PCV)] Future Scheduled 2022-07-26 COVID-19 VACCINE (3 - Me [facility] Test 07:03:55 Booster for Pfizer series) [code = COVID-19 VACCINE (3 - Booster for Pfizer series)] Future Scheduled 2022-07-26 INFLUENZA VACCINE [facility] Test 07:03:55 [code = INFLUENZA VACCINE] Future Scheduled 2022-06-07 HEPATITIS B VACCINES Met [facility] Test 04:44:56 (1 of 3 - 3-dose series) [code = HEPATITIS B VACCINES (1 of 3 - 3-dose series)] Future Scheduled 2022-06-07 SHINGLES VACCINES (1 [facility] 04:44:56 of 2) [code = SHINGLES VACCINES (1 of 2)] Future Scheduled 2022-06-07 65+ [facility]OCOCCAL [facility] Test 04:44:56 VACCINE (1 - PCV) [code = 65+ PNEUMOCOCCAL VACCINE (1 - PCV)] Future Scheduled 2022-06-07 COVID-19 VACCINE (3 - [facility] Test 04:44:56 Booster for Pfizer series) [code = COVID-19 VACCINE (3 - Booster for Pfizer series)] Future Scheduled 2022-06-07 INFLUENZA VACCINE Method [facility] Test 04:44:56 [code = INFLUENZA VACCINE] Future Scheduled 2022-05-20 INFLUENZA VACCINE (#1[facility] 00:[facility]00 [code = INFLUENZA Medical Ce nter VACCINE (#1)] Future Scheduled 2008-10-[address] [facility] [facility] Test 00:00:00 WELLNESS (YEAR 2 or Medical Center FIRST YEAR if no IPPE) [code = MEDICARE ANNUAL WELLNESS (YEAR 2 or FIRST YEAR if no IPPE)] Future Scheduled 1992 SHINGLES VACCINES ([address] [facility] Test 00:00:00 of 2) [code = SHINGLES Medic al Center VACCINES (1 of 2)] Future Scheduled 1961 DTAP/TDAP/TD VACCINES [facility] Test 00:00:00 (1 - Tdap) [code = Medical C enter DTAP/TDAP/TD VACCINES (1 - Tdap)] Future Scheduled 1960 HEPATITIS C SCREENING [facility] Test 00:00:00 [code = HEPATITIS C Medical Center SCREENING] Future Scheduled 1941-05-07 COVID-19 VACCINE (#1) [facility] Test 00:00:00 [code = COVID-[address] VACCINE (#1)] Future Scheduled 1940 DXA SCAN [code = DXA [facility] Test 00:00:00 SCAN] Medical Center Future Scheduled [facility] [code = 886104906] Future Scheduled SHINGLES VACCINES (#1) [facility] Test [code = SHINGLES VACCINES (#1)] Future Scheduled 65+ [facility]UMOCOCCAL [facility] Test VACCINE (1 of 1 - PPSV23) [code = 65+ PNEUMOCOCCAL VACCINE (1 of 1 - PPSV23)] Future Scheduled INFLUENZA VACCINE Method [facility] Test [code = INFLUENZA VACCINE] Encounters Start End Encounter Admission Attending Care Care Encounter Source Date/Time Date/Time Type Type Clinicians Facility Department ID 2022-09-30 2022-09-30 Outpatient DMG DM [id number] [facility] 00:00:00 00:00:00 [id number] Medica l Group 2022-08-28 2022-09-01 Hospital Michael FarnsworthAlverto [facility] [id number] [facility] 19:30[facility]00 16:30[facility]00 [facility]22-08-28 2022-09-01 Inpatient UR [facility] [id number] [facility] 19:30:00 16:30:00 CAROLINA Peoples 2022-08-30 2022-08-30 Surgery Lenny, [facility] [id number] 14:30[facility]00 [facility]00 [facility] 2022-08-28 2022-08-28 Orders [facility] [id number] 00:00:00 00:00:00 Only [facility] 2022-08-28 2022-08-[address] [facility] [id number] [facility] 00:[facility]00 00:00:00 [facility] 2020-12-12 2020-12-12 Clinical Argenis, 1.2.840.1 [id number] Methodi 13:01:14 13:06:14 Support Oneil [address]59.1.[address] P. 3.430.2.7 Hospit a .3.831035 l .8 2020-11-21 2020-11-21 Clinical 1.2.840.1 [id number] [facility]i 15:25:41 15:30:[address] 3.430.2.7 Hospit a .3.244206 l .8 Results Test Description Test Time Test Comments Results Result [facility] e Comments CT, BRAIN, 2022-09-01 Follow up on WITHOUT CONTRAST 14:20:00 right occipital CVA and right [facility] temporal [facility] CENTERName: hemorrhage STONE MOY : 1940 Sex: F FI NAL REPORT CT, BRAIN, WITHOUT CONTRAST CLINICAL INDICATION: Stroke, follow up COMPARISON: MRI brain 08/31/2022 TECHNIQUE: Noncontrast axial CT imaging of the brain and skull. Coronal and sagittal reformats obtained. DOSE REDUCTION: Dose modulation, iterative reconstruction, and/or weight-based adjustment of the mA/kV was utilized to reduce the radiation dose to as low as reasonably achievable. FINDINGS:Cerebral parenchyma: Patient's known right occipital lobe acute infarct is inconspicuous by CT. No hemorrhagic transformation. Generalized parenchymal volume loss and extensive white matter hypoattenuation. Chronic ischemic changes of the deep johnson nuclei noted.Cerebellum and brainstem: No acute findings.Ventricles: No hydrocephalus.Extra-a xial spaces: Unremarkable. Calvarium and skull base: Intact.Paranasal sinuses and mastoid air cells: Partially opacified right maxillary sinus with hyperostosis compatible with chronic sinusitis.Orbital contents: Included portions unremarkable. IMPRESSION: No hemorrhagic transformation of the right occipital lobe small acute infarct better seen on recent MRI imaging. Involutional and severe chronic microangiopathic ischemic changes. Right maxillary chronic sinusitis. If there is persistent clinical concern for intracranial pathology, MR examination is recommended for further characterization. Signed: Osmany Sifuentes MDReport Verified Date/Time: 09/01/2022 14:20:54 REHENSIVE METABOLIC PANEL 2022-09-01 05:49:55 Test Item Value Reference Range Interpretation Comme nts TOTAL PROTEIN (BEAKER) 5.7 gm/dL 6.0-8.5 L (test code = 770) ALBUMIN (BEAKER) (test 2.9 g/dL 3.5-5.0 L code = 1145) ALKALINE PHOSPHATASE 64 U/L 30-115 (BEAKER) (test code = 346) BILIRUBIN TOTAL (BEAKER) 0.9 mg/dL 0.1-1.2 (test code = 377) SODIUM (BEAKER) (test 142 meq/L 135-148 code = 381) POTASSIUM (BEAKER) (test 3.5 meq/L 3.6-5.5 L code = 379) CHLORIDE (BEAKER) (test 106 meq/L 98-106 code = 382) CO2 (BEAKER) (test code 25 meq/L 20-29 = 355) BLOOD UREA NITROGEN 19 mg/dL 10-26 (BEAKER) (test code = 354) CREATININE (BEAKER) 0.83 mg/dL 0.50-1.20 (test code = 358) GLUCOSE RANDOM (BEAKER) 93 mg/dL 70-110 (test code = 652) CALCIUM (BEAKER) (test 8.5 mg/dL 8.5-10.5 code = 697) AST (SGOT) (BEAKER) 28 U/L 5-40 (test code = 353) ALT (SGPT) (BEAKER) 26 U/L 5-50 (test code = 347) EGFR (BEAKER) (test code 72 mL/min/1.73 sq Interpretation of eGFR values = 1092) m Stage Descripti on Result G1 Normal or high >=90 G2 Mildly decreased 60-89 G3a Mildly to moderately 45-5 9 G3b Moderately to severely 30- 44 G4 Severly decreased 15-29 G5 Kidney failure <15Repo rted eGFR is based on the CK D-EPI 2020 equation that d oes not use a race coefficien tEstimated GFR is not as accurate as Creatinine Clearance in pr edicting glomerular filt ration rate. Estimated GFR i s not applicable for dialysis sim ma Collection Support Specialist ID - [id number] ID - [id number] ID - [id number] ID - [id number] ID - [id number] ID - [id number] ID - [id number] ID - [id number] ID - [id number] ID - [id number] ID - [id number] ID - [id number] ID - [id number] ID - [id number] ID - [id number] ID -[id number] 05:47:55 Test Item Value Reference Range Interpretation Comments MAGNESIUM (BEAKER) (test code = 1.9 mg/dL 1.5-3.0 627) Collection Support Specialist ID - [id number] ID - [id number] ID - [id number] ID - [id number] (HEMOGRAM ONLY)2022-09-01 05:36:27 Test Item Value Reference Range Interpretation Comments WHITE BLOOD CELL COUNT (BEAKER) 11.4 K/ L 4.0-10.0 H (test code = 775) RED BLOOD CELL COUNT (BEAKER) 4.08 M/ L 4.00-5.00 (test code = 761) HEMOGLOBIN (BEAKER) (test code = 12.2 GM/DL 12.0-15.5 410) HEMATOCRIT (BEAKER) (test code = 38.4 % 36.0-46.0 411) MEAN CORPUSCULAR VOLUME (BEAKER) 94 fL 82-99 (test code = 753) MEAN CORPUSCULAR HEMOGLOBIN 29.9 pg 27.0-33.0 (BEAKER) (test code = 751) MEAN CORPUSCULAR HEMOGLOBIN CONC 31.8 GM/DL 32.0-36.0 L (BEAKER) (test code = 752) RED CELL DISTRIBUTION WIDTH 14.2 % 12.0-15.0 (BEAKER) (test code = 412) PLATELET COUNT (BEAKER) (test 176 K/CU MM 150-430 code = 756) MEAN PLATELET VOLUME (BEAKER) 11.3 fL 6.0-11.5 (test code = 754) NUCLEATED RED BLOOD CELLS 0 /100 WBC 0-0 (BEAKER) (test code = 413) MR, MRA, BRAIN, WITHOUT [id number] 11:51:00Reason for exam:->Ischemic Stroke EvaluationEM[facility] : 1940 Sex: FFINAL REPORT MR, BRAIN, WITHOUT CONTRAST, MR, MRA, NECK, WITHOUT IV CONTRAST, MR, MRA, BRAIN, WITHOUT CONTRAST INDICATION: Neuro deficit, acute, stroke suspectedIschemic Stroke Evaluation TECHNIQUE: Multiplanar, multisequence MR images of the brain. 3-D time of flight MRA of the cranial and cervical circulation. 2-D time of flight MRA of the neck. 3D Stenosis evaluation utilized NASCET criteria. COMPARISON: MRI, 10/16/2016 FINDINGS: MRI BRAIN: Brain parenchyma is normal in morphology. Midline structures are normally developed. Focal restricted diffusion in the right occipitalpole.Subtle susceptibility effect in the right temporal lobe, suggesting subarachnoid hemorrhage.Oldlacunar infarcts in the bilateral thalami and right cerebellar hemisphere. Scattered T2/FLAIR hyperintense foci within the periventricular and subcortical white matter and bijal are nonspecific, however, statistically represent chronic microvascular ischemic changes. No hydrocephalus. Orbits are withinnormal limits. Bilateral lens prostheses are present. Mild mucosal thickening in the bilateral maxillary sinuses. Additional findings: None. MRA BRAIN:Internal carotid arteries: No significant stenosis.Middle cerebral arteries: No significant stenosis. Anterior cerebral arteries: No significant stenosis. Absent left A1 segmentBasilar system: No significant stenosis. Posterior cerebral arteries: No significant stenosis. Additional findings: None. MRA NECK:Common carotid arteries: Unremarkable. Bifurcations: No flow-limiting stenosis. Cervical internal carotid arteries: Atherosclerotic plaque with sug gestion of 55% narrowing at the right proximal ICA (series 4 image 60)Vertebral arteries: Origins are not well-seen. No flow limiting stenosis within the visualized cervical vertebral arterial segments. Limited assessment of the V3 segment secondary to noncontrast technique. IMPRESSION: 1.Acute small-volume infarct in the right occipital lobe.2.Small volume subarachnoid hemorrhage in the right temporal lobe.3.Severe chronic small vessel ischemic changes in the supratentorial white matter. MRA head and neck:1.No large vessel occlusion.2.55% narrowing at the right ICA proximal cervical segment. CTA is more accurate for this evaluation. The above findings were discussed with , who acknowledged the findings, on 08/31/2022 at 11:50 AM. Signed: [facility] Verified Date/Time: 08/31/2022 11:51:18 MR, MRA, NECK, WITHOUT IV CONTRAST 2022-08-31 11:51:00Reason for exam:->[facility]schemic Stroke [facility] : 1940 Sex: FFINAL REPORT MR, BRAIN, WITHOUT CONTRAST, MR, MRA, NECK, WITHOUT IV CONTRAST,MR, MRA, BRAIN, WITHOUT CONTRAST INDICATION: Neuro deficit, acute, stroke suspectedIschemic Stroke Evaluation TECHNIQUE: Multiplanar, multisequence MR images of the brain. 3-D time of flight MRA of thecranial and cervical circulation. 2-D time of flight MRA of the neck. 3D Stenosis evaluation utilized NASCET criteria. COMPARISON: MRI, 10/16/2016 FINDINGS: MRI BRAIN: Brain parenchyma is normal in morphology. Midline structures are normally developed. Focal restricted diffusion in the right occipital pole.Subtle susceptibility effect in the right temporal lobe, suggesting subarachnoid hemorrhage.Old l acunar infarcts in the bilateral thalami and right cerebellar hemisphere. Scattered T2/FLAIR hyperintense foci within the periventricular and subcortical white matter and bijal are nonspecific, however,statistically represent chronic microvascular ischemic changes. No hydrocephalus. Orbits are within normal limits. Bilateral lens prostheses are present. Mild mucosal thickening in the bilateral maxillary sinuses. Additional findings: None. MRA BRAIN:Internal carotid arteries: No significant stenosis.Middle cerebral arteries: No significant stenosis. Anterior cerebral arteries: No significant stenosis. Absent left A1 segmentBasilar system: No significant stenosis. Posterior cerebral arteries: No significant stenosis. Additional findings: None. MRA NECK:Common carotid arteries: Unremarkable. Bifurcations: No flow-limiting stenosis. Cervical internal carotid arteries: Atherosclerotic plaque with sugg estion of 55% narrowing at the right proximal ICA (series 4 image 60)Vertebral arteries: Origins arenot well-seen. No flow limiting stenosis within the visualized cervical vertebral arterial segments.Limited assessment of the V3 segment secondary to noncontrast technique. IMPRESSION: 1.Acute small-volume infarct in the right occipital lobe.2.Small volume subarachnoid hemorrhage in the right temporal lobe.3.Severe chronic small vessel ischemic changes in the supratentorial white matter. MRA head and neck:1.No large vessel occlusion.2.55% narrowing at the right ICA proximal cervical segment. CTA ismore accurate for this evaluation. The above findings were discussed with , who acknowledged the findings, on 08/31/2022 at 11:50 AM. Signed: Honorio Francis MDReport Verified Date/Time: 08/31/2022 11:51:18 MR, BRAIN, WITHOUT [id number] 11:51:00Reason for exam:->Ischemic Stroke Evaluation [facility] : 1940 Sex: FFINAL REPORT MR, BRAIN, WITHOUT CONTRAST, MR, MRA, NECK, WITHOUT IV CONTRAST,MR, MRA, BRAIN, WITHOUT CONTRAST INDICATION: Neuro deficit, acute, stroke suspectedIschemic Stroke Evaluation TECHNIQUE: Multiplanar, multisequence MR images of the brain. 3-D time of flight MRA of thecranial and cervical circulation. 2-D time of flight MRA of the neck. 3D Stenosis evaluation utilized NASCET criteria. COMPARISON: MRI, 10/16/2016 FINDINGS: MRI BRAIN: Brain parenchyma is normal in morphology. Midline structures are normally developed. Focal restricted diffusion in the right occipital pole.Subtle susceptibility effect in the right temporal lobe, suggesting subarachnoid hemorrhage.Old l acunar infarcts in the bilateral thalami and right cerebellar hemisphere. Scattered T2/FLAIR hyperintense foci within the periventricular and subcortical white matter and bijal are nonspecific, however,statistically represent chronic microvascular ischemic changes. No hydrocephalus. Orbits are within normal limits. Bilateral lens prostheses are present. Mild mucosal thickening in the bilateral maxillary sinuses. Additional findings: None. MRA BRAIN:Internal carotid arteries: No significant stenosis.Middle cerebral arteries: No significant stenosis. Anterior cerebral arteries: No significant stenosis. Absent left A1 segmentBasilar system: No significant stenosis. Posterior cerebral arteries: No significant stenosis. Additional findings: None. MRA NECK:Common carotid arteries: Unremarkable. Bifurcations: No flow-limiting stenosis. Cervical internal carotid arteries: Atherosclerotic plaque with sugg estion of 55% narrowing at the right proximal ICA (series 4 image 60)Vertebral arteries: Origins arenot well-seen. No flow limiting stenosis within the visualized cervical vertebral arterial segments.Limited assessment of the V3 segment secondary to noncontrast technique. IMPRESSION: 1.Acute small-volume infarct in the right occipital lobe.2.Small volume subarachnoid hemorrhage in the right temporal lobe.3.Severe chronic small vessel ischemic changes in the supratentorial white matter. MRA head and neck:1.No large vessel occlusion.2.55% narrowing at the right ICA proximal cervical segment. CTA ismore accurate for this evaluation. The above findings were discussed with , who acknowledged the findings, on 08/31/2022 at 11:50 AM. Signed: Honorio Francis Verified Date/Time: 08/31/2022 11:51:18 Sputum Culture + Gram [id number] 11:06:31 Test Item Value Reference Range Interpretation Comments Result (test code = 1+ Normal respiratory 6463-4) jessie present Gram Stain Result 2+ Mixed jessie (test code = 1123) [facility] [id number] 11:06:31 Test Item Value Reference Range Interpretation Comments CULTURE (BEAKER) 1+ Normal respiratory (test code = 1095) jessie present GRAM STAIN RESULT 2+ White blood cells (BEAKER) (test code = seen 1123) GRAM STAIN RESULT <1+ epithelial cells (BEAKER) (test code = 68998) GRAM STAIN RESULT 2+ Mixed jessie (BEAKER) (test code = 20183) COMPREHENSIVE METABOLIC [id number] 06:37:32 Test Item Value Reference Range Interpretation Comments TOTAL PROTEIN 6.3 gm/dL 6.0-8.5 (BEAKER) (test code = 770) ALBUMIN (BEAKER) 3.1 g/dL 3.5-5.0 L (test code = 1145) ALKALINE 74 U/L 30-115 PHOSPHATASE (BEAKER) (test code = 346) BILIRUBIN TOTAL 1.0 mg/dL 0.1-1.2 (BEAKER) (test code = 377) SODIUM (BEAKER) 143 meq/L 135-148 (test code = 381) POTASSIUM (BEAKER) 3.8 meq/L 3.6-5.5 (test code = 379) CHLORIDE (BEAKER) 106 meq/L 98-106 (test code = 382) CO2 (BEAKER) (test 23 meq/L 20-29 code = 355) BLOOD UREA 20 mg/dL 10-26 NITROGEN (BEAKER) (test code = 354) CREATININE 0.80 mg/dL 0.50-1.20 (BEAKER) (test code = 358) GLUCOSE RANDOM 80 mg/dL 70-110 (BEAKER) (test code = 652) CALCIUM (BEAKER) 8.9 mg/dL 8.5-10.5 (test code = 697) AST (SGOT) 35 U/L 5-40 (BEAKER) (test code = 353) ALT (SGPT) 34 U/L 5-50 (BEAKER) (test code = 347) EGFR (BEAKER) 75 Interpretatio n of eGFR (test code = 1092) mL/min/1.[address] age Description sq m Result G1 Ashwini l or high >=90 G2 Mildly decreased 60-89 G3a Mildl y to moderately 45-5 9 G3b Moderately to s everely 30-44 G4 Severl y decreased 15-29 G5 Kidney failure <15Reported eGF R is based on the CKD-EPI 2020 equation that d oes not use a race coefficientEsti mated GFR is not as accur ate as Creatinine Candy ashley in predicting glom erular filtration rate . Estimated GFR is not appl icable for dialysis patien ts Collection Support Specialist ID - [id number] ID - [id number] ID - [id number] ID - [id number] ID - [id number] ID - [id number] ID - [id number] ID - [id number] ID - [id number] ID - [id number] ID - [id number] ID - [id number] ID - EMPI08Vrgsoled ID - [id number] ID - [id number] ID - [id number] 06:37:11 Test Item Value Reference Range Interpretation Comments MAGNESIUM (BEAKER) (test code = 2.1 mg/dL 1.5-3.0 627) Collection Support Specialist ID - [id number] ID - [id number] ID - [id number] ID - [id number] CBC (HEMOGRAM ONLY)2022-08-31 06:19:29 Test Item Value Reference Range Interpretation Comments WHITE BLOOD CELL COUNT (BEAKER) 12.8 K/ L 4.0-10.0 H (test code = 775) RED BLOOD CELL COUNT (BEAKER) 4.41 M/ L 4.00-5.00 (test code = 761) HEMOGLOBIN (BEAKER) (test code = 13.2 GM/DL 12.0-15.5 410) HEMATOCRIT (BEAKER) (test code = 41.4 % 36.0-46.0 411) MEAN CORPUSCULAR VOLUME (BEAKER) 94 fL 82-99 (test code = 753) MEAN CORPUSCULAR HEMOGLOBIN 29.9 pg 27.0-33.0 (BEAKER) (test code = 751) MEAN CORPUSCULAR HEMOGLOBIN CONC 31.9 GM/DL 32.0-36.0 L (BEAKER) (test code = 752) RED CELL DISTRIBUTION WIDTH 14.0 % 12.0-15.0 (BEAKER) (test code = 412) PLATELET COUNT (BEAKER) (test 200 K/CU MM 150-430 code = 756) MEAN PLATELET VOLUME (BEAKER) 11.6 fL 6.0-11.5 H (test code = 754) NUCLEATED RED BLOOD CELLS 0 /100 WBC 0-0 (BEAKER) (test code = 413) CAROTID DOPPLER, [id number] 13:31:00Reason for exam:->rule out carotid stenosisCH[facility]LEY[facility] : 1940 Sex: FFINAL REPORT Carotid Doppler, 08/30/2022 HISTORY: Carotid bruit TECHNIQUE: Grayscale, color flow and spectral waveform analysis of the carotid bifurcations and adjacent carotid vascularity as well as portions of the cervical vertebral arteries were obtained. Right carotid: Mild plaque formation is noted in the distal portion of the common carotid artery. There is moderate plaque formation present at the bifurcation, extending into the internal carotid artery with high-grade stenosis of greater than 70% present. Peak systolic velocity in the mid portion of the internal carotidartery is 77 cm/s. Slightly elevated peak systolic velocities are also present in the origin of the external carotid artery. Left carotid: Peak systolic and end-diastolic velocities are within normal limits although plaque formation can be observed in the carotid bifurcation with stenosis estimated ana m less than 50%. Additional plaques are present in the common carotid and origin of the external carotid arteries, again without evidence of significant stenosis. There is antegrade flow in both verteb ral arteries CONCLUSION: High-grade stenosis in the right internal carotid artery. Stenoses of less than 50% in the origin of the left internal and external carotid arteries. Signed: Victor M Bowden MDReport Verified Date/Time: 08/30/2022 13:31:22 Reading Location: [facility] Radiology Reading Room Electronic ally signed by: VICTOR M BOWDEN M.D. on 08/30/2022 01:31 PMCT, CAROTID, ANGIO 2022-08-30 12:09:00Unlisted Reason for Exam - Click Yes and Enter Reason Below->NoHAMMOND [facility]Name: [facility] : 1940 Sex: FFINAL REPORT CT, CAROTID, ANGIO CLINICAL HISTORY: Carotid artery stenosis COMPARISON: None TECHNIQUE:Rapid acquisition spiral images were obtained between the aortic arch and theskull base during intravenous contrast infusion to reconstruct axial images and angiographic 3D maximum intensity projections (MIP). 3-D volumetric reformatted images were created at a dedicated workstation. Measurements are performed according to NASCET criteria. DOSE REDUCTION: Dose modulation, iterative reconstruction, and/or weight-based adjustment of the mA/kV was utilized to reduce the radiation dose to as low as reasonably achievable. FINDINGS:CTA NECK:RIGHT INTERNAL AND EXTERNAL CAROTID ARTERIES: Severe atherosclerotic plaque at the CCA bifurcation. 70% narrowing at the right ICA proximal cervical segment.LEFT INTERNAL AND EXTERNAL CAROTID ARTERIES: Moderate atherosclerotic plaque at the CCA bifurcation. Less than 50% narrowing by NASCET criteria. No carotid dissection.Co-dominant vertebral artery system. Mild to moderate narrowing at the right vertebral artery origin. NONVASCULAR FINDINGS:No acute osseous abnormality. Chronic right maxillary sinus disease.No lymphadenopathy.No apical consolidation or pneumothorax. Diffuse pulmonary emphysematous changes. IMPRESSION:1.70% narrowing at the right ICA proximal cervical segment secondary to calcified and noncalcified plaque. Tortuosity ofthe right ICA distal cervical segment.2.Calcified plaque at the left carotid bifurcation with less than 50% atherosclerotic narrowing by NASCET criteria3.Mild to moderate narrowing of the right vertebral artery origin4.Mild atherosclerotic narrowing at the left proximal subclavian artery. Signed: Honorio Hernández MDReport Verified Date/Time: 08/30/2022 12:09:25 2D Echo W/Doppler(CW/PW/Color) 2022-08-30 11:52:56Ejection FractionSLEH ECHO HEARTLAB [facility]AP[facility]2022-[facility]-12 06:19:56 Test Item Value Reference Range Interpretation Comments PARTIAL THROMBOPLASTIN 57.1 seconds 23.0-35.0 H Final Information TIME (BEAKER) (test (Auto Ou tput) code = 760) COMPREHENSIVE METABOLIC [id number] 04:29:50 Test Item Value Reference Range Interpretation Comments TOTAL PROTEIN 5.7 gm/dL 6.0-8.5 L (BEAKER) (test code = 770) ALBUMIN (BEAKER) 2.8 g/dL 3.5-5.0 L (test code = 1145) ALKALINE 73 U/L 30-115 PHOSPHATASE (BEAKER) (test code = 346) BILIRUBIN TOTAL 0.5 mg/dL 0.1-1.2 (BEAKER) (test code = 377) SODIUM (BEAKER) 143 meq/L 135-148 (test code = 381) POTASSIUM (BEAKER) 3.3 meq/L 3.6-5.5 L (test code = 379) CHLORIDE (BEAKER) 107 meq/L 98-106 H (test code = 382) CO2 (BEAKER) (test 27 meq/L 20-29 code = 355) BLOOD UREA 31 mg/dL 10-26 H NITROGEN (BEAKER) (test code = 354) CREATININE 1.03 mg/dL 0.50-1.20 (BEAKER) (test code = 358) GLUCOSE RANDOM 99 mg/dL 70-110 (BEAKER) (test code = 652) CALCIUM (BEAKER) 8.5 mg/dL 8.5-10.5 (test code = 697) AST (SGOT) 36 U/L 5-40 (BEAKER) (test code = 353) ALT (SGPT) 38 U/L 5-50 (BEAKER) (test code = 347) EGFR (BEAKER) 55 Interpretatio n of eGFR (test code = 1092) mL/min/1.[address] age Description sq m Result G1 Ashwini l or high >=90 G2 Mildly decreased 60-89 G3a Mildl y to moderately 45-5 9 G3b Moderately to s everely 30-44 G4 Severl y decreased 15-29 G5 Kidney failure <15Reported eGF R is based on the CKD-EPI 2020 equation that d oes not use a race coefficientEsti mated GFR is not as accur ate as Creatinine Candy ramirez in predicting glom erular filtration rate . Estimated GFR is not appl icable for dialysis patien ts Collection Support Specialist ID - [id number] ID - [id number] ID - [id number] ID - [id number] ID - [id number] ID - [id number] ID - [id number] ID - [id number] ID - [id number] ID - [id number] ID - [id number] ID - [id number] ID - [id number] ID - [id number] ID - [id number] ID -[id number] 04:26:30 Test Item Value Reference Range Interpretation Comments MAGNESIUM (BEAKER) (test code = 1.7 mg/dL 1.5-3.0 627) Collection Support Specialist ID - [id number] ID - [id number] ID - [id number] ID - [id number] TIME/[id number] 04:19:25 Test Item Value Reference Range Interpretation Comments PROTIME (BEAKER) 11.4 seconds 9.3-12.0 Final Infor mation (test code = 759) (Auto Outp ut) INR (BEAKER) (test 1.04 See_Comment Final Inf ormation code = 370) (Auto Output) [Automated mess age] The system [employer] generated this result transmitted ref erence range: <=5.90. The reference range was not used to int erpret this result as normal/abnormal . RECOMMENDED COUMADIN/WARFARIN INR THERAPY RANGESSTANDARD DOSE: 2.0 - 3.0 Includes: PROPHYLAXIS for venous thrombosis, systemic embolization; TREATMENT for venous thrombosis and/or pulmonary embolus.HIGH RISK: Target INR is 2.5-3.5 for patients with mechanical heart valves.CBC (HEMOGRAM ONLY)2022-08-30 04:06:42 Test Item Value Reference Range Interpretation Comments WHITE BLOOD CELL COUNT (BEAKER) 11.0 K/ L 4.0-10.0 H (test code = 775) RED BLOOD CELL COUNT (BEAKER) 4.10 M/ L 4.00-5.00 (test code = 761) HEMOGLOBIN (BEAKER) (test code = 12.3 GM/DL 12.0-15.5 410) HEMATOCRIT (BEAKER) (test code = 38.6 % 36.0-46.0 411) MEAN CORPUSCULAR VOLUME (BEAKER) 94 fL 82-99 (test code = 753) MEAN CORPUSCULAR HEMOGLOBIN 30.0 pg 27.0-33.0 (BEAKER) (test code = 751) MEAN CORPUSCULAR HEMOGLOBIN CONC 31.9 GM/DL 32.0-36.0 L (BEAKER) (test code = 752) RED CELL DISTRIBUTION WIDTH 14.5 % 12.0-15.0 (BEAKER) (test code = 412) PLATELET COUNT (BEAKER) (test 187 K/CU MM 150-430 code = 756) MEAN PLATELET VOLUME (BEAKER) 11.1 fL 6.0-11.5 (test code = 754) NUCLEATED RED BLOOD CELLS 0 /100 WBC 0-0 (BEAKER) (test code = 413) Strep pneumoniae [id number] 14:38:55 Test Item Value Reference Range Interpretation Comments Strep pneumoniae Presumptive negative Presumptive Antigen (test code = [place] [address]-3) pneumonia - see pneumococcal comment pneumonia - see comment, Presumptive negative for pneumococcal meningitis - see comment MICHELLE (test code = MICHELLE) Presumptive negative for pneumococcal pneumonia, suggesting no current or recent pneumococcal infection. Infection due to S. pneumoniae cannot be ruled out since the antigen present in the sample may be below the detection limit of the test. Lab Interpretation Normal (test code = 12589-2) [facility] CenterTRE[facility] PNEUMONIAE [id number] 14:38:55 Test Item Value Reference Range Interpretation Comments STREP PNEUMONIAE Presumptive negative Presumptive negative ANTIGEN (BEAKER) for pneumococcal for pneumococcal (test code = 1615) pneumonia - see pneumonia - see comment commen Presumptive negative for pneumococcal pneumonia, suggesting no current or recent pneumococcal infection. Infection due to S. pneumoniae cannot be ruled out since the antigen present in the sample may be below the detection limit of the test. Legionella antigen, [id number] 14:38:04 Test Item Value Reference Range Interpretation Comments Legionella Urine Negative - see Negative Negative for L. Antigen (test code = comment pneumop clif 17980-4) serogroup 1 antigen, sugges ting no recent or current infecti on with this serogroup. Legionellosis cannot be ruled out since other serogroups and species may cau se disease. Lab Interpretation Normal (test code = 36210-0) [facility] HospitalLE[facility]ION[facility]LL[facility] ANTIGEN, [id number] 14:38:04 Test Item Value Reference Range Interpretation Comments L. PNEUMOPHILA Negative - see Negative Negative fo r L. SEROGP 1 UR AG comment pneumophila (BEAKER) (test code serogrou p 1 antigen, = 1156) suggesting no r ecent or current infe ction with this serog roup. Legionellosis c annot be ruled out si nce other serogroup s and species may cau se disease. [id number] 13:54:34 Test Item Value Reference Range Interpretation Comments PARTIAL THROMBOPLASTIN 57.4 seconds 23.0-35.0 H Final Information TIME ([facility]) (test (Auto Ou tput) code = 760) TROPONIN [id number] 10:47:04 Test Item Value Reference Range Interpretation Comments TROPONIN I ([facility]) (test code = 0.28 ng/mL 0.00-0.15 [facility]) Troponin I (TnI) levels must be interpreted in the context of the presenting symptoms and the clinical findings. Elevated TnI levels indicate myocardial damage, but are not specific for ischemic heart disease. Elevated TnI levels are seen in patients with other cardiac conditions (including myocarditis and congestive heart failure), and slight TnI elevations occur in patients with other conditions, including sepsis, renal failure, acidosis, acute neurological disease, and persistent tachyarrhythmia.Collection Support Specialist ID - [id number] METABOLIC [id number] 10:41:39 Test Item Value Reference Range Interpretation Comments TOTAL PROTEIN 6.1 gm/dL 6.0-8.5 (BEAKER) (test code = 770) ALBUMIN (BEAKER) 2.9 g/dL 3.5-5.0 L (test code = 1145) ALKALINE 74 U/L 30-115 PHOSPHATASE (BEAKER) (test code = 346) BILIRUBIN TOTAL 0.5 mg/dL 0.1-1.2 (BEAKER) (test code = 377) SODIUM (BEAKER) 146 meq/L 135-148 (test code = 381) POTASSIUM (BEAKER) 4.0 meq/L 3.6-5.5 (test code = 379) CHLORIDE (BEAKER) 111 meq/L 98-106 H (test code = 382) CO2 (BEAKER) (test 23 meq/L 20-29 code = 355) BLOOD UREA 36 mg/dL 10-26 H NITROGEN (BEAKER) (test code = 354) CREATININE 1.14 mg/dL 0.50-1.20 (BEAKER) (test code = 358) GLUCOSE RANDOM 125 mg/dL 70-110 H (BEAKER) (test code = 652) CALCIUM (BEAKER) 8.7 mg/dL 8.5-10.5 (test code = 697) AST (SGOT) 40 U/L 5-40 (BEAKER) (test code = 353) ALT (SGPT) 34 U/L 5-50 (BEAKER) (test code = 347) EGFR (BEAKER) 49 Interpretatio n of eGFR (test code = 1092) mL/min/1.[address] age Description sq m Result G1 Ashwini l or high >=90 G2 Mildly decreased 60-89 G3a Mildl y to moderately 45-5 9 G3b Moderately to s everely 30-44 G4 Severl y decreased 15-29 G5 Kidney failure <15Reported eGF R is based on the CKD-EPI 2020 equation that d oes not use a race coefficientEsti mated GFR is not as accur ate as Creatinine Candy ashley in predicting glom erular filtration rate . Estimated GFR is not appl icable for dialysis patien ts Collection Support Specialist ID - [id number] ID - [id number] ID - [id number] ID - [id number] ID - [id number] ID - [id number] ID - [id number] ID - [id number] ID - [id number] ID - [id number] ID - [id number] ID - [id number] ID - [id number] ID - [id number] ID - [id number] ID - [id number] 10:36:33 Test Item Value Reference Range Interpretation Comments MAGNESIUM (BEAKER) (test code = 2.0 mg/dL 1.5-3.0 627) Collection Support Specialist ID - [id number] ID - [id number] ID - [id number] ID - [id number], CHEST, 1 VIEW, NON [id number] 07:49:00Reason for exam:->hx of lung mass? f/u COPD exacerbation and possible pulm edema in setting of margareth vated NT-proBNPShould this be performed at the bedside?->Yes [facility] : 1940 Sex: FFINAL REPORT RAD, CHEST, 1 VIEW, NON DEPT INDICATION: hx of lung mass? f/u COPD exacerbation and possible pulm edema in setting of elevated NT-proBNP COMPARISON: 10/16/2016 FINDINGS: Portable frontal view of the chest. IMPRESSION: Support Lines: Prior sternotomy Lungs and pleura:Background emphysematous changes. Retrocardiac opacity representing singly or in combination airspace disease, and/or atelectasis. Of note, "lung mass" would likely not be apparent radiographically. Nosignificant pneumothorax. Heart and mediastinum: Normal contours. Additional findings: None. Signed:Emiliano Coffeyepjulian Verified Date/Time: 08/29/2022 07:49:38 TROPONIN [id number] 06:01:00 Test Item Value Reference Range Interpretation Comments TROPONIN I (BEAKER) (test code = 0.33 ng/mL 0.00-0.15 397) Troponin I (TnI) levels must be interpreted in the context of the presenting symptoms and the clinical findings. Elevated TnI levels indicate myocardial damage, but are not specific for ischemic heart disease. Elevated TnI levels are seen in patients with other cardiac conditions (including myocarditis and congestive heart failure), and slight TnI elevations occur in patients with other conditions, including sepsis, renal failure, acidosis, acute neurological disease, and persistent tachyarrhythmia.Collection Support Specialist ID - [id number] 05:46:12 Test Item Value Reference Range Interpretation Comments PARTIAL THROMBOPLASTIN 56.6 seconds 23.0-35.0 H Final Information TIME (BEAKER) (test (Auto Ou tput) code = 760) CBC (HEMOGRAM ONLY)2022-08-29 05:22:38 Test Item Value Reference Range Interpretation Comments WHITE BLOOD CELL COUNT (BEAKER) 15.7 K/ L 4.0-10.0 H (test code = 775) RED BLOOD CELL COUNT (BEAKER) 3.84 M/ L 4.00-5.00 L (test code = 761) HEMOGLOBIN (BEAKER) (test code = 11.6 GM/DL 12.0-15.5 L 410) HEMATOCRIT (BEAKER) (test code = 36.6 % 36.0-46.0 411) MEAN CORPUSCULAR VOLUME (BEAKER) 95 fL 82-99 (test code = 753) MEAN CORPUSCULAR HEMOGLOBIN 30.2 pg 27.0-33.0 (BEAKER) (test code = 751) MEAN CORPUSCULAR HEMOGLOBIN CONC 31.7 GM/DL 32.0-36.0 L (BEAKER) (test code = 752) RED CELL DISTRIBUTION WIDTH 14.6 % 12.0-15.0 (BEAKER) (test code = 412) PLATELET COUNT (BEAKER) (test 184 K/CU MM 150-430 code = 756) MEAN PLATELET VOLUME (BEAKER) 11.1 fL 6.0-11.5 (test code = 754) NUCLEATED RED BLOOD CELLS 0 /100 WBC 0-0 (BEAKER) (test code = 413) TSH/FREE T4 IF [id number] 02:59:04 Test Item Value Reference Range Interpretation Comments THYROID STIMULATING HORMONE 0.280 uIU/mL 0.350-5.500 L (BEAKER) (test code = 772) Collection Support Specialist ID - [id number] 02:39:36 Test Item Value Reference Range Interpretation Comments VITAMIN B12 (BEAKER) (test code = 467 pg/mL 211-911 774) Collection Support Specialist ID - [id number] 02:33:15 Test Item Value Reference Range Interpretation Comments FREE T4 (BEAKER) (test code = 655) 1.05 ng/dL 0.90-1.80 Collection Support Specialist ID - [id number] 00:10:40 Test Item Value Reference Range Interpretation Comments TRIGLYCERIDES (BEAKER) (test code = 65 mg/dL 540) CHOLESTEROL (BEAKER) (test code = 134 mg/dL 631) HDL CHOLESTEROL (BEAKER) (test code 46 mg/dL = 976) LDL CHOLESTEROL CALCULATED (BEAKER) 75 mg/dL (test code = 633) Triglyceride Reference Range: Low Risk <150 Borderline 150-199 High Risk 200- 499 Very High Risk >=500Cholesterol Reference Range: Low Risk <200 Borderline 200-239 High Risk >240HDL Cholesterol Reference Range: Low Risk >=60 High Risk <40LDL Cholesterol Reference Range: Optimal <100 Near Optimal 100-129 Borderline 130-159 High 160-189 Very High >=190 Collection Support Specialist ID - [id number] ID - [id number] ID - [id number] ID - [id number] ID - [id number] ID - [id number] 00:02:16 Test Item Value Reference Range Interpretation Comments HEMOGLOBIN A1C (BEAKER) (test code = 5.8 % 4.3-6.1 368) Collection Support Specialist ID - [id number] METABOLIC [id number] 21:52:00 Test Item Value Reference Range Interpretation Comments TOTAL PROTEIN 6.1 gm/dL 6.0-8.5 (BEAKER) (test code = 770) ALBUMIN (BEAKER) 2.9 g/dL 3.5-5.0 L (test code = 1145) ALKALINE 77 U/L 30-115 PHOSPHATASE (BEAKER) (test code = 346) BILIRUBIN TOTAL 0.3 mg/dL 0.1-1.2 (BEAKER) (test code = 377) SODIUM (BEAKER) 145 meq/L 135-148 (test code = 381) POTASSIUM (BEAKER) 4.5 meq/L 3.6-5.5 (test code = 379) CHLORIDE (BEAKER) 113 meq/L 98-106 H (test code = 382) CO2 (BEAKER) (test 22 meq/L 20-29 code = 355) BLOOD UREA 31 mg/dL 10-26 H NITROGEN (BEAKER) (test code = 354) CREATININE 1.19 mg/dL 0.50-1.20 (BEAKER) (test code = 358) GLUCOSE RANDOM 147 mg/dL 70-110 H (BEAKER) (test code = 652) CALCIUM (BEAKER) 8.7 mg/dL 8.5-10.5 (test code = 697) AST (SGOT) 27 U/L 5-40 (BEAKER) (test code = 353) ALT (SGPT) 22 U/L 5-50 (BEAKER) (test code = 347) EGFR (BEAKER) 47 Interpretatio n of eGFR (test code = 1092) mL/min/1.[address] age Description sq m Result G1 Ashwini l or high >=90 G2 Mildly decreased 60-89 G3a Mildl y to moderately 45-5 9 G3b Moderately to s everely 30-44 G4 Severl y decreased 15-29 G5 Kidne y failure <15Reported eGF R is based on the CKD-EPI 2020 equation that d oes not use a race coefficientEsti mated GFR is not as accur ate as Creatinine Candy ramirez in predicting glom erular filtration rate . Estimated GFR is not appl icable for dialysis patien ts Collection Support Specialist ID - leviotaOperator ID - leviotaOperator ID - leviotaOperator ID - leviotaOperator ID - leviotaOperator ID - leviotaOperator ID - leviotaOperator ID - leviotaOperator ID - leviotaOperator ID - leviotaOperator ID - leviotaOperator ID - leviotaOperator ID - leviotaOperator ID - leviotaOperatorID - leviotaOperator ID - [id number] 21:50:58 Test Item Value Reference Range Interpretation Comments MAGNESIUM (BEAKER) (test code = 2.0 mg/dL 1.5-3.0 627) Collection Support Specialist ID - leviotaOperator ID - leviotaOperator ID - leviotaOperator ID - [id number] 21:48:05 Test Item Value Reference Range Interpretation Comments PARTIAL THROMBOPLASTIN 27.9 seconds 23.0-35.0 Final Information TIME (BEAKER) (test (Auto Ou tput) code = 760) [id number] 21:47:18 Test Item Value Reference Range Interpretation Comments PARTIAL THROMBOPLASTIN 27.9 seconds 23.0-35.0 Final Information TIME (BEAKER) (test (Auto Ou tput) code = 760) CBC W/PLT COUNT & AUTO [id number] 21:38:55 Test Item Value Reference Range Interpretation Comments WHITE BLOOD CELL COUNT (BEAKER) 16.7 K/ L 4.0-10.0 H (test code = 775) RED BLOOD CELL COUNT (BEAKER) 3.78 M/ L 4.00-5.00 L (test code = 761) HEMOGLOBIN (BEAKER) (test code = 11.3 GM/DL 12.0-15.5 L 410) HEMATOCRIT (BEAKER) (test code = 36.2 % 36.0-46.0 411) MEAN CORPUSCULAR VOLUME (BEAKER) 96 fL 82-99 (test code = 753) MEAN CORPUSCULAR HEMOGLOBIN 29.9 pg 27.0-33.0 (BEAKER) (test code = 751) MEAN CORPUSCULAR HEMOGLOBIN CONC 31.2 GM/DL 32.0-36.0 L (BEAKER) (test code = 752) RED CELL DISTRIBUTION WIDTH 14.6 % 12.0-15.0 (BEAKER) (test code = 412) PLATELET COUNT (BEAKER) (test 181 K/CU MM 150-430 code = 756) MEAN PLATELET VOLUME (BEAKER) 11.4 fL 6.0-11.5 (test code = 754) NUCLEATED RED BLOOD CELLS 0 /100 WBC 0-0 (BEAKER) (test code = 413) NEUTROPHILS RELATIVE PERCENT 92 % (BEAKER) (test code = 429) LYMPHOCYTES RELATIVE PERCENT 4 % (BEAKER) (test code = 430) MONOCYTES RELATIVE PERCENT 3 % (BEAKER) (test code = 431) EOSINOPHILS RELATIVE PERCENT 0 % (BEAKER) (test code = 432) BASOPHILS RELATIVE PERCENT 0 % (BEAKER) (test code = 437) NEUTROPHILS ABSOLUTE COUNT 15.31 K/ L 1.80-8.00 H (BEAKER) (test code = 670) LYMPHOCYTES ABSOLUTE COUNT 0.72 K/ L 1.48-4.50 L (BEAKER) (test code = 414) MONOCYTES ABSOLUTE COUNT (BEAKER) 0.44 K/ L 0.00-1.30 (test code = 415) EOSINOPHILS ABSOLUTE COUNT 0.00 K/ L 0.00-0.50 (BEAKER) (test code = 416) BASOPHILS ABSOLUTE COUNT (BEAKER) 0.02 K/ L 0.00-0.20 (test code = 417) IMMATURE GRANULOCYTES-RELATIVE 1.00 % 0.00-0.00 H PERCENT (BEAKER) (test code = 2062)
--- NOTE | 2022-10-24 13:43 | RAD REPORT ---
EXAM DESCRIPTION: CT - Ct Stroke Brain Wo Cont - 10/24/2022 1:30 pm CLINICAL HISTORY: STROKE ALERT COMPARISON: Head Brain Wo Cont dated 08/27/2022 TECHNIQUE: Axial 5 millimeter thick images of the head were obtained without IV contrast. All CT scans are performed using dose optimization technique as appropriate and may include automated exposure control or mA/KV adjustment according to patient size. FINDINGS: No intracranial hemorrhage, mass, or cerebral edema. No acute cortical based infarction. N o cortical edema or sulcal effacement. No extra-axial fluid collections. Sellers matter-white matter di fferentiation is preserved.Patient has very significant chronic ischemic change throughout the cerebr al white matter with less prominent thalamus and basal ganglia chronic ischemic change. Central brain stem chronic ischemic changes are seen. Patient's atrophy is [id number]. Ventricles are in prop ortion to volume loss. No globe or orbital content abnormality. Mastoid air cells are clear. 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 Findings telephoned to Dr Alvarez 1:36 p.m. IMPRESSION: No intracranial hemorrhage is present. A focal infarction is not identifiable. Patient has have very advanced chronic ischemic change which can mask nonhemorrhagic CVA. No significant difference seen 08/27/2022 imaging imaging.
[2022-10-24 13:47] LABS: Absolute Lymphocytes (CBC) 1.9 K/uL (0.7-4.9); Hematocrit 36.8 % (36.0-45.0); Lymphocytes % 29.4 % (15.3-44.8); MPV 8.4 fL (7.6-11.3); RBC Red Blood Cell Count 3.88 M/uL (3.86-4.86)
--- NOTE | 2022-10-24 13:51 | RAD REPORT ---
EXAM DESCRIPTION: RAD - Chest Single View - 10/24/2022 1:38 pm CLINICAL HISTORY: slurred speech COMPARISON: Portable 08/28/2022 TECHNIQUE: AP portable chest image was obtained 10/24/2022 1:38 pm . FINDINGS: Chronic interstitial opacification is present not clearly different from comparison. A min imal edema or infiltrate could be masked. No significant failure or volume overload identifiable. Sternotomy wires are in place. CABG surgical clips are present in the mediastinum. Heart size is norm al range. No abnormal vascular engorgement. No measurable pleural effusion and no pneumothorax. Degen erative and scoliotic changes are present in the spine similar to comparison. No acute aortic finding s suspected. IMPRESSION: Chronic chest findings as detailed. No acute finding or significant change from comparison.
[2022-10-24 14:04] LABS: Protime INR 1.38
[2022-10-24 14:08] LABS: Bilirubin Direct 0.2 mg/dL (0-0.2); Bilirubin Total 0.5 mg/dL (0.2-1.0); Magnesium 2.1 mg/dL (1.6-2.4); Potassium 4.3 mmol/L (3.5-5.1); Protein, Total 6.3 g/dL (6.4-8.2); Troponin High Sensitivity 12.5 pg/mL (<58.9)
--- NOTE | 2022-10-24 16:03 | ER ---
Nurse's Notes [facility] Name: Jenny Douglas Age: 81 yrs Sex: Female : 1940 Arrival Date: 10/24/2022 Time: 12:54 Bed 20 Private MD: Diagnosis: Slurred speech;Headache Presentation: 10/24 13:02 Chief complaint: Patient states: Trouble walking yesterday. Slept longer than usual. 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 + LICONA today. No fever. Coronavirus screen: Vaccine status: Patient reports receiving the 2nd dose of the covid vaccine. Client denies travel out of the [place] in the last 14 days. At this time, the client does not indicate any symptoms associated with coronavirus-19. Ebola Screen: Patient denies travel to an Ebola-affected area in the 21 days before illness onset. No acute neurological deficit is noted. Initial Sepsis Screen: Does the patient meet any 2 criteria? No. Patient's initial sepsis screen is negative. Does the patient have a suspected source of infection? No. Patient's initial sepsis screen is negative. Risk Assessment: Do you want to hurt yourself or someone else? Patient reports no desire to harm self or others. Onset of symptoms was October 23, 2022. 13:02 Method Of Arrival: Wheelchair ll1 13:02 Acuity: ADRIANNA 2 ll1 10/25 08:00 Pre-hospital glucose is not applicable to this patient. db Triage Assessment: 08:01 The onset of the patients symptoms was October 24, 2022 at 13:00. General: Appears in db no apparent distress. 08:02 General: Behavior is calm, cooperative. Neuro: Reports headache. db Stroke Activation: Symptom onset > 6 hours Physician: Stroke Attending; Name: ; Notified At: ; Arrived At: Physician: Chief Stroke Resident; Name: ; Notified At: ; Arrived At: Physician: Stroke Resident; Name: ; Notified At: ; Arrived At: Physician: ED Attending; Name: ; Notified At: ; Arrived At: Physician: ED Resident; Name: ; Notified At: ; Arrived At: Historical: - Allergies: 10/24 13:01 Celebrex; ll1 13:01 Zocor; ll1 - PMHx: 13:01 CAD; COPD; Hyperlipidemia; Hypertension; Myocardial infarction; TIA; stroke; ll1 - PSHx: 13:01 CABG; ll1 - Immunization history:: Client reports receiving the 2nd dose of the Covid vaccine. - Social history:: Smoking status: Patient/guardian denies using tobacco, Stopped _ months ago 5. Screenin:41 [facility] [place] ED Fall Risk Assessment (Adult) History of falling in the last 3 months, ld1 including since admission No falls in past 3 months (0 pts). Abuse screen: Denies threats or abuse. Denies injuries from another. Nutritional screening: No deficits noted. Tuberculosis screening: No symptoms or risk factors identified. Assessment: 13:15 Reassessment: Last known well today at 1215. ld1 13:41 VAN Scoring: Arm Drift: Patients demonstrates NO arm weakness. Patient is VAN Negative. ld1 Aphasia: No aphasia noted. Patient has been NPO before screening. The patient is alert, and able to follow commands. The patient exhibits slurred or garbled speech. The patient is not exhibiting difficulty speaking. The patient does not exhibit difficulty understanding words. The patient is able to swallow own secretions with no drooling or need for suction. Patient tolerated one teaspoon of water. No drooling, immediate coughing, gurgling, or clearing of the throat was noted. The patient tolerated 90mL of water. No drooling, immediate coughing, gurgling, or clearing of the throat was noted. The patient passed the bedside swallow screening. Oral medications may be given as ordered. Contact Physician for further diet orders. Provider notified of bedside swallow screening results: Renato Alvarez MD. TNKase (Tenecteplase) Screening:. General: Appears in no apparent distress. comfortable, Behavior is calm, cooperative, appropriate for age. Pain: Denies pain. Neuro: Level of Consciousness is awake, alert, obeys commands, Oriented to person, place, time, situation. Neuro: Rn Transfer are equal bilaterally Moves all extremities. Gait is steady, Speech is slurred, Facial symmetry appears normal, Pupils are PERRLA. Cardiovascular: Capillary refill < 3 seconds Patient's skin is warm and dry. Rhythm is sinus rhythm. Respiratory: Airway is patent Respiratory effort is even, unlabored. GI: Abdomen is flat, non-distended. : No signs and/or symptoms were reported regarding the genitourinary system. EENT: No signs and/or symptoms were reported regarding the EENT system. Derm: No signs and/or symptoms reported regarding the dermatologic system. Musculoskeletal: No signs and/or symptoms reported regarding the musculoskeletal system. 15:30 Reassessment: Patient appears in no apparent distress at this time. Patient and/or ld1 family updated on plan of care and expected duration. Pain level reassessed. Patient denies pain at this time. Patient states symptoms have improved. 18:56 Reassessment: Patient appears in no apparent distress at this time. Patient and/or ld1 family updated on plan of care and expected duration. Pain level reassessed. Patient is alert, oriented x 3, equal unlabored respirations, skin warm/dry/pink. Patient states symptoms have improved. 19:51 General: Appears in no apparent distress. comfortable, Behavior is calm, cooperative. lg3 Pain: Denies pain. Neuro: No deficits noted. Simons Agitation-Sedation Scale (RASS): 0 - Alert and Calm Level of Consciousness is awake, alert, obeys commands, Oriented to person, place, time, situation, Rn Transfer are equal bilaterally Moves all extremities. Full function Speech is normal, Facial symmetry appears normal. Cardiovascular: No deficits noted. Denies chest pain, shortness of breath, Capillary refill < 3 seconds Clubbing of nail beds is absent JVD is absent Patient's skin is warm and dry. Respiratory: No deficits noted. Airway is patent Trachea midline Respiratory effort is even, unlabored, Respiratory pattern is regular, symmetrical. GI: No deficits noted. No signs and/or symptoms were reported involving the gastrointestinal system. Abdomen is flat, non-distended. : No deficits noted. No signs and/or symptoms were reported regarding the genitourinary system. EENT: No deficits noted. No signs and/or symptoms were reported regarding the EENT system. Derm: No deficits noted. No signs and/or symptoms reported regarding the dermatologic system. Skin is intact, is thin, Skin is dry, Skin is normal. Musculoskeletal: No deficits noted. No signs and/or symptoms reported regarding the musculoskeletal system. Circulation, motion, and sensation intact. Range of motion: intact in all extremities. Vital Signs: 13:02 BP 140 / 59; Pulse 65; Resp 18; Temp 97.9; Pulse Ox 94% ; Weight 53.07 kg; Height 5 ft. ll1 7 in. (170.18 cm); Pain 5/10; 13:54 BP 135 / 66; Pulse 55; Resp 18; Temp 97.6(O); Pulse Ox 97% on R/A; Pain 0/10; ld1 15:30 BP 163 / 64; Pulse 61; Resp 18; Pulse Ox 98% on R/A; ld1 16:30 BP 163 / 64; Pulse 58; Resp 18; Pulse Ox 100% on R/A; ld1 17:30 BP 166 / 68; Pulse 61; Resp 18; Pulse Ox 98% on R/A; ld1 18:30 BP 147 / 62; Pulse 59; Resp 18; Pulse Ox 94% on R/A; Pain 8/10; ld1 18:56 BP 142 / 61; Pulse 59; Resp 18; Pulse Ox 95% on R/A; ld1 19:51 BP 150 / 67; Pulse 54; Resp 17 S; Pulse Ox 97% on R/A; lg3 13:02 Body Mass Index 18.32 (53.07 kg, 170.18 cm) ll1 NIH Stroke Scale Scores: 13:41 NIHSS Score: 1 ld1 15:30 NIHSS Score: 0 ld1 18:48 NIHSS Score: 0 kdr 18:56 NIHSS Score: 0 ld1 19:51 NIHSS Score: 0 lg3 ED Course: 12:54 Patient arrived in ED. am2 13:04 Triage completed. ll1 13:04 Arm band placed on. ll1 13:12 More Mendoza, RAMONA is Primary Nurse. ld1 13:13 Renato Alvarez MD is Attending Physician. kdr 13:15 Patient has correct armband on for positive identification. Placed in gown. Bed in low ld1 position. Call light in reach. Side rails up X2. case monitor on. Pulse ox on. NIBP on. Door closed. Noise minimized. Warm blanket given. 13:30 Inserted saline lock: 20 gauge in right antecubital area, using aseptic technique. ld1 Blood collected. 13:30 No provider procedures requiring assistance completed. ld1 13:31 CT Stroke Brain w/o Contrast In Process Unspecified. EDMS 13:40 Stroke CXR 1 View In Process Unspecified. EDMS 16:02 Poncho Yepez MD is Hospitalizing Provider. kdr 19:51 Family accompanied patient. lg3 10/25 08:00 Patient admitted, IV remains in place. db Administered Medications: No medications were administered Medication: 10/24 13:41 VIS not applicable for this client. ld1 Outcome: 16:02 Decision to Hospitalize by Provider. kdr 10/25 08:00 Admitted to Tele db Condition: stable Instructed on the need for admit. 19:13 Patient left the ED. db NIH Stroke Scale - NIH Stroke Score Date: 10/24/2022 Time: 13:41 Total Score = 1 1a. Level of Consciousness (LOC) - 0(Alert) 1b. Level of Consciousness (LOC) (Month \T\ Age) - 0(Both) 1c. LOC Commands (Open \T\ Closes Eyes/Auxiliary Operator) - 0(Both) 2. Best Gaze (Lateral Gaze Paresis) - 0(Normal) 3. Visual Field Loss - 0(No visual loss) 4. Facial Palsy - 0(Normal) 5a. Left Arm: Motor (10-second hold) - 0(No drift) 5b. Right Arm: Motor (10-second hold) - 0(No drift) 6a. Left Leg: Motor (5-second hold - always test supine) - 0(No drift) 6b. Right Leg: Motor (5-second hold - always test supine) - 0(No drift) 7. Limb Ataxia (finger/nose \T\ heel/amador - test with eyes open) - 0(Absent) 8. Sensory Loss (pinprick arms/legs/face) - 0(Normal) 9. Best Language: Aphasia (description/naming/reading) - 0(No aphasia) 10. Dysarthria (speech clarity - read or repeat words) - 1(Mild to Moderate) 11. Extinction and Inattention (visual/tactile/auditory/spatial/personal) - 0(No abnormality) Initials: ld1 NIH Stroke Scale - NIH Stroke Score Date: 10/24/2022 Time: 15:30 Total Score = 0 1a. Level of Consciousness (LOC) - 0(Alert) 1b. Level of Consciousness (LOC) (Month \T\ Age) - 0(Both) 1c. LOC Commands (Open \T\ Closes Eyes/Auxiliary Operator) - 0(Both) 2. Best Gaze (Lateral Gaze Paresis) - 0(Normal) 3. Visual Field Loss - 0(No visual loss) 4. Facial Palsy - 0(Normal) 5a. Left Arm: Motor (10-second hold) - 0(No drift) 5b. Right Arm: Motor (10-second hold) - 0(No drift) 6a. Left Leg: Motor (5-second hold - always test supine) - 0(No drift) 6b. Right Leg: Motor (5-second hold - always test supine) - 0(No drift) 7. Limb Ataxia (finger/nose \T\ heel/amador - test with eyes open) - 0(Absent) 8. Sensory Loss (pinprick arms/legs/face) - 0(Normal) 9. Best Language: Aphasia (description/naming/reading) - 0(No aphasia) 10. Dysarthria (speech clarity - read or repeat words) - 0(Normal) 11. Extinction and Inattention (visual/tactile/auditory/spatial/personal) - 0(No abnormality) Initials: ld1 NIH Stroke Scale - NIH Stroke Score Date: 10/24/2022 Time: 18:48 Total Score = 0 1a. Level of Consciousness (LOC) - 0(Alert) 1b. Level of Consciousness (LOC) (Month \T\ Age) - 0(Both) 1c. LOC Commands (Open \T\ Closes Eyes/Auxiliary Operator) - 0(Both) 2. Best Gaze (Lateral Gaze Paresis) - 0(Normal) 3. Visual Field Loss - 0(No visual loss) 4. Facial Palsy - 0(Normal) 5a. Left Arm: Motor (10-second hold) - 0(No drift) 5b. Right Arm: Motor (10-second hold) - 0(No drift) 6a. Left Leg: Motor (5-second hold - always test supine) - 0(No drift) 6b. Right Leg: Motor (5-second hold - always test supine) - 0(No drift) 7. Limb Ataxia (finger/nose \T\ heel/amador - test with eyes open) - 0(Absent) 8. Sensory Loss (pinprick arms/legs/face) - 0(Normal) 9. Best Language: Aphasia (description/naming/reading) - 0(No aphasia) 10. Dysarthria (speech clarity - read or repeat words) - 0(Normal) 11. Extinction and Inattention (visual/tactile/auditory/spatial/personal) - 0(No abnormality) Initials: kdr NIH Stroke Scale - NIH Stroke Score Date: 10/24/2022 Time: 18:56 Total Score = 0 1a. Level of Consciousness (LOC) - 0(Alert) 1b. Level of Consciousness (LOC) (Month \T\ Age) - 0(Both) 1c. LOC Commands (Open \T\ Closes Eyes/Auxiliary Operator) - 0(Both) 2. Best Gaze (Lateral Gaze Paresis) - 0(Normal) 3. Visual Field Loss - 0(No visual loss) 4. Facial Palsy - 0(Normal) 5a. Left Arm: Motor (10-second hold) - 0(No drift) 5b. Right Arm: Motor (10-second hold) - 0(No drift) 6a. Left Leg: Motor (5-second hold - always test supine) - 0(No drift) 6b. Right Leg: Motor (5-second hold - always test supine) - 0(No drift) 7. Limb Ataxia (finger/nose \T\ heel/amador - test with eyes open) - 0(Absent) 8. Sensory Loss (pinprick arms/legs/face) - 0(Normal) 9. Best Language: Aphasia (description/naming/reading) - 0(No aphasia) 10. Dysarthria (speech clarity - read or repeat words) - 0(Normal) 11. Extinction and Inattention (visual/tactile/auditory/spatial/personal) - 0(No abnormality) Initials: ld1 NIH Stroke Scale - NIH Stroke Score Date: 10/24/2022 Time: 19:51 Total Score = 0 1a. Level of Consciousness (LOC) - 0(Alert) 1b. Level of Consciousness (LOC) (Month \T\ Age) - 0(Both) 1c. LOC Commands (Open \T\ Closes Eyes/Auxiliary Operator) - 0(Both) 2. Best Gaze (Lateral Gaze Paresis) - 0(Normal) 3. Visual Field Loss - 0(No visual loss) 4. Facial Palsy - 0(Normal) 5a. Left Arm: Motor (10-second hold) - 0(No drift) 5b. Right Arm: Motor (10-second hold) - 0(No drift) 6a. Left Leg: Motor (5-second hold - always test supine) - 0(No drift) 6b. Right Leg: Motor (5-second hold - always test supine) - 0(No drift) 7. Limb Ataxia (finger/nose \T\ heel/amador - test with eyes open) - 0(Absent) 8. Sensory Loss (pinprick arms/legs/face) - 0(Normal) 9. Best Language: Aphasia (description/naming/reading) - 0(No aphasia) 10. Dysarthria (speech clarity - read or repeat words) - 0(Normal) 11. Extinction and Inattention (visual/tactile/auditory/spatial/personal) - 0(No abnormality) Initials: lg3 Signatures: Dispatcher [employer] EDMS Renato Alvarez MD MD kdr Moreno, Amanda amJackie Wheeler, RN RN lg3 Isa Mora RN RN ll1 More Mendoza RN RN ld1 Meka Redmond, RN RN db Corrections: (The following items were deleted from the chart) 10/24 13:47 13:30 Inserted saline lock: 20 gauge in right antecubital area, using aseptic ld1 technique. Blood collected. ld1
--- NOTE | 2022-10-24 16:03 | EDPHYS ---
Physician Documentation [facility] Name: Jenny Douglas Age: 81 yrs Sex: Female : 1940 Arrival Date: 10/24/2022 Time: 12:54 Bed 20 Private MD: ED Physician Renato Alvarez HPI: 10/24 18:48 This 81 yrs old Female presents to ER via Wheelchair with complaints of Trouble kdr Walking, Trouble Talking, Headache, Back Pain. 18:48 Patient's family reports that she had some trouble walking yesterday and that today she kdr seemed to be sleeping more than usual. Prior to arrival she began to have some slurred speech that lasted about 45 minutes. She also has a slight headache that is frontal and lateral to the left. She denies fever, nausea or vomiting. She denies any other associated review of systems. Patient appears alert and oriented and appropriate on the time of my initial evaluation. She did not require any emergent intervention. Onset: The symptoms/episode began/occurred today. Severity of symptoms: At their worst the symptoms were mild in the emergency department the symptoms have resolved. The patient has not experienced similar symptoms in the past. The patient has been recently seen by a physician: The patient was fully worked up for a stroke in the last few months. Historical: - Allergies: 13:01 Celebrex; ll1 13:01 Zocor; ll1 - PMHx: 13:01 CAD; COPD; Hyperlipidemia; Hypertension; Myocardial infarction; TIA; stroke; ll1 - PSHx: 13:01 CABG; ll1 - Immunization history:: Client reports receiving the 2nd dose of the Covid vaccine. - Social history:: Smoking status: Patient/guardian denies using tobacco, Stopped _ months ago 5. ROS: 18:48 Constitutional: Negative for fever, chills, and weight loss, Eyes: Negative for injury, kdr pain, redness, and discharge, ENT: Negative for injury, pain, and discharge, Neck: Negative for injury, pain, and swelling, Cardiovascular: Negative for chest pain, palpitations, and edema, Respiratory: Negative for shortness of breath, cough, wheezing, and pleuritic chest pain, Abdomen/GI: Negative for abdominal pain, nausea, vomiting, diarrhea, and constipation, Back: Negative for injury and pain, : Negative for injury, bleeding, discharge, and swelling, MS/Extremity: Negative for injury and deformity, Skin: Negative for injury, rash, and discoloration, Psych: Negative for depression, anxiety, suicide ideation, homicidal ideation, and hallucinations, Allergy/Immunology: Negative for hives, rash, and allergies, Endocrine: Negative for neck swelling, polydipsia, polyuria, polyphagia, and marked weight changes, Hematologic/Lymphatic: Negative for swollen nodes, abnormal bleeding, and unusual bruising. 18:48 Neuro: Positive for dizziness, gait disturbance, headache, speech changes. Exam: 18:48 Constitutional: This is a well developed, well nourished patient who is awake, alert, kdr and in no acute distress. Head/Face: Normocephalic, atraumatic. Eyes: Pupils equal round and reactive to light, extra-ocular motions intact. Lids and lashes normal. Conjunctiva and sclera are non-icteric and not injected. Cornea within normal limits. Periorbital areas with no swelling, redness, or edema. Neck: Trachea midline, no thyromegaly or masses palpated, and no cervical lymphadenopathy. Supple, full range of motion without nuchal rigidity, or vertebral point tenderness. No Meningismus. Chest/axilla: Normal chest wall appearance and motion. Nontender with no deformity. No lesions are appreciated. Cardiovascular: Regular rate and rhythm with a normal S1 and S2. No gallops, murmurs, or rubs. Normal PMI, no JVD. No pulse deficits. Respiratory: Lungs have equal breath sounds bilaterally, clear to auscultation and percussion. No rales, rhonchi or wheezes noted. No increased work of breathing, no retractions or nasal flaring. Abdomen/GI: Soft, non-tender, with normal bowel sounds. No distension or tympany. No guarding or rebound. No evidence of tenderness throughout. Back: No spinal tenderness. No costovertebral tenderness. Full range of motion. Skin: Warm, dry with normal turgor. Normal color with no rashes, no lesions, and no evidence of cellulitis. MS/ Extremity: Pulses equal, no cyanosis. Neurovascular intact. Full, normal range of motion. Neuro: Awake and alert, GCS 15, oriented to person, place, time, and situation. Cranial nerves II-XII grossly intact. Motor strength 5/5 in all extremities. Sensory grossly intact. Cerebellar exam normal. Normal gait. Psych: Awake, alert, with orientation to person, place and time. Behavior, mood, and affect are within normal limits. Vital Signs: 13:02 BP 140 / 59; Pulse 65; Resp 18; Temp 97.9; Pulse Ox 94% ; Weight 53.07 kg; Height 5 ft. ll1 7 in. (170.18 cm); Pain 5/10; 13:54 BP 135 / 66; Pulse 55; Resp 18; Temp 97.6(O); Pulse Ox 97% on R/A; Pain 0/10; ld1 15:30 BP 163 / 64; Pulse 61; Resp 18; Pulse Ox 98% on R/A; ld1 16:30 BP 163 / 64; Pulse 58; Resp 18; Pulse Ox 100% on R/A; ld1 17:30 BP 166 / 68; Pulse 61; Resp 18; Pulse Ox 98% on R/A; ld1 18:30 BP 147 / 62; Pulse 59; Resp 18; Pulse Ox 94% on R/A; Pain 8/10; ld1 18:56 BP 142 / 61; Pulse 59; Resp 18; Pulse Ox 95% on R/A; ld1 19:51 BP 150 / 67; Pulse 54; Resp 17 S; Pulse Ox 97% on R/A; lg3 13:02 Body Mass Index 18.32 (53.07 kg, 170.18 cm) ll1 NIH Stroke Scale Scores: 13:41 NIHSS Score: 1 ld1 15:30 NIHSS Score: 0 ld1 18:48 NIHSS Score: 0 kdr 18:56 NIHSS Score: 0 ld1 19:51 NIHSS Score: 0 lg3 MDM: 16:02 Patient medically screened. kdr 18:51 Data reviewed: vital signs, nurses notes. Consideration of Admission/Observation kdr Patient was admitted/placed on observation. Escalation of care including admission/observation considered. Management of patient was discussed with the following: Hospitalist: Dr. Levi. Management of patient was discussed with the following: Hospitalist: Dr. Yepez. ED course: Patient remained stable in the ED and without further complication. 10/24 13:16 Order name: Basic Metabolic Panel; Complete Time: 15:20 kdr 10/24 13:16 Order name: CBC with Diff; Complete Time: 13:58 kdr 10/24 13:16 Order name: Hepatic Function; Complete Time: 15:20 kdr 10/24 13:16 Order name: High Sensitivity Troponin; Complete Time: 15:20 kdr 10/24 13:16 Order name: Magnesium; Complete Time: 15:20 kdr 10/24 13:16 Order name: Protime (+inr); Complete Time: 15:20 kdr 10/24 13:16 Order name: Ptt, Activated; Complete Time: 15:20 kdr 10/24 13:59 Order name: Glucose, Ancillary Testing; Complete Time: 15:20 EDMS 10/24 16:29 Order name: SARS RAPID ld1 10/24 18:20 Order name: CBC with Automated Diff EDMS 10/24 18:20 Order name: CBC with Automated Diff EDMS 10/24 18:20 Order name: Comprehensive Metabolic Panel EDMS 10/24 18:20 Order name: Comprehensive Metabolic Panel EDMS 10/24 18:20 Order name: Lipid Profile EDMS 10/24 13:16 Order name: CT Stroke Brain w/o Contrast; Complete Time: 13:58 kdr 10/24 13:16 Order name: Stroke CXR 1 View; Complete Time: 13:58 kdr 10/24 13:16 Order name: EKG; Complete Time: 13:23 kdr 10/24 18:20 Order name: Physical Therapy Consult EDMS 10/24 18:20 Order name: Echo with Doppler EDMS 10/24 18:20 Order name: Lipid Profile EDMS 10/24 18:20 Order name: Magnesium EDMS 10/24 18:20 Order name: Magnesium EDMS 10/24 18:20 Order name: Phosphorus EDMS 10/24 18:20 Order name: Phosphorus EDMS 10/24 18:20 Order name: Stroke Protocol EDMS 10/24 18:20 Order name: Carotid Artery Bilateral EDMS 10/24 18:20 Order name: Carotid Artery Bilateral EDMS 02/ 10:25 Order name: MRI EDMS 02/ 10:27 Order name: MRI EDMS 02 10:29 Order name: MRI EDMS 10/24 13:16 Order name: Accucheck; Complete Time: 13:40 kdr 10/24 13:16 Order name: Cardiac monitoring; Complete Time: 13:40 kdr 10/24 13:16 Order name: EKG - Nurse/Tech; Complete Time: 13:40 kdr 10/24 13:16 Order name: IV Saline Lock; Complete Time: 13:40 kdr 10/24 13:16 Order name: Labs collected and sent; Complete Time: :40 kdr 10/24 13:16 Order name: NPO; Complete Time: 13:40 kdr 10/24 13:16 Order name: O2 Per Protocol; Complete Time: 13:40 kdr 10/24 13:16 Order name: O2 Sat Monitoring; Complete Time: 13:40 kdr 10/24 13:16 Order name: Stroke Swallow Screen; Complete Time: 13:40 kdr 10/24 18:20 Order name: Speech Therapy Consult EDMS Administered Medications: No medications were administered Disposition Summary: 10/24/22 16:02 Hospitalization Ordered Hospitalization Status: Observation kdr Provider: Poncho Yepez Condition: Fair kdr Problem: new kdr Symptoms: are resolved kdr Bed/Room Type: Standard kdr Location: [facility] ER HOLD(10/24/22 21:07) cg Room Assignment: ERHOLD-(10/24/22 21:07) cg Diagnosis - Slurred speech kdr - Headache kdr Forms: - Medication Reconciliation Form kdr - SBAR form kdr NIH Stroke Scale - NIH Stroke Score Date: 10/24/2022 Time: :41 Total Score = 1 1a. Level of Consciousness (LOC) - 0(Alert) 1b. Level of Consciousness (LOC) (Month \T\ Age) - 0(Both) 1c. LOC Commands (Open \T\ Closes Eyes/Tire Buffer) - 0(Both) 2. Best Gaze (Lateral Gaze Paresis) - 0(Normal) 3. Visual Field Loss - 0(No visual loss) 4. Facial Palsy - 0(Normal) 5a. Left Arm: Motor (10-second hold) - 0(No drift) 5b. Right Arm: Motor (10-second hold) - 0(No drift) 6a. Left Leg: Motor (5-second hold - always test supine) - 0(No drift) 6b. Right Leg: Motor (5-second hold - always test supine) - 0(No drift) 7. Limb Ataxia (finger/nose \T\ heel/amador - test with eyes open) - 0(Absent) 8. Sensory Loss (pinprick arms/legs/face) - 0(Normal) 9. Best Language: Aphasia (description/naming/reading) - 0(No aphasia) 10. Dysarthria (speech clarity - read or repeat words) - 1(Mild to Moderate) 11. Extinction and Inattention (visual/tactile/auditory/spatial/personal) - 0(No abnormality) Initials: ld1 NIH Stroke Scale - NIH Stroke Score Date: 10/24/2022 Time: 15:30 Total Score = 0 1a. Level of Consciousness (LOC) - 0(Alert) 1b. Level of Consciousness (LOC) (Month \T\ Age) - 0(Both) 1c. LOC Commands (Open \T\ Closes Eyes/Tire Buffer) - 0(Both) 2. Best Gaze (Lateral Gaze Paresis) - 0(Normal) 3. Visual Field Loss - 0(No visual loss) 4. Facial Palsy - 0(Normal) 5a. Left Arm: Motor (10-second hold) - 0(No drift) 5b. Right Arm: Motor (10-second hold) - 0(No drift) 6a. Left Leg: Motor (5-second hold - always test supine) - 0(No drift) 6b. Right Leg: Motor (5-second hold - always test supine) - 0(No drift) 7. Limb Ataxia (finger/nose \T\ heel/amador - test with eyes open) - 0(Absent) 8. Sensory Loss (pinprick arms/legs/face) - 0(Normal) 9. Best Language: Aphasia (description/naming/reading) - 0(No aphasia) 10. Dysarthria (speech clarity - read or repeat words) - 0(Normal) 11. Extinction and Inattention (visual/tactile/auditory/spatial/personal) - 0(No abnormality) Initials: ld1 NIH Stroke Scale - NIH Stroke Score Date: 10/24/2022 Time: 18:48 Total Score = 0 1a. Level of Consciousness (LOC) - 0(Alert) 1b. Level of Consciousness (LOC) (Month \T\ Age) - 0(Both) 1c. LOC Commands (Open \T\ Closes Eyes/Tire Buffer) - 0(Both) 2. Best Gaze (Lateral Gaze Paresis) - 0(Normal) 3. Visual Field Loss - 0(No visual loss) 4. Facial Palsy - 0(Normal) 5a. Left Arm: Motor (10-second hold) - 0(No drift) 5b. Right Arm: Motor (10-second hold) - 0(No drift) 6a. Left Leg: Motor (5-second hold - always test supine) - 0(No drift) 6b. Right Leg: Motor (5-second hold - always test supine) - 0(No drift) 7. Limb Ataxia (finger/nose \T\ heel/amador - test with eyes open) - 0(Absent) 8. Sensory Loss (pinprick arms/legs/face) - 0(Normal) 9. Best Language: Aphasia (description/naming/reading) - 0(No aphasia) 10. Dysarthria (speech clarity - read or repeat words) - 0(Normal) 11. Extinction and Inattention (visual/tactile/auditory/spatial/personal) - 0(No abnormality) Initials: kdr NIH Stroke Scale - NIH Stroke Score Date: 10/24/2022 Time: 18:56 Total Score = 0 1a. Level of Consciousness (LOC) - 0(Alert) 1b. Level of Consciousness (LOC) (Month \T\ Age) - 0(Both) 1c. LOC Commands (Open \T\ Closes Eyes/Tire Buffer) - 0(Both) 2. Best Gaze (Lateral Gaze Paresis) - 0(Normal) 3. Visual Field Loss - 0(No visual loss) 4. Facial Palsy - 0(Normal) 5a. Left Arm: Motor (10-second hold) - 0(No drift) 5b. Right Arm: Motor (10-second hold) - 0(No drift) 6a. Left Leg: Motor (5-second hold - always test supine) - 0(No drift) 6b. Right Leg: Motor (5-second hold - always test supine) - 0(No drift) 7. Limb Ataxia (finger/nose \T\ heel/amador - test with eyes open) - 0(Absent) 8. Sensory Loss (pinprick arms/legs/face) - 0(Normal) 9. Best Language: Aphasia (description/naming/reading) - 0(No aphasia) 10. Dysarthria (speech clarity - read or repeat words) - 0(Normal) 11. Extinction and Inattention (visual/tactile/auditory/spatial/personal) - 0(No abnormality) Initials: ld1 NIH Stroke Scale - NIH Stroke Score Date: 10/24/2022 Time: 19:51 Total Score = 0 1a. Level of Consciousness (LOC) - 0(Alert) 1b. Level of Consciousness (LOC) (Month \T\ Age) - 0(Both) 1c. LOC Commands (Open \T\ Closes Eyes/Tire Buffer) - 0(Both) 2. Best Gaze (Lateral Gaze Paresis) - 0(Normal) 3. Visual Field Loss - 0(No visual loss) 4. Facial Palsy - 0(Normal) 5a. Left Arm: Motor (10-second hold) - 0(No drift) 5b. Right Arm: Motor (10-second hold) - 0(No drift) 6a. Left Leg: Motor (5-second hold - always test supine) - 0(No drift) 6b. Right Leg: Motor (5-second hold - always test supine) - 0(No drift) 7. Limb Ataxia (finger/nose \T\ heel/amador - test with eyes open) - 0(Absent) 8. Sensory Loss (pinprick arms/legs/face) - 0(Normal) 9. Best Language: Aphasia (description/naming/reading) - 0(No aphasia) 10. Dysarthria (speech clarity - read or repeat words) - 0(Normal) 11. Extinction and Inattention (visual/tactile/auditory/spatial/personal) - 0(No abnormality) Initials: lg3 Signatures: Dispatcher [employer] Renato Aguilar MD MD kdr Mickail, Joel, PA PA jmm Garcia, Cindy, RN RN cg Isa Mora RN RN ll1 Corrections: (The following items were deleted from the chart) : 16:02 Telemetry/MedSurg (observation) [facility] : 16:02 [facility]
[2022-10-24 16:52] LABS: SARS-CoV-2 Antigen Rapid Res Negative (Negative)
[2022-10-24] MEDS ORDERED: ONDANSETRON 4 MG/2 ML VIAL IV PRN (18:15)
[2022-10-24] MEDS ORDERED: ACETAMINOPHEN 500 MG TAB PO PRN (18:15)
[2022-10-24] MEDS: NA CHLORIDE 0.9% 1,000 ML IV SCH (19:00)
[2022-10-24] MEDS ORDERED: ATORVASTATIN 80 MG TAB PO SCH (21:00)
[2022-10-24] MEDS ORDERED: NA CHLORIDE 0.9% 1,000 ML ONE (22:27)
[2022-10-24] MEDS ORDERED: ATORVASTATIN 20 MG TAB ONE (22:27)
[2022-10-25 05:37] LABS: Absolute Lymphocytes (CBC) 2.5 K/uL (0.7-4.9); Hematocrit 35.5 % (36.0-45.0); Lymphocytes % 40.2 % (15.3-44.8); MCV 95.5 fL (80-100); RBC Red Blood Cell Count 3.72 M/uL (3.86-4.86)
[2022-10-25 05:40] LABS: Albumin 2.8 g/dL (3.4-5.0); Bilirubin Total 0.5 mg/dL (0.2-1.0); Magnesium 2.1 mg/dL (1.6-2.4); Phosphorus 3.7 mg/dL (2.5-4.9); Potassium 3.8 mmol/L (3.5-5.1); Protein, Total 5.7 g/dL (6.4-8.2)
[2022-10-25 07:24] VITALS: TEMP 97.9
[2022-10-25] MEDS: NA CHLORIDE 0.9% 1,000 ML IV SCH (08:20)
[2022-10-25] MEDS ORDERED: ASPIRIN EC 81 MG TAB PO ONE (08:59)
[2022-10-25] MEDS ORDERED: ASPIRIN EC 81 MG TAB PO SCH (09:00)
[2022-10-25] MEDS ORDERED: ENOXAPARIN 40 MG/0.4 ML SQ ONE (09:00)
[2022-10-25] MEDS ORDERED: CLOPIDOGREL 75 MG TABLET ONE (09:00)
[2022-10-25] MEDS ORDERED: CLOPIDOGREL 75 MG TABLET PO SCH (09:00)
[2022-10-25] MEDS ORDERED: ENOXAPARIN 40 MG/0.4 ML SQ SCH (09:00)
--- NOTE | 2022-10-25 09:18 | RAD REPORT ---
EXAM DESCRIPTION: US - CP - 10/25/2022 2:04 am CLINICAL HISTORY: tia Headache, drowsiness COMPARISON: MRA Neck W/Wo Cont dated 08/09/2022 TECHNIQUE: Real-time sonographic evaluation of both carotid systems was performed. Doppler interroga tion was performed with waveform tracing bilaterally. FINDINGS: Normal high resistance waveforms are noted in both external carotid arteries. The common c arotid arteries and internal carotid arteries show normal low resistance waveforms. Significant hard plaque is present bilateral carotid systems. Post bulbar stenosis proximal right ICA again visualized resulting in elevated peak systolic velocity measurements. This stenosis likely hem odynamically significant estimated at 80-90% based on NASCET criteria. Left bulb demonstrates turbulent flow with mild elevation in peak systolic velocity. Estimated caroti d stenosis at this level is 50-70% based on NASCET criteria. Antegrade flow seen in both vertebral arteries. IMPRESSION: There is significant bilateral hard plaquing present involving both internal carotid art eries, greater on the right. There is significant stenosis seen post-bulbar right ICA which is likely hemodynamically significant. Moderate stenosis left carotid bulb.
--- NOTE | 2022-10-25 10:25 | RAD REPORT ---
EXAM DESCRIPTION: MRI - Brain W/Wo Cont - 10/25/2022 8:28 am CLINICAL HISTORY: STROKE Headache, drowsiness COMPARISON: 10/09/2021 TECHNIQUE: Multi-sequence, multiplanar MR imaging of the brain was performed with contrast. FINDINGS: No intracranial hemorrhage, hydrocephalus, or extra-axial fluid collection.Advanced conflu ent T2/FLAIR hyperintensity in the periventricular and deep white matter is present compatible with c hronic microvascular ischemic changes. No edema or shift of midline structures. No intracranial mass. DWI is negative for acute CVA. The midline structures are normally formed. Mild mucoperiosteal thickening affects both maxillary ant ra. Post-contrast images show no abnormal enhancement to suggest tumor or infection. IMPRESSION: Negative for acute CVA or other acute intracranial process. No pathologic post-contrast enhancement suspected.
--- NOTE | 2022-10-25 10:27 | RAD REPORT ---
EXAM DESCRIPTION: MRI - MRA Head Wo Cont - 10/25/2022 8:28 am CLINICAL HISTORY: Stroke CVA COMPARISON: Ct Stroke Brain Wo Cont dated 10/24/2022; MRA Neck W/Wo Cont dated 08/09/2022; Brain W/Wo Cont dated 08/09/2022 FINDINGS: 3D noncontrast [id number] MR angiography of the [place] was performed. No aneurysm, flow-limiting stenosis or vascular malformation is seen. Forward flow seen in codominant vertebral arteries. The visualized dural venous sinuses appear patent. IMPRESSION: No significant flow abnormality of the [place] is identified.
--- NOTE | 2022-10-25 10:29 | RAD REPORT ---
EXAM DESCRIPTION: MRI - MRA Neck W/Wo Cont - 10/25/2022 9:52 am CLINICAL HISTORY: STROKE Headache, drowsiness, CVA symptomology COMPARISON: MRA Neck W/Wo Cont dated 08/09/2022 FINDINGS: Contrast enhance 2D [id number] MR angiography of the neck vessels was performed. There is a left aortic arch present with normal great vessel origins. Post-bulbar stenosis is again noted involving the right proximal ICA. Based on NASCET criteria stenos is estimated at 95%. Moderate stenosis involving the left carotid bulb also seen, based on NASCET criteria estimated at 50 -70%. Antegrade flow seen in both vertebral arteries. IMPRESSION: 95% stenosis post-bulbar right proximal ICA suspected.
--- NOTE | 2022-10-25 11:02 | P.DS ---
Discharge Date: 10/25/22 Disposition: ROUTINE DISCHARGE Discharge Condition: GOOD Reason for Admission: TIA - Problems (1) TIA (transient ischemic attack) Onset Date: 07/09/14 Current Visit: No Status: Acute (2) Afib Current Visit: Yes Status: Acute (3) CAD (coronary artery disease) Current Visit: Yes Status: Acute Brief History of Present Illness: Patient is a 81yo who developed weakness and gait instability which resolved. Vital Signs/Physical Exam: Temp Pulse Resp BP Pulse Ox 97.9 F 56 18 127/84 96 10/25/22 11:01 10/25/22 11:01 10/25/22 11:01 10/25/22 11:01 10/25/22 11:01 Laboratory Data at Discharge: WBC 6.20 K/uL (4.3-10.9) 10/25/22 04:54 Hgb 11.4 g/dL (12.0-15.0) L 10/25/22 04:54 Hct 35.5 % (36.0-45.0) L 10/25/22 04:54 Plt Count 137 K/uL (152-406) L 10/25/22 04:54 PT 15.2 SECONDS (9.5-12.5) H 10/24/22 13:37 INR 1.38 10/24/22 13:37 APTT 32.7 SECONDS (24.3-36.9) 10/24/22 13:37 Sodium 144 mmol/L (136-145) 10/25/22 04:54 Potassium 3.8 mmol/L (3.5-5.1) 10/25/22 04:54 BUN 17 mg/dL (7-18) 10/25/22 04:54 Creatinine 0.83 mg/dL (0.55-1.02) 10/25/22 04:54 Glucose 92 mg/dL (74-106) 10/25/22 04:54 Phosphorus 3.7 mg/dL (2.5-4.9) 10/25/22 04:54 Magnesium 2.1 mg/dL (1.6-2.4) 10/25/22 04:54 Total Bilirubin 0.5 mg/dL (0.2-1.0) 10/25/22 04:54 AST 24 U/L (15-37) 10/25/22 04:54 ALT 22 U/L (13-56) 10/25/22 04:54 Alkaline Phosphatase 50 U/L (45-117) 10/25/22 04:54 Triglycerides 54 mg/dL (<150) 10/25/22 04:54 Cholesterol 121 mg/dL (<200) 10/25/22 04:54 HDL Cholesterol 58 mg/dL (40-60) 10/25/22 04:54 Cholesterol/HDL Ratio 2.09 10/25/22 04:54 Home Medications: Atorvastatin Calcium [Lipitor] 80 mg PO BEDTIME 07/09/14 Apixaban [Eliquis] 5 mg PO BID 30 Days #60 04/29/22 Albuterol Inhaler [Ventolin Inhaler*] 2 puff IH Q6HP PRN 07/04/22 Umeclidinium Brm/Vilanterol Tr [Anoro Ellipta 62.5-25 Mcg INH] 1 puff IH DAILY 07/04/22 Losartan Potassium [Cozaar] 50 mg PO BID #60 tab 07/06/22 Cyclobenzaprine HCl [Flexeril] 5 mg PO TIDP PRN 08/09/22 Aspirin Chewable [Aspirin Chewable*] 81 mg PO DAILY tab.chew 08/10/22 Folic Acid 1 mg PO DAILY #1 08/10/22 Metoprolol Tartrate 25 mg PO BID 10/25/22 Sertraline [Zoloft*] 25 mg PO DAILY 10/25/22 Physician Discharge Instructions: -DC IV and DC home -Follow-up with PCP in 1 to 2 weeks -Follow-up with Neurology in 1 to 2 weeks -Please call Dr. Yepez at [phone] if any questions regarding hospital stay -Please call nursing station at [phone] if any nursing or medication questions -Return to the emergency room if symptoms worsen Diet: AHA Activity: Fall precautions Followup: Thiago Levi MD [Primary Care Provider] -
--- NOTE | 2022-10-25 11:02 | P.HP ---
Certification for Inpatient Patient admitted to: Observation With expected LOS: <2 Midnights Patient will require the following post-hospital care: None Practitioner: I am a practitioner with admitting privileges, knowledge of patient current condition, hospital course, and medical plan of care. Services: Services provided to patient in accordance with Admission requirements found in Title 42 Section 412.3 of the Code of Federal Regulations Patient History Date of Service: 10/24/22 Reason for admission: TIA History of Present Illness: Patient is a 81yo who developed weakness and gait instability which resolved. Patient apparently was walking little awkwardly compared to how she normally does and the caregiver wanted to bring her into the hospital because she was admitted about a month ago for a possible CVA. She was worked up extensively and discharged home on antiplatelet therapy. At that time she had an MRI, revealed right carotid artery stenosis but no intervention at that time. Outpatient follow-up was recommended. She is continued have similar symptoms so she was brought back into the emergency room. She is back to her baseline according to the caregiver. MRI pending for in the morning. Allergies celecoxib [From Celebrex] Allergy (Verified 08/09/22 22:42) Rash simvastatin [From Zocor] Allergy (Verified 08/09/22 22:42) Rash Home Medications: Atorvastatin Calcium [Lipitor] 80 mg PO BEDTIME 07/09/14 Apixaban [Eliquis] 5 mg PO BID 30 Days #60 04/29/22 Albuterol Inhaler [Ventolin Inhaler*] 2 puff IH Q6HP PRN 07/04/22 Umeclidinium Brm/Vilanterol Tr [Anoro Ellipta 62.5-25 Mcg INH] 1 puff IH DAILY 07/04/22 Losartan Potassium [Cozaar] 50 mg PO BID #60 tab 07/06/22 Cyclobenzaprine HCl [Flexeril] 5 mg PO TIDP PRN 08/09/22 Aspirin Chewable [Aspirin Chewable*] 81 mg PO DAILY tab.chew 08/10/22 Folic Acid 1 mg PO DAILY #1 08/10/22 Metoprolol Tartrate 25 mg PO BID 10/25/22 Sertraline [Zoloft*] 25 mg PO DAILY 10/25/22 - Past Medical/Surgical History Diabetic: No -: CAD -: COPD -: seizures as child at 2-3 years old -: AFib -: high cholesterol -: Triple bypass - 1997 -: Connie -: Tubal Ligation - Family History Sister Medical History: Heart disease, Hypertension, GI disease, Cancer - Social History Alcohol use: No CD- Drugs: No Caffeine use: Yes Review of Systems 10-point ROS is otherwise unremarkable Physical Examination - Vital Signs Temperature: 97.9 F Blood Pressure: 127/84 Pulse: 56 Respirations: 18 Pulse Ox (%): 96 - Physical Exam General: Alert, In no apparent distress, Oriented x3 HEENT: Atraumatic, PERRLA, Mucous membr. moist/pink, EOMI, Sclerae nonicteric Neck: Supple, 2+ carotid pulse no bruit, No LAD, Without JVD or thyroid abnormality Respiratory: Clear to auscultation bilaterally, Normal air movement Cardiovascular: Regular rate/rhythm, Normal S1 S2 Gastrointestinal: Normal bowel sounds, Soft and benign, Non-distended, No tenderness Musculoskeletal: No clubbing, No swelling, No tenderness Integumentary: No rashes Neurological: Normal gait, Normal speech, Normal strength at 5/5 x4 extr, Normal tone, Sensation intact, Cranial nerves 3-12 intact, Normal affect Lymphatics: No axilla or inguinal lymphadenopathy - Studies Laboratory Data (last 24 hrs) 10/24/22 13:37: PT 15.2 H, INR 1.38, APTT 32.7 10/24/22 13:37: WBC 6.60, Hgb 11.9 L, Hct 36.8, Plt Count 150 L 10/24/22 13:37: Sodium 144, Potassium 4.3, BUN 21 H, Creatinine 0.99, Glucose 94, Magnesium 2.1, Total Bilirubin 0.5, AST 27, ALT 24, Alkaline Phosphatase 52 Assessment & Plan - Problems (Diagnosis) (1) TIA (transient ischemic attack) Onset Date: 07/09/14 Current Visit: No Status: Acute (2) Afib Current Visit: Yes Status: Acute (3) CAD (coronary artery disease) Current Visit: Yes Status: Acute - Plan 1. MRI of the brain 2. Antiplatelet and statin therapy 3. Lipid profile 4. Physical therapy and speech therapy consultation 5. DVT prophylaxis 6. Neurochecks every 4 hours 7. Reassess stroke scale 8. GI and DVT prophylaxis Discharge Plan: Home Plan to discharge in: Greater than 2 days - Advance Directives Does patient have a Living Will: No Does patient have a Durable POA for Healthcare: No - Code Status/Comfort Care Code Status Assessed: No Critical Care: No Time Spent Managing PTS Care (In Minutes): 45
[2022-10-25] MEDS ORDERED: ALBUTEROL INHALER 60 PUFF/8 GM IH PRN (11:11)
[2022-10-25] MEDS ORDERED: HOME MED 1 EA UNK (Cyclobenzaprine Hcl [Flexeril] 5 MG Tablet) PO PRN (11:11)
[2022-10-25] MEDS ORDERED: CYCLOBENZAPRINE 10 MG TAB PO PRN (11:24)
[2022-10-25] MEDS ORDERED: FOLIC ACID 1 MG TABLET PO SCH (12:00)
[2022-10-25] MEDS ORDERED: LOSARTAN POTASSIUM 50 MG TABLET PO SCH (12:00)
[2022-10-25] MEDS ORDERED: METOPROLOL TAR 25 MG TAB PO SCH (12:00)
[2022-10-25] MEDS ORDERED: FOLIC ACID 1 MG TABLET ONE (15:19)
[2022-10-25] MEDS ORDERED: LOSARTAN POTASSIUM 50 MG TABLET ONE (15:19)
[2022-10-25] MEDS ORDERED: METOPROLOL TAR 25 MG TAB ONE (15:20)
[2022-10-25 15:22] VITALS: BP 165/65
[2022-10-25] MEDS ORDERED: HEPARIN/D5W 25,000 UNIT/500 ML BAG IV PRN (17:00)
[2022-10-25 18:10] VITALS: O2SAT 99; BMI 18.3
[2022-10-25] MEDS ORDERED: ATORVASTATIN 80 MG TAB PO SCH (21:00)
[2022-10-25] MEDS ORDERED: APIXABAN 5 MG TABLET PO SCH (21:00)
[2022-10-26] MEDS ORDERED: ASPIRIN 81 MG CHEWABLE TABLET PO SCH (09:00)
[2022-10-26] MEDS ORDERED: SERTRALINE HCL 50 MG TAB PO SCH (09:00)
--- NOTE | 2022-11-02 17:39 | EKG ---
Test Date: 2022-10-24 Test Time: 13:43:19 Business Risk Analyst: YASMANI MEASUREMENT RESULTS: Intervals: Rate: 56 MT: 148 QRSD: 92 QT: 444 QTc: 428 [place]: P: 68 MT: 148 QRS: -61 T: 39 INTERPRETIVE STATEMENTS: Sinus bradycardia Left anterior fascicular block Voltage criteria for left ventricular hypertrophy Cannot rule out Septal infarct, age undetermined Abnormal ECG Compared to ECG 08/27/2022 02:55:04 Sinus rhythm no longer present Myocardial infarct finding still present Electronically Signed On 11-02-22 17:23:51 CLARIFIER OPERATOR by Yayo Hart
== END 2022-10-25 18:45 | disposition short-term general hospital (02) | DRG 68 ==
LOC: ER 12:52 → ERHOLD 18:15 → OBSVTOIN 10-25 15:34
PROVIDERS: ADMIT Hospitalist; ATTEND Hospitalist
DX: I65.21 Occlusion and stenosis of right carotid artery (principal); I25.10 Atherosclerotic heart disease of native coronary artery without angina pectoris; I48.91 Unspecified atrial fibrillation; R29.701 NIHSS score 1; J44.9 Chronic obstructive pulmonary disease, unspecified; E78.00 Pure hypercholesterolemia, unspecified; I25.2 Old myocardial infarction; Z95.1 Presence of aortocoronary bypass graft; Z79.01 Long term (current) use of anticoagulants; Z79.82 Long term (current) use of aspirin; Z79.899 Other long term (current) drug therapy; Z88.8 Allergy status to other drugs, medicaments and biological substances; Z87.891 Personal history of nicotine dependence; Z90.49 Acquired absence of other specified parts of digestive tract; Z20.822 Contact with and (suspected) exposure to COVID-19; Z82.49 Family history of ischemic heart disease and other diseases of the circulatory system; Z80.9 Family history of malignant neoplasm, unspecified; Z83.79 Family history of other diseases of the digestive system
CPT/HCPCS: 36415; 70450; 70544; 70549; 70553; 71045; 80048; 80053; 80061; 80076; 82947; 83735; 84100; 84484; 85025; 85610; 85730; 87811; 92610; 93005; 93880; 97112; 97116; 97161; 99285; A9577; G0378; J1650; J7030

== ENCOUNTER 2022-12-08 06:36 | Emergency (ER) | payer MEDICARE ==
--- OUTSIDE RECORDS SUMMARY | 2022-12-08 06:42 | XMS REPORT | Continuity of Care Document ---
:1940 Author Organization [facility] t Address [address] [facility] [place] [address] Care Team Providers Name Role Phone Asked, No Pcp Primary Care Physician Unavailable Lenny CLEMENT, Tiffanie Ji Attending Clinician Abel Velazquez MD Attending Clinician Willy White MD Attending Clinician [phone] Cary CLEMENT, Jean Paul Roberson Attending Clinician [phone] Arnel Farnsworth MD Attending Clinician [phone] Carolina Farnsworth MD Attending Clinician Boni Roper MD Attending Clinician CAROLINA FARNSWORTH Attending Clinician Unavailable Tiffanie Galvez MD Attending Clinician Oneil More MD Attending Clinician [phone] TIFFANIE GALVEZ Admitting Clinician Unavailable BONI ROPER Admitting Clinician Unavailable Payers Payer Name Policy Type Policy Number Effective Date Expiration Date S henok [facility] [id number] 2022 (MEDICARE 00:00:00 REPLACEMENT HMO) Problems Condition Condition Condition Status Onset Resolution Last Treating Co mments Source Name Details Category Date Date Treatment Clinician Date Carotid Carotid Disease Active Methodi artery artery 2-07 st stenosis, stenosis, 00:00: Hosp lia symptomati symptomati 00 l c, right c, right Carotid Carotid Disease Active 2021-[address] [...] aphasia aphasia 2-10 [facility] 00 [place] Dysarthria Dysarthria Disease Active 2021-[address] due to due to 2-10 [facility] acute acute 00:00: Medical cerebrovas cerebrovas 00 Ce nter cular cular accident accident (CVA) (CVA) Thrombocyt Thrombocyt Disease Recurre [facility] openia openia nce 10[facility]17 [facility] Other Other Disease Active [facility] specified specified - Luke s transient transient 00:00: [facility] he cerebral cerebral 00 Center ischemias ischemias B12 B12 Disease Active [facility] deficiency deficiency 10-17 [facility] 00:00: Medical 00 Center CAD CAD Disease Active [facility] (coronary (coronary - Luke s artery artery 00:00: Medical disease) disease) 00 Center Hyperchole Hyperchole Disease Active [facility] sterolemia sterolemia - [facility] kes 00:00: Medical 00 Center Allergies, Adverse Reactions, Alerts Allergy Allergy Status Severity Reaction(s) Onset Inactive Treating Comm ents Source Name Type Date Date Clinician CELECOXI Allergy Active Low Rash [facility]SL B 10-16 00:00: 00 SIMVASTA Allergy Active Low Rash [facility]SL TIN 10-16 00:00: 00 Celecoxi Drug Active Rash [facility] Allergy 10-16 [facility] Center Simvasta Drug Active Rash 2017-[address] tin Allergy 1-28 [facility] 00:[facility] 00 Center Celecoxi Propensi Active Rash 2013-09 Method i b ty to 0-21 st adverse 00:00: Hospita reaction 00 l s to drug Simvasta Propensi Active Rash 2013-09 Method i tin ty to 0-21 st adverse 00:00: Hospita reaction 00 l s to drug Family History Family Member Diagnosis Comments Start Date Stop Date Source Natural mother Heart disease [facility] Natural sister Heart disease [facility] Social History Social Habit Start Date Stop Date Quantity Comments Source History SDMN [facility] Alcohol Comment Medical C enter History SDMN [facility] Alcohol Std Drinks Medica l Center History SDMN [facility] Alcohol Binge Medical Jyoti ter History [facility] Non-Med Medical Center History of tobacco Cigarette Smoker [facility] Alcohol intake 2022-10-29 2022-10-29 Lifetime [facility] 00:00:00 00:00:00 non-drinker Hospital (finding) Tobacco use and 2022-10-25 2022-10-25 Smokeless tobacco Me thodist exposure 00:00:00 00:00:00 non-user Hospital History [facility] 2022-08-29 2022-08-[address] [facility] Transport Med 00:00:00 00:00:[address] History [facility] 2022-08-29 2022-08-[address] [facility] Housing Unable to 00:00:00 00:00:00 Medical Center Pay History [facility] 2022-08-29 2022-08-[address] [facility] Housing Places 00:00:00 00:00:00 Medical Ce nter Lived History [facility] 2022-08-29 2022-08-[address] [facility] Housing Homeless 00:00:00 00:00:00 Medical Center Last Year Cigarettes smoked 2022-08-28 2022-08-[address] [facility] current (pack per 00:00:00 00:00:00 Medical Center day) - Reported History [facility] 2022-08-28 2022-08-[address] [facility] Alcohol Frequency 00:00:00 00:00:00 Medical Center Sex Ass[birth year] At [birth year] [facility] 00:00:00 00:00:00 Hospital Smoking Status Start Date Stop Date Source Tobacco smoking consumption [facility] odist [facility] unknown Ex-smoker 2022-10-25 00:00:00 2022-10-25 00:00:00 Method t [facility] Medications Ordered Filled Start Stop Current Ordering Indication Dosage Frequency Signature Comments Components Source Medication Medication Date Date Medication? Clinician (SIG) Name Name folic acid Yes 800ug QD Take 2 Meth jorge (FOLVITE) 2-[address] 400 MCG 16:47: (800 mcg Hospit a tablet 02 total) by l mouth daily. clopidogreL 2022- No 150mg QD Take 2 Me thodi (PLAVIX) 75 2-13 03-[address] mg tablet 00:00: 04:59 (150 mg Hosp lia 00 :00 total) by l mouth daily for 30 days. ramelteon 2022- No 8mg QD Take 1 Metho di (ROZEREM) 8 2-12 03-15 tablet (8 st mg tablet 00:00: 04:59 mg total) Ho spita 00 :00 by mouth l nightly for 30 days. Eliquis 5 Yes 5mg Q.5D Take 1 Method i mg tablet 1-19 tablet (5 st 00:00: mg total) Hospita 00 by mouth 2 l (two) times a day. sertraline Yes 25mg QD Take 1 Metho di (ZOLOFT) 25 1-04 tablet (25 st MG tablet 00:00: mg total) Hos ros 00 by mouth l daily. ALPRAZolam No .5mg Q6H Take 1 Meth jorge (XANAX) 0.5 1-04 02-[address] MG tablet 00:00: 00:00 (0.5 mg Hosp lia 00 :00 total) by l mouth every 6 (six) hours as needed for anxiety. atorvastati 2021-09 Yes 80mg QD Take [address] [facility] (LIPITOR) 2-14 by mouth Luke s 80 MG 16:42: nightly . Medical tablet 40 [place] aspirin 81 2021-09 Yes 81mg QD Take [address] MG EC 2-14 by mouth [facility] tablet 16:42: daily. [address] folic acid 2021-09 Yes 800ug QD Take [address] (FOLVITE) 2-14 mcg by [facility]ukes 800 MCG 16:42: mouth Medical tablet 40 daily. [place] albuterol 2021-09 Yes 2{puff} Inhale 2 C [...] inhaler Med ical rol tr 40 daily. [place] (ANORO ELLIPTA INHL) ezetimibe 2021-09 Yes 10mg QD Take [address] (ZETIA) 10 2-14 by mouth [facility] mg tablet 16:42: daily. Medica l 40 Center atorvastati 2021-09 Yes 80mg QD Take [address] n (LIPITOR) 2-14 by mouth Luke s 80 MG 16:42: nightly . Medical tablet 40 Center aspirin 81 2021-09 Yes 81mg QD Take [address] MG EC 2-14 by mouth [facility] tablet 16:42: daily. Medical 40 Center folic acid 2021-09 Yes 800ug QD Take [address] (FOLVITE) 2-14 mcg by [facility]ukes 800 MCG 16:42: mouth Medical tablet 40 daily. [place] albuterol 2021-09 Yes 2{puff} Inhale 2 C [...] inhaler Med ical rol tr 40 daily. [place] (ANORO ELLIPTA INHL) ezetimibe 2021-09 Yes 10mg QD Take [address] (ZETIA) 10 2-14 by mouth [facility] mg tablet 16:42: daily. Medica l 40 [place] losartan 2021-09- No 25mg QD Take [address] (COZAAR) 25 2-14 12-14 by mouth Сергей es MG tablet 15:17: 00:00 daily. Medic al 41 :00 [place] losartan 2021-09- No 50mg QD Take [address] (COZAAR) 50 2-14 12-14 by mouth Сергей es MG tablet 15:17: 00:00 nightly. Med ical 41 :00 [place] losartan 2021-09- No 25mg QD Take [address] (COZAAR) 25 2-14 12-14 by mouth Сергей es MG tablet 15:17: 00:00 daily. Medic al 41 :00 [place] losartan 2021-09- No 50mg QD Take [address] (COZAAR) 50 2-14 12-14 by mouth Сергей es MG tablet 15:17: 00:00 nightly. Med ical 41 :00 [place] losartan 2021-09 Yes 25mg Q.5D Take [address] (COZAAR) 25 2-14 tablet (25 [facility]n kes MG tablet 00:00: mg total) Med ical 00 by mouth 2 Center (two) times daily. metoprolol 2021-09 Yes 25mg Q.5D Take 1 [facility] t tartrate 2-14 tablet (25 [facility] (LOPRESSOR) 00:00: mg total) M edical 25 MG 00 by mouth 2 Center tablet (two) times daily. losartan 2021-09 Yes 25mg Q.5D Take [address] (COZAAR) 25 2-14 tablet (25 Mariann kes MG tablet 00:00: mg total) Med ical 00 by mouth 2 Center (two) times daily. metoprolol 2021-09 Yes 25mg Q.5D Take 1 [facility] t tartrate 2-14 tablet (25 [facility] (LOPRESSOR) 00:00: mg total) M edical 25 MG 00 by mouth 2 Center tablet (two) times daily. metoprolol 2021-09 Yes 25mg Q.5D Take 1 Metho di tartrate 2-14 tablet (25 st (LOPRESSOR) 00:00: mg total) H ospita 25 mg 00 by mouth 2 l tablet (two) times a day. losartan 2021-09 Yes 25mg Take 1 Methodi (COZAAR) 25 2-14 tablet (25 st MG tablet 00:00: mg total) Hos ros 00 by mouth l as needed. ezetimibe 2021-09- No 10mg QD Take [address] (ZETIA) 10 2-10 12-10 by mouth Luke s mg tablet 22:39: 00:00 daily. Medic al 27 :00 [place] ezetimibe 2021-09- No 10mg QD Take [address] (ZETIA) 10 2-10 12-10 by mouth Luke s mg tablet 22:39: 00:00 daily. Medic al 27 :00 [place] clopidogrel 2021-09 No 75mg QD Take [address] (PLAVIX) 75 2-10 12-10 by mouth Сергей es mg tablet 22:39: 00:00 daily. Medic al 11 :00 [place] clopidogrel 2021-09- No 75mg QD Take [address] (PLAVIX) 75 2-10 12-10 by mouth Сергей es mg tablet 22:39: 00:00 daily. Medic al 11 :00 [place] aspirin 325 2021-09- No 325mg QD Take [address] MG tablet 2-10 12-10 mg by [facility]ukes 22:38: 00:00 mouth Medical 02 :00 daily. [place] aspirin 325 2021-09- No 325mg QD Take [address] MG tablet 2-10 12-10 mg by [facility] 22:38: 00:00 mouth Medical 02 :00 daily. [place] atorvastati 2013-09 Yes 80mg QD Take 1 Meth jorge n (LIPITOR) 0-20 tablet (80 st 80 MG 00:00: mg total) Hospita tablet 00 by mouth l nightly. Immunizations Ordered Immunization Filled Immunization Date Status Commen ts Source Name Name ShowEvidence-19 MRNA 2020-12-12 Completed Meth odist VACCINATION 00:00:00 [facility] Yabbly COVID-19 MRNA 2020-12-12 Completed Meth odist VACCINATION 00:00:00 Hospital PFIZER COVID-19 MRNA 2020-12-12 Completed Meth odist VACCINATION 00:00:00 [facility] PFIZER COVID-19 MRNA 2020-12-12 Completed Meth odist VACCINATION 00:00:00 [facility] PFIZER COVID-19 MRNA 2020-12-12 Completed Meth odist VACCINATION 00:00:00 [facility] PFIZER COVID-19 MRNA 2020-12-12 Completed Meth odist VACCINATION 00:00:00 [facility] PFIZER COVID-19 MRNA 2020-12-12 Completed Meth odist VACCINATION 00:00:00 [facility] PFIZER COVID-19 MRNA 2020-11-21 Completed Meth odist VACCINATION 00:00:00 [facility] PFIZER COVID-19 MRNA 2020-11-21 Completed Meth odist VACCINATION 00:00:00 [facility] PFIZER COVID-19 MRNA 2020-11-21 Completed Meth odist VACCINATION 00:00:00 [facility] PFIZER COVID-19 MRNA 2020-11-21 Completed Meth odist VACCINATION 00:00:00 [facility] PFIZER COVID-19 MRNA 2020-11-21 Completed Meth odist VACCINATION 00:00:00 [facility] PFIZER COVID-19 MRNA 2020-11-21 Completed Meth odist VACCINATION 00:00:00 [facility] PFIZER COVID-19 MRNA 2020-11-21 Completed Meth odist VACCINATION 00:00:00 Hospital Vital Signs Vital Name Observation Time Observation Value Comments Source WEIGHT 2022-08-28 22:00:00 58.968 kg HEIGHT 2022-08-28 19:50:00 170.2 cm WEIGHT 2022-08-28 22:00:00 58.968 kg HEIGHT 2022-08-28 19:50:00 170.2 cm WEIGHT 2022-08-28 22:00:00 58.968 kg HEIGHT 2022-08-28 19:50:00 170.2 cm Systolic blood 2022-10-31 21:41:59 130 mm[Hg] [facility] pressure Diastolic blood 2022-10-31 21:41:59 60 mm[Hg] [facility] pressure Heart rate 2022-10-31 21:41:59 51 /min [facility] Body temperature 2022-10-31 21:41:59 36.61 [facility] Respiratory rate 2022-10-31 21:41:59 18 /min Meth odist [facility] Oxygen saturation in 2022-10-31 21:41:59 97 /min [facility] Arterial blood by Pulse oximetry Body weight 2022-10-30 10:37:55 51.9 kg [facility] BMI 2022-10-30 10:37:55 17.92 kg/m2 [facility] Body height 2022-10-26 02:31:00 170.2 cm [facility] Heart rate 2022-09-01 14:12:00 79 /min [facility] Respiratory rate 2022-09-01 14:12:00 18 /min [facility] Oxygen saturation in 2022-09-01 14:12:00 95 /min [facility] Arterial blood by Medical Ce nter Pulse oximetry Systolic blood 2022-09-01 11:27:00 143 mm[Hg] [facility] Diastolic blood 2022-09-01 11:27:00 67 mm[Hg] [facility] Body temperature 2022-09-01 11:27:[address] [facility] Body weight 2022-08-28 22:00:[address] [facility] BMI 2022-08-28 22:00:00 20.36 kg/m2 [facility] Body height 2022-08-28 19:50:[address] [facility] Procedures Procedure Date / Time Performing Clinician Source Performed POC GLUCOSE 2022-10-31 17:56:00 [facility] POC GLUCOSE 2022-10-31 13:27:00 [facility] POC GLUCOSE 2022-10-31 02:48:00 [facility] POC GLUCOSE 2022-10-30 15:18:00 [facility] POC GLUCOSE 2022-10-30 10:38:00 [facility] POC GLUCOSE 2022-10-30 06:06:00 [facility] POC GLUCOSE 2022-10-30 02:22:00 [facility] POC GLUCOSE 2022-10-29 22:40:00 [facility] POC GLUCOSE 2022-10-29 17:12:00 [facility] POC GLUCOSE 2022-10-29 14:05:00 [facility] POC GLUCOSE 2022-10-29 10:29:00 [facility] POC GLUCOSE 2022-10-29 05:56:00 [facility] CT ANGIOGRAM NECK W WO 2022-10-29 03:18:23 Carlo Queen Jason [facility] CONTRAST POC GLUCOSE 2022-10-29 02:25:00 [facility] US CAROTID DUPLEX BILATERAL 2022-10-29 00:05:00 Kennedi Lewis [facility] POC GLUCOSE 2022-10-28 23:24:00 [facility] POC GLUCOSE 2022-10-28 17:18:00 [facility] POC GLUCOSE 2022-10-28 13:55:00 [facility] POC GLUCOSE 2022-10-28 03:31:00 [facility] MRI BRAIN WO CONTRAST 2022-10-27 23:12:11 Donita French [facility] POC GLUCOSE 2022-10-27 14:32:00 Tiffanie Galvez [facility] POC GLUCOSE 2022-10-27 10:46:00 Tiffanie Galvez Afsaneh [facility] BASIC METABOLIC PANEL 2022-10-27 10:00:00 [facility] S CBC WITH PLATELET AND 2022-10-27 10:00:00 [facility] DIFFERENTIAL [place] S MAGNESIUM LEVEL 2022-10-27 10:00:00 [facility] [place] S PHOSPHORUS LEVEL 2022-10-27 10:00:00 [facility] S HEMOGLOBIN A1C 2022-10-27 10:00:00 Tiffanie Galvez [facility] PARTIAL THROMBOPLASTIN TIME 2022-10-27 10:00:00 Lenny [facility] (PTT) ESTIMATED GFR 2022-10-27 10:00:00 [facility] S PROTHROMBIN TIME WITH INR 2022-10-27 10:00:00 Lenny [facility] LIPID PANEL 2022-10-27 10:00:00 [facility] POC GLUCOSE 2022-10-27 06:47:[address] [facility] BASIC METABOLIC PANEL 2022-10-27 03:38:00 [facility] S CBC WITH PLATELET AND 2022-10-27 03:38:00 [facility] DIFFERENTIAL [place] S MAGNESIUM LEVEL 2022-10-27 03:38:00 [facility] ESTIMATED GFR 2022-10-27 03:38:00 [facility] S PHOSPHORUS LEVEL 2022-10-27 03:38:00 [facility] S POC GLUCOSE 2022-10-27 02:14:[address] [facility] PARTIAL THROMBOPLASTIN TIME 2022-10-27 01:55:00 [facility] 2022-10-27 01:01:[address] [facility] OR [place] < 1 HOUR 2022-10-27 00:43:[address] [facility] ACTIVATED CLOTTING TIME 2022-10-27 00:21:00 [facility] CL[facility] 2022-10-27 00:04:00 [facility] ARTERIAL LINE 2022-10-26 23:38:13 Fern Claudemei ManriquezAmish Ho spihector Melendez ACTIVATED CLOTTING TIME 2022-10-26 23:26:00 Marcus [facility] DC AN ELECTIVE ENDOTRACHEAL 2022-10-26 23:19:00 Fern [facility] AIRWAY [place] TRANSCAROTID ARTERY 2022-10-26 22:51:00 [facility] REVASCULARIZATION ECG 12-LEAD 2022-10-26 17:27:36 Jase Townsend hennatal Jean Paul Roberson TTE COMPLETE, WO CONTRAST, 2022-10-26 16:49:00 [facility] W DOPPLER ([id number]) ABO AND RH CONFIRMATION BY 2022-10-26 15:50:00 Abel Velazquez [facility] PROTOCOL PROTHROMBIN TIME WITH INR 2022-10-26 15:45:00 [facility] Paul Roberson PARTIAL THROMBOPLASTIN TIME 2022-10-26 15:45:00 [facility] (PTT) Jean Paul Roberson XR CHEST 1 VW PORTABLE 2022-10-26 14:45:06 [facility] Roberson COVID-19 QUALITATIVE RT-PCR 2022-10-26 11:27:[address] [facility] TYPE AND SCREEN 2022-10-26 11:27:00 [facility] CBC WITH PLATELET AND 2022-10-26 06:16:00 [facility] DIFFERENTIAL BASIC METABOLIC PANEL 2022-10-26 06:16:00 [facility] ESTIMATED GFR 2022-10-26 06:16:00 [facility] ANTI XA, UNFRACTIONATED 2022-10-26 05:19:[address] [facility] PARTIAL THROMBOPLASTIN TIME 2022-10-26 05:19:[address] [facility] (PTT) POC GLUCOSE 2022-10-26 02:21:[address] [facility] [address] BRAIN WITHOUT IV 2022-09-01 13:35:00 Carolina Farnsworth [facility] COMPREHENSIVE METABOLIC 2022-09-01 05:14:00 Tiffanie Galvez [facility] MAGNESIUM 2022-09-01 05:14:00 [facility] CBC (HEMOGRAM ONLY) 2022-09-01 05:14:[address] [facility] MR BRAIN WITHOUT IV 2022-08-31 10:15:00 Carolina Farnsworth [facility] MRA HEAD WITHOUT IV 2022-08-31 10:10:00 Carolina Farnsworth [facility] MRA NECK WITHOUT IV 2022-08-31 10:10:00 Carolina Farnsworth [facility] COMPREHENSIVE METABOLIC 2022-08-31 05:10:[address] [facility] [address] [facility] MAGNESIUM 2022-08-31 05:10:00 [facility] CBC (HEMOGRAM ONLY) 2022-08-31 05:10:00 Tiffanie Galvez [facility] ANGIOGRAM, LOWER EXTREMITY 2022-08-30 14:54:00 [facility] CAROTID DOPPLER BILATERAL 2022-08-30 10:56:[address] [facility] APTT 2022-08-30 05:58:00 Carolina Farnsworth [facility] COMPREHENSIVE METABOLIC 2022-08-30 03:59:00 Tiffanie Galvez [facility] MAGNESIUM 2022-08-30 03:59:00 [facility] PR[facility]/INR 2022-08-30 03:59:[address] [facility] CBC (HEMOGRAM ONLY) 2022-08-30 03:59:00 [facility] CTA CAROTID 2022-08-29 18:09:[address] [facility] APTT 2022-08-29 13:34:00 [facility] ECHO W/ DOPPLER 2022-08-29 13:02:05 [facility] (CW/PW/COLOR) [facility] COMPREHENSIVE METABOLIC 2022-08-29 10:12:[address] MAGNESIUM 2022-08-29 10:12:00 Lenny [facility] TROPONIN I 2022-08-29 10:12:00 Af, [facility] SPUTUM CULTURE + GRAM STAIN 2022-08-29 05:09:00 Af, [facility] CBC (HEMOGRAM ONLY) 2022-08-29 05:09:00 Lenny [facility] TROPONIN I 2022-08-29 04:56:00 Afaq, [facility] APTT 2022-08-29 04:56:00 Af, [facility] XR CHEST 1 VIEW PORTABLE / 2022-08-29 00:55:00 Af, [facility] C [facility] LEGIONELLA ANTIGEN, URINE 2022-08-28 23:41:00 Afaq, [facility] CH I [facility] LIPID PANEL 2022-08-28 23:40:00 Af, [facility] HEMOGLOBIN A1C 2022-08-28 23:40:00 Af, [facility] TSH/FREE T4 IF INDICATED 2022-08-28 23:40:00 Afaq, [facility] VITAMIN B12 2022-08-28 23:40:00 Afaq, [facility] T4, FREE 2022-08-28 23:40:00 Af, [facility] CBC W/PLT COUNT & AUTO 2022-08-28 21:31:00 Afaq, [facility] COMPREHENSIVE METABOLIC 2022-08-28 21:31:00 Afaq, [facility] PANEL [facility] MAGNESIUM 2022-08-28 21:31:00 Afaq, [facility] APTT 2022-08-28 21:31:00 Afaq, [facility] CBC W/PLT COUNT & AUTO 2022-08-28 21:31:00 Afaq, [facility] S t [facility] DIFFERENTIAL [facility] ECG 12-LEAD 2022-08-28 20:53:56 Unknown, Hl[facility] ECG 12-LEAD 2022-08-28 20:53:56 Unknown, Hl7 [facility] ECG 12-LEAD 2022-08-28 20:53:24 Unknown, Hl7 [facility] ECG 12-LEAD 2022-08-28 20:53:24 Unknown, 7 [facility] CARDIAC CATH REPORT - SCAN 2022-08-28 00:00:00 Provider, Default [facility] EKG-SCANNED 2022-08-28 00:00:00 Provider, [facility] Plan of Care Planned Activity Planned Date Details Comments Source Future Scheduled 2023-08-[address] [facility] Test 00:00:00 [facility] Scre[facility] (12+) [code = Tobacco Cessation Counseling and Screening (12+)] Future Scheduled 2023-08-[address] [facility] Test 00:00:00 [facility] r Screening (12+) [code = Tobacco Cessation Counseling and Screening (12+)] Future Scheduled 2023-04-25 PNEUMOCOCCAL 65+ YRS [facility] Test 00:00:00 (2 - PCV) [code = Medical Ce nter PNEUMOCOCCAL 65+ YRS (2 - PCV)] Future Scheduled 2022-11-29 SHINGLES VACCINES (1 [facility] Test 10:36:39 of 2) [code = SHINGLES VACCINES (1 of 2)] Future Scheduled 2022-11-29 COVID-19 VACCINE (3 - [facility] Test 10:36:39 Booster for Pfizer series) [code = COVID-19 VACCINE (3 - Booster for Pfizer series)] Future Scheduled 2022-11-29 INFLUENZA VACCINE [facility] Test 10:36:39 [code = INFLUENZA VACCINE] Future Scheduled 2022-11-29 65+ [facility]UMOCOCCAL [facility] Test 10:36:39 VACCINE (2 - PCV) [code = 65+ PNEUMOCOCCAL VACCINE (2 - PCV)] Future Scheduled 2022-09-27 Hepatitis C screening [facility] Test 08:04:56 (procedure) [code = [id number]] Future Scheduled 2022-09-27 SHINGLES VACCINES (1 [facility] Test 08:04:56 of 2) [code = SHINGLES VACCINES (1 of 2)] Future Scheduled 2022-09-27 65+ PNEUMOCOCCAL [facility] Test 08:04:56 VACCINE (1 - PCV) [code = 65+ PNEUMOCOCCAL VACCINE (1 - PCV)] Future Scheduled 2022-09-27 COVID-19 VACCINE (3 - [facility] Test 08:04:56 Booster for Pfizer series) [code = COVID-19 VACCINE (3 - Booster for Pfizer series)] Future Scheduled 2022-09-27 INFLUENZA VACCINE [facility] Test 08:04:56 [code = INFLUENZA VACCINE] Future Scheduled 2022-09-[address] [facility] Test 00:00:00 (12+) [code = Medical Center DEPRESSION SCREENING (12+)] Future Scheduled 2022-09-19 FALLS RISK SCREENING [facility] Test 00:00:00 [code = FALLS RISK Medical C enter SCREENING] Future Scheduled 2022-09-[address] [facility] Test 00:00:00 (12+) [code = Medical Center DEPRESSION SCREENING (12+)] Future Scheduled 2022-09-19 [address] SCREENING [facility] Test 00:00:00 [code = FALLS RISK Medical C enter SCREENING] Future Scheduled 2022-07-26 HEPATITIS B VACCINES Met [facility] Test 07:03:55 (1 of 3 - 3-dose series) [code = HEPATITIS B VACCINES (1 of 3 - 3-dose series)] Future Scheduled 2022-07-26 SHINGLES VACCINES (1 Met [facility] Test 07:03:55 of 2) [code [...] series)] Future Scheduled 2022-07-26 INFLUENZA VACCINE Method [facility] Test 07:03:55 [code = INFLUENZA VACCINE] Future Scheduled 2022-07-26 HEPATITIS B VACCINES Met [facility] Test 07:03:55 (1 of 3 - 3-dose series) [code = HEPATITIS B VACCINES (1 of 3 - 3-dose series)] Future Scheduled 2022-07-26 SHINGLES VACCINES (1 Met [facility] Test 07:03:55 of 2) [code = SHINGLES VACCINES (1 of 2)] Future Scheduled 2022-07-26 65+ [facility] VACCINE (1 - PCV) [code = 65+ PNEUMOCOCCAL VACCINE (1 - PCV)] Future Scheduled 2022-07-26 COVID-19 VACCINE (3 - Me [facility] Test 07:03:55 Booster for Pfizer series) [code = COVID-19 VACCINE (3 - Booster for Pfizer series)] Future Scheduled 2022-07-26 INFLUENZA VACCINE Method [facility] Test 07:03:55 [code = INFLUENZA VACCINE] Future Scheduled 2022-07-26 HEPATITIS B VACCINES Met [facility] Test 07:03:55 (1 of 3 - 3-dose series) [code = HEPATITIS B VACCINES (1 of 3 - 3-dose series)] Future Scheduled 2022-07-26 SHINGLES VACCINES (1 Met [facility] Test 07:03:55 of 2) [code = SHINGLES VACCINES (1 of 2)] Future Scheduled 2022-07-26 65+ [facility] 07:[facility]:55 VACCINE (1 - PCV) [code = 65+ PNEUMOCOCCAL VACCINE (1 - PCV)] Future Scheduled 2022-07-26 COVID-19 VACCINE (3 - Me [facility] Test 07:03:55 Booster for Pfizer series) [code = COVID-19 VACCINE (3 - Booster for Pfizer series)] Future Scheduled 2022-07-26 INFLUENZA VACCINE Method [facility] Test 07:03:55 [code = INFLUENZA VACCINE] Future Scheduled 2022-06-07 HEPATITIS B VACCINES Met [facility] Test 04:44:56 (1 of 3 - 3-dose series) [code = HEPATITIS B VACCINES (1 of 3 - 3-dose series)] Future Scheduled 2022-06-07 SHINGLES VACCINES (1 Met [facility] Test 04:44:56 of 2) [code [...] Medical Ce nter VACCINE (#1)] Future Scheduled 2022-05-20 INFLUENZA VACCINE (#1) [facility] 00:[facility]:00 [code = INFLUENZA Medical Ce nter VACCINE (#1)] Future Scheduled 2008-10-[address] [facility] 00:00:00 WELLNESS (YEAR 2 or Medical Center FIRST YEAR if no IPPE) [code = MEDICARE ANNUAL WELLNESS (YEAR 2 or FIRST YEAR if no IPPE)] Future Scheduled 2008-10-[address] [facility] 00:00:00 WELLNESS (YEAR 2 or Medical Center FIRST YEAR if no IPPE) [code = MEDICARE ANNUAL WELLNESS (YEAR 2 or FIRST YEAR if no IPPE)] Future Scheduled 1992 SHINGLES VACCINES ([address] [facility] Test 00:00:00 of 2) [code = SHINGLES Medic al Center VACCINES (1 of 2)] Future Scheduled 1992 SHINGLES VACCINES ([address] [facility] Test 00:00:00 of 2) [code = SHINGLES Medic al Center VACCINES (1 of 2)] Future Scheduled 1961 DTAP/TDAP/TD [facility]ACCINES [facility] 00:00:00 (1 - Tdap) [code = Medical C enter DTAP/TDAP/TD VACCINES (1 - Tdap)] Future Scheduled 1961 DTAP/TDAP/TD VACCINES CH I [...] Medical Jyoti ter VACCINE (#1)] Future Scheduled 1941-05-07 COVID-19 VACCINE (#1) [facility] 00:00:00 [code = COVID-[address] VACCINE (#1)] Future Scheduled 1940 DXA SCAN [code = DXA [facility] Test 00:00:00 SCAN] [facility] Future Scheduled 1940 DXA SCAN [code = DXA [facility] Test 00:00:00 SCAN] [facility] Future Scheduled [facility] [code = 526682044] Future Scheduled SHINGLES VACCINES (#1) M ethodist [...] Date/Time Type Type Clinicians Facility Department ID 2022-10-25 2022-10-31 [facility] Tiffanie Galvez T. 1.2.840.1 [id number] Methodi 19:52:00 16:47:00 [facility] [address] 3.430.2.7 Hospit a .3.178060 l .8 2022-10-25 2022-10-31 Inpatient ABEL VELAZQUEZ [facility] [id number] [place] 00:00:00 00:00:[address] 2022-10-26 2022-10-26 Anesthesia Willy White 1.2.840.1 [id number] Methodi 16:51:00 18:52:00 Event CaryJean Paul boucher [address]50.1.[address] 3.430.2.7 Hospit a .3.736096 l .8 2022-10-26 2022-10-26 Surgery Lenny 1.2.840.1 [id number] Methodi 15:45:00 18:50:00 Tiffanie Ji [address]30.1.[address] 3.430.2.7 Hospit a .3.188478 l .8 2022-10-26 2022-10-26 Travel 1.2.840.1 1.2.451.883 [id number] Methodi 00:00:00 00:00:[address] 3.430.2.7 0.2.7.3.698 Ho spita .3.692902 084.8 l .8 2022-09-30 2022-09-30 Out[place] [facility] [place] [id number] [facility] 00:00:00 00:00:00 [address] Medica l Group 2022-08-28 2022-09-01 [facility] Arnel [facility] [id number] [facility] St 19:30:00 16:30:00 Encounter Carolina Farnsworth [facility] 2022-08-28 2022-09-01 Inpatient [facility] [id number] [facility] 19:30:00 16:30:00 CAROLINA Peoples 2022-08-28 2022-09-01 [facility] [id number] [facility] St 19:30:00 16:30:00 [facility]22-08-30 2022-08-30 [id number] 14:30:00 16:00:00 [facility] 2022-08-30 2022-08-30 Surgery Lenny, [facility] [id number] 14:30:00 16:00:00 [facility] 2022-08-28 2022-08-[address] [facility] [id number] 00:00:00 00:00:00 Only [facility] 2022-08-28 2022-08-28 Travel [facility] [id number] [facility] 00:00:00 00:00:00 [facility] 2022-08-28 2022-08-[address] [facility] [id number] 00:00:00 00:00:00 [facility] 2022-08-28 2022-08-28 Travel [facility] [id number] [facility] 00:00:00 00:00:00 [facility] 2020-12-12 2020-12-12 Clinical Argenis, 1.2.840.1 [id number] Methodi 13:01:14 13:06:14 Support Oneil 07227.1.[address] P. 3.430.2.7 Hospit a .3.711200 l .8 2020-11-21 2020-11-21 Clinical 1.2.840.1 [id number] [id number] Methodi 15:25:41 15:30:[address] 3.430.2.7 Hospit a .3.095820 l .8 Results Test Description Test Time Test Comments Results Result Comments Source POC glucose 2022-10-31 17:57:00 Test Item Value Reference Range Interpretation Comme nts POC glucose (test code = 127 mg/dL 65-99 H Ope rator Name: Gisell [id number]) StepFrankieevice ID: [id number] able: RN Notified Lab Interpretation (test code = Abnormal 97738-6) [facility] clotting [id number] 11:43:00 Test Item Value Reference Range Interpretation Comments Activated clotting 108 See_Comment Network Cabler Name: [place] time (test code = Elver vice ID: [id number]) [id number] [Autom ated message] The sy stem which generated this result transmitted ref erence range: 96 - 152 sec. The reference range was not used to interpr et this result as ashwini l/abnormal. [facility] 12 [id number] 02:15:08 Test Item Value Reference Range Interpretation Comments Ventricular rate 49 (test code = 253) Atrial rate (test 49 code = 255) DC interval (test 144 code = 266) QRSD interval (test 94 code = 260) QT interval (test 480 code = 264) QTC interval (test 433 code = 265) P axis 1 (test code = 82 267) QRS axis 1 (test code -70 = 268) T wave axis (test 60 code = 270) EKG impression (test Sinus code = 273) bradycardia-Incomplete right bundle branch block-Left anterior fascicular block-Left ventricular hypertrophy ( R in aVL , Nicholas product , Romhilt-Collado )-Anteroseptal infarct , age undetermined-Abnormal ECG-No previous ECGs available- [facility], (w Contrast, Strain and 3D if needed)2022-10-26 20:23:40 Test Item Value Reference Interpretation Comments Range Ao Root Diameter 2.77 cm (test code = 2896630781) AoV Area, Vmax (test 2.72 cm2 >=1.5 code = 0143857375) AoV Area, VTI (test 2.84 cm2 code = 1353923881) AoV Mean PG (test 3.02 mmHg code = 3354945232) AoV Peak PG (test 4.60 mmHg code = 3168031189) AoV Vmax (test code 1.07 m/s = 7020193261) AoV VTI (test code = 0.28 m 3072149074) IVS,d (test code = 1.37 cm 0.6-0.9 A 4577343421) IVS/LVPW,2D (test 1.18 code = 4150718909) Left Atrium 3.78 cm Dimension Anterior (test code = 5908382251) LV,d (test code = 3.49 cm 0589189647) LV EF,2D (test code 64.22 % = 8064487620) LV,s (test code = 2.48 cm 2634252009) LVOT area (test code 3.02 cm2 = 7831241378) LVOT Diam,S (test 1.96 cm code = 5753114298) LVOT Vmax (test code 1.02 m/s = 0475148897) LVOT VTI (test code 0.25 m = 3241775282) LVPWD,d (test code = 1.16 cm 0.60-1.19 4160515782) PV Pk Grad (test 3.46 mmHg code = 3015924479) PV VMAX (test code = 0.93 m/s 0467826635) RVOT Vmax (test code 0.75 m/s = 7931735763) TR Vpeak (test code 3.17 m/s = 2138063509) MV E A ratio (test 0.69 code = 7177327689) TR pk grad (test 23.16 mmHg code = 4214341964) MR Vmax (test code = 4.98 m/s 3575339446) E wave decelartion 200.07 See_Comment [Automat ed time (test code = message] T he 9038524862) system which generated this result transmitted reference range : 200 msec. The reference range was not used to interpret this result as normal/abnormal . MV Peak A Bari (test 1.17 m/s code = 4895725279) MV valve area p 1/2 4.14 cm2 method (test code = 5167372559) MV Peak E Bari (test 0.74 m/s code = 0912860710) MV stenosis pressure 53.18 ms 1/2 time (test code = 6664489945) LVOT stroke volume 0.75 ml (test code = 1704521816) AV LVOT peak 3.77 mmHg gradient (test code = 2067263670) Ascending aorta 3.02 cm (test code = 4220441307) Ao Root Diameter 2.77 cm (test code = 3484105125) MV Area VTI (test 2.65 cm2 code = 0423098742) MV mean gradient 1.04 mmHg (test code = 5158838110) LV SYS VOL (test 21.84 ml 14-42 code = 6164529302) LV ARNOLD VOL (test 50.54 ml 46-106 code = 4437828536) LA area s A4C (test 17.50 cm2 code = 9341178090) LV SV Teich 2D (test 28.70 ml code = 2721444222) LV Vol s Teich PSAX 21.84 ml (test code = 5094770146) MR peak grad (test 5.23 mmHg code = 5937263473) MV Vmax (test code = 1.14 m 6547656283) MV VTI Tips (test 0.30 m code = 0451672039) RVOT pk grad (test 2.27 mmHg code = 0705058255) AoV Vmn (test code = 0.85 m/s 3964548922) LV FS Teich 2D (test 29.01 code = 1466233084) MV AE ratio (test 1.46 code = 6627535537) LV FS Cube 2D (test 29.01 code = 6456277771) LVOT Vmn (test code 0.66 = 8573163477) Aov area Vmn (test 2.44 cm2 code = 5582092088) LVOT mean grad (test 1.96 mmHg code = 5926275622) 85 of MPHR (test 119.03 code = 5471242976) Calc MPHR (test code 140.03 bpm = 7255994000) LV SV Cube 2D (test 27.31 ml code = 0547270967) LV vol d cube 2D 42.53 ml (test code = 7745708801) LV vol s cube 2D 15.22 ml (test code = 7874718465) MV Decel slope (test 3.70 m/s2 code = 9056153582) Pred Exer Dur R1 5.75 (test code = 1789445254) Pred METS R1 (test 4.30 code = 9972263396) LA Vol MOD A4C (test 52.83 ml code = 9074040222) E mark sept (test 0.04 code = 9741382313) E prime lat (test 0.09 code = 5383369136) Velocity Ratio 0.95 m/s (V1/V2) (test code = 4689) EF (test code = 57 % 8838652472) E/A ratio (test code 0.63 = 8379036463) LVOT VTI (CM) (test 25.00 cm code = 9078594665) MICHELLE (test code = MICHELLE) Left Ventricle: Normal wall motion. Regional wall motion abnormality not seen but can not be completely excluded. Normal systolic function with a visually estimated EF of 65 - 70%. Grade I (impaired relaxation) diastolic dysfunction. Tricuspid Valve: Mild valvular regurgitation. There is moderate pulmonary hypertension present. Moderately elevated pulmonary artery systolic pressure. Left VentricleNot well visualized. Left ventricle size is normal. Normal wall thickness. Normal wall motion. Regional wall motion abnormality not seen but can not be completely excluded. Normal systolic function with a visually estimated EF of 65 - 70%. Grade I (impaired relaxation) diastolic dysfunction.Right VentricleNot well visualized. Right ventricle size is normal. Normal systolic function.Left AtriumLeft atrium size is normal. Interatrial septum was not well visualized. No ASD present. No PFO present.Right AtriumNot well visualized. Right atrium size is normal.IVC/SVCIVC was not well visualized. IVC diameter is less than or equal to 21 mm and decreases greater than 50% during inspiration; therefore the estimated right atrial pressure is normal (~3 mmHg).Mitral ValveNot well visualized. Valve structure is grossly normal. Trace valvular regurgitation. No stenosis.Tricuspid ValveNot well visualized. Valve structure is normal. Mild valvular regurgitation. There is moderate pulmonary hypertension present. Moderately elevated pulmonary artery systolic pressure.Aortic ValveNot well visualized. Valve structure is grossly normal. Valve structure appears tricuspid. Trace valvular regurgitation. No stenosis.Pulmonic ValveNot well visualized. No significant valvular regurgitation.Perica rdiumThe pericardium is normal. There is no pericardial effusion present.AortaNot well visualized. Normal sized annulus, sinus of Valsalva, aortic root and ascending aorta.Study DetailsStudy quality was fair. A complete 2D, color flow Doppler and spectral Doppler echocardiogram was performed.The apical, parasternal and subcostal views were obtained. The suprasternal view was poor. Lab Interpretation Abnormal (test code = 65171-9) [facility][1]ARS-CoV-2 (COVID-19) RNA [Presence] in Respiratory specimen by CARMENCITA with probe [id number] 06:13:22 Test Item Value Reference Range Interpretation Comments SARS-CoV-2 (COVID-19) RNA Not detected [Presence] in Respiratory specimen by CARMENCITA with probe detection (test code = 65158-2) Whether patient is employed in a Unknown healthcare setting (test code = 67983-8) Whether the patient has symptoms Unknown related to condition of interest (test code = 51098-4) Whether the patient was Unknown hospitalized for condition of interest (test code = 60088-1) Whether the patient was admitted Unknown to intensive care unit (ICU) for condition of interest (test code = 69978-5) Whether patient resides in a Unknown congregate care setting (test code = 37249-1) status (test code = Unknown 04200-8) Date and time of symptom onset Unknown (test code = 31924-7) [facility] WITHOUT [id number] 14:20:00Follow up on right occipital CVA and right temporal subarachnoid hemorrhageSAN [facility] : 1940 Sex: FFINAL REPORT CT, BRAIN, WITHOUT CONTRAST CLINICAL INDICATION: [...] noted.Cerebellum and brainstem: No acute findings.Ventricles: No hydrocephalus.Extra-axial spaces: Unremarkable. Calvarium and skull base: Intact.Paranasal [...] there is persistent clinical concern for intracranial pathology,MR examination is recommended for further characterization. Signed: Osmany Sifuentes MDReport Verified Date/Time: 09/01/2022 14:20:54 COMPREHENSIVE METABOLIC [id number] 05:49:55 Test Item Value Reference Range Interpretation Comments TOTAL PROTEIN 5.7 gm/dL 6.0-8.5 L (BEAKER) (test code = 770) ALBUMIN (BEAKER) 2.9 g/dL 3.5-5.0 L (test code = 1145) ALKALINE 64 U/L 30-115 PHOSPHATASE (BEAKER) (test code = 346) BILIRUBIN TOTAL 0.9 mg/dL 0.1-1.2 (BEAKER) (test code = 377) SODIUM (BEAKER) 142 meq/L 135-148 (test code = 381) POTASSIUM (BEAKER) 3.5 meq/L 3.6-5.5 L (test code = 379) CHLORIDE (BEAKER) 106 meq/L 98-106 (test code = 382) CO2 (BEAKER) (test 25 meq/L 20-29 code = 355) BLOOD UREA 19 mg/dL 10-26 NITROGEN (BEAKER) (test code = 354) CREATININE 0.83 mg/dL 0.50-1.20 (BEAKER) (test code = 358) GLUCOSE RANDOM 93 mg/dL 70-110 (BEAKER) (test code = 652) CALCIUM (BEAKER) 8.5 mg/dL 8.5-10.5 (test code = 697) AST (SGOT) 28 U/L 5-40 (BEAKER) (test code = 353) ALT (SGPT) 26 U/L 5-50 (BEAKER) (test code = 347) EGFR (BEAKER) 72 Interpretatio n of eGFR (test code = 1092) mL/min/1.[address] age Description sq m Result G1 Ashwini l or high >=90 G2 Mildly decreased 60-89 G3a Mild ly to moderately 45-5 9 G3b Moderately to [...] not appl icable for dialysis patien ts Network Cabler ID - [id number] ID - [id number] ID - WIBQOKYQE691Nkrajmme ID - OMPVKIIZL148Cgtxsjdd ID - RECEVXRYE804Djogguyv ID - AVEKVZJQY268Nwbuwvsr ID - CCCWXJSOP537Chyjbubh ID - XYYLVQLGP865Rxdqghlb ID - COCYFZVIY576Rpjdfoyx ID - UNJASIGDN416Jruidwnr ID - YMKIJYAVB332Yyycbgzb ID - IEWXJWOHK689Thictwvd ID - NOATJSQMW604Ggeijfpt ID - IOACCWALC551Xprebvee ID - LLCSRFABM299Rtqfsemh ID -[id number] 05:47:55 Test Item Value Reference Range Interpretation Comments MAGNESIUM (BEAKER) (test code = 1.9 mg/dL 1.5-3.0 627) Network Cabler ID - [id number] ID - [id number] ID - ASUPEJJEV038Rxykriid ID - [id number] (HEMOGRAM ONLY)2022-09-01 05:36:27 Test Item Value Reference [...] code = 413) MR, MRA, BRAIN, WITHOUT [id number] 11:51:00Reason for exam:->Ischemic Stroke Evaluation [facility] 1940 Sex: FFINAL [...] findings, on 08/31/2022 at 11:50 AM. Signed: Audrey Francis [facility] Verified Date/Time: 08/31/2022 11:51:18 MR, MRA, NECK, WITHOUT IV CONTRAST 2022-08-31 11:51:00Reason for exam:->Ischemic Stroke Evaluation [facility] 1940 Sex: FFINAL [...] findings, on 08/31/2022 at 11:50 AM. Signed: Audrey Francisort Verified Date/Time: 08/31/2022 11:51:18 MR, BRAIN, WITHOUT [id number] 11:51:00Reason for exam:->Ischemic Stroke [facility] 1940 Sex: FFINAL REPORT [...] findings, on 08/31/2022 at 11:50 AM. Signed: Audrey Francisjulian Verified Date/Time: 08/31/2022 11:51:18 Sputum Culture + Gram [id number] 11:06:31 Test Item Value Reference Range Interpretation Comments Result (test code = 1+ Normal respiratory 6463-4) ejssie present Gram Stain Result 2+ Mixed jessie (test code = 1123) [facility] + Gram [id number] 11:06:31 Test Item Value Reference Range Interpretation Comments Result (test code = 1+ Normal respiratory 6463-4) jessie present Gram Stain Result 2+ Mixed jessie (test code = 1123) [facility]UM [facility] + GRAM [id number] 11:06:31 Test Item Value Reference Range Interpretation Comments CULTURE (BEAKER) 1+ Normal respiratory (test code = 1095) jessie present GRAM STAIN RESULT 2+ White blood cells (BEAKER) (test code = seen 1123) GRAM STAIN RESULT <1+ epithelial cells (BEAKER) (test code = 01923) GRAM STAIN RESULT 2+ Mixed jessie (BEAKER) (test code = 08450) COMPREHENSIVE METABOLIC [id number] 06:37:32 Test Item Value Reference Range Interpretation [...] eGF R is based on the CKD-EPI 2021 equation that d oes not use a race coefficientEsti mated GFR is not as accur ate as Creatinine Candy ramirez in predicting glom erular filtration rate . Estimated GFR is not appl icable for dialysis patien ts Network Cabler ID - [id number] ID - HXKL55Arwtismv ID - EQOI50Lbbqpakf ID - KGZZ34Dwfwokeq ID - XBFA29Khqbxsnk ID - DWST68Dynianuu ID - RIMP47Sypguzzp ID - ZEBJ16Rwzrfjel ID - QLYJ47Pihknuoz ID - CGWE86Zpwaxenw ID - DUJF88Jtxsktsx ID - TZRV79Kalrtbxt ID - USWC74Cbvgihul ID - GDST64Tquooqry ID - TVNA09Dpwvzlra ID - [id number] 06:37:11 Test Item Value Reference Range Interpretation Comments MAGNESIUM (BEAKER) (test code = 2.1 mg/dL 1.5-3.0 627) Network Cabler ID - [id number] ID - FFED02Mcieencs ID - VBEH70Bggtuwsm ID - [id number] CBC (HEMOGRAM ONLY)2022-08-31 06:19:29 [...] (BEAKER) (test code = 413) CAROTID DOPPLER, [id number] 13:31:00Reason for exam:->rule out carotid stenosisMAMMOTH [facility]ENTERName: [facility] : 1940 Sex: [...] stenosis. There is antegrade flow in both vertebral arteries CONCLUSION: High-grade stenosis in the right internal carotid artery. Stenoses of less than 50% in the origin of the left internal and external carotid arteries. Signed: Victor M Bowden MDReport Verified Date/Time: 08/30/2022 13:31:22 Reading Location: [facility] Radiology Reading Room [facility] all signed by: VICTOR M BOWDEN M.D. on 08/30/2022 01:31 PMCT, CAROTID, ANGIO 2022-08-30 12:09:00Unlisted Reason for Exam - Click Yes and Enter Reason Below->NoMAMMOTH [facility]ENTERName: [facility] : 1940 Sex: FFINAL REPORT CT, CAROTID, [...] at the left proximal subclavian artery. Signed: Audrey Hernández MDR[facility] Verified Date/Time: 08/30/2022 12:09:25 2D Echo W/Doppler(CW/PW/Color) 2022-08-30 11:52:56Ejection [facility]ractionSLEH [facility]Do[facility](CW/PW/Color)2022-08-30 11:52:56Ejection FractionSLEH ECHO [facility]LAB [facility] 2022-08-30 06:19:56 Test Item Value Reference Range Interpretation Comments PARTIAL THROMBOPLASTIN 57.1 seconds 23.0-35.0 H Final Information TIME (BEAKER) (test (Auto Ou tput) code = 760) COMPREHENSIVE METABOLIC [id number] 04:29:50 Test Item Value Reference Range Interpretation [...] not appl icable for dialysis patien ts Network Cabler ID - [id number] ID - VJOYMPOZN488Crxchqnz ID - UNPPHXCUC241Tsvbakfo ID - JIHSZVPWE012Qqkqezkp ID - ALJQLJFHN345Xhenmxcb ID - ZHAQPSRTU127Jvovmizg ID - CFCWQTBNC765Lixrdpaw ID - OSNZKCQFK336Raczlcon ID - AADOQRLTC262Cvdxcaxw ID - PAIAPGLXN747Unfapgxy ID - PREVKYBYG025Yfvobbfg ID - KIOGCNVVH028Rijqiyho ID - BWPCGRBPL020Pawuqvko ID - GNNNOCOXC314Offjbevm ID - XHNNFGOWI203Pnmaykks ID -[id number] 04:26:30 Test Item Value Reference Range Interpretation Comments MAGNESIUM (BEAKER) (test code = 1.7 mg/dL 1.5-3.0 627) Network Cabler ID - [id number] ID - QYHXCPJOE261Fjsaupkv ID - QYNEXMWSU675Vynjjqjx ID - ZVSSIVREI942JSOJVTIISDM TIME/[id number] 04:19:25 Test Item Value Reference Range Interpretation Comments PROTIME (BEAKER) 11.4 seconds 9.3-12.0 Final Infor mation (test code = 759) (Auto Outp ut) INR (BEAKER) (test 1.04 See_Comment Final Inf ormation code = 370) (Auto Output) [Automated mess age] The system [employer] generated this result transmitted ref erence range: [...] (BEAKER) (test code = 413) Strep pneumoniae [id number] 14:38:55 Test Item Value Reference Range Interpretation Comments Strep pneumoniae Presumptive negative Presumptive Antigen (test code = [place] [address]-1) pneumonia - see pneumococcal comment pneumonia - [...] test. Lab Interpretation Normal (test code = 79898-2) [facility] [id number] 14:38:55 Test Item Value Reference Range Interpretation Comments Strep pneumoniae Presumptive negative Presumptive Antigen (test code = [place] [address]-8) pneumonia - see pneumococcal comment pneumonia - [...] test. Lab Interpretation Normal (test code = 86967-4) [facility] Diego[facility]REP PNEUMONIAE [id number] 14:38:55 Test Item Value Reference Range Interpretation [...] detection limit of the test. Legionella antigen, [id number] 14:38:04 Test Item Value Reference Range Interpretation Comments Legionella Urine Negative - see Negative Negative for L. Antigen (test code = comment pneumop clif 95328-3) serogroup 1 antigen, sugges ting no recent or current infecti on with this serogroup. Legionellosis cannot be ruled out since other serogroups and species may cau se disease. Lab Interpretation Normal (test code = 09567-2) [facility] [facility] CenterLegionella antigen, [id number] 14:38:04 Test Item Value Reference Range Interpretation Comments Legionella Urine Negative - see Negative Negative for L. Antigen (test code = comment pneumop clif 04166-9) serogroup 1 antigen, sugges ting no recent or current infecti on with this serogroup. Legionellosis cannot be ruled out since other serogroups and species may cau se disease. Lab Interpretation Normal (test code = 95381-4) [facility]TIGEN, [id number] 14:38:04 Test Item Value Reference Range Interpretation Comments L. PNEUMOPHILA Negative - see Negative Negative fo r L. SEROGP 1 UR AG comment pneumophila (BEAKER) (test code serogrou p 1 antigen, = 1156) suggesting no r ecent or current infe ction with this serog roup. Legionellosis c annot be ruled out si nce other serogroup s and species may cau se disease. [id number] 13:54:34 Test Item Value Reference Range Interpretation Comments PARTIAL THROMBOPLASTIN 57.4 seconds 23.0-35.0 H Final Information TIME (AKER) (test (Auto Ou tput) code = 760) TROPONIN [id number] 10:47:04 Test Item Value Reference Range Interpretation Comments TROPONIN I (BEAKER) (test code = 0.28 ng/mL 0.00-0.15 [facility]) Troponin I (TnI) levels must be [...] failure, acidosis, acute neurological disease, and persistent tachyarrhythmia.Network Cabler ID - [id number] METABOLIC [id number] 10:41:39 Test Item Value Reference Range Interpretation [...] not appl icable for dialysis patien ts Network Cabler ID - [id number] ID - [id number] ID - [id number] ID - [id number] ID - [id number] ID - [id number] ID - [id number] ID - [id number] ID - [id number] ID - [id number] ID - [id number] ID - [id number] ID - [id number] ID - [id number] ID - [id number] ID - [id number] 10:36:33 Test Item Value Reference Range Interpretation Comments MAGNESIUM (BEAKER) (test code = 2.0 mg/dL 1.5-3.0 627) Network Cabler ID - [id number] ID - [id number] ID - [id number] ID - [id number], CHEST, 1 VIEW, NON [id number] 07:49:00Reason for exam:->hx of lung mass? f/u COPD exacerbation and possible pulm edema in setting of margareth vated NT-proBNPShould this be performed at the bedside?->Yes [facility] STONEMARJ GARIBAY : 1940 Sex: FFINAL REPORT RAD, CHEST, [...] and mediastinum: Normal contours. Additional findings: None. Signed:Lina Coffey MDReport Verified Date/Time: 08/29/2022 07:49:38 TROPONIN [id number] 06:01:00 Test Item Value Reference Range Interpretation [...] failure, acidosis, acute neurological disease, and persistent tachyarrhythmia.Network Cabler ID - [id number] 05:46:12 Test Item Value Reference Range Interpretation [...] (test code = 413) TSH/FREE T4 IF [id number] 02:59:04 Test Item Value Reference Range Interpretation Comments THYROID STIMULATING HORMONE 0.280 uIU/mL 0.350-5.500 L (BEAKER) (test code = 772) Network Cabler ID - [id number] 02:39:36 Test Item Value Reference Range Interpretation Comments VITAMIN B12 (BEAKER) (test code = 467 pg/mL 211-911 774) Network Cabler ID - [id number], [id number] 02:33:15 Test Item Value Reference Range Interpretation Comments FREE T4 (BEAKER) (test code = 655) 1.05 ng/dL 0.90-1.80 Network Cabler ID - [id number] 00:10:40 Test Item Value Reference Range Interpretation [...] Borderline 130-159 High 160-189 Very High >=190 Network Cabler ID - [id number] ID - [id number] ID - [id number] ID - [id number] ID - [id number] ID - [id number] 00:02:16 Test Item Value Reference Range Interpretation Comments HEMOGLOBIN A1C (BEAKER) (test code = 5.8 % 4.3-6.1 368) Network Cabler ID - [id number] METABOLIC [id number] 21:52:00 Test Item Value Reference Range Interpretation [...] eGF R is based on the CKD-EPI 202 equation that d oes not use a race coefficientEsti mated GFR is not as accur ate as Creatinine Candy ramirez in predicting glom erular filtration rate . Estimated GFR is not appl icable for dialysis patien ts Network Cabler ID - leviotaOperator ID - leviotaOperator ID - leviotaOperator ID - leviotaOperator ID - leviotaOperator ID - leviotaOperator ID - leviotaOperator ID - leviotaOperator ID - leviotaOperator ID - leviotaOperator ID - leviotaOperator ID - leviotaOperator ID - leviotaOperator ID - leviotaOperatorID - leviotaOperator ID - [id number] 21:50:58 Test Item Value Reference Range Interpretation Comments MAGNESIUM (BEAKER) (test code = 2.0 mg/dL 1.5-3.0 627) Network Cabler ID - leviotaOperator ID - leviotaOperator ID - leviotaOperator ID - [id number] 21:48:05 Test Item Value Reference Range Interpretation Comments PARTIAL THROMBOPLASTIN 27.9 seconds 23.0-35.0 Final Information TIME (BEAKER) (test (Auto Ou tput) code = 760) [id number] 21:47:18 Test Item Value Reference Range Interpretation Comments PARTIAL THROMBOPLASTIN 27.9 seconds 23.0-35.0 Final Information TIME (BEAKER) (test (Auto Ou tput) code = 760) CBC W/PLT COUNT & AUTO [id number] 21:38:55 Test Item Value Reference Range Interpretation [...] 0.00-0.00 H PERCENT (BEAKER) (test code = 8851)
--- NOTE | 2022-12-08 07:37 | RAD REPORT ---
EXAM DESCRIPTION: CTSpine Lumbar Wo Con12/08/2022 7:21 am CLINICAL HISTORY: Back pain status post fall. Lumbar fracture COMPARISON: July 2022 TECHNIQUE: Computed axial tomography lumbar spine was obtained with coronal and sagittal reconstruct ion. All CT scans are performed using dose optimization technique as appropriate and may include automated exposure control or mA/KV adjustment according to patient size. FINDINGS: Since the prior examination there has been progression in the L1 compression vertebral fra cture. It is marked and estimated to be 83% loss of height. Mild posterior subluxation of L1 on L2. M inimal retropulsion bone into the spinal canal. No additional lumbar fracture visualized. Mild posterior subluxation L4 on L5. Moderate spondylosis mid and distal lumbar spine. 4.5 centimeter infrarenal abdominal aortic aneurysm AP diameter. On the prior exam it measured 4.2 ce ntimeters IMPRESSION: Progression in a marked compression fracture L1 vertebral body Mild enlargement of a 4.5 centimeter infrarenal abdominal aortic aneurysm. Vascular consultation shadia mmended. Followup CT in 6 months recommended
--- NOTE | 2022-12-08 07:41 | RAD REPORT ---
EXAM DESCRIPTION: CT - Pelvis Wo Cont - 12/08/2022 7:21 am CLINICAL HISTORY: Pelvic pain status post fall COMPARISON: None. TECHNIQUE: Computed axial tomography of the pelvis was obtained. Coronal and sagittal reconstruction performed All CT scans are performed using dose optimization technique as appropriate and may include automated exposure control or mA/KV adjustment according to patient size. FINDINGS: The bones are osteoporotic. No fracture or dislocation is seen. Mild osteoarthritis involves the hips Muscles are normal size and density. A subcutaneous contusion is not noted IMPRESSION: No fracture seen
--- NOTE | 2022-12-08 08:02 | EDPHYS ---
Physician Documentation [facility] Name: Jenny Douglas Age: 82 yrs Sex: Female : 1940 Arrival Date: 12/08/2022 Time: 06:40 Bed 19 Private MD: ED Physician Cory King HPI: 12/08 07:13 This 82 yrs old Female presents to ER via Wheelchair with complaints of Fall Injury. rt 07:13 Patient presents to the ED with mechanical fall. Patient states that she lost her rt balance, landed onto her buttocks. She reports some mild pain to that area, aching in nature, nonradiating. She adamantly denies any head trauma, neck pain. She denies losing consciousness. She denies other acute complaints at this time, symptoms are mild in severity, no other aggravating or alleviating factors.. Historical: - Allergies: 07:14 Celebrex; bb 07:14 Zocor; bb - Home Meds: 07:14 Eliquis 5 mg Oral tab 1 tab 2 times per day [Active]; Plavix 75 mg Oral tablet [Active];bb - PMHx: 08:33 CAD; COPD; Hyperlipidemia; Hypertension; Myocardial infarction; stroke; TIA; ap3 - PSHx: 08:33 CABG; ap3 - Immunization history: Last tetanus immunization: unknown. - Social history:: Smoking status: Patient denies any tobacco usage or history of. - Family history:: not pertinent. ROS: 07:13 Constitutional: Negative for fever, chills, and weight loss, Eyes: Negative for injury, rt pain, redness, and discharge, ENT: Negative for injury, pain, and discharge, Neck: Negative for injury, pain, and swelling, Cardiovascular: Negative for chest pain, palpitations, and edema, Respiratory: Negative for shortness of breath, cough, wheezing, and pleuritic chest pain, Abdomen/GI: Negative for abdominal pain, nausea, vomiting, diarrhea, and constipation, Back: Negative for injury and pain, MS/Extremity: Negative for injury and deformity, Skin: Negative for injury, rash, and discoloration, Neuro: Negative for headache, weakness, numbness, tingling, and seizure, Psych: Negative for depression, anxiety, suicide ideation, homicidal ideation, and hallucinations. Exam: 07:13 Constitutional: This is a well developed, well nourished patient who is awake, alert, rt and in no acute distress. Head/Face: Normocephalic, atraumatic. Neck: Trachea midline, no thyromegaly or masses palpated, and no cervical lymphadenopathy. Supple, full range of motion without nuchal rigidity, or vertebral point tenderness. No Meningismus. Chest/axilla: Normal chest wall appearance and motion. Nontender with no deformity. No lesions are appreciated. Cardiovascular: Regular rate and rhythm with a normal S1 and S2. No gallops, murmurs, or rubs. Normal PMI, no JVD. No pulse deficits. Respiratory: Lungs have equal breath sounds bilaterally, clear to auscultation and percussion. No rales, rhonchi or wheezes noted. No increased work of breathing, no retractions or nasal flaring. Abdomen/GI: Soft, non-tender, with normal bowel sounds. No distension or tympany. No guarding or rebound. No evidence of tenderness throughout. Back: No spinal tenderness. No costovertebral tenderness. Full range of motion. Skin: Warm, dry with normal turgor. Normal color with no rashes, no lesions, and no evidence of cellulitis. MS/ Extremity: Pulses equal, no cyanosis. Neurovascular intact. Full, normal range of motion. Neuro: Awake and alert, GCS 15, oriented to person, place, time, and situation. Cranial nerves II-XII grossly intact. Motor strength 5/5 in all extremities. Sensory grossly intact. Cerebellar exam normal. Normal gait. Psych: Awake, alert, with orientation to person, place and time. Behavior, mood, and affect are within normal limits. 08:43 ECG was reviewed by the Attending Physician. rt Vital Signs: 07:07 BP 187 / 66; Pulse 54; Resp 16; Temp 98.6(O); Pulse Ox 94% on R/A; Weight 54.43 kg (R); bb Height 5 ft. 7 in. (R); Pain 0/10; 08:32 BP 152 / 83; Pulse 84; Pulse Ox 96% on R/A; ap3 07:07 Body Mass Index 18.79 (54.43 kg, 170.18 cm) bb 07:07 Pain Scale: Adult bb Niraj Coma Score: 07:07 Eye Response: spontaneous(4). Motor Response: obeys commands(6). Verbal Response: bb oriented(5). Total: 15. 08:32 Eye Response: spontaneous(4). Motor Response: obeys commands(6). Verbal Response: ap3 oriented(5). Total: 15. Trauma Score (Adult): 07:07 Eye Response: spontaneous(1); Verbal Response: oriented(1); Motor Response: obeys bb commands(2); Systolic BP: > 89 mm Hg(4); Respiratory Rate: 10 to 29 per min(4); Niraj Score: 15; Trauma Score: 12 08:32 Eye Response: spontaneous(1); Verbal Response: oriented(1); Motor Response: obeys ap3 commands(2); Systolic BP: > 89 mm Hg(4); Respiratory Rate: 10 to 29 per min(4); [place] Score: 15; Trauma Score: 12 MDM: 07:03 Patient medically screened. rt 08:20 Differential diagnosis: Compression fracture, pelvic fracture, hip fracture. Data rt reviewed: vital signs, nurses notes, old medical records, lab test result(s), EKG, radiologic studies. Consideration of Admission/Observation Decision was made to transfer patient for higher level of care. Independent interpretation of the following test(s) in the Emergency Department CT Scan: My interpretation is L1 compression fracture seen on my interpretation of the CT scan images. Care significantly affected by the following chronic conditions: Coronary artery disease. Counseling: I had a detailed discussion with the patient and/or guardian regarding: the historical points, exam findings, and any diagnostic results supporting the discharge/admit diagnosis, the presence of at least one elevated blood pressure reading (>120/80) during this emergency department visit, the need to transfer to another facility, for higher level of care, [facility] does not immediately have the required specialist. 12/08 08:00 Order name: SARS RAPID; Complete Time: 09:05 rt 12/08 08:00 Order name: CBC with Diff; Complete Time: 09:05 rt 12/08 08:00 Order name: CMP; Complete Time: 09:05 rt 12/08 08:00 Order name: Troponin High Sensitivity; Complete Time: 09:05 rt 12/08 07:09 Order name: CT Lumbar Spine Wo Con; Complete Time: 07:51 rt 12/08 07:09 Order name: CT Pelvis wo Cont; Complete Time: 07:51 rt 12/08 08:00 Order name: EKG; Complete Time: 08:01 rt 12/08 08:00 Order name: EKG - Nurse/Tech; Complete Time: 08:39 rt EC:43 Rate is 51 beats/min. Rhythm is regular, Sinus bradycardia with No ectopy. IN interval rt is normal. QRS interval is normal. QT interval is normal. No Q waves. Clinical impression: NSR w/ Non-specific ST/T Changes. Administered Medications: No medications were administered Disposition Summary: 12/08/22 08:02 Transfer Ordered Transfer Location: [facility] rt Reason: Higher level of care rt Condition: Stable rt Problem: new rt Symptoms: are unchanged rt Accepting Physician: Dr. Valerio(12/08/22 09:46) vandana Diagnosis - Fall on same level, unspecified rt - L1 compression fracture rt Forms: - Medication Reconciliation Form rt - SBAR form rt Signatures: Dispatcher [employer] Iza Figueroa RN RN bb Prokisch, Amanda, RN RN ap3 Anum Altman Ryan, MD MD rt Corrections: (The following items were deleted from the chart) 07:17 07:14 Allergies: Eliquis; samuel baker 07:17 07:14 Allergies: Plavix; samuel baker 07:17 07:14 Home Meds: Eliquis oral; samuel baker 08:20 08:02 Dr. nowak rt 09:46 08:20 Dr. Valerio rt zm
--- NOTE | 2022-12-08 08:02 | ER ---
Nurse's Notes [facility] Name: Jenny Douglas Age: 82 yrs Sex: Female : 1940 Arrival Date: 12/08/2022 Time: 06:40 Bed 19 Private MD: Diagnosis: Fall on same level, unspecified;L1 compression fracture Presentation: 12/08 07:07 Chief complaint: Patient states: she fell this morning while making coffee pt states bb she does not know what happened but says she did not hit her head or pass out. Chief complaint: granddaughter states pt crawled all the way to her room to help her stand up. Care prior to arrival: None. Mechanism of Injury: Fall from standing position. Trauma event details: Injury occurred in the [facility], Injury occurred: at home. Injury occurred: December 08, 2022 Injury occurred at: 07:00. 07:07 Acuity: ADRIANNA 2 bb 07:07 Method Of Arrival: Wheelchair bb 07:12 Coronavirus screen: At this time, the client does not indicate any symptoms associated bb with coronavirus-19. Ebola Screen: No symptoms or risks identified at this time. Initial Sepsis Screen: Does the patient meet any 2 criteria? No. Patient's initial sepsis screen is negative. Does the patient have a suspected source of infection? No. Patient's initial sepsis screen is negative. Risk Assessment: Do you want to hurt yourself or someone else? Patient reports no desire to harm self or others. Onset of symptoms was December 08, 2022. Trauma Activation: Alert Physician: ED Physician; Name: Christine; Notified At: 07:07; Arrived At: 07:07 Physician: General Surgeon; Name: ; Notified At: 07:07; Arrived At: Physician: Radiology; Name: ; Notified At: 07:07; Arrived At: 07:10 Physician: Respiratory; Name: ; Notified At: 07:07; Arrived At: Physician: Lab; Name: ; Notified At: 07:07; Arrived At: Historical: - Allergies: 07:14 Celebrex; bb 07:14 Zocor; bb - Home Meds: 07:14 Eliquis 5 mg Oral tab 1 tab 2 times per day [Active]; Plavix 75 mg Oral tablet [Active];bb - PMHx: 08:33 CAD; COPD; Hyperlipidemia; Hypertension; Myocardial infarction; stroke; TIA; ap3 - PSHx: 08:33 CABG; ap3 - Immunization history: Last tetanus immunization: unknown. - Social history:: Smoking status: Patient denies any tobacco usage or history of. - Family history:: not pertinent. Screenin:07 Abuse screen: Denies threats or abuse. Tuberculosis screening: No symptoms or risk bb factors identified. 08:28 [facility] ED Fall Risk Assessment (Adult) History of falling in the last 3 months, ap3 including since admission Yes- single mechanical fall (1 pt) Confusion or Disorientation No (0 pts) Intoxicated or Sedated No (0 pts) Impaired Gait No (0 pts) Mobility Assist Device Used No (0 pt) Altered Elimination No (0 pt) Score/Fall Risk Level 3 or more points = High Risk. Nutritional screening: No deficits noted. Primary Survey: 07:07 NO uncontrolled hemorrhage observed. Breathing/Chest: Spontaneous respiratory effort, ap3 equal unlabored respirations, breath sounds clear bilaterally, regular pattern, symmetrical chest rise and fall. Circulation: No external hemorrhage present. Regular and strong central pulse, skin warm/dry/normal color. Disability Client is alert. Exposure/Environment: There is no evidence of uncontrolled external bleeding. A warming method has been applied: A warm blanket has been provided to the patient. 08:28 Reassessment Alertness and Airway: Awake and alert. The airway is patent. Breathing: ap3 Spontaneous respiratory effort, equal unlabored respirations, breath sounds clear bilaterally, regular pattern with symmetrical chest rise and fall. Circulation: No external hemorrhage noted. Regular and strong central pulse, skin warm/dry/normal color. Disability: Alert. Assessment: 08:26 General: Appears in no apparent distress. Behavior is calm, cooperative, appropriate ap3 for age. Pain: Complains of pain in buttocks Pain began suddenly, 0615. Neuro: Level of Consciousness is awake, alert, obeys commands, Oriented to person, place, time, situation, Speech is normal. Cardiovascular: Patient's skin is warm and dry. Respiratory: Airway is patent Respiratory effort is even, unlabored, Respiratory pattern is regular, symmetrical. Vital Signs: 07:07 BP 187 / 66; Pulse 54; Resp 16; Temp 98.6(O); Pulse Ox 94% on R/A; Weight 54.43 kg (R); bb Height 5 ft. 7 in. (R); Pain 0/10; 08:32 BP 152 / 83; Pulse 84; Pulse Ox 96% on R/A; ap3 07:07 Body Mass Index 18.79 (54.43 kg, 170.18 cm) bb 07:07 Pain Scale: Adult bb Niraj Coma Score: 07:07 Eye Response: spontaneous(4). Motor Response: obeys commands(6). Verbal Response: bb oriented(5). Total: 15. 08:32 Eye Response: spontaneous(4). Motor Response: obeys commands(6). Verbal Response: ap3 oriented(5). Total: 15. Trauma Score (Adult): 07:07 Eye Response: spontaneous(1); Verbal Response: oriented(1); Motor Response: obeys bb commands(2); Systolic BP: > 89 mm Hg(4); Respiratory Rate: 10 to 29 per min(4); [place] Score: 15; Trauma Score: 12 08:32 Eye Response: spontaneous(1); Verbal Response: oriented(1); Motor Response: obeys ap3 commands(2); Systolic BP: > 89 mm Hg(4); Respiratory Rate: 10 to 29 per min(4); Niraj Score: 15; Trauma Score: 12 ED Course: 06:40 Patient arrived in ED. ja2 07:02 Cory King MD is Attending Physician. rt 07:07 Patient has correct armband on for positive identification. Bed in low position. Call bb light in reach. Side rails up X2. Adult w/ patient. 07:07 Patient maintains SpO2 saturation greater than 95% on room air. ap3 07:07 Thermoregulation: warm blanket given to patient. ap3 07:10 Triage completed. bb 07:14 Rosa Wheeler, RN is Primary Nurse. ap3 07:14 Arm band placed on. bb 07:23 CT Lumbar Spine Wo Con In Process Unspecified. EDMS 07:23 CT Pelvis wo Cont In Process Unspecified. EDMS 08:06 initiated a transfer with Yareli Pate Rn from the [facility]/. eb 08:[address] Valerio the trauma neurosurgeon communications project manager for [facility] with Dr. kathy King for patient transfer consultation. 08:18 administrative approval given by Yareli Pate Rn/ patient has been accepted to [facility] ER/ Dr. Cece Valerio has accepted the patient in transfer/ report to be called to [phone]. 08:26 Initial lab(s) drawn, by ne, sent to lab. COVID swab sent to lab. Inserted saline lock: ap3 20 gauge in right wrist, using aseptic technique. Blood collected. 08:30 CBC with Diff Sent. ap3 08:30 CMP Sent. ap3 08:30 Troponin High Sensitivity Sent. ap3 Administered Medications: No medications were administered Medication: 08:29 VIS not applicable for this client. ap3 Intake: 07:07 PO: 0ml; Total: 0ml. samuel Outcome: 08:02 ER care complete, transfer ordered by MD. rt 09:46 Patient left the ED. zm Signatures: Dispatcher [employer] EDMS Iza Blanchard RN RN bb Prokisch, Amanda, RN RN Priyanka Eller Jessica ja2 Martinez, Zaina zm [place], Ryan, MD MD rt Corrections: (The following items were deleted from the chart) 07:17 07:14 Allergies: Eliquis; samuel baker 07:17 07:14 Allergies: Plavix; samuel baker 07:17 07:14 Home Meds: Eliquis oral; samuel baker
[2022-12-08 08:34] LABS: Absolute Lymphocytes (CBC) 1.7 K/uL (0.7-4.9); Hematocrit 36.4 % (36.0-45.0); Lymphocytes % 22.8 % (15.3-44.8); MCV 94.9 fL (80-100); MPV 8.6 fL (7.6-11.3); RBC Red Blood Cell Count 3.83 M/uL (3.86-4.86)
[2022-12-08 08:53] LABS: Albumin 3.3 g/dL (3.4-5.0); Bilirubin Total 0.7 mg/dL (0.2-1.0); Potassium 4.1 mEq/L (3.5-5.1); Protein, Total 6.5 g/dL (6.4-8.2); Troponin High Sensitivity 15.2 pg/mL (<58.9)
[2022-12-08 08:54] LABS: SARS-CoV-2 Antigen Rapid Res Negative (Negative)
[2022-12-08 10:00] VITALS: TEMP 98.6
[2022-12-08 10:06] VITALS: BP 152/83; O2SAT 96
--- NOTE | 2022-12-09 12:17 | EKG ---
Test Date: 2022-12-08 Test Time: 08:35:08 Avionics Electronics Technician: MYKE MEASUREMENT RESULTS: Intervals: Rate: 51 WY: 154 QRSD: 98 QT: 426 QTc: 392 [place]: P: 80 WY: 154 QRS: -70 T: 76 INTERPRETIVE STATEMENTS: Sinus bradycardia Left anterior fascicular block Minimal voltage criteria for LVH, may be normal variant Anterior infarct, age undetermined Abnormal ECG Compared to ECG 10/24/2022 13:43:19 No significant changes Electronically Signed On 12-09-22 12:13:54 CDT by Yayo Hart
== END 2022-12-08 09:46 | disposition short-term general hospital (02) ==
LOC: ER 06:36
DX: S32.019A Unspecified fracture of first lumbar vertebra, initial encounter for closed fracture (principal); W18.30XA Fall on same level, unspecified, initial encounter; I10 Essential (primary) hypertension; Z20.822 Contact with and (suspected) exposure to COVID-19; Z95.1 Presence of aortocoronary bypass graft; Z79.01 Long term (current) use of anticoagulants; Z88.8 Allergy status to other drugs, medicaments and biological substances
CPT/HCPCS: 36415; 72131; 72192; 80053; 84484; 85025; 87811; 93005; 99284

== ENCOUNTER 2023-02-21 00:29 | Emergency (ER) | payer MEDICARE ==
--- OUTSIDE RECORDS SUMMARY | 2023-02-21 00:37 | XMS REPORT | Continuity of Care Document ---
:1940 Author Organization [facility] t Address [address] [place] [address] [address] [place] [address] Care Team Providers Name Role Phone ABEL VELAZQUEZ Primary Care Physician Unavailable DIONISIO JASON Attending Clinician Unavailable NIDHI LARRY Attending Clinician Unavailable ABEL VELAZQUEZ Attending Clinician Unavailable NYLA MYERS Attending Clinician Unavailable ALVIN HOLLOWAY Attending Clinician Unavailable KEVIN MANZANO Attending Clinician Unavailable Lenny CLEMENT, Tiffanie Lea. Attending Clinician Abel Velazquez MD Attending Clinician Christopher CLEMENT, Willy Dennison Attending Clinician [phone] Cary CLEMENT, Jean Paul Roberson Attending Clinician [phone] CAROLINA FARNSWORTH Attending Clinician Unavailable Lisa CLEMENT, Michael Mejia Attending Clinician [phone] Carolina Farnsworth MD Attending Clinician Jacquelin CLEMENT, Boni Wadsworth Attending Clinician Lenny CLEMENT, Tiffanie Nicholas Attending Clinician Argenis CLEMENT, Oneil Blue Attending Clinician [phone] DIONISIO JASON Admitting Clinician Unavailable KEVIN MANZANO Admitting Clinician Unavailable TIFFANIE GALVEZ Admitting Clinician Unavailable BONI BRO Admitting Clinician Unavailable Payers Payer Name Policy Type Policy Number Effective Date Expiration Date S henok [employer] OON [id number] 2022 00:00:00 [employer] MGD [id number] 2022 MCR 00:00:00 [employer] [id number] 2022 (MEDICARE 00:00:00 REPLACEMENT HMO) MEDICARE A B [id number] 2007 00:00:00 Problems Condition Condition Condition Status Onset Resolution [...] [facility]asia [facility] Dysarthria Dysarthria Disease Active 2021-[address] due to due to 2-10 [facility] acute acute 00:00: Medical cerebrovas cerebrovas 00 Ce nter cular cular accident accident (CVA) (CVA) Other Other Disease Active [facility] specified specified 1-29 [facility] transient transient 00:00: Medi he cerebral cerebral 00 Center ischemias ischemias Thrombocyt Thrombocyt Disease Recurre [facility] openia openia nce 1[facility]29 [facility] 00 Center B12 B12 Disease Active [facility] deficiency deficiency 1-29 [facility]n kes 00:00: Medical 00 Center CAD [...] b Allergy 10-16 [facility] 00 [place] Simvasta Drug Active Rash [facility] tin Allergy 10[facility] [place] Celecoxi Propensi Active Rash 2013-09 Method i b ty to 0-21 [facility] adverse 00:00: Hospita reaction 00 l s to drug Simvasta Propensi Active Rash 2013-09 Method i tin ty to 0-[facility] adverse 00:00: Hospita reaction 00 l s to drug Family History Family Member Diagnosis Comments Start Date Stop Date Source Natural mother Heart disease [facility] Natural sister Heart disease [facility] Social History Social Habit Start Date Stop Date Quantity Comments Source History of tobacco Cigarette Smoker [facility] Hospital History [facility] Alcohol Std Drinks Medica l Center [facility] Alcohol Binge Medical Jytoi ter History SDWA [facility] Alcohol Comment Medical [facility] Gender identity [facility] Sexual orientation [facility] History of Social 2022-10-31 2022-10-[address] function 00:00:00 00:00:00 Hospital Alcohol intake 2022-10-29 2022-10-29 Lifetime [facility] 00:00:00 00:00:00 non-drinker Hospital (finding) Tobacco use and 2022-10-25 2022-10-25 Smokeless [facility] exposure 00:00:00 00:00:00 tobacco non-user Hospital History SDOH 2022-08-29 2022-08-[address] [facility] Transport Med 00:00:00 00:00:[address] History [facility] 2022-08-29 2022-08-[address] [facility] Housing Unable to 00:00:00 00:00:00 Medical Center Pay History [facility] 2022-08-29 2022-08-[address] [facility] Housing Places 00:00:00 00:00:00 Medical Ce nter Lived History [facility] 2022-08-29 2022-08-[address] [facility] Housing Homeless 00:00:00 00:00:00 Medical Center Last Year Cigarettes smoked 2022-08-28 2022-08-[address] [facility] current (pack per 00:00:00 00:00:00 Medical Center day) - Reported History [facility] 2022-08-28 2022-08-[address] [facility] Alcohol Frequency 00:00:00 00:00:00 [facility] Center Sex Assigned At [birth year] [facility] 00:00:00 00:00:00 Hospital Smoking Status Start Date Stop Date Source Tobacco smoking consumption [facility] unknown Ex-smoker 2022-10-25 00:00:00 2022-10-25 00:00:00 [facility] Medications Ordered Filled Start Stop Current Ordering Indication Dosage Frequency Signature Comments Components Source Medication Medication Date Date Medication? Clinician (SIG) Name Name folic acid Yes 800ug QD Take 2 Meth jorge (FOLVITE) 2-[address] 400 MCG 16:47: (800 mcg Hospit a tablet 02 total) by l mouth daily. folic acid Yes 800ug QD Take 2 Meth jorge (FOLVITE) 2-[address] 400 MCG 16:47: (800 mcg Hospit a tablet 02 total) by l mouth daily. clopidogreL 2022- No 150mg QD Take 2 Me thodi (PLAVIX) 75 2-13 03-[address] mg tablet 00:00: 04:59 (150 mg Hosp lia 00 :00 total) by l mouth daily for 30 days. clopidogreL 2022- No 150mg QD Take 2 [...] by mouth l nightly for 30 days. ramelteon 2022-0 2022- No 8mg QD Take 1 Metho di (ROZEREM) 8 -12 03-15 tablet (8 st mg tablet 00:00: 04:59 mg total) Ho spita 00 :00 by mouth l nightly for 30 days. Eliquis 5 2022-0 Yes 5mg Q.5D Take 1 Method i mg tablet 1-19 tablet (5 st 00:00: mg total) Hospita 00 by mouth 2 l (two) times a day. Eliquis 5 2022-0 Yes 5mg Q.5D Take 1 Method i mg tablet 1-19 tablet (5 st 00:00: mg total) Hospita 00 by mouth 2 l (two) times a day. sertraline 2022-0 Yes 25mg QD Take 1 Metho di (ZOLOFT) 25 1-04 tablet (25 st MG tablet 00:00: mg total) Hos ros 00 by mouth l daily. sertraline 2022-0 Yes 25mg QD Take 1 Metho di (ZOLOFT) 25 1-04 tablet (25 st MG tablet 00:00: mg total) Hos ros 00 by mouth l daily. ALPRAZolam 2022-0 2023- No .5mg Q6H Take 1 Meth jorge (XANAX) 0.5 -12 19-[address] MG tablet 00:00: 00:00 (0.5 mg Hosp lia 00 :00 total) by l mouth every 6 (six) hours as needed for anxiety. ALPRAZolam 3-0 3- No .5mg Q6H Take 1 Meth jorge (XANAX) 0.5 -04 02-[address] MG tablet 00:00: 00:00 [...] 2-14 by mouth [facility] tablet 16:42: daily. [address] folic acid 2021-09 Yes 800ug QD Take [address] (FOLVITE) 2-14 mcg by [facility] 800 MCG 16:42: mouth Medical tablet 40 daily. [place] albuterol 2021-09 Yes 2{puff} Inhale 2 C [...] inhaler Med ical rol tr 40 daily. [place] (ANORO ELLIPTA INHL) ezetimibe 2021-09 Yes 10mg QD Take [address] (ZETIA) 10 2-14 by mouth [facility] mg tablet 16:42: daily. Medica l 40 [place] atorvastati 2021-09 Yes 80mg QD Take [address] [facility] (LIPITOR) 2-14 by mouth Luke s 80 MG 16:42: nightly . Medical tablet 40 [place] aspirin 81 2021-09 Yes 81mg QD Take [address] MG EC 2-14 by mouth [facility] tablet 16:42: daily. [address] folic acid 2021-09 Yes 800ug QD Take [address] (FOLVITE) 2-14 mcg by [facility] 800 MCG 16:42: mouth Medical tablet 40 daily. [place] albuterol 2021-09 Yes 2{puff} Inhale 2 C [...] (two) Medical tablet 40 times Center daily. maninderiu 2021-09 Yes QD Inhale by C [facility] m 2-14 mouth via [facility] brm/vilante 16:42: inhaler Med ical rol tr 40 daily. [place] (ANORO ELLIPTA INHL) ezetimibe 2021-09 Yes 10mg QD Take [address] (ZETIA) 10 2-14 by mouth [facility] mg tablet 16:42: daily. Medica l 40 [place] losartan 2021-09- No 25mg QD Take [address] (COZAAR) 25 2-14 12-14 by mouth Сергей es MG tablet 15:17: 00:00 daily. Medic al 41 :00 [place] losartan 2021-09- No 50mg QD Take [address] (COZAAR) 50 2-14 12-14 by mouth Сергей es MG tablet 15:17: 00:00 nightly. Med ical 41 :00 [place] losartan 2021-09- No 25mg QD Take [address] (COZAAR) 25 2-14 12-14 by mouth Серегй es MG tablet 15:17: 00:00 daily. Medic al 41 :00 [place] losartan 2021-09- No 50mg QD Take [address] (COZAAR) 50 2-14 12-14 by mouth Сергей es MG tablet 15:17: 00:00 nightly. Med ical 41 :00 [place] metoprolol 2021-09 Yes 25mg Q.5D Take 1 Metho di tartrate 2-14 tablet (25 st (LOPRESSOR) 00:00: mg total) H ospita 25 mg 00 by mouth 2 l tablet (two) times a day. losartan 2021-09 Yes 25mg Take 1 Methodi (COZAAR) 25 2-14 tablet (25 st MG tablet 00:00: mg total) Hos ros 00 by mouth l as needed. losartan 2021-09 Yes 25mg Q.5D Take 1 [...] 22:39: 00:00 daily. Medic al 27 :00 [place] ezetimibe 2021-09- No 10mg QD Take [address] (ZETIA) 10 2-10 12-10 by mouth Luke s mg tablet 22:39: 00:00 daily. Medic al 27 :00 [place] clopidogrel 2021-09- No 75mg QD Take [address] (PLAVIX) 75 2-10 12-10 by mouth Сергей es mg tablet 22:39: 00:00 daily. Medic al 11 :00 [place] clopidogrel 2021-09- No 75mg QD Take [address] (PLAVIX) 75 2-10 12-10 by mouth Сергей es mg tablet 22:39: 00:00 daily. Medic al 11 :00 [place] aspirin 325 2021-09- No 325mg QD Take [address] MG tablet 2-10 12-10 mg by [facility] 22:38: 00:00 mouth Medical 02 :00 daily. [place] aspirin 325 2021-09- No 325mg QD Take [address] MG tablet 2-10 12-10 mg by [facility] 22:38: 00:00 mouth Medical 02 :00 daily. [place] atorvastati 2013-09 Yes 80mg QD Take 1 Meth jorge n (LIPITOR) 0-20 tablet (80 st 80 MG 00:00: mg total) Hospita tablet 00 by mouth l nightly. atorvastati 2013-09 Yes 80mg QD Take 1 [...] Name Observation Time Observation Value Comments Source HEIGHT 2023-02-05 11:10:00 170.2 cm WEIGHT 2023-02-05 11:10:00 54.432 kg HEIGHT 2023-02-05 11:10:00 170.2 cm WEIGHT 2023-02-05 11:10:00 54.432 kg WEIGHT 2022-08-28 22:00:00 58.968 kg HEIGHT 2022-08-28 19:50:00 170.2 cm WEIGHT 2022-08-28 22:00:00 58.968 kg HEIGHT 2022-08-28 19:50:00 170.2 cm Systolic blood 2022-10-31 21:41:59 130 mm[Hg] [facility] pressure Diastolic blood 2022-10-31 21:41:59 60 mm[Hg] [facility] pressure Heart rate 2022-10-31 21:41:59 51 /min [facility] Body temperature 2022-10-31 21:41:59 36.61 Conchita [facility] Respiratory rate 2022-10-31 21:41:59 18 /min [facility] Oxygen saturation in 2022-10-31 21:41:59 97 /min [facility] Arterial blood by Pulse oximetry Body weight 2022-10-30 10:37:55 51.9 kg [facility] BMI 2022-10-30 10:37:55 17.92 kg/m2 [facility] Body height 2022-10-26 02:31:00 170.2 cm [facility] Heart rate 2022-09-01 14:12:00 79 /min [facility] Respiratory rate 2022-09-01 14:12:00 18 /min [facility] Oxygen saturation in 2022-09-01 14:12:00 95 /min [facility] Arterial blood by Medical Ce nter Pulse oximetry Systolic blood 2022-09-01 11:27:00 143 mm[Hg] [facility] Diastolic blood 2022-09-01 11:27:00 67 mm[Hg] [facility] Body temperature 2022-09-01 11:27:00 36.78 Conchita [facility] Body weight 2022-08-28 22:00:00 58.968 kg [facility] BMI 2022-08-28 22:00:00 20.36 kg/m2 [facility] Body height 2022-08-28 19:50:00 170.2 cm [facility] Procedures Procedure Date / Time Performing Clinician Source Performed POC GLUCOSE 2022-10-31 17:56[facility] 2022-10-31 13:27[facility] 2022-10-31 02:48:00 [facility] 2022-10-30 15:18:00 [facility]SE 2022-10-30 10:38:00 [facility]SE 2022-10-30 06:06:00 [facility]SE 2022-10-30 02:22:00 [facility]SE 2022-10-29 22:40:00 [facility]SE 2022-10-29 17:12:00 [facility]SE 2022-10-29 14:05:00 [facility]SE 2022-10-29 10:29:00 [facility] 2022-10-29 05:56[facility]GIO[facility] NECK W WO 2022-10-29 03:18:23 Carlo Queen [facility] CONTRAST POC GLUCOSE 2022-10-29 02:25:00 [facility] US CAROTID DUPLEX BILATERAL 2022-10-29 00:05:00 Kennedi Lewis [facility] POC GLUCOSE 2022-10-28 23:24:00 [facility] POC GLUCOSE 2022-10-28 17:18:00 Marcus [facility] POC GLUCOSE 2022-10-28 13:55:00 [facility] POC [facility]SE 2022-10-28 03:31:00 [facility] MRI BRAIN WO CONTRAST 2022-10-27 23:12:11 Donita French [facility] POC GLUCOSE 2022-10-27 14:32:00 Lenny [facility] POC GLUCOSE 2022-10-27 10:46[facility]00 [facility]OLIC PANEL 2022-10-27 10:00:00 [facility] S CBC WITH PLATELET AND 2022-10-27 10:00:00 [facility] DIFFERENTIAL Wheeler S MAGNESIUM LEVEL 2022-10-27 10:00:00 [facility] PHOSPHORUS LEVEL 2022-10-27 10:00:00 [facility] S HEMOGLOBIN A1C 2022-10-27 10:00:00 [facility] PARTIAL THROMBOPLASTIN TIME 2022-10-27 10:00:00 [facility] GFR 2022-10-27 10:00:00 [facility] PROTHROMBIN TIME WITH INR 2022-10-27 10:00:00 [facility] LIP[facility]EL 2022-10-27 10:00:00 [facility] POC GLUCOSE 2022-10-27 06:47:00 [facility] BASIC METABOLIC PANEL 2022-10-27 03:38:00 [facility] S CBC WITH PLATELET AND 2022-10-27 03:38:00 [facility] DIFFERENTIAL Buddy S MAGNESIUM LEVEL 2022-10-27 03:38:00 [facility] S ESTIMATED GFR 2022-10-27 03:38:00 [facility]OS[facility] 2022-10-27 03:38:00 [facility] Buddy S POC GLUCOSE 2022-10-27 02:14:00 [facility] PARTIAL THROMBOPLASTIN TIME 2022-10-27 01:55:00 [facility] (PTT) POC GLUCOSE 2022-10-27 01:01:00 Lenny [facility] OR FL < 1 HOUR 2022-10-27 00:43:46 [facility] ACTIVATED CLOTTING TIME 2022-10-27 00:21:00 [facility] ACTIVATED CLOTTING TIME 2022-10-27 00:04:00 [facility] ARTERIAL LINE 2022-10-26 23:38:13 [facility] ivette Melendez ACTIVATED CLOTTING TIME 2022-10-26 23:26:00 [facility] [place] AN ELECTIVE ENDOTRACHEAL 2022-10-26 23:19:00 [facility] AIR[facility] [place] TRANSCAROTID ARTERY 2022-10-26 22:51:00 [facility] REVASCULARIZATION ECG 12-LEAD 2022-10-26 17:27:36 Jase [facility] Jean Paul Roberson TTE COMPLETE, WO CONTRAST, 2022-10-26 16:49:00 [facility] W DOPPLER ([id number]) ABO AND RH CONFIRMATION BY 2022-10-26 15:50:00 [facility] PROTOCOL PROTHROMBIN TIME WITH INR 2022-10-26 15:45:00 [facility] Jean Paul Roberson PARTIAL THROMBOPLASTIN TIME 2022-10-26 15:45:00 [facility] Jean Paul Roberson XR CHEST 1 VW PORTABLE 2022-10-26 14:45:06 [facility] Paul Roberson COVID-19 QUALITATIVE RT-PCR 2022-10-26 11:27:00 [facility] TYPE AND SCREEN 2022-10-26 11:27:00 [facility] CBC WITH PLATELET AND 2022-10-26 06:16:[address] [facility] DIFFERENTIAL BASIC METABOLIC PANEL 2022-10-26 06:16:[address] [facility] ESTIMATED GFR 2022-10-26 06:16:00 [facility] ANTI XA, UNFRACTIONATED 2022-10-26 05:19:00 [facility] PARTIAL THROMBOPLASTIN TIME 2022-10-26 05:19:00 [facility] (PTT) POC GLUCOSE 2022-10-26 02:21:[address] [facility] CT BRAIN WITHOUT IV 2022-09-01 13:35:[address] [facility] COMPREHENSIVE METABOLIC 2022-09-01 05:14:00 [facility] 2022-09-01 05:14:00 [facility] CBC (HEMOGRAM ONLY) 2022-09-01 05:14:00 [facility] MR BRAIN WITHOUT IV 2022-08-31 10:15:[address] [facility] MRA HEAD WITHOUT IV 2022-08-31 10:10:[address] [facility] MRA NECK WITHOUT IV 2022-08-31 10:10:[address] [facility] COMPREHENSIVE METABOLIC 2022-08-31 05:10:00 [facility] 2022-08-31 05:10:00 [facility] CBC (HEMOGRAM ONLY) 2022-08-31 05:10:00 Tiffanie Galvez [facility] ANGIOGRAM, LOWER EXTREMITY 2022-08-30 14:54:00 [facility] CAROTID DOPPLER BILATERAL 2022-08-30 10:56:00 Tiffanie Galvez [facility] APTT 2022-08-30 05:58:00 Carolina Farnsworth [facility] COMPREHENSIVE METABOLIC 2022-08-30 03:59:00 Tiffanie Galvez [facility] MAGNESIUM 2022-08-30 03:59:00 [facility] PROTHROMBIN TIME/INR 2022-08-30 03:59:00 Carolina Farnsworth [facility] CBC (HEMOGRAM ONLY) 2022-08-30 03:59:00 [facility] CTA CAROTID 2022-08-29 18:09:00 [facility] APTT 2022-08-29 13:34:00 [facility] 2D ECHO W/ DOPPLER 2022-08-29 13:02:05 [facility] (CW/PW/COLOR) [facility] METABOLIC 2022-08-29 10:12:00 [facility] MAGNESIUM 2022-08-29 10:12:00 [facility] TROPONIN I 2022-08-29 10:12:00 [facility] SPUTUM CULTURE + GRAM STAIN 2022-08-29 05:09:00 [facility] CBC (HEMOGRAM ONLY) 2022-08-29 05:09:00 Lenny [facility] TROPONIN I 2022-08-29 04:56:00 [facility] APTT 2022-08-29 04:56:00 Afaq, [facility] XR CHEST 1 VIEW PORTABLE / 2022-08-29 00:55:00 Afaq, [facility] C [facility] LEGIONELLA ANTIGEN, URINE 2022-08-28 23:41:00 Afaq, [facility] CH I [facility] LIPID PANEL 2022-08-28 23:40:00 Afaq, [facility] HEMOGLOBIN A1C 2022-08-28 23:40:00 Afaq, [facility] TSH/FREE T4 IF INDICATED 2022-08-28 23:40:00 Afaq, [facility] VITAMIN B12 2022-08-28 23:40:00 Afaq, [facility] T4, FREE 2022-08-28 23:40:00 Afaq, [facility] CBC W/PLT COUNT & AUTO 2022-08-28 21:31:00 Afaq, [facility] COMPREHENSIVE METABOLIC 2022-08-28 21:31:00 Afaq, [facility] MAGNESIUM 2022-08-28 21:31:00 Afaq, [facility] APTT 2022-08-28 21:31:00 Afaq, [facility] CBC W/PLT COUNT & AUTO 2022-08-28 21:31:00 Afaq, [facility] S t [facility] ECG 12-LEAD 2022-08-28 20:53:56 Unknown, H[facility] ECG 12-LEAD 2022-08-28 20:53:24 Unknown, Hl7 [facility] CARDIAC CATH REPORT - SCAN 2022-08-28 00:00:00 Provider, Default [facility] EKG-SCANNED 2022-08-28 00:00:00 Provider, Default [facility] Plan of Care Planned Activity Planned Date [...] 65+ YRS (2 - PCV)] Future Scheduled 2023-01-29 SHINGLES VACCINES (1 Met [facility] Hospital Test 08:47:58 of 2) [code = SHINGLES VACCINES (1 of 2)] Future Scheduled 2023-01-29 COVID-19 VACCINE (3 - [facility] Hospital Test 08:47:58 Booster for Pfizer series) [code = COVID-19 VACCINE (3 - Booster for Pfizer series)] Future Scheduled 2023-01-29 INFLUENZA VACCINE Method ist Hospital Test 08:47:58 [code = INFLUENZA VACCINE] Future Scheduled 2023-01-29 65+ PNEUMOCOCCAL Methodi Hospital Test 08:47:58 VACCINE (2 - PCV) [code = 65+ PNEUMOCOCCAL VACCINE (2 - PCV)] Future Scheduled 2022-11-29 SHINGLES VACCINES (1 Met [facility] Hospital Test 10:36:39 of 2) [code = SHINGLES VACCINES (1 of 2)] Future Scheduled 2022-11-29 COVID-19 VACCINE ([facility] - [facility] 10:36:39 Booster for Pfizer series) [code = COVID-19 VACCINE (3 - Booster for Pfizer series)] Future Scheduled 2022-11-29 INFLUENZA VACCINE Method ist Hospital Test 10:36:39 [code = INFLUENZA VACCINE] Future Scheduled 2022-11-29 65+ PNEUMOCOCCAL Methodi Hospital Test 10:36:39 VACCINE (2 - PCV) [code = 65+ PNEUMOCOCCAL VACCINE (2 - PCV)] Future Scheduled 2022-09-27 Hepatitis C screening [facility] Hospital Test 08:04:56 (procedure) [code = [id number]] Future Scheduled 2022-09-27 SHINGLES VACCINES (1 Met [facility] Test 08:04:56 of 2) [code = SHINGLES VACCINES (1 of 2)] Future Scheduled 2022-09-27 65+ PNEUMOCOCCAL Methodi Hospital Test 08:04:56 VACCINE (1 - PCV) [code = 65+ PNEUMOCOCCAL VACCINE (1 - PCV)] Future Scheduled 2022-09-27 COVID-19 VACCINE (3 - [facility] Test 08:04:56 Booster for Pfizer series) [code = COVID-19 VACCINE (3 - Booster for Pfizer series)] Future Scheduled 2022-09-27 INFLUENZA VACCINE Method is Hospital Test 08:04:56 [code = INFLUENZA VACCINE] [...] Future Scheduled 2022-07-26 HEPATITIS B VACCINES Met [facility] Test 07:03:55 (1 of 3 - 3-dose series) [code = HEPATITIS B VACCINES (1 of 3 - 3-dose series)] Future Scheduled 2022-07-26 SHINGLES VACCINES (1 Met [facility] Hospital Test 07:03:55 of 2) [code = SHINGLES VACCINES (1 of 2)] Future Scheduled 2022-07-26 65+ PNEUMOCOCCAL Methodi Hospital Test 07:03:55 VACCINE (1 - PCV) [code = 65+ PNEUMOCOCCAL VACCINE (1 - PCV)] Future Scheduled 2022-07-26 COVID-19 VACCINE (3 - [facility] Test 07:03:55 Booster for Pfizer series) [code = COVID-19 VACCINE (3 - Booster for Pfizer series)] Future Scheduled 2022-07-26 INFLUENZA VACCINE [facility] Test 07:03:55 [code = INFLUENZA VACCINE] Future Scheduled 2022-07-26 HEPATITIS B VACCINES Met [facility] Test 07:03:55 (1 of 3 - 3-dose series) [code = HEPATITIS B VACCINES (1 of 3 - 3-dose series)] Future Scheduled 2022-07-26 SHINGLES VACCINES (1 Met [facility] Hospital Test 07:03:55 of 2) [...] series)] Future Scheduled 2022-07-26 INFLUENZA VACCINE [facility] Test 07:03:55 [code = INFLUENZA VACCINE] Future Scheduled 2022-07-26 HEPATITIS B VACCINES Met [facility] Test 07:03:55 (1 of 3 - 3-dose series) [code = HEPATITIS B VACCINES (1 of 3 - 3-dose series)] Future Scheduled 2022-07-26 SHINGLES VACCINES (1 Met [facility] Test 07:03:55 of 2) [code = SHINGLES VACCINES (1 of 2)] Future Scheduled 2022-07-26 65+ [facility]AL [facility] VACCINE (1 - PCV) [code = 65+ PNEUMOCOCCAL VACCINE (1 - PCV)] Future Scheduled 2022-07-26 COVID-19 VACCINE (3 - [facility] Test 07:03:55 Booster for Pfizer series) [code = COVID-19 VACCINE (3 - Booster for Pfizer series)] Future Scheduled 2022-07-26 INFLUENZA VACCINE [facility] Test 07:03:55 [code = INFLUENZA VACCINE] Future Scheduled 2022-06-07 HEPATITIS B VACCINES Met [facility] Test 04:44:56 (1 of 3 - 3-dose series) [code = HEPATITIS B VACCINES (1 of 3 - 3-dose series)] Future Scheduled 2022-06-07 SHINGLES VACCINES (1 Met [facility] Test 04:44:56 of 2) [code = SHINGLES VACCINES (1 of 2)] Future Scheduled 2022-06-07 67+ PNEUMOCOCCAL Methodi [facility] Test 04:44:56 VACCINE (1 - PCV) [code [...] DXA [facility] Test 00:00:00 SCAN] [facility] Future Scheduled 1940 DXA SCAN [code = DXA [facility] Test 00:00:00 SCAN] [facility] Future Scheduled [facility] C [facility] (procedure) [code = 790930936] Future Scheduled SHINGLES VACCINES (#1) M ethodist [...] Date/Time Type Type Clinicians Facility Department ID 2022-12-22 Outpatient [facility] [id number] [place] 21:46:17 [id number] [facility] 2022-12-21 Outpatient [facility] [id number] [place] 11:22:22 [id number] [facility] 2022-12-16 Outpatient [facility] [id number] [place] 10:27:57 [id number] [facility] 2022-12-09 Outpatient [facility] [id number] [place] 11:13:59 [id number] [facility] 2023-02-05 2023-02-11 Inpatient ER CASIE, [facility] [id number] [facility] 11:48:00 22:30:00 DIONISIO 2023-01-28 2023-01-28 Outpatient LOUIS NYLA [facility] [id number] [place] 09:00:00 09:00:00 [facility] 2022-12-21 2022-12-21 Outpatient AMIE, [facility] [id number] [place] 15:00:00 15:00:00 [facility] 2022-12-20 2022-12-20 Outpatient [facility] [id number]- 00:00:00 00:00:00 [id number] [facility] Group 2022-12-20 2022-12-20 Outpatient [facility] [id number] Devoted 00:00:00 00:00:00 [id number] Medica l Group 2022-12-11 2022-12-15 Inpatient Nelia MANZANO [facility] 3081 [facility] 13:43:00 14:45:00 KEVIN 2022-10-25 [id number] Methodi 19:52:00 16:47:00 [facility] [address] 3.430.2.7 Hospit a .3.552858 l .8 2022-10-25 2022-10-31 [facility] ABEL VELAZQUEZ [facility] [id number] [place] 00:00:00 00:00:00 Encounter [address] 2022-10-26 2022-10-26 Anesthesia Willy White 1.2.840.1 [id number] Methodi 16:51:00 18:52:00 Event Jean Paul Townsend [address]192.1.[address] 3.430.2.7 Hospit a .3.928538 l .8 2022-10-26 2022-10-26 Anesthesia Willy White 1.2.840.1 [id number] Methodi 16:51:00 18:52:00 Event Jean Paul Townsend 90075.1.[address] 3.430.2.7 Hospit a .3.034098 l .8 2022-10-26 2022-10-26 Surgery Lenny, 1.2.840.1 [id number] Methodi 15:45:00 18:50:00 Tiffanie Ji [address]352.1.[address] 3.430.2.7 Hospit a .3.494988 l .8 2022-10-26 2022-10-26 Surgery Lenny 1.2.840.1 [id number] Methodi 15:45:00 18:50:00 Tiffanie Ji [address]199.1.[address] 3.430.2.7 Hospit a .3.678058 l .8 2022-10-26 2022-10-26 Travel 1.2.840.1 1.2.654.209 [id number] Methodi 00:00:00 00:00:[address] 3.430.2.7 0.2.7.3.698 Ho spita .3.081364 084.8 l .8 2022-10-26 2022-10-26 Travel 1.2.840.1 1.2.172.169 [id number] Methodi 00:00:00 00:00:[address] 3.430.2.7 0.2.7.3.698 Ho spita .3.331746 084.8 l .8 2022-09-30 2022-09-30 Outpatient DMG [facility] [id number] Devoted 00:00:00 00:00:00 [id number] Medica l Group 2022-08-28 2022-09-01 Inpatient [facility] [id number] [facility] 19:30:00 16:30:00 CAROLINA Peoples 2022-08-28 [facility]22-09-01 [facility] [id number] 19:30:00 16:30:00 Carolina Meyer [facility] 2022-08-30 2022-08-30 Surgery eLnny [facility] [id number] 14:30[facility]00 16[facility]00[facility]00 [facility] 2022-08-28 2022-08-28 Orders [facility] [id number] 00:00:00 00:00:00 [facility] 2022-08-28 2022-08-28 Travel [facility] [id number] [facility] 00:00:00 00:00:00 [facility] 2020-12-12 2020-12-12 Clinical Argenis, 1.2.840.1 [id number] Methodi 13:01:14 13:06:14 Support Oneil 84846.1.[address] P. 3.430.2.7 Hospit a .3.555965 l .8 2020-11-21 2020-11-21 Clinical 1.2.840.1 [id number] Methodi 15:25:41 15:30:[address] 3.430.2.7 Hospit a .3.069254 l .8 Results Test Description Test Time Test Comments Results Result [facility] e Comments RAD, CHEST, 1 2023-02-11 Reason for VIEW, NON DEPT 08:19:00 exam:->dyspneaS [facility] JENNY DOUGLAS : 1940 Sex: F *FINAL REPORT Chest AP portable semierect COMPARISON STUDY: 02/09/2023 History provided: Dyspnea Bibasilar opacity consistent with pleural effusion/atelectasis /pneumonia unchanged. Normal vascularity. Signed: Hayder Hernandes Verified Date/Time: 02/11/2023 08:19:56 Reading Location: [facility] Radiology Reading Room C METABOLIC PANEL 2023-02-11 06:41:31 Test Item Value Reference Range Interpretation Comme nts SODIUM (BEAKER) (test 143 meq/L 135-148 code = 381) POTASSIUM (BEAKER) 4.1 meq/L 3.6-5.5 (test code = 379) CHLORIDE (BEAKER) (test 110 meq/L 98-106 H code = 382) CO2 (BEAKER) (test code 23 meq/L 20-29 = 355) BLOOD UREA NITROGEN 12 mg/dL 10-26 (BEAKER) (test code = 354) CREATININE (BEAKER) 0.90 mg/dL 0.50-1.20 (test code = 358) GLUCOSE RANDOM (BEAKER) 138 mg/dL 70-110 H (test code = 652) CALCIUM (BEAKER) (test 8.6 mg/dL 8.5-10.5 code = 697) EGFR (BEAKER) (test 65 mL/min/1.73 sq In terpretation of eGFR values code = 1092) m Stage Descripti on Result [...] s not applicable for dialysis sim ma Fuel Quality Tech ID - [id number] ID - [id number] ID - [id number] ID - LQGC99Zvvgyxtv ID - [id number] ID - PWUJ51Bxtfxiqp ID - WITT09Vxpzgdzi ID - QRJV55Pgnufhbu ID - OOMO91Nhidpyml ID - BBHT11Ckjhjjxe ID - MZLO39Ljpurhnu ID - [id number] (HEMOGRAM ONLY)2023-02-11 06:23:18 Test Item Value Reference Range Interpretation Comments WHITE BLOOD CELL COUNT (BEAKER) 4.8 K/ L 4.0-10.0 (test code = 775) RED BLOOD CELL COUNT (BEAKER) 3.20 M/ L 4.00-5.00 L (test code = 761) HEMOGLOBIN (BEAKER) (test code = 9.7 GM/DL 12.0-15.5 L 410) HEMATOCRIT (BEAKER) (test code = 31.1 % 36.0-46.0 L 411) MEAN CORPUSCULAR VOLUME (BEAKER) 97 fL 82-99 (test code = 753) MEAN CORPUSCULAR HEMOGLOBIN 30.3 pg 27.0-33.0 (BEAKER) (test code = 751) MEAN CORPUSCULAR HEMOGLOBIN CONC 31.2 GM/DL 32.0-36.0 L (BEAKER) (test code = 752) RED CELL DISTRIBUTION WIDTH 15.0 % 12.0-15.0 (BEAKER) (test code = 412) PLATELET COUNT (BEAKER) (test 206 K/CU MM 150-430 code = 756) MEAN PLATELET VOLUME (BEAKER) 9.8 fL 6.0-11.5 (test code = 754) NUCLEATED RED BLOOD CELLS 0 /100 WBC 0-0 (BEAKER) (test code = 413) BLOOD GAS, [id number] 09:03:00 Test Item Value Reference Range Interpretation Comments PH ARTERIAL (BEAKER) (test code = 7.47 7.35-7.45 H 383) PCO2 ARTERIAL (BEAKER) (test code 38 mm Hg 35-45 = 384) PO2 ARTERIAL (BEAKER) (test code = 43 mm Hg 80-90 L 385) O2 SATURATION ARTERIAL (BEAKER) 82.0 % 96.0-97.0 L (test code = 386) HCO3 ARTERIAL (BEAKER) (test code 27 mmol/L 21-29 = 388) BASE EXCESS ARTERIAL (BEAKER) 2.8 mmol/L -2.0-3.0 (test code = 387) PATIENT TEMPERATURE (BEAKER) (test 37.0 code = 1818) FIO2 (BEAKER) (test code = 1819) 21.0 COMPREHENSIVE METABOLIC [id number] 06:17:04 Test Item Value Reference Range Interpretation Comments TOTAL PROTEIN 5.6 gm/dL 6.0-8.5 L (BEAKER) (test code = 770) ALBUMIN (BEAKER) 2.9 g/dL 3.5-5.0 L (test code = 1145) ALKALINE 42 U/L 30-115 PHOSPHATASE (BEAKER) (test code = 346) BILIRUBIN TOTAL 0.9 mg/dL 0.1-1.2 (BEAKER) (test code = 377) SODIUM (BEAKER) 145 meq/L 135-148 (test code = 381) POTASSIUM (BEAKER) 3.0 meq/L 3.6-5.5 L (test code = 379) CHLORIDE (BEAKER) 109 meq/L 98-106 H (test code = 382) CO2 (BEAKER) (test 25 meq/L 20-29 code = 355) BLOOD UREA 7 mg/dL 10-26 L NITROGEN (BEAKER) (test code = 354) CREATININE 0.81 mg/dL 0.50-1.20 (BEAKER) (test code = 358) GLUCOSE RANDOM 90 mg/dL 70-110 (BEAKER) (test code = 652) CALCIUM (BEAKER) 8.5 mg/dL 8.5-10.5 (test code = 697) AST (SGOT) 39 U/L 5-40 (BEAKER) (test code = 353) ALT (SGPT) 25 U/L 5-50 (BEAKER) (test code = 347) EGFR (BEAKER) 73 Interpretatio n of eGFR (test code = [...] not appl icable for dialysis patien ts Fuel Quality Tech ID - LITOOperator ID - LITOOperator ID - LITOOperator ID - LITOOperator ID - LITOOperator ID - LITOOperator ID - LITOOperator ID - LITOOperator ID - LITOOperator ID - LITOOperator ID - LITOOperator ID - LITOOperator ID - LITOOperator ID - LITOOperator ID - LITOOperator ID - [id number] 06:16:36 Test Item Value Reference Range Interpretation Comments MAGNESIUM (BEAKER) (test code = 1.5 mg/dL 1.5-3.0 627) Fuel Quality Tech ID - LITOOperator ID - LITOOperator ID - LITOOperator ID - LITOCBC W/PLT COUNT & AUTO [id number] 06:02:39 Test Item Value Reference Range Interpretation Comments WHITE BLOOD CELL COUNT (BEAKER) 7.1 K/ L 4.0-10.0 (test code = 775) RED BLOOD CELL COUNT (BEAKER) 3.15 M/ L 4.00-5.00 L (test code = 761) HEMOGLOBIN (BEAKER) (test code = 9.4 GM/DL 12.0-15.5 L 410) HEMATOCRIT (BEAKER) (test code = 30.6 % 36.0-46.0 L 411) MEAN CORPUSCULAR VOLUME (BEAKER) 97 fL 82-99 (test code = 753) MEAN CORPUSCULAR HEMOGLOBIN 29.8 pg 27.0-33.0 (BEAKER) (test code = 751) MEAN CORPUSCULAR HEMOGLOBIN CONC 30.7 GM/DL 32.0-36.0 L (BEAKER) (test code = 752) RED CELL DISTRIBUTION WIDTH 15.0 % 12.0-15.0 (BEAKER) (test code = 412) PLATELET COUNT (BEAKER) (test 210 K/CU MM 150-430 code = 756) MEAN PLATELET VOLUME (BEAKER) 10.0 fL 6.0-11.5 (test code = 754) NUCLEATED RED BLOOD CELLS 0 /100 WBC 0-0 (BEAKER) (test code = 413) NEUTROPHILS RELATIVE PERCENT 67 % (BEAKER) (test code = 429) LYMPHOCYTES RELATIVE PERCENT 20 % (BEAKER) (test code = 430) MONOCYTES RELATIVE PERCENT 8 % (BEAKER) (test code = 431) EOSINOPHILS RELATIVE PERCENT 5 % (BEAKER) (test code = 432) BASOPHILS RELATIVE PERCENT 1 % (BEAKER) (test code = 437) NEUTROPHILS ABSOLUTE COUNT 4.76 K/ L 1.80-8.00 (BEAKER) (test code = 670) LYMPHOCYTES ABSOLUTE COUNT 1.40 K/ L 1.48-4.50 L (BEAKER) (test code = 414) MONOCYTES ABSOLUTE COUNT (BEAKER) 0.55 K/ L 0.00-1.30 (test code = 415) EOSINOPHILS ABSOLUTE COUNT 0.32 K/ L 0.00-0.50 (BEAKER) (test code = 416) BASOPHILS ABSOLUTE COUNT (BEAKER) 0.05 K/ L 0.00-0.20 (test code = 417) IMMATURE GRANULOCYTES-RELATIVE 0.40 % 0.00-0.00 H PERCENT (BEAKER) (test code = 2801) RAD, CHEST, 1 VIEW, NON [id number] 19:18:00Reason for exam:->86% SPO2 on RAShould this be performed at the bedside?->Yes [facility] 1940 Sex: FFINAL REPORT AP view of the chest dated 02/09/2023 COMPARISON: February 08, 2023 CLINICAL INFORMATION: 86% SPO2 on RA Comment: Heart is normal in size. Pulmonary vasculature is unremarkable. Opacities are seen in both lower lobes suggestive of subsegmental atelectasis or pneumonia. There is trace left pleural effusion. IMPRESSION: Bibasilar subsegmental atelectasis or pneumonia. Signed: Shaun Brown MDRy[facility] Verified Date/Time: 02/09/2023 19:18:08 CT, CTA MADIE, W/ CINDI.EXT.[id number] 15:25:00 [facility] 1940 Sex: FFINAL REPORT EXAM: CTA Abdomen and Pelvis with iliofemoral runoff WITH CONTRAST. DATE: 02/07/2023 4:53 PM INDICATION: Aneurysm, pelvis or lower extremity COMPARISON: CT abdomen/pelvis 02/05/2023. TECHNIQUE: CT angiogram of the abdomen and pelvis with iliofemoral runoff was obtained after the administration of IV contrast. Prospective gating was performed. Images reviewed in the axial, coronal, and sagittal planes. 3D reconstructions performed on off- line workstation. Total DLP: 1256.4 mGy*cm Estimated effective dose: (DLP x 0.015 x size factor) mSv (CTDIvol has been reviewed and is below limits set by [facility]). Appropriate CT dose reduction techniques were utilized. FINDINGS: VASCU LAR: The visualized thoracic aorta is normal caliber. Scattered calcifications are seen throughout the aorta and major branches. 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 The aneurysm sac measures approximately 1.6 x 1.7 x 1.3 cm. The neck measures approximately 1.4 cm. More inferiorly, there is a fusiform, bilobed infrarenal abdominal aortic aneurysm extending from below the takeoff of the renal arteries and into the iliac bifurcation. The superior aspect of this aneurysm measures approximately 4.3 x 4.3 x 5.8 cm. The inferior lobe measures approximately 3.3 x 2.6 x 4.1 cm. 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 The distal br anches are patent. There is moderate stenosis at the origin of the superior mesenteric artery. The distal branches are patent. The inferior mesenteric artery is patent. Single right and two left renal arteries are patent. The bilateral common iliac, external iliac, and internal iliac arteries are patent without hemodynamically significant stenosis. The right common femoral, deep femoral, and superficial femoral arteries are patent. There is approximately 50% stenosis in the proximal right SFA. The popliteal artery is patent. The infra popliteal arteries are patent. One vessel runoff to the level ofthe foot via the posterior tibial artery. The left common femoral, superficial femoral, and deep femoral arteries are patent. No hemodynamically significant stenoses are seen in the femoral arteries. The popliteal artery is patent. The infrapopliteal arteries are patent. Two-level runoff to the level of the fat via the anterior and posterior tibial arteries. NONVASCULAR: Lower thorax: Scattered subsegmental atelectasis. The lungs are emphysematous. There is a trace right pleural effusion. Liver: Calcified granulomas.Gallbladder and bile ducts: Status post cholecystectomy. Mild biliary prominence may be secondary to postcholecystectomy effects.Spleen: Calcified granulomas.Pancreas: Normal.Adrenals:Right adrenal gland contains a hypoattenuating mass measuring up to 5.9 cm. There are coarse centralcalcifications.Kidneys and ureters: Simple appearing left renal cyst. No follow-up required.Bowel: Small hiatal hernia. Diverticulosis. Status post appendectomy. Bladder: Normal. Reproductive organs: No acute abnormality. Lymph nodes: Normal.Peritoneum: Trace ascites. A few foci of free air are likely postoperative in nature.Soft tissues: Foci of gas are seen along the abdominal wall. These may be related to recent procedure.Bones: Probably old L1 compression fracture. Degenerative changes noted throughout the spine. Decreased bone mineralization. IMPRESSION:1.Multiple abdominal aortic aneurysms. 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 There is an additional bilobed infrarenal abdominal aortic aneurysm.2.Additional vascular findings are described in the body of the report.3.Right adrenal mass. As before, surgical consultation is recommended.4.Status post appendectomy. This likely explains the few foci of free air.5.Trace ascites.6.Diverticulosis.7.Small hiatal hernia.8.Please see additional findings in the body of the report. Signed: Zaina Manzano MDReport Verified Date/Time: 02/09/2023 15:25:13 03: 25 [facility] [id number] 05:54:20 Test Item Value Reference Range Interpretation Comments TOTAL PROTEIN 5.5 gm/dL 6.0-8.5 L (BEAKER) (test code = 770) ALBUMIN (BEAKER) 2.8 g/dL 3.5-5.0 L (test code = 1145) ALKALINE 47 U/L 30-115 PHOSPHATASE (BEAKER) (test code = 346) BILIRUBIN TOTAL 0.6 mg/dL 0.1-1.2 (BEAKER) (test code = 377) SODIUM (BEAKER) 145 meq/L 135-148 (test code = 381) POTASSIUM (BEAKER) 3.3 meq/L 3.6-5.5 L (test code = 379) CHLORIDE (BEAKER) 116 meq/L 98-106 H (test code = 382) CO2 (BEAKER) (test 21 meq/L 20-29 code = 355) BLOOD UREA 10 mg/dL 10-26 NITROGEN (BEAKER) (test code = 354) CREATININE 0.85 mg/dL 0.50-1.20 (BEAKER) (test code = 358) GLUCOSE RANDOM 86 mg/dL 70-110 (BEAKER) (test code = 652) CALCIUM (BEAKER) 8.5 mg/dL 8.5-10.5 (test code = 697) AST (SGOT) 40 U/L 5-40 (BEAKER) (test code = 353) ALT (SGPT) 27 U/L 5-50 (BEAKER) (test code = 347) EGFR (BEAKER) 69 Interpretatio n of eGFR (test code = [...] not appl icable for dialysis patien ts Fuel Quality Tech ID - [id number] ID - [id number] ID - [id number] ID - KZZE33Ghgzsxuq ID - AVUC56Rlmmcuip ID - XTNF95Kclhndny ID - RFLV30Vxbfntmg ID - PBUS68Qgtowqdr ID - OWFT27Ylgqrbms ID - QBDI97Bndesdwu ID - JLDO11Deljhesb ID - TEZC82Agwnnjln ID - HOFY65Ixtlnmiy ID - GFHD81Emcbmeuj ID - SYOW88Szrifrot ID - [id number] 05:46:05 Test Item Value Reference Range Interpretation Comments MAGNESIUM (BEAKER) (test code = 1.8 mg/dL 1.5-3.0 627) Fuel Quality Tech ID - [id number] ID - [id number] ID - JGZX75Vyvxysjf ID - [id number] CBC W/PLT COUNT & AUTO [id number] 05:17:49 Test Item Value Reference Range Interpretation Comments WHITE BLOOD CELL COUNT (BEAKER) 6.2 K/ L 4.0-10.0 (test code = 775) RED BLOOD CELL COUNT (BEAKER) 2.98 M/ L 4.00-5.00 L (test code = 761) HEMOGLOBIN (BEAKER) (test code = 8.9 GM/DL 12.0-15.5 L 410) HEMATOCRIT (BEAKER) (test code = 29.3 % 36.0-46.0 L 411) MEAN CORPUSCULAR VOLUME (BEAKER) 98 fL 82-99 (test code = 753) MEAN CORPUSCULAR HEMOGLOBIN 29.9 pg 27.0-33.0 (BEAKER) (test code = 751) MEAN CORPUSCULAR HEMOGLOBIN CONC 30.4 GM/DL 32.0-36.0 L (BEAKER) (test code = 752) RED CELL DISTRIBUTION WIDTH 14.9 % 12.0-15.0 (BEAKER) (test code = 412) PLATELET COUNT (BEAKER) (test 187 K/CU MM 150-430 code = 756) MEAN PLATELET VOLUME (BEAKER) 10.3 fL 6.0-11.5 (test code = 754) NUCLEATED RED BLOOD CELLS 0 /100 WBC 0-0 (BEAKER) (test code = 413) NEUTROPHILS RELATIVE PERCENT 65 % (BEAKER) (test code = 429) LYMPHOCYTES RELATIVE PERCENT 22 % (BEAKER) (test code = 430) MONOCYTES RELATIVE PERCENT 7 % (BEAKER) (test code = 431) EOSINOPHILS RELATIVE PERCENT 5 % (BEAKER) (test code = 432) BASOPHILS RELATIVE PERCENT 1 % (BEAKER) (test code = 437) NEUTROPHILS ABSOLUTE COUNT 3.99 K/ L 1.80-8.00 (BEAKER) (test code = 670) LYMPHOCYTES ABSOLUTE COUNT 1.36 K/ L 1.48-4.50 L (BEAKER) (test code = 414) MONOCYTES ABSOLUTE COUNT (BEAKER) 0.45 K/ L 0.00-1.30 (test code = 415) EOSINOPHILS ABSOLUTE COUNT 0.29 K/ L 0.00-0.50 (BEAKER) (test code = 416) BASOPHILS ABSOLUTE COUNT (BEAKER) 0.04 K/ L 0.00-0.20 (test code = 417) IMMATURE GRANULOCYTES-RELATIVE 0.50 % 0.00-0.00 H PERCENT (BEAKER) (test code = 2801) TISSUE [id number] 18:17:47Surgical Pathology Report Case: [id number] Authorizing Provider: Michael May MD Collected: 02/06/2023 02:00 PM Ordering Location: [facility] Med Surg 5th Floor Received: 02/07/2023 09:00 AM Pathologist: Kath Stockton MD Specimen: Soft Tissue, Other, appendix A. APPENDIX, APPENDECTOMY- ACUTE APPENDICITISWITH PERIAPPENDICITIS- NEGATIVE FOR CARCINOID TUMOR OR MALIGNANCY- TWO MESENTERIC LYMPH NODES, NEGATIVE FOR MALIGNANCY Signing Pathologist Direct Phone Line: [phone] signed by Kath Stockton MD on 02/08/2023 at 6:17 [id number]. Soft Tissue, OtherThe specimen is received in one part in a formalin container labeled with the patient's name and identification number designated as "appendix". It consists of a vermiform appendix with attached mesenteric fat. The specimen measures 5 x 1 x 1 cm.The cut surface shows fibrinopurulent exudate in the lumen. Some areas appear hemorrhagic. Superintendent Sanitation sections are submitted in cassettes A1-A3. CC/ew PERFORMED.RAD, CHEST, 1 VIEW, NON [id number] 07:49:00Reason for exam:- >pneumoniaShould this be performed at the bedside?->Yes [facility] 1940 Sex: FFINAL REPORT Chest AP portable semierect COMPARISON STUDY: 08/29/2022 Historyprovided: Pneumonia Heart size normal. Coarsened interstitial markings at both lung bases with atelectatic change evident. Normal vascularity. Signed: Hayder Hernandesepjulian Verified Date/Time: 02/08/2023 07:49:36 Reading Location: [facility] Radiology Reading Room COMPREHENSIVE METABOLIC [id number] 05:28:16 Test Item Value Reference Range Interpretation Comments TOTAL PROTEIN 5.1 gm/dL 6.0-8.5 L (BEAKER) (test code = 770) ALBUMIN (BEAKER) 2.6 g/dL 3.5-5.0 L (test code = 1145) ALKALINE 45 U/L 30-115 PHOSPHATASE (BEAKER) (test code = 346) BILIRUBIN TOTAL 0.5 mg/dL 0.1-1.2 (BEAKER) (test code = 377) SODIUM (BEAKER) 146 meq/L 135-148 (test code = 381) POTASSIUM (BEAKER) 3.3 meq/L 3.6-5.5 L (test code = 379) CHLORIDE (BEAKER) 117 meq/L 98-106 H (test code = 382) CO2 (BEAKER) (test 22 meq/L 20-29 code = 355) BLOOD UREA 11 mg/dL 10-26 NITROGEN (BEAKER) (test code = 354) CREATININE 0.86 mg/dL 0.50-1.20 (BEAKER) (test code = 358) GLUCOSE RANDOM 90 mg/dL 70-110 (BEAKER) (test code = 652) CALCIUM (BEAKER) 8.2 mg/dL 8.5-10.5 L (test code = 697) AST (SGOT) 46 U/L 5-40 H (BEAKER) (test code = 353) ALT (SGPT) 29 U/L 5-50 (BEAKER) (test code = 347) EGFR (BEAKER) 68 Interpretatio n of eGFR (test code = [...] not appl icable for dialysis patien ts Fuel Quality Tech ID - LITOOperator ID - LITOOperator ID - LITOOperator ID - LITOOperator ID - LITOOperator ID - LITOOperator ID - LITOOperator ID - LITOOperator ID - LITOOperator ID - LITOOperator ID - LITOOperator ID - LITOOperator ID - LITOOperator ID - LITOOperator ID - LITOOperator ID - [id number] 05:27:22 Test Item Value Reference Range Interpretation Comments MAGNESIUM (BEAKER) (test code = 1.8 mg/dL 1.5-3.0 627) Fuel Quality Tech ID - LITOOperator ID - LITOOperator ID - LITOOperator ID - LITOCBC W/PLT COUNT & AUTO [id number] 05:04:37 Test Item Value Reference Range Interpretation Comments WHITE BLOOD CELL COUNT (BEAKER) 5.8 K/ L 4.0-10.0 (test code = 775) RED BLOOD CELL COUNT (BEAKER) 2.71 M/ L 4.00-5.00 L (test code = 761) HEMOGLOBIN (BEAKER) (test code = 8.2 GM/DL 12.0-15.5 L 410) HEMATOCRIT (BEAKER) (test code = 26.3 % 36.0-46.0 L 411) MEAN CORPUSCULAR VOLUME (BEAKER) 97 fL 82-99 (test code = 753) MEAN CORPUSCULAR HEMOGLOBIN 30.3 pg 27.0-33.0 (BEAKER) (test code = 751) MEAN CORPUSCULAR HEMOGLOBIN CONC 31.2 GM/DL 32.0-36.0 L (BEAKER) (test code = 752) RED CELL DISTRIBUTION WIDTH 14.6 % 12.0-15.0 (BEAKER) (test code = 412) PLATELET COUNT (BEAKER) (test 145 K/CU MM 150-430 L code = 756) MEAN PLATELET VOLUME (BEAKER) 10.4 fL 6.0-11.5 (test code = 754) NUCLEATED RED BLOOD CELLS 0 /100 WBC 0-0 (BEAKER) (test code = 413) NEUTROPHILS RELATIVE PERCENT 66 % (BEAKER) (test code = 429) LYMPHOCYTES RELATIVE PERCENT 22 % (BEAKER) (test code = 430) MONOCYTES RELATIVE PERCENT 8 % (BEAKER) (test code = 431) EOSINOPHILS RELATIVE PERCENT 3 % (BEAKER) (test code = 432) BASOPHILS RELATIVE PERCENT 0 % (BEAKER) (test code = 437) NEUTROPHILS ABSOLUTE COUNT 3.84 K/ L 1.80-8.00 (BEAKER) (test code = 670) LYMPHOCYTES ABSOLUTE COUNT 1.30 K/ L 1.48-4.50 L (BEAKER) (test code = 414) MONOCYTES ABSOLUTE COUNT (BEAKER) 0.48 K/ L 0.00-1.30 (test code = 415) EOSINOPHILS ABSOLUTE COUNT 0.15 K/ L 0.00-0.50 (BEAKER) (test code = 416) BASOPHILS ABSOLUTE COUNT (BEAKER) 0.02 K/ L 0.00-0.20 (test code = 417) IMMATURE GRANULOCYTES-RELATIVE 0.50 % 0.00-0.00 H PERCENT (BEAKER) (test code = 2801) COMPREHENSIVE METABOLIC [id number] 06:00:26 Test Item Value Reference Range Interpretation Comments TOTAL PROTEIN 5.3 gm/dL 6.0-8.5 L (BEAKER) (test code = 770) ALBUMIN (BEAKER) 2.8 g/dL 3.5-5.0 L (test code = 1145) ALKALINE 58 U/L 30-115 PHOSPHATASE (BEAKER) (test code = 346) BILIRUBIN TOTAL 0.9 mg/dL 0.1-1.2 (BEAKER) (test code = 377) SODIUM (BEAKER) 141 meq/L 135-148 (test code = 381) POTASSIUM (BEAKER) 3.9 meq/L 3.6-5.5 (test code = 379) CHLORIDE (BEAKER) 112 meq/L 98-106 H (test code = 382) CO2 (BEAKER) (test 21 meq/L 20-29 code = 355) BLOOD UREA 16 mg/dL 10-26 NITROGEN (BEAKER) (test code = 354) CREATININE 1.06 mg/dL 0.50-1.20 (BEAKER) (test code = 358) GLUCOSE RANDOM 95 mg/dL 70-110 (BEAKER) (test code = 652) CALCIUM (BEAKER) 8.2 mg/dL 8.5-10.5 L (test code = 697) AST (SGOT) 74 U/L 5-40 H (BEAKER) (test code = 353) ALT (SGPT) 43 U/L 5-50 (BEAKER) (test code = 347) EGFR (BEAKER) 53 Interpretatio n of eGFR (test code = [...] not appl icable for dialysis patien ts [employer] ID - [id number] ID - [id number] ID - WTPVYZMMG148Bnyzhbiq ID - [id number] ID - NZCPSYPZX885Yvayqvrx ID - [id number] ID - [id number] ID - MYATOHNRN814Gizyjjzt ID - [id number] ID - ZFESNLBKA204Xcetcfow ID - SXXZIWOUM547Xthywdop ID - YGFSVBQKR638Toesqdtm ID - GEWUUGNQQ152Axiohbkk ID - [id number] ID - TOVFXVTUL755Szrkfsou ID -[id number] 05:56:21 Test Item Value Reference Range Interpretation Comments MAGNESIUM (BEAKER) (test code = 1.7 mg/dL 1.5-3.0 627) [employer] Tech ID - [id number] ID - [id number] ID - TURQJVJMH884Jtskokdh ID - [id number] W/PLT COUNT & AUTO DIFFERENTIAL 2023-02-07 05:46:50 Test Item Value Reference Range Interpretation Comments WHITE BLOOD CELL COUNT (BEAKER) 6.9 K/ L 4.0-10.0 (test code = 775) RED BLOOD CELL COUNT (BEAKER) 2.90 M/ L 4.00-5.00 L (test code = 761) HEMOGLOBIN (BEAKER) (test code = 8.9 GM/DL 12.0-15.5 L 410) HEMATOCRIT (BEAKER) (test code = 29.0 % 36.0-46.0 L 411) MEAN CORPUSCULAR VOLUME (BEAKER) 100 fL 82-99 H (test code = 753) MEAN CORPUSCULAR HEMOGLOBIN 30.7 pg 27.0-33.0 (BEAKER) (test code = 751) MEAN CORPUSCULAR HEMOGLOBIN CONC 30.7 GM/DL 32.0-36.0 L (BEAKER) (test code = 752) RED CELL DISTRIBUTION WIDTH 14.6 % 12.0-15.0 (BEAKER) (test code = 412) PLATELET COUNT (BEAKER) (test 145 K/CU MM 150-430 L code = 756) MEAN PLATELET VOLUME (BEAKER) 10.9 fL 6.0-11.5 (test code = 754) NUCLEATED RED BLOOD CELLS 0 /100 WBC 0-0 (BEAKER) (test code = 413) NEUTROPHILS RELATIVE PERCENT 76 % (BEAKER) (test code = 429) LYMPHOCYTES RELATIVE PERCENT 16 % (BEAKER) (test code = 430) MONOCYTES RELATIVE PERCENT 7 % (BEAKER) (test code = 431) EOSINOPHILS RELATIVE PERCENT 0 % (BEAKER) (test code = 432) BASOPHILS RELATIVE PERCENT 0 % (BEAKER) (test code = 437) NEUTROPHILS ABSOLUTE COUNT 5.28 K/ L 1.80-8.00 (BEAKER) (test code = 670) LYMPHOCYTES ABSOLUTE COUNT 1.11 K/ L 1.48-4.50 L (BEAKER) (test code = 414) MONOCYTES ABSOLUTE COUNT (BEAKER) 0.47 K/ L 0.00-1.30 (test code = 415) EOSINOPHILS ABSOLUTE COUNT 0.03 K/ L 0.00-0.50 (BEAKER) (test code = 416) BASOPHILS ABSOLUTE COUNT (BEAKER) 0.02 K/ L 0.00-0.20 (test code = 417) IMMATURE GRANULOCYTES-RELATIVE 0.40 % 0.00-0.00 H PERCENT (BEAKER) (test code = 2801) CBC W/PLT COUNT & AUTO [id number] 06:12:02 Test Item Value Reference Range Interpretation Comments WHITE BLOOD CELL COUNT (BEAKER) 8.2 K/ L 4.0-10.0 (test code = 775) RED BLOOD CELL COUNT (BEAKER) 3.30 M/ L 4.00-5.00 L (test code = 761) HEMOGLOBIN (BEAKER) (test code = 10.0 GM/DL 12.0-15.5 L 410) HEMATOCRIT (BEAKER) (test code = 31.9 % 36.0-46.0 L 411) MEAN CORPUSCULAR VOLUME (BEAKER) 97 fL 82-99 (test code = 753) MEAN CORPUSCULAR HEMOGLOBIN 30.3 pg 27.0-33.0 (BEAKER) (test code = 751) MEAN CORPUSCULAR HEMOGLOBIN CONC 31.3 GM/DL 32.0-36.0 L (BEAKER) (test code = 752) RED CELL DISTRIBUTION WIDTH 14.6 % 12.0-15.0 (BEAKER) (test code = 412) PLATELET COUNT (BEAKER) (test 131 K/CU MM 150-430 L code = 756) MEAN PLATELET VOLUME (BEAKER) 10.5 fL 6.0-11.5 (test code = 754) NUCLEATED RED BLOOD CELLS 0 /100 WBC 0-0 (BEAKER) (test code = 413) NEUTROPHILS RELATIVE PERCENT 73 % (BEAKER) (test code = 429) LYMPHOCYTES RELATIVE PERCENT 19 % (BEAKER) (test code = 430) MONOCYTES RELATIVE PERCENT 6 % (BEAKER) (test code = 431) EOSINOPHILS RELATIVE PERCENT 1 % (BEAKER) (test code = 432) BASOPHILS RELATIVE PERCENT 1 % (BEAKER) (test code = 437) NEUTROPHILS ABSOLUTE COUNT 6.00 K/ L 1.80-8.00 (BEAKER) (test code = 670) LYMPHOCYTES ABSOLUTE COUNT 1.55 K/ L 1.48-4.50 (BEAKER) (test code = 414) MONOCYTES ABSOLUTE COUNT (BEAKER) 0.50 K/ L 0.00-1.30 (test code = 415) EOSINOPHILS ABSOLUTE COUNT 0.09 K/ L 0.00-0.50 (BEAKER) (test code = 416) BASOPHILS ABSOLUTE COUNT (BEAKER) 0.04 K/ L 0.00-0.20 (test code = 417) IMMATURE GRANULOCYTES-RELATIVE 0.20 % 0.00-0.00 H PERCENT (BEAKER) (test code = 2801) COMPREHENSIVE METABOLIC [id number] 05:52:47 Test Item Value Reference Range Interpretation Comments TOTAL PROTEIN 5.2 gm/dL 6.0-8.5 L (BEAKER) (test code = 770) ALBUMIN (BEAKER) 2.7 g/dL 3.5-5.0 L (test code = 1145) ALKALINE 36 U/L 30-115 PHOSPHATASE (BEAKER) (test code = 346) BILIRUBIN TOTAL 0.9 mg/dL 0.1-1.2 (BEAKER) (test code = 377) SODIUM (BEAKER) 140 meq/L 135-148 (test code = 381) POTASSIUM (BEAKER) 3.4 meq/L 3.6-5.5 L (test code = 379) CHLORIDE (BEAKER) 112 meq/L 98-106 H (test code = 382) CO2 (BEAKER) (test 21 meq/L 20-29 code = 355) BLOOD UREA 17 mg/dL 10-26 NITROGEN (BEAKER) (test code = 354) CREATININE 1.07 mg/dL 0.50-1.20 (BEAKER) (test code = 358) GLUCOSE RANDOM 83 mg/dL 70-110 (BEAKER) (test code = 652) CALCIUM (BEAKER) 7.7 mg/dL 8.5-10.5 L (test code = 697) AST (SGOT) 25 U/L 5-40 (BEAKER) (test code = 353) ALT (SGPT) 14 U/L 5-50 (BEAKER) (test code = 347) EGFR (BEAKER) 53 Interpretatio n of eGFR (test code = [...] not appl icable for dialysis patien ts [employer] ID - [id number] ID - CHEB06Zbcjoxig ID - [id number] ID - AOWT13Ylowafbs ID - VNSL06Kjwlhxwh ID - WSCS60Zhjxetvu ID - HSBR16Pslfskyw ID - CDRK68Qcwbxrjg ID - SYFW28Psxryggn ID - AVFE63Hbpfxehs ID - IWYA29Frakklyr ID - EVIM93Rjbbzlhh ID - VYVM14Gavwkusb ID - XATC26Litaauyl ID - JOWQ71Xezylsme ID - [id number] 05:39:04 Test Item Value Reference Range Interpretation Comments MAGNESIUM (BEAKER) (test code = 1.5 mg/dL 1.5-3.0 627) [employer] Tech ID - [id number] ID - [id number] ID - ONRD13Edzmhawt ID - [id number] PROTHROMBIN TIME/[id number] 19:13:58 Test Item Value Reference Range Interpretation Comments PROTIME (BEAKER) 11.9 seconds 9.3-12.0 Final Infor mation (test code = 759) (Auto Outp ut) INR (BEAKER) (test 1.09 <=5.90 Final Inf ormation code = 370) (Auto Output) RECOMMENDED COUMADIN/WARFARIN INR THERAPY RANGESSTANDARD DOSE: 2.0 - 3.0 Includes: PROPHYLAXIS for venous thrombosis, systemic embolization; TREATMENT for venous thrombosis and/or pulmonary embolus.HIGH RISK: Target INR is 2.5-3.5 for patients with mechanical heart valves.CT, [id number] 14:52:00Unlisted Reason for Exam - Click Yes and Enter Reason Below->YesUnlisted Reason for Exam->rlq painProtocol Please Specify:->Standard ProtocolWill this procedure require oral contrast?->No [facility] 1940 Sex: FFINAL REPORT CT of the abdomen and pelvis, with contrast Clinical History: Unlisted Reason for ExamRLQ pain Technique: CT of the abdomen and pelvis is performed with intravenous contrast administration. This exam was performed according to our departmental dose optimization program which includes automated exposure control, adjustment of the mA and/or kV according to patient's size and/or use of iterative reconstructive technique. Comparison Film: None Discussion: There is mild scarring or atelectasis in the left lower lobe. No liver mass is identified. A contains a few scattered tiny calcified granulomas. There is mild biliary ductal dilatation. Status post cholecystectomy.Spleen also contains multiple tiny calcified granulomas. Pancreas, and left adrenal gland are normal. In the right adrenal gland, there is a low density mass containing multiple foci of calcification measuring 6 x 5.5 cm. Kidneys demonstrate no mass, radiopaque stone or hydronephrosis. There is a 3 cmsimple appearing cyst in the left kidney. No evidence of bowel obstruction. There is a small hiatal hernia. Appendix is distended, with prominent adjacent inflammatory change, compatible with acute appendicitis. No free air or abscess is identified. There is colonic diverticulosis, no evidence of acute diverticulitis. In the pelvis, bladder is normal. Uterus is atrophied. No adnexal mass. There is trace pelvic ascites. No adenopathy. The infrarenal abdominal aorta is aneurysmal, and measures 4.1 cm.There is a compression deformity of L1 vertebral body, age-indeterminate. Impression: Acute uncomplic ated appendicitis. Colonic diverticulosis. Small hiatal hernia. 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 Suggest surgical consultation, as well as correlation with biochemical lab value. Status post cholecystectomy. Mild biliary ductal dilatation could be related to reservoir effect, correlate with LFTs to exclude biliary obstruction. An abdominal aortic aneurysm measures 4.1 cm in diameter. A follow-up examination is recommended every 12 months, and a vascular surgery consultation is recommended. Age- indeterminate compression fracture of L1 vertebral body. Signed: Abdifatah Mielseport Verified Date/Time: 02/05/2023 14:52:06 Reading Location: [address] Ortho ConsultReading Room CT, BRAIN, WITHOUT [id number] 14:42:00Reason for Exam (Free Text) - Addiitonal information for Radiologist->headache, history of cva, [facility]ia[facility] : 1940 Sex: FFINAL REPORT CT, BRAIN, WITHOUT CONTRAST CLINICAL INDICATION: Unlisted Reasonfor Exam, acute encephalopathy COMPARISON: 09/01/2022 TECHNIQUE: Noncontrast axial CT imaging of thebrain and skull. Coronal and sagittal reformats are provided. DOSE REDUCTION: Dose modulation, iterative reconstruction, and/or weight-based adjustment of the mA/kV was utilized to reduce the radiationdose to as low as reasonably achievable. FINDINGS:No intracranial hemorrhage, midline shift or mass effect. Midline structures are normally developed. Hypoattenuation within the periventricular and subcortical white matter is present, nonspecific by imaging, however, statistically representing chronicmicrovascular changes in this age group. Diffuse senescent parenchymal volume loss. Chronic appearing lacunar infarcts in the bilateral thalami.No hydrocephalus. Atherosclerotic calcification of the intracranial internal carotid and vertebral arteries. Orbits are within normal limits. Prior bilateral lens surgery. Mild mucosal thickening in the right maxillary sinus with periosteal thickening.Vascular stent in the right neck, partially imaged IMPRESSION: 1.No acute intracranial findings2.Moderate tosevere chronic small vessel ischemic changes in the supratentorial white matter.3.Chronic lacunar inf arcts in the bilateral thalami.If there is persistent clinical concern for intracranial pathology, MR should be considered for further characterization. Signed: Audrey Francis MDReport Verified Date/Time: 02/05/2023 14:42:34 ALYSIS W/ REFLEX URINE [id number] 13:21:54 Test Item Value Reference Range Interpretation Comments COLOR (BEAKER) (test code = 470) Yellow CLARITY (BEAKER) (test code = 469) Clear SPECIFIC GRAVITY UA (BEAKER) (test 1.010 1.001-1.035 code = 468) PH UA (BEAKER) (test code = 467) 7.5 5.0-8.0 PROTEIN UA (BEAKER) (test code = Negative Negative 464) GLUCOSE UA (BEAKER) (test code = Negative Negative 365) KETONES UA (BEAKER) (test code = Negative Negative 371) BILIRUBIN UA (BEAKER) (test code = Negative Negative 462) BLOOD UA (BEAKER) (test code = 461) Negative Negative NITRITE UA (BEAKER) (test code = Negative Negative 465) LEUKOCYTE ESTERASE UA (BEAKER) (test Trace Negative A code = 466) UROBILINOGEN UA (BEAKER) (test code 0.2 = 463) BACTERIA (BEAKER) (test code = 517) Rare RBC UA-MANUAL (BEAKER) (test code = <5 /HPF 1659) WBC UA-MANUAL (BEAKER) (test code = <5 /HPF 1661) SQUAMOUS EPITHELIAL MANUAL (BEAKER) <5 /HPF (test code = 1663) SOURCE(BEAKER) (test code = 5310) B-TYPE NATRIURETIC FACTOR (BNP)2023-02-05 13:20:43 Test Item Value Reference Range Interpretation Comments B-TYPE NATRIURETIC PEPTIDE (BEAKER) 312 pg/mL 0-100 H (test code = 700) [employer] ID - RADHAROPONIN [id number] 13:20:06 Test Item Value Reference Range Interpretation Comments TROPONIN I (BEAKER) (test code = 397) < ng/mL 0.00-0.15 Troponin I (TnI) levels must be interpreted [...] failure, acidosis, acute neurological disease, and persistent tachyarrhythmia.[employer] Tech ID - RESORIANCOMPREHENSIVE METABOLIC [id number] 13:13:20 Test Item Value Reference Range Interpretation Comments TOTAL PROTEIN 7.5 gm/dL 6.0-8.5 (BEAKER) (test code = 770) ALBUMIN (BEAKER) 3.9 g/dL 3.5-5.0 (test code = 1145) ALKALINE 63 U/L 30-115 PHOSPHATASE (BEAKER) (test code = 346) BILIRUBIN TOTAL 1.1 mg/dL 0.1-1.2 (BEAKER) (test code = 377) SODIUM (BEAKER) 144 meq/L 135-148 (test code = 381) POTASSIUM (BEAKER) 4.3 meq/L 3.6-5.5 (test code = 379) CHLORIDE (BEAKER) 106 meq/L 98-106 (test code = 382) CO2 (BEAKER) (test 27 meq/L 20-29 code = 355) BLOOD UREA 18 mg/dL 10-26 NITROGEN (BEAKER) (test code = 354) CREATININE 0.99 mg/dL 0.50-1.20 (BEAKER) (test code = 358) GLUCOSE RANDOM 98 mg/dL 70-110 (BEAKER) (test code = 652) CALCIUM (BEAKER) 9.7 mg/dL 8.5-10.5 (test code = 697) AST (SGOT) 28 U/L 5-40 (BEAKER) (test code = 353) ALT (SGPT) 19 U/L 5-50 (BEAKER) (test code = 347) EGFR (BEAKER) 58 Interpretatio n of eGFR (test code = [...] not appl icable for dialysis patien ts [employer] Tech ID - RESORIANOperator ID - RESORIANOperator ID - RESORIANOperator ID - RESORIANOperator ID - RESORIANOperator ID - RESORIANOperator ID - RESORIANOperator ID - RESORIANOperator ID - RESORIANOperator ID - RESORIANOperator ID - RESORIANOperator ID - RESORIANOperator ID - RESORIANOperator ID - RESORIANOperator ID - RESORIANOperator ID - RESORIANOperator ID - RESORIANOperator ID - RESORIANOperator ID - RESORIANCBC W/PLT COUNT & AUTO [id number] 13:00:57 Test Item Value Reference Range Interpretation Comments WHITE BLOOD CELL COUNT (BEAKER) 11.3 K/ L 4.0-10.0 H (test code = 775) RED BLOOD CELL COUNT (BEAKER) 4.45 M/ L 4.00-5.00 (test code = 761) HEMOGLOBIN (BEAKER) (test code = 13.4 GM/DL 12.0-15.5 410) HEMATOCRIT (BEAKER) (test code = 42.8 % 36.0-46.0 411) MEAN CORPUSCULAR VOLUME (BEAKER) 96 fL 82-99 (test code = 753) MEAN CORPUSCULAR HEMOGLOBIN 30.1 pg 27.0-33.0 (BEAKER) (test code = 751) MEAN CORPUSCULAR HEMOGLOBIN CONC 31.3 GM/DL 32.0-36.0 L (BEAKER) (test code = 752) RED CELL DISTRIBUTION WIDTH 14.8 % 12.0-15.0 (BEAKER) (test code = 412) PLATELET COUNT (BEAKER) (test 168 K/CU MM 150-430 code = 756) MEAN PLATELET VOLUME (BEAKER) 10.6 fL 6.0-11.5 (test code = 754) NUCLEATED RED BLOOD CELLS 0 /100 WBC 0-0 (BEAKER) (test code = 413) NEUTROPHILS RELATIVE PERCENT 86 % (BEAKER) (test code = 429) LYMPHOCYTES RELATIVE PERCENT 9 % (BEAKER) (test code = 430) MONOCYTES RELATIVE PERCENT 4 % (BEAKER) (test code = 431) EOSINOPHILS RELATIVE PERCENT 0 % (BEAKER) (test code = 432) BASOPHILS RELATIVE PERCENT 0 % (BEAKER) (test code = 437) NEUTROPHILS ABSOLUTE COUNT 9.70 K/ L 1.80-8.00 H (BEAKER) (test code = 670) LYMPHOCYTES ABSOLUTE COUNT 1.04 K/ L 1.48-4.50 L (BEAKER) (test code = 414) MONOCYTES ABSOLUTE COUNT (BEAKER) 0.48 K/ L 0.00-1.30 (test code = 415) EOSINOPHILS ABSOLUTE COUNT 0.03 K/ L 0.00-0.50 (BEAKER) (test code = 416) BASOPHILS ABSOLUTE COUNT (BEAKER) 0.03 K/ L 0.00-0.20 (test code = 417) IMMATURE GRANULOCYTES-RELATIVE 0.30 % 0.00-0.00 H PERCENT (BEAKER) (test code = 2801) POC [id number] 17:57:00 Test Item Value Reference Range Interpretation Comments POC glucose (test code 127 mg/dL 65-99 H Opera tor Name: = [id number]) Gisell Vázquez ID: [id number] able: RN Notified Lab Interpretation Abnormal (test code = 82850-1) [facility] [id number] 17:57:00 Test Item Value Reference Range Interpretation Comments POC glucose (test code 127 mg/dL 65-99 H Opera tor Name: = [id number]) Jamesondonald Vázquez ID: [id number] able: RN Notified Lab Interpretation Abnormal (test code = 45648-9) [facility] clotting [id number] 11:43:00 Test Item Value Reference Range Interpretation Comments Activated clotting 108 See_Comment [employer] Tech Name: Garibya time (test code = Elver vice ID: [id number]) [id number] [Autom ated message] The sy stem which generated this result transmitted ref erence range: 96 - 152 sec. The reference range was not used to interpr et this result as ashwini l/abnormal. [facility] clotting [id number] 11:43:00 Test Item Value Reference Range Interpretation Comments Activated clotting 108 See_Comment [employer] Quality Tech Name: Garibay time (test code = Elver vice ID: [id number]) [id number] [Autom ated message] The sy stem which generated this result transmitted ref erence range: 96 - 152 sec. The reference range was not used to interpr et this result as ashwini l/abnormal. [facility] 12 [id number] 02:15:08 Test Item Value Reference Range Interpretation Comments Ventricular rate 49 (test code = 253) Atrial rate (test 49 code = 255) WV interval (test 144 code = 266) QRSD [...] ventricular hypertrophy ( R in aVL , [place] product , [place] )-Anteroseptal infarct , age undetermined-Abnormal ECG-No previous ECGs available- [facility] 12 [id number] 02:15:08 Test Item Value Reference Range Interpretation Comments Ventricular rate 49 (test code = 253) Atrial rate (test 49 code = 255) WV interval (test 144 code = 266) QRSD [...] ventricular hypertrophy ( R in aVL , [place] product , [place] )-Anteroseptal infarct , age undetermined-Abnormal ECG-No previous ECGs available- [facility], (w Contrast, Strain and 3D if needed)2022-10-26 20:23:40 Test Item Value Reference Interpretation Comments Range Ao Root Diameter 2.77 cm (test code = 3572296323) AoV Area, Vmax (test 2.72 cm2 >=1.5 code = 5400823342) AoV Area, VTI (test 2.84 cm2 code = 2803111587) AoV Mean PG (test 3.02 mmHg code = 4598715955) AoV Peak PG (test 4.60 mmHg code = 8757803983) AoV Vmax (test code 1.07 m/s = 6411269491) AoV VTI (test code = 0.28 m 3467325045) IVS,d (test code = 1.37 cm 0.6-0.9 A 4677375882) IVS/LVPW,2D (test 1.18 code = 9136147692) Left Atrium 3.78 cm Dimension Anterior (test code = 5128317456) LV,d (test code = 3.49 cm 4636841889) LV EF,2D (test code 64.22 % = 0796873530) LV,s (test code = 2.48 cm 4973002891) LVOT area (test code 3.02 cm2 = 0525497998) LVOT Diam,S (test 1.96 cm code = 7406707483) LVOT Vmax (test code 1.02 m/s = 2674860971) LVOT VTI (test code 0.25 m = 9344421926) LVPWD,d (test code = 1.16 cm 0.60-1.19 0005397624) PV Pk Grad (test 3.46 mmHg code = 3699181118) PV VMAX (test code = 0.93 m/s 4717029130) RVOT Vmax (test code 0.75 m/s = 6578899845) TR Vpeak (test code 3.17 m/s = 3894317857) MV E A ratio (test 0.69 code = 3928762196) TR pk grad (test 23.16 mmHg code = 4923285094) MR Vmax (test code = 4.98 m/s 3880340692) E wave decelartion 200.07 See_Comment [Automat ed time (test code = message] T he 1140521023) system which generated this result transmitted reference range : 200 msec. The reference range was not used to interpret this result as normal/abnormal . MV Peak A Bari (test 1.17 m/s code = 4401338737) MV valve area p 1/2 4.14 cm2 method (test code = 3226177909) MV Peak E Bari (test 0.74 m/s code = 4803101622) MV stenosis pressure 53.18 ms 1/2 time (test code = 0770756189) LVOT stroke volume 0.75 ml (test code = 1838994444) AV LVOT peak 3.77 mmHg gradient (test code = 1665161517) Ascending aorta 3.02 cm (test code = 2549735558) Ao Root Diameter 2.77 cm (test code = 8734373660) MV Area VTI (test 2.65 cm2 code = 8508365168) MV mean gradient 1.04 mmHg (test code = 4031086696) LV SYS VOL (test 21.84 ml 14-42 code = 5223006065) LV ARNOLD VOL (test 50.54 ml 46-106 code = 1338373010) LA area s A4C (test 17.50 cm2 code = 2775329159) LV SV Teich 2D (test 28.70 ml code = 0586033637) LV Vol s Teich PSAX 21.84 ml (test code = 6092493851) MR peak grad (test 5.23 mmHg code = 9574577453) MV Vmax (test code = 1.14 m 5595953130) MV VTI Tips (test 0.30 m code = 8309556939) RVOT pk grad (test 2.27 mmHg code = 4128933166) AoV Vmn (test code = 0.85 m/s 0930086434) LV FS Teich 2D (test 29.01 code = 2634081916) MV AE ratio (test 1.46 code = 3551975605) LV FS Cube 2D (test 29.01 code = 2833726904) LVOT Vmn (test code 0.66 = 0941988533) Aov area Vmn (test 2.44 cm2 code = 4029154322) LVOT mean grad (test 1.96 mmHg code = 4835213020) 85 of MPHR (test 119.03 code = 6801150067) Calc MPHR (test code 140.03 bpm = 4626168026) LV SV Cube 2D (test 27.31 ml code = 6463618718) LV vol d cube 2D 42.53 ml (test code = 6207645831) LV vol s cube 2D 15.22 ml (test code = 7878619745) MV Decel slope (test 3.70 m/s2 code = 3848807737) Pred Exer Dur R1 5.75 (test code = 7255543900) Pred METS R1 (test 4.30 code = 8985560612) LA Vol MOD A4C (test 52.83 ml code = 4955539913) E mark sept (test 0.04 code = 8927494486) E prime lat (test 0.09 code = 5875724548) Velocity Ratio 0.95 m/s (V1/V2) (test code = 4689) EF (test code = 57 % 2526384262) E/A ratio (test code 0.63 = 4709492971) LVOT VTI (CM) (test 25.00 cm code = 9483958942) MICHELLE (test code = MICHELLE) Left Ventricle: [...] poor. Lab Interpretation Abnormal (test code = 85217-4) [facility], (w Contrast, Strain and 3D if needed)2022-10-26 20:23:40 Test Item Value Reference Interpretation Comments Range Ao Root Diameter 2.77 cm (test code = 7952215246) AoV Area, Vmax (test 2.72 cm2 >=1.5 code = 4906748830) AoV Area, VTI (test 2.84 cm2 code = 4556511803) AoV Mean PG (test 3.02 mmHg code = 8162077947) AoV Peak PG (test 4.60 mmHg code = 9226614127) AoV Vmax (test code 1.07 m/s = 1930132787) AoV VTI (test code = 0.28 m 4510975233) IVS,d (test code = 1.37 cm 0.6-0.9 A 5465855953) IVS/LVPW,2D (test 1.18 code = 8997263232) Left Atrium 3.78 cm Dimension Anterior (test code = 7271952680) LV,d (test code = 3.49 cm 0302923523) LV EF,2D (test code 64.22 % = 5678832843) LV,s (test code = 2.48 cm 7351727521) LVOT area (test code 3.02 cm2 = 9004268879) LVOT Diam,S (test 1.96 cm code = 6143701229) LVOT Vmax (test code 1.02 m/s = 4004417724) LVOT VTI (test code 0.25 m = 0412072243) LVPWD,d (test code = 1.16 cm 0.60-1.19 5282154651) PV Pk Grad (test 3.46 mmHg code = 8251685417) PV VMAX (test code = 0.93 m/s 6197345314) RVOT Vmax (test code 0.75 m/s = 9731626344) TR Vpeak (test code 3.17 m/s = 2004283526) MV E A ratio (test 0.69 code = 2282180519) TR pk grad (test 23.16 mmHg code = 3584052158) MR Vmax (test code = 4.98 m/s 5765531343) E wave decelartion 200.07 See_Comment [Automat ed time (test code = message] T he 6464885371) system which generated this result transmitted reference range : 200 msec. The reference range was not used to interpret this result as normal/abnormal . MV Peak A Bari (test 1.17 m/s code = 2440290462) MV valve area p 1/2 4.14 cm2 method (test code = 7227348818) MV Peak E Bari (test 0.74 m/s code = 0542175637) MV stenosis pressure 53.18 ms 1/2 time (test code = 1940259726) LVOT stroke volume 0.75 ml (test code = 1818947820) AV LVOT peak 3.77 mmHg gradient (test code = 4242850865) Ascending aorta 3.02 cm (test code = 6275129543) Ao Root Diameter 2.77 cm (test code = 5778841526) MV Area VTI (test 2.65 cm2 code = 0981971631) MV mean gradient 1.04 mmHg (test code = 7789105419) LV SYS VOL (test 21.84 ml 14-42 code = 4957250788) LV ARNOLD VOL (test 50.54 ml 46-106 code = 4193087513) LA area s A4C (test 17.50 cm2 code = 8981356157) LV SV Teich 2D (test 28.70 ml code = 8219326282) LV Vol s Teich PSAX 21.84 ml (test code = 3055687962) MR peak grad (test 5.23 mmHg code = 3635190163) MV Vmax (test code = 1.14 m 7729740524) MV VTI Tips (test 0.30 m code = 1704120866) RVOT pk grad (test 2.27 mmHg code = 2741349130) AoV Vmn (test code = 0.85 m/s 1016871437) LV FS Teich 2D (test 29.01 code = 4473590453) MV AE ratio (test 1.46 code = 6298412430) LV FS Cube 2D (test 29.01 code = 0453737008) LVOT Vmn (test code 0.66 = 3135188989) Aov area Vmn (test 2.44 cm2 code = 7595827756) LVOT mean grad (test 1.96 mmHg code = 0156158882) 85 of MPHR (test 119.03 code = 1913685355) Calc MPHR (test code 140.03 bpm = 2753237280) LV SV Cube 2D (test 27.31 ml code = 8701324200) LV vol d cube 2D 42.53 ml (test code = 3208654318) LV vol s cube 2D 15.22 ml (test code = 4285117230) MV Decel slope (test 3.70 m/s2 code = 5140531159) Pred Exer Dur R1 5.75 (test code = 1924805645) Pred METS R1 (test 4.30 code = 6650384198) LA Vol MOD A4C (test 52.83 ml code = 7244095787) E prime sept (test 0.04 code = 9946448943) E prime lat (test 0.09 code = 0847304104) Velocity Ratio 0.95 m/s (V1/V2) (test code = 4689) EF (test code = 57 % 8296035898) E/A ratio (test code 0.63 = 3928474332) LVOT VTI (CM) (test 25.00 cm code = 6018985744) MICHELLE (test code = MICHELLE) Left Ventricle: [...] poor. Lab Interpretation Abnormal (test code = 13039-8) Voodoo HdhapuorGACL-DbZ-8 (COVID-19) RNA [Presence] in Respiratory specimen by CARMENCITA with probe [id number] 06:13:22 Test Item Value Reference Range Interpretation Comments SARS-CoV-2 (COVID-19) RNA Not detected [Presence] in Respiratory specimen by CARMENCITA with probe detection (test code = 54780-5) Whether patient is employed in a Unknown healthcare setting (test code = 53242-1) Whether the patient has symptoms Unknown related to condition of interest (test code = 72517-1) Whether the patient was Unknown hospitalized for condition of interest (test code = 79162-4) Whether the patient was admitted Unknown to intensive care unit (ICU) for condition of interest (test code = 33088-6) Whether patient resides in a Unknown congregate care setting (test code = 65247-9) status (test code = Unknown 93409-0) Date and time of symptom onset Unknown (test code = 73040-7) [facility] [id number] 14:20:00Follow up on right occipital CVA and right temporal subarachnoid hemorrhageKAISER FOUNDATION [facility]ITALName: [facility] : 1940 Sex: FFINAL REPORT CT, BRAIN, [...] MDReport Verified Date/Time: 09/01/2022 14:20:54 COMPREHENSIVE METABOLIC [id number] 05:49:55 Test Item Value Reference Range Interpretation [...] not appl icable for dialysis patien ts Fuel Quality Tech ID - [id number] ID - [id number] ID - [id number] ID - BAPTIOHES808Gcignqos ID - [id number] ID - [id number] ID - [id number] ID - [id number] ID - [id number] ID - KLEEZXSUF316Pydbztmg ID - [id number] ID - WWYQTRGBX590Kverkqse ID - [id number] ID - [id number] ID - [id number] ID -[id number] 05:47:55 Test Item Value Reference Range Interpretation Comments MAGNESIUM (BEAKER) (test code = 1.9 mg/dL 1.5-3.0 627) Fuel Quality Tech ID - [id number] ID - [id number] ID - [id number] ID - [id number] (HEMOGRAM ONLY)2022-09-01 05:36:27 Test Item Value Reference [...] code = 413) MR, MRA, BRAIN, WITHOUT [id number] 11:51:00Reason for exam:->Ischemic Stroke Evaluation [facility] : 1940 Sex: FFINAL REPORT MR, BRAIN, [...] 08/31/2022 at 11:50 AM. Signed: Audrey Francis MDReport Verified Date/Time: 08/31/2022 11:51:18 MR, MRA, NECK, WITHOUT IV CONTRAST 2022-08-31 11:51:00Reason for exam:->Ischemic Stroke Evaluation [facility] : 1940 Sex: FFINAL REPORT MR, BRAIN, [...] 08/31/2022 at 11:50 AM. Signed: Audrey Francis MDReport Verified Date/Time: 08/31/2022 11:51:18 MR, BRAIN, WITHOUT [id number] 11:51:00Reason for exam:->Ischemic Stroke Evaluation [facility] : 1940 Sex: FFINAL REPORT MR, BRAIN, [...] 08/31/2022 at 11:50 AM. Signed: Audrey Francis MDReport Verified Date/Time: 08/31/2022 11:51:18 Sputum Culture + Gram [id number] 11:06:31 Test Item Value Reference Range Interpretation Comments Result (test code = 1+ Normal respiratory 6463-4) jessie present Gram Stain Result 2+ Mixed jessie (test code = 1123) [facility] Gram [id number] 11:06:31 Test Item Value Reference Range Interpretation Comments Result (test code = 1+ Normal respiratory 6463-4) jessie present Gram Stain Result 2+ Mixed jessie (test code = 1123) [facility] + GRAM [id number] 11:06:31 Test Item Value Reference Range Interpretation Comments CULTURE (BEAKER) 1+ Normal respiratory (test code = 1095) jessie present GRAM STAIN RESULT 2+ White blood cells (BEAKER) (test code = seen 1123) GRAM STAIN RESULT <1+ epithelial cells (BEAKER) (test code = 26692) GRAM STAIN RESULT 2+ Mixed jessie (BEAKER) (test code = 75798) COMPREHENSIVE METABOLIC [id number] 06:37:32 Test Item Value Reference Range Interpretation [...] not appl icable for dialysis patien ts Fuel Quality Tech ID - [id number] ID - [id number] ID - MBCG28Iriamwjn ID - VQPI13Abeutbwg ID - QXRK50Mmeqvxes ID - LMJP91Uwybvqbf ID - GSSF17Hrcuwipt ID - GPMH57Gekoebui ID - TWRO84Gippniks ID - GTJN40Eciurmqp ID - CBMO00Jryeflfs ID - RYUV69Bnoqkdqm ID - XTQE21Jpkcyhmz ID - WXMG63Wemupycs ID - AJQI88Eiyowuwn ID - [id number] 06:37:11 Test Item Value Reference Range Interpretation Comments MAGNESIUM (BEAKER) (test code = 2.1 mg/dL 1.5-3.0 627) Fuel Quality Tech ID - [id number] ID - [id number] ID - [id number] ID - [id number] (HEMOGRAM ONLY)2022-08-31 06:19:29 [...] (BEAKER) (test code = 413) CAROTID DOPPLER, [id number] 13:31:00Reason for exam:->rule out carotid stenosisCH[facility]: [facility] : 1940 Sex: FFINAL REPORT Carotid Doppler, [...] MDReport Verified Date/Time: 08/30/2022 13:31:22 Reading Location: [facility] Radiology Reading Room [facility] all signed by: VICTOR M BOWDEN M.D. on 08/30/2022 01:31 PMCT, CAROTID, ANGIO 2022-08-30 12:09:00Unlisted Reason for Exam - Click Yes and Enter Reason Below->NoKAISER FOUNDATION HOSPITALName: JENNY DOUGLAS : 1940 Sex: FFINAL REPORT CT, CAROTID, [...] Echo W/Doppler(CW/PW/Color) 2022-08-30 11:52:56Ejection FractionSLEH ECHO HEARTLAB [facility] W/Doppler(CW/PW/Color)2022-08-30 11:52:56Ejection FractionSLEH ECHO HEARTLAB [facility] 2022-08-30 06:19:56 Test Item Value Reference Range Interpretation Comments PARTIAL THROMBOPLASTIN 57.1 seconds 23.0-35.0 H Final Information TIME (BEAKER) (test (Auto Ou tput) code = 760) COMPREHENSIVE METABOLIC [id number] 04:29:50 Test Item Value Reference Range Interpretation [...] not appl icable for dialysis patien ts Fuel Quality Tech ID - [id number] ID - [id number] ID - JGPAXPUMH396Vfgeroii ID - IVLAUFYRB958Htrmuaab ID - DSTNJOFGO810Gvidxyan ID - [id number] ID - [id number] ID - BQVIWLRLM187Kyeyceau ID - [id number] ID - OREXNCRWP290Tjrgxnvs ID - IYLJVLNYW725Hxabikyq ID - [id number] ID - HEMYCJOPH994Sbcqrtdf ID - YZFXNSUXP457Sryxzstc ID - SDLWZETQE819Bfhkckbj ID -[id number] 04:26:30 Test Item Value Reference Range Interpretation Comments MAGNESIUM (BEAKER) (test code = 1.7 mg/dL 1.5-3.0 627) Fuel Quality Tech ID - [id number] ID - [id number] ID - SXSNLLPVJ223Vruxdpdj ID - [id number] TIME/[id number] 04:19:25 Test Item Value Reference Range Interpretation Comments PROTIME (BEAKER) 11.4 seconds 9.3-12.0 Final Infor mation (test code = 759) (Auto Outp ut) INR (BEAKER) (test 1.04 See_Comment Final Inf ormation code = 370) (Auto Output) [Automated mess age] The system [employer] generated this result transmitted ref erence range: [...] (BEAKER) (test code = 413) Strep pneumoniae [id number] 14:38:55 Test Item Value Reference Range Interpretation Comments Strep pneumoniae Presumptive negative Presumptive Antigen (test code = [place] [address]-8) pneumonia - see pneumococcal comment pneumonia - [...] test. Lab Interpretation Normal (test code = 93706-4) [facility] pneumoniae [id number] 14:38:55 Test Item Value Reference Range Interpretation Comments Strep pneumoniae Presumptive negative Presumptive Antigen (test code = [place] [address]-0) pneumonia - see pneumococcal comment pneumonia - [...] test. Lab Interpretation Normal (test code = 62124-9) [facility] PNEUMONIAE [id number] 14:38:55 Test Item Value Reference Range Interpretation [...] detection limit of the test. Legionella antigen, [id number] 14:38:04 Test Item Value Reference Range Interpretation Comments Legionella Urine Negative - see Negative Negative for L. Antigen (test code = comment pneumop clif 94277-4) serogroup 1 antigen, sugges ting no recent or current infecti on with this serogroup. Legionellosis cannot be ruled out since other serogroups and species may cau se disease. Lab Interpretation Normal (test code = 22214-3) [facility], [id number] 14:38:04 Test Item Value Reference Range Interpretation Comments Legionella Urine Negative - see Negative Negative for L. Antigen (test code = comment pneumop clif 34686-9) serogroup 1 antigen, sugges ting no recent or current infecti on with this serogroup. Legionellosis cannot be ruled out since other serogroups and species may cau se disease. Lab Interpretation Normal (test code = 73678-4) [facility]IGEN, [id number] 14:38:04 Test Item Value Reference Range Interpretation Comments L. PNEUMOPHILA Negative - see Negative Negative fo r L. SEROGP 1 UR AG comment pneumophila (IVETT) (test code serogrou p 1 antigen, = 1156) suggesting no r ecent or current infe ction with this serog roup. Legionellosis c annot be ruled out si nce other serogroup s and species may cau se disease. [id number] 13:54:34 Test Item Value Reference Range Interpretation Comments PARTIAL THROMBOPLASTIN 57.4 seconds 23.0-35.0 H Final Information TIME ([facility]) (test (Auto Ou tput) code = 760) TROPONIN [id number] 10:47:04 Test Item Value Reference Range Interpretation Comments TROPONIN I ([facility]) (test code = 0.28 ng/mL 0.00-0.15 397) Troponin I (TnI) levels [...] failure, acidosis, acute neurological disease, and persistent tachyarrhythmia.Fuel Quality Tech ID - [id number] METABOLIC [id number] 10:41:39 Test Item Value Reference Range Interpretation [...] not appl icable for dialysis patien ts Fuel Quality Tech ID - [id number] ID - [id number] ID - [id number] ID - [id number] ID - [id number] ID - [id number] ID - [id number] ID - [id number] ID - [id number] ID - [id number] ID - [id number] ID - [id number] ID - [id number] ID - [id number] ID - [id number] ID - [id number] 10:36:33 Test Item Value Reference Range Interpretation Comments MAGNESIUM (BEAKER) (test code = 2.0 mg/dL 1.5-3.0 627) Fuel Quality Tech ID - [id number] ID - [id number] ID - [id number] ID - [id number], CHEST, 1 VIEW, NON [id number] 07:49:00Reason for exam:->hx of lung mass? f/u COPD exacerbation and possible pulm edema in setting of margareth vated NT-proBNPShould this be performed at the bedside?->Yes [facility] 1940 Sex: FFINAL REPORT RAD, CHEST, [...] Normal contours. Additional findings: None. Signed:Lina Coffey [facility] Verified Date/Time: 08/29/2022 07:49:38 TROPONIN [id number] 06:01:00 Test Item Value Reference Range Interpretation [...] failure, acidosis, acute neurological disease, and persistent tachyarrhythmia.Fuel Quality Tech ID - [id number] 05:46:12 Test Item Value Reference Range Interpretation [...] (test code = 413) TSH/FREE T4 IF [id number] 02:59:04 Test Item Value Reference Range Interpretation Comments THYROID STIMULATING HORMONE 0.280 uIU/mL 0.350-5.500 L (BEAKER) (test code = 772) Fuel Quality Tech ID - [id number] 02:39:36 Test Item Value Reference Range Interpretation Comments VITAMIN B12 (BEAKER) (test code = 467 pg/mL 211-911 774) Fuel Quality Tech ID - [id number], [id number] 02:33:15 Test Item Value Reference Range Interpretation Comments FREE T4 (BEAKER) (test code = 655) 1.05 ng/dL 0.90-1.80 Fuel Quality Tech ID - [id number] 00:10:40 Test Item Value Reference Range Interpretation [...] Borderline 130-159 High 160-189 Very High >=190 Fuel Quality Tech ID - [id number] ID - CGZX88Pwjolhit ID - ICJF55Lxkknvej ID - BBPM80Rfmnmgup ID - WKYZ32Nquajfcz ID - [id number] [id number] 00:02:16 Test Item Value Reference Range Interpretation Comments HEMOGLOBIN A1C (BEAKER) (test code = 5.8 % 4.3-6.1 368) Fuel Quality Tech ID - [id number] METABOLIC [id number] 21:52:00 Test Item Value Reference Range Interpretation [...] not appl icable for dialysis patien ts Fuel Quality Tech ID - leviotaOperator ID - leviotaOperator ID - leviotaOperator ID - leviotaOperator ID - leviotaOperator ID - leviotaOperator ID - leviotaOperator ID - leviotaOperator ID - leviotaOperator ID - leviotaOperator ID - leviotaOperator ID - leviotaOperator ID - leviotaOperator ID - leviotaOperatorID - leviotaOperator ID - [id number] 21:50:58 Test Item Value Reference Range Interpretation Comments MAGNESIUM (BEAKER) (test code = 2.0 mg/dL 1.5-3.0 627) Fuel Quality Tech ID - leviotaOperator ID - leviotaOperator ID - leviotaOperator ID - [id number] 21:48:05 Test Item Value Reference Range Interpretation Comments PARTIAL THROMBOPLASTIN 27.9 seconds 23.0-35.0 Final Information TIME (BEAKER) (test (Auto Ou tput) code = 760) [id number] 21:47:18 Test Item Value Reference Range Interpretation Comments PARTIAL THROMBOPLASTIN 27.9 seconds 23.0-35.0 Final Information TIME (BEAKER) (test (Auto Ou tput) code = 760) CBC W/PLT COUNT & AUTO [id number] 21:38:55 Test Item Value Reference Range Interpretation [...] 0.00-0.00 H PERCENT (BEAKER) (test code = 2801) Notes Date/Time Note Provider Source 2023-02-06 18:04:04-00:00 MICHAEL MAY [facility] OPERATIVE/PROCEDURE REPORT JENNY DOUGLAS FACILITY: [facility] Billing #: [id number] Room: [address] [place] [address] MR #: [id number] : 1940 DATE OF PROCEDURE: 02/06/2023 SURGEON: Michael May MD PREOPERATIVE DIAGNOSIS: Acute appendicitis. POSTOPERATIVE DIAGNOSIS: Acute appendicitis. PROCEDURE PERFORMED: Laparoscopic appendectomy. ANESTHESIA: General endotracheal anesthesia with postoperative local anesthesia. ROUGHER FOR CEMENT: Annalisa Fair PA-C ESTIMATED BLOOD LOSS: Less than 50 mL. INTRAVENOUS FLUIDS: Crystalloid only. URINE OUTPUT: Not recorded. BRIEF INDICATIONS: Mr. Douglas is an 82-year-o ld woman, who presented with right lower quadrant abdominal pa in and CT scan evidence of appendicitis. She therefore was shadia mmended to undergo laparoscopic appendectomy during her pre operative visit the planned procedure with its risks, benefits, and alternatives including pain, bleeding, infection , damage to adjacent structures, need for another procedure, persistence or recurrence condition was discussed at length wit h the patient and her family. They verbalized understanding an d agreed to proceed. The correct procedure was confirmed wit h the patient and family in the preoperative holding area prio r to proceeding into the operating room. PROCEDURE IN DETAIL: The patient was brought int o the operating room, placed on the operating table in supine position. Following successful induction of gene ral anesthesia, the patient was positioned and prepp ed and draped in the usual sterile fashion. A semicircular inf raumbilical skin incision was made and dissected down midlin e abdominal fascia, which was grasped between two Brittany cla mps, elevated, and divided. A 0-Vicryl stay sutures placed acro ss the fascial defect and Yenny laparoscopic port was inserted . The abdomen was insufflated. Next, under direct visualizatio n 5 mm ports were placed in the suprapubic and right upper qu adrant positions. The right lower quadrant was examined . There was a significant amount of acute inflammatory adhesio ns from an obvious acute appendicitis. The appendix was margareth vated and a window made in the mesoappendix at the appendice al base. A ALEKSANDRA stapler was used to divide the appendix at its b ase. A vascular reload was then used to divide the meso appendix. The appendix itself was then placed in an Endopouch, withdrawn via the infraumbilical port site and passed off fiel d to be sent to Pathology for further evaluation. Surgical site was examined and noted to be appropriately hemostatic; liliana martinez, the patient was anticoagulated preoperatively, and so Alphonso was placed at the surgical site to help maintain hemostasis. T he insufflation of gas then allowed to escape from the abdomen. Laparoscopic ports were withdrawn. The infraumbi lical fascial defect was closed with Vicryl suture and skin in cisions were closed with Monocryl suture. Steri-Strips were a pplied and Marcaine was given for local anesthesia. Surgica l dressings were placed and drapes were taken down. The romaine ent aroused from general anesthesia and transferred to [facility], at which point she was taken to the [facility] in good condition. At the end of the procedure, all spon ge, needle, and instrument counts were reported as correct. MTW/MODL /[id number] Electronically signed by: MICHAEL MAY at 02-06 14:26:37.000 2023-02-05 23:44:44-00:00 MICHAEL MAY [facility] CONSULTATION CHINMAYJENNY FACILITY: [facility] Billing #: [id number] Room: [address] [place] [address] MR #: [id number] : 1940 DATE OF ADMISSION: 02/05/2023 DATE OF CONSULTATION: 02/05/2023 REQUESTING PHYSICIAN: BONE PULLER: Michael May MD [facility] Surgical Consultation REASON FOR CONSULTATION: Appendicitis. BRIEF HISTORY: I was called and asked to evaluat e this patient from a surgical standpoint. The patient was exam ined and her chart was reviewed including her admission histo ry and physical with Dr. Velazquez earlier today. History was obtained from the patient and her daughter at the bedside. Ms. Alok castro is an 82-year-old woman with multiple medical comorbid ities. She has had a recent history of the development of right lower quadrant abdominal pain associated with a loose bowel mov ement. She was brought to the emergency room at [facility] where she was noted to have a slight leukocytosi s with a white blood cell count of 11.3. CT scan of the abdomen and pelvis was performed which showed findings consistent w ith acute uncomplicated appendicitis. She has since been a dmitted to the hospital in anticipation of surgical interventio n. PAST MEDICAL HISTORY: 1. As above. 2. Coronary artery disease. 3. Hypertension. 4. Atrial fibrillation. 5. COPD. 6. Prior cerebrovascular accident. 7. Abdominal aortic aneurysm. PAST SURGICAL HISTORY: 1. Coronary artery bypass surgeries. 2. Cholecystectomy. 3. Tubal ligation. 4. Lower extremity angiogram. ALLERGIES: THE PATIENT IS ALLERGIC TO CELEBREX A ND ZOCOR. CURRENT MEDICATIONS: Please see electronic medic al record for complete list for medications. Of note, she does take Eliquis and aspirin at home. SOCIAL HISTORY: There is no current history of t obacco, alcohol, or illicit drug use. FAMILY HISTORY: Noncontributory. REVIEW OF SYSTEMS: The patient has had transient ischemic attacks a nd cerebrovascular accident in the past. She also h as a history of atrial fibrillation and coronary artery disea se. Recently, she was noted to have an abdominal aortic aneury sm. She denies any issues related to her thyroid liver or kidne ys. She will occasionally develop lower extremity edema. PHYSICAL EXAMINATION: GENERAL: The patient is lying comfortably in her hospital bed, in no acute distress. VITAL SIGNS: Temperature is 98.1, heart rate 61, respiratory rate 18, blood pressure 107/54. HEENT: She is normocephalic and atraumatic. Her extraocular movements are intact. No scleral icterus or hansen tid bruits are noted. LUNGS: Her lungs are minimally coarse, but with good air movement bilaterally. HEART: Regular with no appreciable murmurs ABDOMEN: Soft and minimally distended. She does have tenderness to palpation primarily in the right l ower quadrant. EXTREMITIES: Lower extremities currently show no signs of edema. LABS AND X-RAYS: WBCs 11.3, hemoglobin 13.4, hem atocrit 42.8, platelets 168, neutrophils 86, lymphocytes 9. PT 11.9, INR 1.09. Sodium 144, potassium 4.3, chloride 106, C O2 is 27, BUN 18, creatinine 0.99, glucose 98, total protein 7 .5, albumin 3.9, calcium 9.7, AST 28, ALT 19, alkaline phosp hatase 63, total bilirubin 1.1. Troponin I is less than 0.0 3. BNP is 312. Urinalysis is yellow and clear, specific gr avity of 1.010, pH of 7.5, leukocytes trace, nitrite nega tive, urinary RBCs less than 5, urinary WBCs less than 5. CT s can of the brain shows no acute intracranial findings, but she does have moderate to severe chronic small-vessel ischemic changes with chronic lacunar infarcts. CT scan of the abdomen and pelvis shows that she is status post cholecystectomy wi th mild biliary ductal dilatation. Multiple small splenic granul omas are seen. 6 cm partially calcified mass is noted in the r ight adrenal gland. A small hiatal hernia is seen. The append ix is noted to be distended with prominent adjacent inflamma tory change compatible with acute appendicitis. No free air or abscess is identified. Colonic diverticulosis is seen witho ut evidence of diverticulitis. Trace pelvic ascites is noted. A 4.1 cm abdominal aortic aneurysm is seen. Compression d eformity of L1 vertebral body age-indeterminate is also seen. ASSESSMENT AND PLAN: Ms. Douglas is an 82-year -old woman with multiple medical comorbidities, who now pre sents with acute appendicitis. Based on her comorbidities a nd age, she will be higher risk for surgery. However, based on her clinical presentation and her CT scan, surgery i s needed to treat her appendicitis. The patient, her daughte r and I discussed the potential surgery with its risks, benefits, and alternatives including pain, bleeding, infection , damage to adjacent structures, need for another procedure, persistence or recurrence condition. We discussed the increased risk of bleeding due to the patient's anticoagulation. W e also discussed the high risk nature of the surgery ba sed on her comorbidities. Unfortunately, the patient ate di nner and we will therefore continue with IV antibiotics and plan for the surgery when she is appropriately n.p.o. in the morning. Thank you very much for asking us to participate in the care of your patient. TOMW/GILA /[id number] Electronically signed by: MICHAEL MAY at 02-05 22:53:16.000 2022-09-01 20:19:57-00:00 TONIA YEPEZ [facility] PROGRESS NOTE JENNY DOUGLAS FACILITY: [facility] Billing #: [id number] Room: [address] [place] [address] MR #: [id number] : 1940 PHYSICIAN: Tonia Yepez MD ADMISSION DATE: 08/28/2022 DATE: 09/01/2022 SUBJECTIVE: Ms. Douglas is lying comfortably i n the bed, in no acute distress. Repeat CT scan of the head di d not show any evidence of subarachnoid hemorrhage. The plan is to restart the Eliquis because of her high Rj score durin g and risk of cardioembolic strokes. PHYSICAL EXAMINATION: VITAL SIGNS: Blood pressure 143/67, heart rate i s 79, respiratory rate 18, and temperature 98.2. NEUROLOGICAL: Carotid auscultation did not revea l any bruit. Mental examination: She is alert, awake, oriente d, following both simple and complex commands, speech is flue nt, comprehension is intact. Motor examination: She is moving all the four extremities against gravity with no obv ious focal motor deficit noticed. Reflexes were symmetric, plantars are downgoing. Sensory examination: She appreciates touch in all extremities. Coordination: Fjlabx-eb-zjmy and he el-to-amador test is intact. Gait testing is deferred at this time. LABORATORY DATA: Labs and imaging data has been reviewed. ASSESSMENT: 1. Acute right punctate occipital lobe infarct. The patient does have multiple vascular risk factor along wi th atrial fibrillation with rapid ventricular response. 2. Subacute traumatic right temporal subarachnoi d hemorrhage. This did not span out in the recent CAT scan. 3. Severe toxicity of the carotid circulation wi th no significant stenosis. RECOMMENDATIONS: 1. Agree with dual treatment with aspirin 81 mg and along with the low dose of Eliquis. 2. Fall precaution. 3. Any carotid stenting should be wait for at le ast three weeks. 4. The patient can be discharged from the neurol ogical standpoint of view. MFK/MODL /[id number] 2022-09-01 10:59:23-00:00 TONIA YEPEZ [facility] CONSULTATION DOUGLASJENNY FACILITY: [facility] Billing #: [id number] Room: [address] [place] [address] MR #: [id number] : 1940 DATE OF ADMISSION: 08/28/2022 DATE OF CONSULTATION: 08/31/2022 REQUESTING PHYSICIAN: BONE PULLER: Tonia Yepez MD HISTORY OF PRESENT ILLNESS: The patient is a 81- year-old female with past medical history significant for coronary artery disease, atrial fibrillation with defibri llation with , history of CABG, hypertension, ___. Due to her persistent an MRI of the brain was performed that showed ischemia in the right occipital lobe. The re is also susceptibility an underlying subarachn oid hemorrhage. The patient did have three weeks back . No evidence of any cerebral aneurysm . There is a s evere chronic microvascular ischemic change noted. Neurologica l consultation has been obtained for further input of these fin dings. Antiplatelets and anticoagulation were put on ho ld. She has . PAST MEDICAL HISTORY: As mentioned above. SOCIAL HISTORY: No documentation of active smoki ng, alcohol, or drug abuse. REVIEW OF SYSTEMS: Fourteen-point review of systems have been essen tially unremarkable PHYSICAL EXAMINATION: VITAL SIGNS: Blood pressure respirator y rate 18, and temperature 97. NEUROLOGICAL: Carotid auscultation did not revea l any bruit. Mental examination; she is alert, awake, and wes ented. Following both simple and complex commands. Spee ch is fluent. Comprehension . Cranial nerve examinati on; pupils were equal, round, and reactive. Extraocular mov ement seems intact, face looks symmetric. Tongue seems to be in the midline. Motor examination; the patient is able to move all four extremities against gravity with no focal d eficit noticed. Reflexes were symmetric and plantars are downgo ing. Sensory examination; appreciate touch in all extremities . . Gait testing is deferred at this time. LABORATORY AND IMAGING DATA: Have been reviewed. ASSESSMENT: 1. in the right occipital lobe. The pa tient does have evidence of chronic microvascular ischemic changes and this looks like to be microvascular like ischemi a, although the underlying cardioembolic phenomenon cannot be en tirely ruled out. . 2. Subacute to acute traumatic right temporal galvan barachnoid hemorrhage. 3. Severe toxicity with no evidence of any significant stenosis . RECOMMENDATIONS: 1. Initiation of . 2. and the patient is high risk and at the same time she has high Rj score. . 3. CT scan of the head in a.m. 4. Fall precautions . 5. We will follow up. ZAHRA/GILA /[id number] 2022-08-30 18:45:23-00:00 TIFFANIE GALVEZ [facility] OPERATIVE/PROCEDURE REPORT JENNY DOUGLAS FACILITY: [facility] Billing #: [id number] Room: [address] [place] [address] MR #: [id number] : 1940 DATE OF PROCEDURE: 08/30/2022 SURGEON: Tiffanie Galvez MD PREOPERATIVE DIAGNOSIS: Possible carotid stenosi s. POSTOPERATIVE DIAGNOSIS: Possible carotid stenos is. PROCEDURE: Bilateral carotid arteriogram. ANESTHESIA: Conscious sedation. ESTIMATED BLOOD LOSS: Minimal. COMPLICATIONS: None. INDICATIONS FOR PROCEDURE: Ms. Jenny mancini is a 81-year-old female with history of multiple medi he problems including end-stage renal disease. She has a his tory of multiple TIAs. It is unclear whether this is a t rue stenosis or not as she has reports of a carotid angiogram that were normal. Our plan is to proceed with carotid sebas riogram to sort this out. We do not have a result of her or iginal carotid arteriogram. She was told it was also normal and there was some tortuosity. The CTA that was done here show s significant stenosis in the proximal ICA 70% and the Doppler shows high-grade stenosis in the right internal caroti d artery. This does not match up with the report of the carotid arteriograms. We do not have that report or the films availabl e we are going to repeat it. She was explained all the risks an d benefits of the procedure. She asked us to proceed. PROCEDURE IN DETAIL: The patient was taken to [facility] propagator laborer, placed in supine position. After induction of co nscious sedation anesthesia, the patient was prepped and draped in appropriate surgical fashion. Ultrasound used to visualize the right common femoral artery. 1% lidocaine was us ed to infiltrate subcutaneous tissues. Mini-Stick need le and Mini-Stick sheath were placed, these were upsize d over a Bentson wire to a 6-Faroese sheath. A Contra cath eter was reformed in the infrarenal aorta. A contrast inj ection was performed of the ascending aorta. This showed a type 2 arch with normal origin of the left common carotid an d normal innominate artery, normal right subclavian, left subclavian and proximal common carotid artery on both sides. We did a guidewire exchange to a soft angled Glidewire an d a [place] catheter and we selected out the right common ca rotid artery first and we did a carotid injection . The carotid bulb was normal. The origin of the internal hansen tid artery was normal. There was approximately 2-3 cm up past t he origin. There was a 15%-20% stenosis of the right ICA. T here was some significant tortuosity seen, however, we just pa ssed that point. Approximately 5-6 cm up from the origin a nd this may be the cause of the stenosis that was seen on the C TA, but the remainder of the internal carotid artery was wit hin normal limits. External carotid artery was within ashwini l limits. demonstrated normal A1, A2, M1, and M2 segments. Normal venous phase. We then the right common carotid artery. We went ahead and had selected o ut the left common carotid artery. Here we saw that there wa s a normal left common carotid artery. The stenosis in the left proximal ICA was approximately 20%-30% and there was not much tortuosity here. There was normal M1, M2 segment, but the A 1 and A2 segment were missing and occluded. There was an occluded anterior cerebral on the left side. Normal venou s patency. All catheters and guidewire sheath were then wit hdrawn. A ProGlide device was used to close the arteriotom y. The patient tolerated the procedure well, [facility].There was no evidence of significant proximal ICA stenosis. For the time being I will put this patient back on aspirin and Plavix. The re is a possibility that removing the kink would help, w hich may be the cause of the TIA. However, it is not a proximal kink. It was not to an area that we can reach without disarti culating the mandible, so we will have to show these films to the ENT doctor, but I do not believe that this is the ca use of her symptoms because the kinking that typically caus es TIA's is more in the proximal ICA. So for the time being she will be placed on aspirin and Plavix. All catheters and guidewire sheath were withdrawn. A ProGlide device used to close the arteriotomy. The patient tolerated the procedure well, was taken to recovery room in stable condition. ITM/MODL /[id number] 2022-08-29 16:30:09-00:00 TIFFANIE GALVEZ [facility] CONSULTATION JENNY DOUGLAS FACILITY: [facility] Billing #: [id number] Room: [address] [place] [address] MR #: [id number] : 1940 DATE OF ADMISSION: 08/28/2022 DATE OF CONSULTATION: 08/29/2022 REQUESTING PHYSICIAN: BONE PULLER: Tiffanie Galvez MD REASON FOR CONSULTATION: Possible carotid stenos is. HISTORY OF PRESENT ILLNESS: Ms. Jenny bennett is a 81-year-old female who came from an outside hosp ital with evidence of a TIA. She had a MRI of the neck don e there that demonstrates that she had 90% right internal car otid artery stenosis. She has had multiple episodes of these TIA and has been back and forth to that hospital. She has ac tually had a previous workup done also including a carotid an giogram, which we do not have access to. REVIEW OF SYSTEMS: Currently, she is asymptomatic. She describes th at she had episode of slurring of speech when she had TIAs, that lasted for few minutes and went away. MEDICATIONS: Please see attached medication [address]. PAST MEDICAL HISTORY: Significant for coronary a rtery disease, history of atrial fibrillation with rapid ventri cular response. PAST SURGICAL HISTORY: She has had a previous CA BG 10 years ago. MEDICATIONS: Please see attached medication [address]. ALLERGIES: NO KNOWN DRUG ALLERGIES. PHYSICAL EXAMINATION: VITAL SIGNS: The patient is afebrile. Stable. HEAD AND NECK: Pupils are equal, round, and reac tive to light and accommodation. Extraocular movements intact. CARDIOVASCULAR: Regular rate and rhythm. PULMONARY: Clear to auscultation. ABDOMEN: Soft, nontender. EXTREMITIES: No clubbing, cyanosis, or edema. IMPRESSION: Right-sided carotid stenosis, possib le right symptomatic carotid stenosis. We need to verify this. I ordered a CTA as well as a carotid Doppler. We a re going to see if we can track down the carotid angiogram t hat she has had done in the past, although I have tried [facility] in [facility] and cannot find it. If not, then this will probably need to be repeated. She has already been seeing Cardiology and has already been given cardiac clearance based on he r echo. She normally takes Eliquis, which is on hold and she is currently on heparin drip which we wi ll maintain until we figure out what the plan is. JACE/GILA /[id number]
--- NOTE | 2023-02-21 02:57 | EDPHYS ---
Physician Documentation [facility] Name: Jenny Douglas Age: 82 yrs Sex: Female : 1940 Arrival Date: 02/21/2023 Time: 00:29 Bed 3 Private MD: ED Physician Renato Alvarez HPI: 02/21 02:56 This 82 yrs old Female presents to ER via Ambulatory with complaints of Fall Injury. kdr 02:57 Patient recently had a fall with an 85% compression fracture of her lumbar spine. This kdr was according to the report given initially by family. Patient today was ambulating to the bathroom when she lost her balance and fell to the floor. Given the recent injury and the fact that she also has a known existing aortic aneurysm, the family wanted to get the patient checked out. On initial presentation the patient had no complaint of any pain. She did not hit her head she did not have any LOC and was otherwise apparently uninjured. Patient is nontoxic nonacute and not requiring emergent intervention on admission. Onset: The symptoms/episode began/occurred suddenly, just prior to arrival. Severity of symptoms: At their worst the symptoms were mild in the emergency department the symptoms are unchanged. The patient has not experienced similar symptoms in the past. The patient has been recently seen by a physician: the patient's primary care provider. Historical: - Allergies: 01:03 Celebrex; kd3 01:03 Zocor; kd3 - Home Meds: 01:47 Eliquis 5 mg Oral tab 1 tab 2 times per day [Active]; Plavix 75 mg Oral tablet [Active];rv - PMHx: 01:03 CAD; COPD; Hyperlipidemia; Myocardial infarction; stroke; TIA; Hypertension; kd3 - PSHx: 01:03 CABG; kd3 - Immunization history:: Adult Immunizations up to date. - Social history:: Smoking status: Patient denies any tobacco usage or history of. ROS: 02:57 Constitutional: Negative for fever, chills, and weight loss, Eyes: Negative for injury, kdr pain, redness, and discharge, ENT: Negative for injury, pain, and discharge, Neck: Negative for injury, pain, and swelling, Cardiovascular: Negative for chest pain, palpitations, and edema, Respiratory: Negative for shortness of breath, cough, wheezing, and pleuritic chest pain, Abdomen/GI: Negative for abdominal pain, nausea, vomiting, diarrhea, and constipation, Back: Negative for injury and pain, : Negative for injury, bleeding, discharge, and swelling, MS/Extremity: Negative for injury and deformity, Skin: Negative for injury, rash, and discoloration, Neuro: Negative for headache, weakness, numbness, tingling, and seizure activity. Psych: Negative for depression, anxiety, suicide ideation, homicidal ideation, and hallucinations, Allergy/Immunology: Negative for hives, rash, and allergies, Endocrine: Negative for neck swelling, polydipsia, polyuria, polyphagia, and marked weight changes, Hematologic/Lymphatic: Negative for swollen nodes, abnormal bleeding, and unusual bruising. Exam: 02:57 Constitutional: This is a well developed, well nourished patient who is awake, alert, kdr and in no acute distress. Other than multiple minor abrasions to her right upper extremity, the patient has little obvious or or complaint of injury Head/Face: Normocephalic, atraumatic. Eyes: Pupils equal round and reactive to light, extra-ocular motions intact. Lids and lashes normal. Conjunctiva and sclera are non-icteric and not injected. Cornea within normal limits. Periorbital areas with no swelling, redness, or edema. Neck: Trachea midline, no thyromegaly or masses palpated, and no cervical lymphadenopathy. Supple, full range of motion without nuchal rigidity, or vertebral point tenderness. No Meningismus. Chest/axilla: Normal chest wall appearance and motion. Nontender with no deformity. No lesions are appreciated. Cardiovascular: Regular rate and rhythm with a normal S1 and S2. No gallops, murmurs, or rubs. Normal PMI, no JVD. No pulse deficits. Respiratory: Lungs have equal breath sounds bilaterally, clear to auscultation and percussion. No rales, rhonchi or wheezes noted. No increased work of breathing, no retractions or nasal flaring. Back: No spinal tenderness. No costovertebral tenderness. Full range of motion. Skin: Warm, dry with normal turgor. Normal color with no rashes, no lesions, and no evidence of cellulitis. MS/ Extremity: Pulses equal, no cyanosis. Neurovascular intact. Full, normal range of motion. Neuro: Awake and alert, GCS 15, oriented to person, place, time, and situation. Cranial nerves II-XII grossly intact. Motor strength 5/5 in all extremities. Sensory grossly intact. Cerebellar exam normal. Normal gait. Psych: Awake, alert, with orientation to person, place and time. Behavior, mood, and affect are within normal limits. 02:57 Abdomen/GI: Soft, non-tender, with normal bowel sounds. No distension or tympany. No guarding or rebound. No evidence of tenderness throughout. Vital Signs: 00:59 BP 149 / 68; Pulse 60; Resp 19; Temp 97.7(O); Pulse Ox 96% on 1 lpm NC; Weight 54.43 kd3 kg; Height 5 ft. 7 in. ; 01:48 BP 162 / 64; Pulse 58; Resp 18; Pulse Ox 100% on 2 lpm NC; rv 02:40 BP 158 / 69; Pulse 57; Resp 18 S; Pulse Ox 100% on 2 lpm NC; as6 00:59 Body Mass Index 18.79 (54.43 kg, 170.18 cm) kd3 MDM: 01:31 Patient medically screened. snw 02:57 Data reviewed: vital signs, nurses notes, lab test result(s), radiologic studies. kdr 02/21 01:42 Order name: CT Head C Spine kdr 02/21 01:52 Order name: CT Lumbar Spine Wo Con kdr 02/21 01:52 Order name: CT Thoracic Spine Wo Cont kdr Administered Medications: No medications were administered Disposition Summary: 02/21/23 02:56 Discharge Ordered Location: Home kdr Problem: new kdr Symptoms: have improved kdr Condition: Stable kdr Diagnosis - Fall from standing kdr Followup: kdr - With: Private Physician - When: 2 - 3 days - Reason: If symptoms return, Further diagnostic work-up, Recheck today's complaints, Continuance of care, Re-evaluation by your physician Discharge Instructions: - Discharge Summary Sheet kdr - Fall Prevention in the Home, Adult, [id number] kdr Forms: - Medication Reconciliation Form kdr - Thank You Letter kdr Signatures: Dispatcher [employer] EDMS Renato Alvarez MD MD kdr Fernanda Nice, HOSPITAL DIRECTOR-C HOSPITAL DIRECTOR-Csnw Tyler Millan RN RN rv Saba Alves RN RN kd3
--- NOTE | 2023-02-21 02:57 | ER ---
Nurse's Notes [facility] Name: Jenny Douglas Age: 82 yrs Sex: Female : 1940 Arrival Date: 02/21/2023 Time: 00:29 Bed 3 Private MD: Diagnosis: Fall from standing Presentation: 02/21 00:59 Chief complaint: Patient states: I fell in the bathroom around midnight tonight. I hit kd3 my head and my shoulders and my right elbow. I am on eliquis and plavix. I did not loose consciousness. Coronavirus screen: Vaccine status: Patient reports receiving the 2nd dose of the covid vaccine. Ebola Screen: No symptoms or risks identified at this time. Initial Sepsis Screen: Does the patient meet any 2 criteria? No. Patient's initial sepsis screen is negative. Does the patient have a suspected source of infection? No. Patient's initial sepsis screen is negative. Risk Assessment: Do you want to hurt yourself or someone else? Patient reports no desire to harm self or others. Onset of symptoms was February 21, 2023. 00:59 Method Of Arrival: Ambulatory kd3 00:59 Acuity: ADRIANNA 3 kd3 Triage Assessment: 01:03 General: Appears in no apparent distress. Behavior is calm, cooperative. Pain: kd3 Complains of pain in right elbow and left arm. Historical: - Allergies: 01:03 Celebrex; kd3 01:03 Zocor; kd3 - Home Meds: 01:47 Eliquis 5 mg Oral tab 1 tab 2 times per day [Active]; Plavix 75 mg Oral tablet [Active];rv - PMHx: 01:03 CAD; COPD; Hyperlipidemia; Myocardial infarction; stroke; TIA; Hypertension; kd3 - PSHx: 01:03 CABG; kd3 - Immunization history:: Adult Immunizations up to date. - Social history:: Smoking status: Patient denies any tobacco usage or history of. Screenin:46 [facility] ED Fall Risk Assessment (Adult) History of falling in the last 3 months, rv including since admission Yes- single mechanical fall (1 pt) Confusion or Disorientation No (0 pts) Intoxicated or Sedated No (0 pts) Impaired Gait Yes (1 pt) Mobility Assist Device Used Yes (1 pt) Altered Elimination No (0 pt) Score/Fall Risk Level 3 or more points = High Risk Oriented to surroundings, Maintained a safe environment, Educated pt \T\ family on fall prevention, incl call for assistance when getting out of bed, Assessed \T\ reinforced patient's understanding of fall precautions, Provided non-skid footwear, Hourly rounding (assess needs \T\ fall precautionary measures) done, Used ambulatory aids as needed (educated on \T\ assisted with), Used gait belt as appropriate Implemented a Fall Risk Plan of Care, Apply high fall risk patient identification: yellow non skid footwear/ fall signage, Placed fall mat w/ non beveled edge next to bed, Activated bed/chair alarm, Remained w/in arm's length of patient and in sight while toileting, Offered frequent toileting (1:1 observation), Remained with patient while ambulating, Utilized family, sitter, or virtual account executive [employer] as indicated. Abuse screen: Denies threats or abuse. Denies injuries from another. Nutritional screening: No deficits noted. Tuberculosis screening: No symptoms or risk factors identified. Assessment: 01:45 General: Appears in no apparent distress. comfortable, Behavior is calm, cooperative. rv Pain: Denies pain. Neuro: Level of Consciousness is awake, alert, obeys commands, Oriented to person, place, time, situation, Moves all extremities. Cardiovascular: Capillary refill < 3 seconds. Respiratory: Airway is patent Respiratory effort is even, unlabored, Breath sounds are clear bilaterally. GI: No signs and/or symptoms were reported involving the gastrointestinal system. : No signs and/or symptoms were reported regarding the genitourinary system. 02:40 Reassessment: Patient appears in no apparent distress at this time. Patient and/or as6 family updated on plan of care and expected duration. Pain level reassessed. Patient is alert, oriented x 3, equal unlabored respirations, skin warm/dry/pink. Vital Signs: 00:59 BP 149 / 68; Pulse 60; Resp 19; Temp 97.7(O); Pulse Ox 96% on 1 lpm NC; Weight 54.43 kd3 kg; Height 5 ft. 7 in. ; 01:48 BP 162 / 64; Pulse 58; Resp 18; Pulse Ox 100% on 2 lpm NC; rv 02:40 BP 158 / 69; Pulse 57; Resp 18 S; Pulse Ox 100% on 2 lpm NC; as6 00:59 Body Mass Index 18.79 (54.43 kg, 170.18 cm) kd3 ED Course: 00:33 Patient arrived in ED. ja2 00:37 Renato Alvarez MD is Attending Physician. kdr 00:55 Flash Antonio, RN is Primary Nurse. as6 01:03 Triage completed. kd3 01:03 Arm band placed on. kd3 01:47 Patient has correct armband on for positive identification. Placed in gown. Bed in low rv position. Call light in reach. Side rails up X 1. Adult w/ patient. Client placed on continuous cardiac and pulse oximetry monitoring. NIBP monitoring applied. 01:48 No provider procedures requiring assistance completed. rv 02:18 CT Head C Spine In Process Unspecified. EDMS 02:18 CT Lumbar Spine Wo Con In Process Unspecified. EDMS 02:31 CT Thoracic Spine Wo Cont In Process Unspecified. EDMS 02:59 Patient did not have IV access during this emergency room visit. as6 Administered Medications: No medications were administered Medication: 01:47 VIS not applicable for this client. rv Outcome: 02:56 Discharge ordered by . kdr 02:59 Condition: stable as6 03:05 Discharged to home via wheelchair, with family. as6 03:05 Discharge instructions given to patient, family, Instructed on discharge instructions, follow up and referral plans. Demonstrated understanding of instructions, follow-up care. 03:06 Patient left the ED. as6 Signatures: Dispatcher [employer] EDSD Renato Alvarez MD MD kdr Tyler Millan, RN RN rv Cece White ja2 Flash Antonio, RN RN as6 Saba Alves, RN RN kd3
[2023-02-21 03:18] VITALS: TEMP 97.7
[2023-02-21 03:19] VITALS: O2SAT 100
[2023-02-21 03:20] VITALS: BP 158/69
--- NOTE | 2023-02-21 16:14 | RAD REPORT ---
EXAM DESCRIPTION: CT - Spine Lumbar Wo Con - 02/21/2023 6:42 am CLINICAL HISTORY: The patient is 82 years old and is Female; PAIN TECHNIQUE: Axial computed tomography images of the lumbar spine without intravenous contrast. Sagi ttal and coronal reformatted images were created and reviewed. This CT exam was performed using one or more of the following dose reduction techniques: automated exposure control, adjustment of the mA and/or kV according to patient size, and/or use of iterative reconstruction technique. COMPARISON: CT December 08, 2022 FINDINGS: VERTEBRAE: Vertebral plana of L1 is present. The vertebral body heights are otherwise ma intained. There is no acute fracture. DISCS/SPINAL CANAL/NEURAL FORAMINA: Intervertebral disc space narrowing with vacuum disc phenomen on from L3 through S1 is present. Mild neural foraminal narrowing secondary to disc bulges from L3 th rough S1 is noted. SOFT TISSUES: The soft tissues are normal. VASCULATURE: Aneurysmal dilatation of the infrarenal abdominal aorta measuring 4.4 cm is present. Extensive atherosclerosis of the vasculature is present. ADRENALS: A 6.1 cm right adrenal gland mass with calcifications is noted measuring 36 Hounsfield units. This is unchanged from multiple prior exams. IMPRESSION: 1. Spondylosis of the lumbar spine without acute findings or detrimental change from p rior exam. 2. Abdominal aortic aneurysm. Recommend follow-up every 12 months and vascular consultation. Electronically signed by: Angie Heller MD 02/21/2023 2:39 AM CDT Due to temporary technical issues with the PACS/Fluency reporting system, reports are being signed by the in house radiologist without review as a courtesy to ensure prompt reporting. The interpreting r adiologist is fully responsible for the content of the report.
--- NOTE | 2023-02-21 16:15 | RAD REPORT ---
EXAM DESCRIPTION: CT - Head C Spine Mpr Wo Con - 02/21/2023 6:42 am CLINICAL HISTORY: Fall with closed head injury TECHNIQUE: Axial computed tomography images of the head/brain and cervical spine without intravenous contrast. Sagittal and coronal reformatted images were created and reviewed. This CT exam was pe rformed using one or more of the following dose reduction techniques: automated exposure control, a djustment of the mA and/or kV according to patient size, and/or use of iterative reconstruction techn ique. COMPARISON: Head CT dated 10/24/2022 FINDINGS: Brain: Mild cerebral atrophy and moderate bilateral periventricular and subcortical whit e matter low-attenuation most compatible with chronic microvascular angiopathy without significant in terval change. No hemorrhage. Ventricles: Borderline ventricular prominence compared with degree of parenchymal volume loss, more pronounced on the current study. Skull: No acute fracture. Sinuses: Mild to moderate right maxillary sinus mucosal thickening with wall thickening compatible with chronic sinusitis.. Mastoid air cells: Unremarkable as visualized. No mastoid effusion. Vertebrae: Grade 1 anterolisthesis of C4 on C5 and C6 on C7. No acute fracture or subluxation. Discs/spinal canal/neural foramina: Multilevel degenerative changes with most pronounced, moderate disc degeneration and concentric disc osteophytes at C5-C6 and moderate to severe multilevel facet ar thropathy. No critical canal stenosis. Soft tissues: Unremarkable. Vasculature: There is atherosclerotic disease of the internal carotid and vertebral arteries bilate rally. Right common and internal carotid arterial stent. IMPRESSION: 1. No acute intracranial or extra-axial hemorrhage. 2. Borderline ventricular prominence compared with degree of parenchymal volume loss, more pronounc ed on the current study. Prominent central ventricles may be secondary to central cortical atrophy versus normal pressure hydrocephalus. 3. No acute cervical spine injury. 4. Other findings as above. Electronically signed by: Som Cristina MD 02/21/2023 2:43 AM CDT Due to temporary technical issues with the PACS/Fluency reporting system, reports are being signed by the in house radiologist without review as a courtesy to ensure prompt reporting. The interpreting r adiologist is fully responsible for the content of the report.
--- NOTE | 2023-02-21 16:16 | RAD REPORT ---
EXAM DESCRIPTION: CT - Thoracic Spine W/o Cont - 02/21/2023 6:42 am CLINICAL HISTORY: The patient is 82 years old and is Female; PAIN TECHNIQUE: Axial computed tomography images of the thoracic spine without intravenous contrast. Sa gittal and coronal reformatted images were created and reviewed. This CT exam was performed using o ne or more of the following dose reduction techniques: automated exposure control, adjustment of th e mA and/or kV according to patient size, and/or use of iterative reconstruction technique. COMPARISON: No relevant prior studies available. FINDINGS: VERTEBRAE: Scoliotic curvature of the spine is present. The vertebral body heights and a lignment are maintained. There is no acute fracture. DISCS/SPINAL CANAL/NEURAL FORAMINA: The intervertebral disc spaces are maintained. No spinal taj l stenosis. SOFT TISSUES: The soft tissues are normal. LUNGS: Extensive emphysematous changes of the visualized lungs is noted. IMPRESSION: No acute findings in the thoracic spine. Electronically signed by: Angie Heller MD 02/21/2023 2:41 AM CDT Due to temporary technical issues with the PACS/Fluency reporting system, reports are being signed by the in house radiologist without review as a courtesy to ensure prompt reporting. The interpreting r adiologist is fully responsible for the content of the report.
== END 2023-02-21 03:06 | disposition home or self-care (01) ==
LOC: ER 00:29
DX: S09.90XA Unspecified injury of head, initial encounter (principal); M54.9 Dorsalgia, unspecified; W18.30XA Fall on same level, unspecified, initial encounter; I10 Essential (primary) hypertension; Z95.1 Presence of aortocoronary bypass graft; Z79.01 Long term (current) use of anticoagulants; Z88.8 Allergy status to other drugs, medicaments and biological substances
CPT/HCPCS: 70450; 72125; 72128; 72131; 99283